=== PATIENT | male | born 1955 | race Caucasian/White ===

== ENCOUNTER 2017-04-15 12:57 | Emergency (ER) | payer MEDICARE, MEDICAID, SELFPAY ==
[2017-04-15 12:58] VITALS: BP 159/95; PULSE 62; RESP 18; TEMP 37.3; O2SAT 99; BMI 34.4
--- NOTE | 2017-04-15 13:18 | XR_ITS ---
XR chest portable HISTORY: Chest pain ITS.REASON: cp ORDERING PHYSICIAN: Cindi Adams MD PATIENT AGE: 61 years COMPARISON: 06/21/2016 FINDINGS: Normal heart size. There is increased density in the region of the aortic arch similar to the previous exam. Lungs are clear bilaterally. Nondisplaced right fourth rib fractures noted unchanged. IMPRESSION: No change with no acute finding
--- NOTE | 2017-04-15 13:18 | [facility].EDCP ---
ED Disposition Clinical Impression: Chest pain, CAD (coronary artery disease), Diabetes, Hyperlipidemia, Obesity, Unstable angina Disposition: Xfer Short-Term Hosp Condition on Discharge: Fair Referrals: Johnie Guzman MD [Primary Care Provider] - - Critical Care Critical Care Time: No Attestation: On 04/15/17, the high probability of a clinically significant, sudden or life threatening deterioration of the following system(s) required my full and direct attention, intervention and personal management. The time I documented below is in addition to time spent performing reported procedures but includes the following listed in this critical care notation. Medical Decision Making - Medical Records Medical records reviewed: Yes: I reviewed the patient's medical records. Vital Signs: 04/15/17 12:58 Temperature 99.1 F Temperature Source Oral Pulse Rate [Right Brachial] 62 Respiratory Rate 18 Blood Pressure [Right Arm] 159/95 Blood Pressure Mean [Right Arm] 116 Blood Pressure Source [Right Arm] Automatic Cuff Blood Pressure Position [Right Arm] Sitting 02 Sat by Pulse Oximetry 99 Oxygen Delivery Method Room Air - Lab Data Lab Results 04/15/17 13:05: WBC 8.3, RBC 4.40 L, Hgb 13.7 L, Hct 40.6 L, MCV 92.2, MCH 31.0, MCHC 33.7, RDW 12.9, Plt Count 265, MPV 7.2 L, Neut % (Auto) 60.8, Lymph % (Auto) 29.1, [place] % (Auto) 6.3, Eos % (Auto) 3.2, Baso % (Auto) 0.6, Neut # (Auto) 5.1, Lymph # (Auto) 2.4, [place] # (Auto) 0.5, Eos # (Auto) 0.3, Baso # (Auto) 0.1 04/15/17 13:05: Sodium 141, Potassium 3.7, Chloride 106, Carbon Dioxide 31, Anion Gap 7.7, BUN 16, Creatinine 0.93, Estimated Creat Clear 130, Estimated GFR 83, Est GFR ( Amer) 100, Glucose 118 H, Calcium 8.7, Magnesium 1.9, Total Bilirubin 0.6, AST 28, ALT 52, Alkaline Phosphatase 105, Total Creatine Kinase 116, CK-MB (CK-2) 0.7, CK-MB (CK-2) Rel Index 0.6, Troponin I < 0.02, Total Protein 7.5, Albumin 3.6, Globulin 3.9 H, Albumin/Globulin Ratio 0.9 L 04/15/17 13:05: B-Natriuretic Peptide 50 Result diagrams: 04/15/17 13:05 04/15/17 13:05 Orders (Tests/Meds): ED MEDICATIONS Discontinued Medications Generic Name Dose Route Start Last Admin Trade Name Nicho PRN Reason Stop Dose Admin Aspirin 324 mg 04/15/17 13:17 04/15/17 14:04 Aspirin 81mg Chewable Tablet PO 04/15/17 13:18 324 mg ONCE ONE Administration Enoxaparin Sodium 80 mg 04/15/17 13:58 04/15/17 14:04 Lovenox 80mg/0.8ml Syringe SQ 04/15/17 13:59 80 mg ONCE ONE Administration Famotidine 20 mg 04/15/17 13:58 04/15/17 14:04 Pepcid 20mg/2ml Vial IV 04/15/17 13:59 20 mg ONCE ONE Administration Nitroglycerin 0.5 gm 04/15/17 13:17 04/15/17 13:20 Nitroglycerin 1 Inch Oint Udp TD 04/15/17 13:18 0.5 gm ONCE ONE Administration - ECG Data Tracing #1 Normal sinus rhythm 63/min first-degree AV block LVH changes no acute findings. Stable exam from prior EKG in October 2013. ECG initial impression date: 04/15/17 ECG initial impression time: 13:22 Normal Sinus Rhythm: No - Garo Inquiry Pt receiving controlled substance: No Garo was queried for this patient: No Medical Decision Making Narrative: The patient underwent negative cardiac enzymes but he continued to have chest pain I added Lovenox, then I contacted his cabinet worker. His physician assistant to the director Mr. Darion Hall presented to the ED for evaluation. After discussion with Dr. Garcia he accepted him for transfer to [facility]. I spke with Dr majano at [facility] accepted the patient for transfere. Chest Pain HPI - General Chief Complaint: Chest Pain Stated Complaint: CHEST PAIN Mode of Arrival: Ambulatory Limitations: No Limitations Description of Symptoms (Recalled from ER Triage Doc. by RN): CHEST PAIN SINCE 0500 DOWN LEFT ARM, SHARP - History of Present Illness HPI narrative: 61 years old white male with history of coronary artery disease multiple stents in
--- NOTE | 2017-04-15 13:22 | ED_ITS ---
ED Disposition Clinical Impression: Chest pain, CAD (coronary artery disease), Diabetes, Hyperlipidemia, Obesity, Unstable angina Disposition: Xfer Short-Term Hosp Condition on Discharge: Fair Referrals: Johnie Guzman MD [Primary Care Provider] - - Critical Care Critical Care Time: No Attestation: On 04/15/17, the high probability of a clinically significant, sudden or life threatening deterioration of the following system(s) required my full and direct attention, intervention and personal management. The time I documented below is in addition to time spent performing reported procedures but includes the following listed in this critical care notation. Medical Decision Making - Medical Records Medical records reviewed: Yes: I reviewed the patient's medical records. Vital Signs: 04/15/17 12:58 Temperature 99.1 F Temperature Source Oral Pulse Rate [Right Brachial] 62 Respiratory Rate 18 Blood Pressure [Right Arm] 159/95 Blood Pressure Mean [Right Arm] 116 Blood Pressure Source [Right Arm] Automatic Cuff Blood Pressure Position [Right Arm] Sitting 02 Sat by Pulse Oximetry 99 Oxygen Delivery Method Room Air - Lab Data Lab Results 04/15/17 13:05: WBC 8.3, RBC 4.40 L, Hgb 13.7 L, Hct 40.6 L, MCV 92.2, MCH 31.0 , MCHC 33.7, RDW 12.9, Plt Count 265, MPV 7.2 L, Neut % (Auto) 60.8, Lymph % ( Auto) 29.1, [place] % (Auto) 6.3, Eos % (Auto) 3.2, Baso % (Auto) 0.6, Neut # (Auto ) 5.1, Lymph # (Auto) 2.4, [place] # (Auto) 0.5, Eos # (Auto) 0.3, Baso # (Auto) 0.1 04/15/17 13:05: Sodium 141, Potassium 3.7, Chloride 106, Carbon Dioxide 31, Anion Gap 7.7, BUN 16, Creatinine 0.93, Estimated Creat Clear 130, Estimated GFR 83, Est GFR ( Amer) 100, Glucose 118 H, Calcium 8.7, Magnesium 1.9, Total Bilirubin 0.6, AST 28, ALT 52, Alkaline Phosphatase 105, Total Creatine Kinase 116, CK-MB (CK-2) 0.7, CK-MB (CK-2) Rel Index 0.6, Troponin I < 0.02, Total Protein 7.5, Albumin 3.6, Globulin 3.9 H, Albumin/Globulin Ratio 0.9 L 04/15/17 13:05: B-Natriuretic Peptide 50 Result diagrams: 04/15/17 13:05 04/15/17 13:05 Orders (Tests/Meds): ED MEDICATIONS Discontinued Medications Generic Name Dose Route Start Last Admin Trade Name Velq PRN Reason Stop Dose Admin Aspirin 324 mg 04/15/17 13:17 04/15/17 14:04 Aspirin 81mg Chewable Tablet PO 04/15/17 13:18 324 mg ONCE ONE Administration Enoxaparin Sodium 80 mg 04/15/17 13:58 04/15/17 14:04 Lovenox 80mg/0.8ml Syringe SQ 04/15/17 13:59 80 mg ONCE ONE Administration Famotidine 20 mg 04/15/17 13:58 04/15/17 14:04 Pepcid 20mg/2ml Vial IV 04/15/17 13:59 20 mg ONCE ONE Administration Nitroglycerin 0.5 gm 04/15/17 13:17 04/15/17 13:20 Nitroglycerin 1 Inch Oint Udp TD 04/15/17 13:18 0.5 gm ONCE ONE Administration - ECG Data Tracing #1 Normal sinus rhythm 63/min first-degree AV block LVH changes no acute findings. Stable exam from prior EKG in October 2013. ECG initial impression date: 04/15/17 ECG initial impression time: 13:22 Normal Sinus Rhythm: No - Garo Inquiry Pt receiving controlled substance: No Garo was queried for this patient: No Medical Decision Making Narrative: The patient underwent negative cardiac enzymes but he continued to have chest pain I added Lovenox, then I contacted his clinical project leader. His physi
[2017-04-15 13:24] LABS: Basophils # 0.1 K/mm3 (0-0.2); Basophils % 0.6 % (0.1-2.0); Eosinophils # 0.3 K/mm3 (0.0-0.4); Eosinophils % 3.2 % (0.1-12.0); Hematocrit 40.6 % (42.0-52.0); Hemoglobin 13.7 g/dL (14.1-18.0); Lymphocytes # 2.4 K/mm3 (0.7-4.5); Lymphocytes % 29.1 K/mm3 (10-50); Mean Corpuscular HGB Conc 33.7 g/dL (31.8-35.4); Mean Corpuscular Volume 92.2 fl (80-94); Mean Platelet Volume 7.2 fl (7.4-10.4); Monocytes # 0.5 K/mm3 (0.1-1.0); Monocytes % 6.3 % (1.7-9.3); Neutrophils # 5.1 K/mm3 (1.8-7.8); Neutrophils % 60.8 % (37.0-80.0); Platelet Count 265 K/mm3 (142-424); Red Cell Distribution Width 12.9 % (11.5-17.5); White Blood Count 8.3 K/mm3 (4.8-10.8)
[2017-04-15 13:48] LABS: Alanine Aminotransferase 52 U/L (12-78); Albumin Level 3.6 gm/dL (3.4-5.0); Albumin/Globulin Ratio 0.9 (1.1-1.8); Alkaline Phosphatase 105 U/L (46-116); Anion Gap 7.7 mEq/L (5-15); Aspartate Amino Transferase 28 U/L (15-37); Bilirubin,Total 0.6 mg/dL (0.2-1.0); Blood Urea Nitrogen 16 mg/dL (7-18); CKMB Relative Index 0.6 U/L (0-4.0); Calcium 8.7 mg/dL (8.5-10.1); Carbon Dioxide 31 mmol/L (21.0-32.0); Chloride 106 mmol/L (98-107); Creatine Kinase 116 U/L (39-308); Creatine Kinase MB 0.7 mg/ml (0.0-3.6); Creatinine Clearance Estimated 130 mL/min (0-300); Creatinine,Serum 0.93 mg/dL (0.70-1.30); Estimated Glomerular Filt Rate 83 ml/min (>60); GFR (African American) 100 ML/MIN (>60); Globulin 3.9 gm/dl (1.3-3.2); Glucose 118 mg/dL (74-106); Magnesium 1.9 mg/dL (1.4-2.2); Potassium 3.7 mmoL/L (3.5-5.1); Sodium 141 mmol/L (136-145); Total Protein,Serum 7.5 gm/dL (6.4-8.2); Troponin I < 0.02 ng/ml (0.00-0.06)
[2017-04-15 16:44] VITALS: BP 142/85; PULSE 85
== END 2017-04-15 16:44 | disposition short-term general hospital (02) ==
PROVIDERS: Emergency Provider Emergency Medicine; Family Provider Family Medicine; PCP Family Medicine
DX: R07.9 Chest pain, unspecified (principal); I25.10 Atherosclerotic heart disease of native coronary artery without angina pectoris; E78.5 Hyperlipidemia, unspecified; I20.0 Unstable angina; E66.9 Obesity, unspecified; Z79.82 Long term (current) use of aspirin; E11.9 Type 2 diabetes mellitus without complications; R06.02 Shortness of breath; Z68.34 Body mass index [BMI] 34.0-34.9, adult
CPT/HCPCS: 71045; 80053; 82550; 82553; 83735; 83880; 84484; 85025; 93005; 96372; 99281

== ENCOUNTER → 2017-09-04 10:21 | Outpatient (CLI) | payer MEDICARE, MEDICAID, SELFPAY ==
[2017-09-04 12:43] LABS: Blood Urea Nitrogen 15 mg/dL (7-18); Calcium 8.9 mg/dL (8.5-10.1); Carbon Dioxide 29 mmol/L (21.0-32.0); Chloride 101 mmol/L (98-107); Creatinine,Serum 0.97 mg/dL (0.70-1.30); Estimated Glomerular Filt Rate 79 ml/min (>60); GFR (African American) 96 ML/MIN (>60); Glucose 145 mg/dL (74-106); Magnesium 1.9 mg/dL (1.4-2.2); Sodium 139 mmol/L (136-145)
== END ==
PROVIDERS: Visit Provider Physician Assistant
DX: I25.10 Atherosclerotic heart disease of native coronary artery without angina pectoris (principal); I10 Essential (primary) hypertension
CPT/HCPCS: 36415; 80048; 83735

== ENCOUNTER → 2018-02-01 11:40 | Outpatient (CLI) | payer MEDICARE, MEDICAID, SELFPAY ==
--- NOTE | 2018-02-01 11:48 | XR_ITS ---
XR ribs RT min 3V w CXR1V HISTORY: Posttraumatic chest pain ITS.REASON: PLEURODYNIA,HEMOPTYSIS ORDERING PHYSICIAN: Johnie Guzman MD PATIENT AGE: 62 years Comparison: None FINDINGS: A frontal view of the chest shows no acute finding. Multiple views of the right ribs were obtained. No fracture or dislocation. No lytic or blastic change. IMPRESSION: Negative RIBS. If pain persists, consider follow-up exam in 7-[address] with 3-D reformats.
== END ==
PROVIDERS: PCP Family Medicine; Visit Provider Family Medicine
DX: R07.81 Pleurodynia (principal); R04.2 Hemoptysis
CPT/HCPCS: 71101

== ENCOUNTER 2018-05-09 19:12 | Observation (INO) ==
[2018-05-09 19:40] LABS: Alanine Aminotransferase 38 U/L (12-78); Albumin Level 3.3 gm/dL (3.4-5.0); Alkaline Phosphatase 94 U/L (46-116); Anion Gap 10.9 mEq/L (5-15); Aspartate Amino Transferase 18 U/L (15-37); Bilirubin,Direct 0.1 mg/dL (0.0-0.2); Bilirubin,Indirect 0.3 mg/dL (0.0-0.9); Bilirubin,Total 0.4 mg/dL (0.2-1.0); Blood Urea Nitrogen 12 mg/dL (7-18); Calcium 9.1 mg/dL (8.5-10.1); Carbon Dioxide 31 mmol/L (21.0-32.0); Chloride 102 mmol/L (98-107); Glucose 125 mg/dL (74-106); Potassium 3.9 mmoL/L (3.5-5.1); Sodium 140 mmol/L (136-145); Total Protein,Serum 7.6 gm/dL (6.4-8.2)
[2018-05-09 19:41] LABS: Basophils # 0.1 K/mm3 (0-0.2); Basophils % 0.7 % (0.1-2.0); Eosinophils # 0.2 K/mm3 (0.0-0.4); Eosinophils % 2.6 % (0.1-12.0); Hematocrit 40.6 % (42.0-52.0); Hemoglobin 13.4 g/dL (14.1-18.0); Lymphocytes # 2.4 K/mm3 (0.7-4.5); Lymphocytes % 28.5 % (10-50); Mean Corpuscular HGB Conc 32.8 g/dL (31.8-35.4); Mean Corpuscular Hemoglobin 30.4 pg (27.0-31.2); Mean Corpuscular Volume 92.5 fl (80-94); Mean Platelet Volume 6.5 fl (7.4-10.4); Monocytes # 0.5 K/mm3 (0.1-1.0); Neutrophils # 5.3 K/mm3 (1.8-7.8); Neutrophils % 62.1 % (37.0-80.0); Platelet Count 441 K/mm3 (142-424); Red Blood Count 4.39 M/mm3 (4.60-6.20); White Blood Count 8.5 K/mm3 (4.8-10.8)
--- NOTE | 2018-05-09 20:54 | Emergency Department Note ---
ED Disposition Clinical Impression: New onset seizure Obesity Qualifiers: Obesity type: due to excess calories Obesity classification: adult class 1 (BMI 30 - 34.9) Serious obesity comorbidity presence: with serious comorbidity Body mass index: BMI 34.0-34.9 Qualified Code(s): E66.09 - Other obesity due to excess calories; Z68.34 - Body mass index (BMI) 34.0-34.9, adult Disposition: Admitted as Observation Condition on Discharge: Good Instructions: DI for Seizure Disorder -- Adult, DI for Seizure (Not Epilepsy/ Seizure Disorder), DI for Seizure Disorder -- Child Referrals: Johnie Guzman MD [Primary Care Provider] - - Critical Care Critical Care Time: No Attestation: On 05/09/18, the high probability of a clinically significant, sudden or life threatening deterioration of the following system(s) required my full and direct attention, intervention and personal management. The time I documented below is in addition to time spent performing reported procedures but includes the following listed in this critical care notation. Medical Decision Making - Medical Records Medical records reviewed: Yes: I reviewed the patient's medical records. - Garo Inquiry Pt receiving controlled substance: No Vital Signs: 05/09/18 19:12 05/09/18 19:13 05/09/18 20:02 Temperature 98.3 F 98.3 F Temperature Source Oral Oral Pulse Rate [Right Brachial] 85 85 84 Respiratory Rate 15 15 Blood Pressure [Right Arm] 135/79 135/79 135/81 Blood Pressure Mean [Right Arm] 97 97 99 02 Sat by Pulse Oximetry 98 98 94 L Oxygen Delivery Method Room Air Room Air 05/09/18 21:24 05/09/18 21:30 Temperature 99.0 F Temperature Source Oral Pulse Rate [Right Brachial] 65 64 Respiratory Rate 22 Blood Pressure [Right Arm] 150/88 H 142/68 H Blood Pressure Mean [Right Arm] 108 92 02 Sat by Pulse Oximetry 96 97 Oxygen Delivery Method Room Air - Lab Data Lab results reviewed: Yes: I reviewed the patient's lab results. Lab Results 05/09/18 19:14: POC Glucose 159 H 05/09/18 19:15: WBC 8.5, RBC 4.39 L, Hgb 13.4 L, Hct 40.6 L, MCV 92.5, MCH 30.4, MCHC 32.8, RDW 13.0, Plt Count 441 H, MPV 6.5 L, Neut % (Auto) 62.1, Lymph % (Auto) 28.5, [place] % (Auto) 6.0, Eos % (Auto) 2.6, Baso % (Auto) 0.7, Neut # (Auto) 5.3, Lymph # (Auto) 2.4, [place] # (Auto) 0.5, Eos # (Auto) 0.2, Baso # (Auto) 0.1 05/09/18 19:15: Sodium 140, Potassium 3.9, Chloride 102, Carbon Dioxide 31, Anion Gap 10.9, BUN 12, Creatinine 1.21, Estimated Creat Clear 99, Estimated GFR 61, Est GFR ( Amer) 74, Glucose 125 H, Calcium 9.1, Total Bilirubin 0.4, Direct Bilirubin 0.1, Indirect Bilirubin 0.3, AST 18, ALT 38, Alkaline Phosphatase 94, Troponin I < 0.02, Total Protein 7.6, Albumin 3.3 L Result diagrams: 05/09/18 19:15 05/09/18 19:15 Orders (Tests/Meds): ED MEDICATIONS Generic Name Dose Route Start Last Admin Trade Name Freq PRN Reason Stop Dose Admin Sodium Chloride 1,000 mls @ 999 mls/hr 05/09/18 20:00 05/09/18 19:59 Sod Chlor 0.9% 1000ml Bag IV 05/09/18 21:00 999 mls/hr .Q1H1M KINA Administration Levetiracetam 1,000 mg/ Sodium 110 mls @ 220 mls/hr 05/09/18 21:40 Chloride IV 05/09/18 21:41 ONCE ONE Sodium Chloride 10 ml 05/09/18 19:20 Saline Flush 10ml Syringe IV 06/08/18 19:19 NEEDED PRN Maintain IV Site Discontinued Medications Generic Name Dose Route Start Last Admin Trade Name Freq PRN Reason Stop Dose Admin Lorazepam 2 mg 05/09/18 19:56 05/09/18 19:59 Ativan 2mg/Ml Vial IV 05/09/18 19:57 2 mg ONCE ONE Administration ORDERS Category Date Time Status CT head/brain wo con Stat Cat Scan 05/09/18 19:20 Taken XR chest AP Stat Exams 05/09/18 19:31 Taken UDS [Drug Screen,Urine] Stat Lab 05/09/18 20:00 Ordered Urinalysis and Microscopic Stat Lab 05/09/18 20:00 Ordered - CT Data CT Scan: Head Time Received: 20:[address] Reviewed: Yes: I have viewed the radiologist's interpretation Preliminary Findings: Abnormal (chronic ) - ECG Data Tracing #1 Normal Sinus Rhythm: Yes Ischemic changes: non-specific ST-T wave changes - Physician Consults Physician Consulted: cachorro Reason -: Admission Seizures HPI - General Chief Complaint: Seizure Stated Complaint: possible seizure Time Seen by Provider: 05/09/18 20:51 Mode of Arrival: EMS Source of Information: Patient, Spouse, Relative, EMS, Medical Record Limitations: No Limitations Description of Symptoms (Recalled from ER Triage Doc. by RN): Brought in by EMS for possible seizure. Pt reports that he doesn't know what happened, he was sitting in a chair at the [facility], and then the next thing he knows he woke up to his and other people were looking at him - does seem slow to respond to questions at this time. - History of Present Illness HPI Narrative: after tussive event had brief sz x 2 w/ incont - no hx of shamar MOSQUEDA complaint: possible seizure Onset (ago): hour(s) Description of Episode: tonic-clonic movement, post-event confusion -: minutes(s) Witnessed: yes - by bystander Trauma: No Seizure History: none Place: other ([facility] ) Possible Precipitating Event: other (cough) Associated symptoms: denies other symptoms Treatments prior to arrival: none - Related Data Home Medications Medication Instructions Recorded Confirmed Amlodipine Besylate [Norvasc 5mg 5 mg PO DAILY 04/15/17 05/09/18 tablet] Aspirin [Aspirin 81mg chewable 81 mg PO DAILY 04/15/17 05/09/18 tab] Atenolol [Atenolol 50mg Tab] 50 mg PO BID 04/15/17 05/09/18 Clopidogrel Bisulfate [Plavix 75mg 75 mg PO DAILY 04/15/17 05/09/18 Tab] Furosemide [Lasix 20mg tab] 20 mg PO DAILY PRN 04/15/17 05/09/18 Atorvastatin Calcium [Atorvastatin 80 mg PO HS 05/09/18 05/09/18 80mg Tab] Duloxetine HCl 60 mg PO HS 05/09/18 05/09/18 Ezetimibe 10 mg PO DAILY 05/09/18 05/09/18 Potassium Chloride [Micro-K 10mEq 10 meq PO DAILY PRN 05/09/18 05/09/18 cap] Prazosin HCl [Minipress] 1 mg PO HS 05/09/18 05/09/18 Propranolol HCl [Propranolol HCl 120 mg PO DAILY 05/09/18 05/09/18 ER] Sitagliptin Phosphate [Januvia 50 mg PO DAILY 05/09/18 05/09/18 50mg Tablet] Allergies Allergy/AdvReac Type Severity Reaction Status Date / Time No Known Allergies Allergy Verified 11/03/17 13:29 [facility] History - Hepatitis A Screen Drug use history?: No High risk sexual behaviors?: No History of sexually transmitted infection?: No Currently employed?: No Childcare worker?: No Do you have indoor plumbing?: Yes Do you have electricity?: Yes Attestation statement:: This patient has been screened for Hepatitis A risk factors. I have reviewed the patient's past medical history: Yes Medical History: Reports:: Diabetes Mellitus Type 2 Denies:: Cancer, Diabetes Mellitus Type 1, Internal Pacemaker, MRSA Other Surgeries: No: Pacemaker Amputation: No - Social History Smoking Status: Unknown if ever smoked Alcohol Intake: never Occupational Status: retired Housing: house Household Members: spouse - Psychiatric History Expresses thoughts of harming self/others: None Suicide Plan Description: No Plan ROS Obtained: Yes All systems reviewed & no additional complaints - Constitutional Constitutional: Denies fever(s) - Eyes Eyes: Denies change in vision - ENT Ears, Nose, Mouth, and Throat: Denies sore throat - Cardiovascular Cardiovascular: Denies chest pain - Respiratory Respiratory: No cough - Gastrointestinal Gastrointestingal: Denies: abdominal pain - Genitourinary Male Genitourinary: Denies hematuria - Musculoskeletal Musculoskeletal: Denies joint pain - Integumentary/Breasts Skin/Breast: Denies rash - Neurologic Neurologic: Denies abnormal movements, Denies focal weakness, Denies memory loss, Reports seizure-like activity Physical Exam - General General appearance: alert, obese - Head Head exam: atraumatic, normocephalic - Eye Eye exam: Present: PERRL, EOMI. Absent: scleral icterus, nystagmus - ENT ENT exam: Present: mucous membranes dry, other (no evid of tongue biting ) - Neck Neck exam: Present: full ROM, trachea midline - Respiratory Respiratory exam: Present: normal lung sounds bilaterally. Absent: respiratory distress - Cardiovascular Cardiovascular exam: Present: regular rate, systolic murmur, +S4 - Abdominal Exam Abdominal exam: Present: soft - Extremities Exam Extremities exam: Present: full ROM - Neurological Exam Neurological exam: Present: alert, oriented X3, CN II-XII intact. Absent: motor sensory deficit - Psychiatric Psychiatric exam: Present: normal affect - Skin Skin exam: Absent: rash
[2018-05-09 21:58] LABS: Microscopic, Urine URINE MICROSCOPIC (MICROSCOPIC)
[2018-05-09 22:05] LABS: Appearance,Urine CLEAR (Clear); Bilirubin,Urine Negative (Negative); Blood, Urine Negative (Negative); Color,Urine YELLOW (Yellow); Glucose,Urine (UA) Negative (Negative); Ketones,Urine Negative (Negative); Leukocyte Esterase,Urine Negative (Negative); PH,Urine 6.5 (5.0-8.5); Protein,Urine Negative (Negative)
[2018-05-09 22:11] LABS: Amphetamine/Metha Screen,Urine Negative ng/mL (<1000); Barbiturates Screen,Urine Negative ng/mL (<200); Benzodiazepines Screen,Urine Negative ng/mL (<200); Cannabinoid Screen,Urine Negative ng/mL (<50); Cocaine Screen,Urine Negative ng/mL (<300); Methadone Screen,Urine Negative ng/mL (<300); Opiate Screen,Urine Negative ng/mL (<300); Phencyclidine Screen,Urine Negative ng/mL (<25)
[2018-05-09 22:25] LABS: Bacteria,Urine Trace /lpf; Squamous Epithelial Cell,Urine Occasional #/hpf (0-5); WBC,Urine Occasional #/hpf (0-3)
[2018-05-10 06:15] LABS: Basophils # 0.1 K/mm3 (0-0.2); Basophils % 0.7 % (0.1-2.0); Eosinophils # 0.2 K/mm3 (0.0-0.4); Eosinophils % 2.1 % (0.1-12.0); Hematocrit 40.9 % (42.0-52.0); Hemoglobin 13.8 g/dL (14.1-18.0); Lymphocytes # 2.4 K/mm3 (0.7-4.5); Lymphocytes % 25.8 % (10-50); Mean Corpuscular HGB Conc 33.8 g/dL (31.8-35.4); Mean Corpuscular Hemoglobin 31.5 pg (27.0-31.2); Mean Corpuscular Volume 93.2 fl (80-94); Mean Platelet Volume 6.5 fl (7.4-10.4); Monocytes # 0.5 K/mm3 (0.1-1.0); Monocytes % 5.3 % (1.7-9.3); Neutrophils # 6.1 K/mm3 (1.8-7.8); Neutrophils % 66.1 % (37.0-80.0); Platelet Count 401 K/mm3 (142-424); Red Blood Count 4.39 M/mm3 (4.60-6.20); Red Cell Distribution Width 13.2 % (11.5-17.5); White Blood Count 9.3 K/mm3 (4.8-10.8)
[2018-05-10 06:20] LABS: Anion Gap 10.1 mEq/L (5-15); Potassium 4.1 mmoL/L (3.5-5.1)
--- NOTE | 2018-05-10 07:25 | Pharmacy Consult Notes ---
[facility] VTE Monitoring - Patient Demographics Admission date: 05/09/18 Report Date: 05/10/18 Time: 07:25 Allergies/Adverse Reactions: Patient Allergies No Known Allergies Allergy (Verified 11/03/17 13:29) Height: 1.78 m Weight: 108.012 kg Patient Problems: Current Active Problems Obesity (Acute) New onset seizure (Acute) - VTE Risk Labs: VTE Related Lab Results Hgb 13.8 g/dL (14.1-18.0) L 05/10/18 05:50 Hct 40.9 % (42.0-52.0) L 05/10/18 05:50 Plt Count 401 K/mm3 (142-424) 05/10/18 05:50 BUN 11 mg/dL (7-18) 05/10/18 05:50 Creatinine 1.07 mg/dL (0.70-1.30) 05/10/18 05:50 Estimated Creat Clear 111 mL/min (50-200) 05/10/18 05:50 Was VTE Risk Assessment Performed: Yes VTE Score: 3 VTE Risk Level: Low Risk - Prophylaxis VTE Prophylaxis Ordered?: Yes Types of VTE Prophylaxis: TEDS Knee High Location of Applied Device: Bilateral Lower Extremeties - VTE Diagnosis Confirmed Treatment or plan recommended: Continue Current Treatment
--- NOTE | 2018-05-10 09:09 | Carotid Imaging Report ---
"Cerebrovascular Exam Indications: 435.9 Unspecified transient cerebral ischemia. 780.2 Syncope and collapse. IMPRESSIONS 1. The bilateral vertebral arteries are patent with normal antegrade flow. 2. Study suggests less than 20% stenosis involving the right internal carotid artery and the left internal carotid artery. No change from the study of 26-Jul-2013. History: Coronary artery disease. Risk factors: Hypertension. Diabetes mellitus. Hyperlipidemia. Carotid duplex study. Complete study and Doppler flow study including spectral analysis, color and hess scale imaging. Location: Vascular laboratory. Patient status: Inpatient. Tables: Arterial flow: + +--------+--------+ |Location |V sys |V ed | + +--------+--------+ |Right CCA - proximal|57.4cm/s|12.6cm/s| + +--------+--------+ |Right CCA - distal |73.1cm/s|21.2cm/s| + +--------+--------+ |Right ECA |60.5cm/s|--------| + +--------+--------+ |Right ICA - proximal|49.5cm/s|17.3cm/s| + +--------+--------+ |Right ICA - mid |56.6cm/s|20.4cm/s| + +--------+--------+ |Right ICA - distal |72.3cm/s|25.1cm/s| + +--------+--------+ |Right vertebral |40.9cm/s|--------| + +--------+--------+ |Left CCA - proximal |72.3cm/s|15.7cm/s| + +--------+--------+ |Left CCA - distal |55cm/s |10.2cm/s| + +--------+--------+ |Left ECA |82.5cm/s|--------| + +--------+--------+ |Left ICA - proximal |82.5cm/s|25.9cm/s| + +--------+--------+ |Left ICA - mid |84.9cm/s|22.8cm/s| + +--------+--------+ |Left ICA - distal |57.4cm/s|21.1cm/s| + +--------+--------+ |Left vertebral |37.7cm/s|--------| + +--------+--------+ Velocity ratios: + + + + + + | |Right, V sys|Right, V ed|Left, V sys|Left, V ed| + + + + + + |Max ICA/dist CCA|0.99 |1.18 |1.54 |2.54 | + + + + + + (Report amended ) Electronically signed by: Jarrett Escobedo [id number]"
--- NOTE | 2018-05-10 09:17 | History & Physical Report ---
*Admission Date: 05/09/18 <Allegra Eric - 05/10/18 09:51> *Chief complaint: Seizure activity <Allegra Eric - 05/10/18 09:51> *History of present illness: Mr. Pickard is a 62-year-old male with an extensive cardiac history with multiple stents, hypertension, dyslipidemia, diabetes mellitus, history of TIA, depression, and gout who when having a coughing spell at the [facility] last night had witnessed seizure activity. His was present and states he had some jerking and his eyes rolled back in his head. He had no loss of bowel or bladder control. He was brought to the emergency room at [facility] for evaluation and had additional witnessed seizure activity. With evaluation in the ER CT of the head showed nothing acute. He was then admitted for further observation and treatment. He was started on IV Keppra and had Ativan IV as well after seizures. This morning patient denies chest pain. He states he did have some sharp pain between his shoulder blades at the [facility] which lasted about an hour last night prior to the seizure. He does not remember having any palpitations or shortness of breath. He does not remember anything after the seizure until early this morning. This a.m. he remains comfortable and continues to deny ches t pain. His breathing is good. He has periodic coughing spasms which he has had for the last 2 weeks. He blames this on postnasal drainage and sinus issues. Review of cardiac note from visit with Dr. Norris 05/04/2018 indicate that patient was having 2-3" spells "per week. Patient describes these as a change of vision and then feeling funny. Afterwards he does not recall specifics. He did have a fall 2 weeks ago with 1 of these spells. states patient has 21 stents with the last one being 03/29/2018. Patient does not check BS or BP after these spells. <Allegra Eric - 05/10/18 10:39> [facility] History Medical History: Reports:: Atherosclerotic Heart Disease, Coronary Artery Disease, Depression, Diabetes Mellitus Type 2, Gastroesophageal Reflux Disease(GERD), Hyperlipidemia, Hypertension, Transient Ischemic Attacks (TIA) Denies:: Atrial Fibrillation, Cancer, Diabetes Mellitus Type 1, Home Oxygen, Internal Pacemaker, MRSA, Seizures <Allegra Eric 05/10/18 09:51> *Have you ever received a pneumonia vaccine?: Yes <Allegra Eric 05/10/18 09:51> *Have you received a flu vaccine this season?: Yes <Allegra Eric 05/10/18 09:51> Other Medical History: Reports: Sinus Problems <Allegra Eric 05/10/18 09:51> Other Surgeries: Yes: Hernia Repair (right Inguinal). No: Pacemaker <HernestoAllegra 05/10/18 10:39> Amputation: No <Allegra Eric 05/10/18 09:51> Fractures: No <Allegra Eric 05/10/18 09:51> Comment: Kidney stone removal; vasectomy; multiple cardiac stents; multiple heart caths. <Allegra Eric 05/10/18 09:51> - *Social History Educational Level: Completed High School <Allegra Eric 05/10/18 09:51> Smoking Status: Former smoker <Allegra Eric 05/10/18 09:51> Tobacco Type: cigarettes <Allegra Eric 05/10/18 09:51> Smoking End Date: 30 years ago <Allegra Eric 05/10/18 09:51> Alcohol Intake: never <Allegra Eric 05/10/18 09:51> *Occupational Status:: retired, disabled <Allegra Eric 05/10/18 09:51> Housing: house <Allegra Eric 05/10/18 09:51> Household Members: spouse <Allegra Eric 05/10/18 09:51> *Travel in the last 8 weeks: None <Allegra Eric 05/10/18 09:51> - Psychiatric History Expresses thoughts of harming self/others: None <HernestoAllegra 05/10/18 09:51> Suicide Plan Description: No Plan <Allegra Eric 05/10/18 09:51> Family Hx:: Cancer, Coronary Artery Disease, Diabetes <Allegra Eric 05/10/18 09:51> Comment: Father at the age of 72. He had heart problems and colon cancer. Mother at the age of 58 with heart attack. She also had lung cancer, diabetes mellitus. Brother at the age of 50 due to massive heart attack. sister at the age of 50 due to an asthma attack. Another sister with diabetes <Allegra Eric 05/10/18 09:51> Review of Systems - Constitutional Reports weakness, Denies fever(s), Denies headache(s) <Allegra Eric 05/10/18 09:51> - Eyes Reports blurry vision (Prior to his spells) <Allegra Eric 05/10/18 09:51> - ENT Reports dizziness, Denies ear pain, Denies headache(s), Denies sore throat <[facility] 05/10/18 09:51> - *Cardiovascular Denies chest pain, Denies shortness of breath, Denies irregular heart rhythm, Denies leg swelling <Allegra Eric 05/10/18 09:51> - *Respiratory Reports cough (Has terrific coughing spasms), Denies change in phlegm color, Denies shortness of breath, Denies coughing up blood <Allegra Eric 05/10/18 09:51> - *Gastrointestinal Reports heartburn (After eating spicy foods), Denies abdominal pain, Denies constipation, Denies vomiting blood, Denies bright, red blood in stools, Denies black, tarry stools, Denies nausea, Denies vomiting <Allegra Eric 05/10/18 09:51> - *Genitourinary Denies difficulty urinating <Johanne Erichy 05/10/18 09:51> - *Musculoskeletal Reports back pain (Sharp pain between shoulder blades last night lasted about an hour. ), Denies abnormal walking <Allegar Eric 05/10/18 09:51> - *Neurologic Reports seizure-like activity, Denies abnormal movements, Denies abnormal speech, Denies localized weakness, Denies memory loss <Allegra Eric 05/10/18 09:51> Comments: Memory loss after seizure <Allegra Eric 05/10/18 09:51> Meds Home Medications Medication Instructions Recorded Confirmed Type Amlodipine Besylate [Norvasc 5mg 5 mg PO DAILY 04/15/17 05/09/18 History tablet] Atenolol [Atenolol 50mg Tab] 50 mg PO BID 04/15/17 05/09/18 History Clopidogrel Bisulfate [Plavix 75mg 75 mg PO DAILY 04/15/17 05/09/18 History Tab] Furosemide [Lasix 20mg tab] 20 mg PO DAILY PRN 04/15/17 05/09/18 History Atorvastatin Calcium [Atorvastatin 80 mg PO HS 05/09/18 05/09/18 History 80mg Tab] Duloxetine HCl 60 mg PO HS 05/09/18 05/09/18 History Ezetimibe 10 mg PO DAILY 05/09/18 05/09/18 History Potassium Chloride [Micro-K 10mEq 10 meq PO DAILY PRN 05/09/18 05/09/18 History cap] Prazosin HCl [Minipress] 1 mg PO HS 05/09/18 05/09/18 History Propranolol HCl [Propranolol HCl 120 mg PO DAILY 05/09/18 05/09/18 History ER] Sitagliptin Phosphate [Januvia 50 mg PO DAILY 05/09/18 05/09/18 History 50mg Tablet] Aspirin [Aspirin 81mg EC Tab] 81 mg PO DAILY 05/10/18 05/10/18 History <Johnie Guzman - 05/10/18 13:01> Allergies Allergy/AdvReac Type Severity Reaction Status Date / Time No Known Allergies Allergy Verified 11/03/17 13:29 <Johnie Guzman - 05/10/18 13:01> Exam Vital signs and Labs for Last 24 Hours: Temp Pulse Resp BP Pulse Ox 97.0 F L 74 16 144/82 H 95 05/10/18 08:00 05/10/18 08:00 05/10/18 08:00 05/10/18 08:00 05/10/18 08:00 Laboratory Results - last 24 hr 05/09/18 19:14: POC Glucose 159 H 05/09/18 19:15: WBC 8.5, RBC 4.39 L, Hgb 13.4 L, Hct 40.6 L, MCV 92.5, MCH 30.4, MCHC 32.8, RDW 13.0, Plt Count 441 H, MPV 6.5 L, Neut % (Auto) 62.1, Lymph % (Auto) 28.5, [place] % (Auto) 6.0, Eos % (Auto) 2.6, Baso % (Auto) 0.7, Neut # (Auto) 5.3, Lymph # (Auto) 2.4, [place] # (Auto) 0.5, Eos # (Auto) 0.2, Baso # (Auto) 0.1 05/09/18 19:15: Sodium 140, Potassium 3.9, Chloride 102, Carbon Dioxide 31, Anion Gap 10.9, BUN 12, Creatinine 1.21, Estimated Creat Clear 99, Estimated GFR 61, Est GFR ( Amer) 74, Glucose 125 H, Calcium 9.1, Total Bilirubin 0.4, Direct Bilirubin 0.1, Indirect Bilirubin 0.3, AST 18, ALT 38, Alkaline Phosphatase 94, Troponin I < 0.02, Total Protein 7.6, Albumin 3.3 L 05/09/18 21:55: Urine Color Yellow, Urine Appearance Clear, Urine pH 6.5, Ur Specific [place] 1.010, Urine Protein Negative, Urine Glucose (UA) Negative, Urine Ketones Negative, Urine Blood Negative, Urine Nitrate Negative, Urine Bilirubin Negative, Urine Urobilinogen 1.0, Ur Leukocyte Esterase Negative, Urine RBC None, Urine WBC Occasional, Ur Squamous Epith Cells Occasional, Urine Bacteria Trace 05/09/18 21:55: Urine Opiates Screen Negative, Urine Methadone Screen Negative, Ur Barbituates Screen Negative, Ur Phencyclidine Scrn Negative, Ur Amphetamines Screen Negative, U Benzodiazepines Scrn Negative, Urine Cocaine Screen Negative, U Marijuana (THC) Screen Negative 05/10/18 05:50: WBC 9.3, RBC 4.39 L, Hgb 13.8 L, Hct 40.9 L, MCV 93.2, MCH 31.5 H, MCHC 33.8, RDW 13.2, Plt Count 401, MPV 6.5 L, Neut % (Auto) 66.1, Lymph % (Auto) 25.8, [place] % (Auto) 5.3, Eos % (Auto) 2.1, Baso % (Auto) 0.7, Neut # (Auto) 6.1, Lymph # (Auto) 2.4, [place] # (Auto) 0.5, Eos # (Auto) 0.2, Baso # (Auto) 0.1 05/10/18 05:50: Sodium 140, Potassium 4.1, Chloride 105, Carbon Dioxide 29, Anion Gap 10.1, BUN 11, Creatinine 1.07, Estimated Creat Clear 111, Estimated GFR 70, Est GFR ( Amer) 85, Glucose 101, Calcium 9.0, Magnesium 2.2 05/10/18 05:50: TSH 1.12 05/10/18 06:25: POC Glucose 96 05/10/18 12:36: POC Glucose 71 <Johnie Guzman - 05/10/18 13:01> Temp Pulse Resp BP Pulse Ox 97.0 F L 74 16 144/82 H 95 05/10/18 08:00 05/10/18 08:00 05/10/18 08:00 05/10/18 08:00 05/10/18 08:00 Laboratory Results - last 24 hr 05/09/18 19:14: POC Glucose 159 H 05/09/18 19:15: WBC 8.5, RBC 4.39 L, Hgb 13.4 L, Hct 40.6 L, MCV 92.5, MCH 30.4, MCHC 32.8, RDW 13.0, Plt Count 441 H, MPV 6.5 L, Neut % (Auto) 62.1, Lymph % (Auto) 28.5, [place] % (Auto) 6.0, Eos % (Auto) 2.6, Baso % (Auto) 0.7, Neut # (Auto) 5.3, Lymph # (Auto) 2.4, [place] # (Auto) 0.5, Eos # (Auto) 0.2, Baso # (Auto) 0.1 05/09/18 19:15: Sodium 140, Potassium 3.9, Chloride 102, Carbon Dioxide 31, Anion Gap 10.9, BUN 12, Creatinine 1.21, Estimated Creat Clear 99, Estimated GFR 61, Est GFR ( Amer) 74, Glucose 125 H, Calcium 9.1, Total Bilirubin 0.4, Direct Bilirubin 0.1, Indirect Bilirubin 0.3, AST 18, ALT 38, Alkaline Phosphatase 94, Troponin I < 0.02, Total Protein 7.6, Albumin 3.3 L 05/09/18 21:55: Urine Color Yellow, Urine Appearance Clear, Urine pH 6.5, Ur Specific [place] 1.010, Urine Protein Negative, Urine Glucose (UA) Negative, Urine Ketones Negative, Urine Blood Negative, Urine Nitrate Negative, Urine Bilirubin Negative, Urine Urobilinogen 1.0, Ur Leukocyte Esterase Negative, Urine RBC None, Urine WBC Occasional, Ur Squamous Epith Cells Occasional, Urine Bacteria Trace 05/09/18 21:55: Urine Opiates Screen Negative, Urine Methadone Screen Negative, Ur Barbituates Screen Negative, Ur Phencyclidine Scrn Negative, Ur Amphetamines Screen Negative, U Benzodiazepines Scrn Negative, Urine Cocaine Screen Negative, U Marijuana (THC) Screen Negative 05/10/18 05:50: WBC 9.3, RBC 4.39 L, Hgb 13.8 L, Hct 40.9 L, MCV 93.2, MCH 31.5 H, MCHC 33.8, RDW 13.2, Plt Count 401, MPV 6.5 L, Neut % (Auto) 66.1, Lymph % (Auto) 25.8, [place] % (Auto) 5.3, Eos % (Auto) 2.1, Baso % (Auto) 0.7, Neut # (Auto) 6.1, Lymph # (Auto) 2.4, [place] # (Auto) 0.5, Eos # (Auto) 0.2, Baso # (Auto) 0.1 05/10/18 05:50: Sodium 140, Potassium 4.1, Chloride 105, Carbon Dioxide 29, Anion Gap 10.1, BUN 11, Creatinine 1.07, Estimated Creat Clear 111, Estimated GFR 70, Est GFR ( Amer) 85, Glucose 101, Calcium 9.0, Magnesium 2.2 05/10/18 06:25: POC Glucose 96 <Allegra Eric - 05/10/18 09:51> I & O for Last 24 hours: Intake & Output 05/08/18 05/09/18 05/10/18 05/11/18 11:59 11:59 11:59 11:59 Intake Total 2131 Balance 2131 Weight 238 lb 2 oz <Johnie Guzman - 05/10/18 13:01> Intake & Output 05/07/18 05/08/18 05/09/18 05/10/18 11:59 11:59 11:59 11:59 Intake Total 2132 / 2132 Balance 2132 / 2132 Weight 238 lb 2 oz <Allegra Eric 05/10/18 09:51> Radiology Reports for the Last 24 Hours: 05/09/2018 CT of the head IMPRESSION: No acute intracranial findings. No significant change compared to 06/21/2016 05/09/2018 chest x-ray IMPRESSION: Limited exam, no acute finding apparent. Consider upright PA and lateral chest <Allegra Eric 05/10/18 09:51> - Constitutional no acute distress <Allegra Eric 05/10/18 09:51> Comments: Sitting up in the bed and appears comfortable <Allegra Eric 05/10/18 09:51> - *Routine HEENT Exam Head: Present: normocephalic. Absent: atraumatic (Right cheek facial scar) <Allegra Eric 05/10/18 09:51> Eye: Present: EOMI, PERRL. Absent: conjunctival icterus, scleral injection <Allegra Eric 05/10/18 09:51> ENT: Present: mucous membranes moist, oropharynx clear <Allegra Eric 05/10/18 09:51> - *Routine Neck Exam Present: supple. Absent: carotid bruit, lymphadenopathy, thyromegaly <Allegra Eric 05/10/18 09:51> - *Routine Respiratory Exam Comments: Right basilar crackles posteriorly <Allegra Eric 05/10/18 09:51> - *Routine Cardiovascular Exam Present: RRR <Allegra Eric 05/10/18 09:51> - *Routine Abdominal Exam Present: soft, normoactive bowel sounds. Absent: tenderness, guarding <Allegra Eric 05/10/18 09:51> Comments: Rounded <Allegra Eric 05/10/18 09:51> - *Routine Extremities Exam Present: full ROM. Absent: edema, calf tenderness <Allegra Eric 05/10/18 09:51> - *Routine Neurological Exam Present: alert, oriented X3, moving all extremities, normal tone, normal speech. Absent: motor deficit, altered mental status, tremors <Allegra Eric 05/10/18 09:51> Assessment and Plan (1) New onset seizure Current visit: Yes Status: Acute Category: Medical Code(s): R56.9 - Unspecified convulsions (2) Hypertension Current visit: Yes Status: Chronic Category: Medical Code(s): I10 - Essential (primary) hypertension (3) CAD (coronary artery disease) Current visit: No Status: Chronic Category: Medical Code(s): I25.10 - Atherosclerotic heart disease of [place] coronary artery without angina pectoris (4) Diabetes Current visit: No Status: Chronic Category: Medical Code(s): E11.9 - Type 2 diabetes mellitus without complications (5) Hyperlipidemia Current visit: No Status: Chronic Category: Medical Code(s): E78.5 - Hyperlipidemia, unspecified <ThomasJohnie ingram - 05/10/18 13:01> (1) New onset seizure Current visit: Yes Status: Acute Category: Medical Code(s): R56.9 - Unspecified convulsions (2) Hypertension Current visit: Yes Status: Chronic Category: Medical Code(s): I10 - Essential (primary) hypertension (3) CAD (coronary artery disease) Current visit: No Status: Chronic Category: Medical Code(s): I25.10 - Atherosclerotic heart disease of [place] coronary artery without angina pectoris (4) Diabetes Current visit: No Status: Chronic Category: Medical Code(s): E11.9 - Type 2 diabetes mellitus without complications (5) Hyperlipidemia Current visit: No Status: Chronic Category: Medical Code(s): E78.5 - Hyperlipidemia, unspecified <Allegra Eric - 05/10/18 10:34> - Assessment and plan all Dx Assessment and Plan for all problems:: Patient seen and examined. Concur with above assessment and plan. At this time, he is feeling better. No further seizures. Awaiting test results. <Johnie Guzman - 05/10/18 13:01> Will place patient on cardiac nurse. He will have carotid ultrasound, echocardiogram, EEG, and MRI of the head. He will continue on with Keppra. <Allegra Eric - 05/10/18 10:32>
--- NOTE | 2018-05-11 07:13 | Cardiology Report ---
CA echo doppler complete PROCEDURE: INDICATIONS FOR THE TEST: Chest pain COPD Heart Murmur Tobacco Smoking Palpitations Fatigue Syncope Edema Hypertension+ Diabetes Mellitus Rheumatic Fever SOB AVALOS Obesity+Hyperlipidemia+ Family History HD Additional History PATIENT INFORMATION HEIGHT: 70 WEIGHT:238 GENDER: Male B/P:138/88 2-D/M-MODE INTERPRETATION: 2-D MEASUREMENTS OBSERVED VALUES IN CMS Right Ventricular Dimension (RVDd) 3.2 Interventricular Septum (Thickness)(IVsd) 1.0 Left Ventricular Internal Dimensions(LVIDd) 6.0 Left Ventricular Posterior Wall (Thickness)(LVPWd) 1.0 Aortic Root 2.7 Aortic Cusp Separation 1.7 Left Atrial Dimensions (LAD) 4.0 2D 1. Left atrium is mildly enlarged, left ventricle is normal size, mild concentric left ventricular hypertrophy, visually estimated ejection fraction of 55% with no regional wall motion abnormality. 2. The right atrium and right ventricle are mildly enlarged with normal contractility. 3. The aortic valve is minimally thickened and fibrosed. 4. The mitral and tricuspid valve leaflets are minimally thickened identified. 5. The pulmonic valve is poorly visualized. 6. No significant pericardial effusion noted. DOPPLER INTERROGATION: Doppler interrogation of the aortic, mitral and tricuspid valvular presence of mild mitral and tricuspid regurgitation, tricuspid regurgitation jet velocity is inadequate for calculation of the right ventricular systolic pressure, grade 1 diastolic dysfunction seen with tissue Doppler evidence of raised left atrial pressure. CONCLUSION: 1. Mild biatrial enlargement, normal left ventricular size, mild concentric left ventricular hypertrophy, visually estimated ejection fraction 55% with no regional wall motion abnormality. Grade 1 diastolic dysfunction seen without tissue Doppler evidence of raised left atrial pressure. 2. Mildly enlarged right ventricle with normal contractility. 3. Mild mitral and tricuspid regurgitation 4. No significant pericardial effusion noted.
--- NOTE | 2018-05-11 08:17 | Progress Note ---
<Allegra Eric - Last Filed: 05/11/18 08:14> Internal Medicine - PN: Subj *Date: 05/11/18 *Time: 08:21 Interval history: Patient states he is doing well. He has had no further spells. Chest pain and shortness of breath. He has been ambulating with out problems. He has been eating without problems. He is ready to go home. Echocardiogram to 2018 CONCLUSION: 1. Mild biatrial enlargement, normal left ventricular size, mild concentric left ventricular hypertrophy, visually estimated ejection fraction 55% with no regional wall motion abnormality. Grade 1 diastolic dysfunction seen without tissue Doppler evidence of raised left atrial pressure. 2. Mildly enlarged right ventricle with normal contractility. 3. Mild mitral and tricuspid regurgitation 4. No significant pericardial effusion noted. Exam Vital signs and Labs for Last 24 Hours: Temp Pulse Resp BP Pulse Ox 98.2 F 71 16 129/55 L 94 L 05/11/18 07:57 05/11/18 07:57 05/11/18 07:57 05/11/18 07:57 05/11/18 07:57 Laboratory Results - last 24 hr 05/10/18 05:50: TSH 1.12 05/10/18 12:36: POC Glucose 71 05/10/18 16:57: POC Glucose 116 H 05/10/18 20:09: POC Glucose 97 05/11/18 05:44: POC Glucose 104 I & O for Last 24 hours: Intake & Output 05/08/18 05/09/18 05/10/18 05/11/18 11:59 11:59 11:59 11:59 Intake Total 2131 / 2131 800 / 800 Output Total 2200 / 2200 Balance 2131 / 2131 -1400 / -1400 Weight 238 lb 2 oz 240 lb 4 oz Radiology Reports for the Last 24 Hours: 05/10/2018 echo CONCLUSION: 1. Mild biatrial enlargement, normal left ventricular size, mild concentric left ventricular hypertrophy, visually estimated ejection fraction 55% with no regional wall motion abnormality. Grade 1 diastolic dysfunction seen without tissue Doppler evidence of raised left atrial pressure. 2. Mildly enlarged right ventricle with normal contractility. 3. Mild mitral and tricuspid regurgitation 4. No significant pericardial effusion noted. 05/10/2018 carotid ultrasound IMPRESSIONS 1. The bilateral vertebral arteries are patent with normal antegrade flow. 2. Study suggests less than 20% stenosis involving the right internal carotid artery and the left internal carotid artery. No change from the study of 26-Jul-2013. 05/10/2018 MRI of the head IMPRESSION: 1. No acute intracranial findings. 2. Chronic ischemic gliotic changes. Overall no significant change from the previous exam of 08/27/2013 05/10/2018 EEG No seizure activity noted - Constitutional no acute distress Comments: Sitting on the bedside eating his breakfast. Appears very comfortable - *Routine Respiratory Exam Comments: Few bibasilar crackles - *Routine Cardiovascular Exam Present: RRR, murmur - *Routine Abdominal Exam Present: normoactive bowel sounds. Absent: tenderness - *Routine Extremities Exam Absent: edema, calf tenderness - *Routine Neurological Exam Present: alert, oriented X3 Assessment and Plan (1) New onset seizure Current visit: Yes Status: Acute Category: Medical Code(s): R56.9 - Unspecified convulsions (2) Hypertension Current visit: Yes Status: Chronic Category: Medical Code(s): I10 - Essential (primary) hypertension (3) CAD (coronary artery disease) Current visit: No Status: Chronic Category: Medical Code(s): I25.10 - Atherosclerotic heart disease of [place] coronary artery without angina pectoris (4) Diabetes Current visit: No Status: Chronic Category: Medical Code(s): E11.9 - Type 2 diabetes mellitus without complications (5) Hyperlipidemia Current visit: No Status: Chronic Category: Medical Code(s): E78.5 - Hyperlipidemia, unspecified - Assessment and plan all Dx Assessment and Plan for all problems:: Patient is ready for discharge today. We will continue with the [facility] for now. Follow-up as per Dr. Guzman. <Johnie Guzman - Last Filed: 05/11/18 08:50> Exam Vital signs and Labs for Last 24 Hours: Temp Pulse Resp BP Pulse Ox 98.2 F 71 16 129/55 L 94 L 05/11/18 07:57 05/11/18 07:57 05/11/18 07:57 05/11/18 07:57 05/11/18 07:57 Laboratory Results - last 24 hr 05/10/18 05:50: TSH 1.12 05/10/18 12:36: POC Glucose 71 05/10/18 16:57: POC Glucose 116 H 05/10/18 20:09: POC Glucose 97 05/11/18 05:44: POC Glucose 104 I & O for Last 24 hours: Intake & Output 05/08/18 05/09/18 05/10/18 05/11/18 11:59 11:59 11:59 11:59 Intake Total 2131 800 / 800 Output Total 2199 / 2200 Balance 2131 -1400 / -1400 Weight 238 lb 2 oz 240 lb 4 oz Assessment and Plan (1) New onset seizure Current visit: Yes Status: Acute Category: Medical Code(s): R56.9 - Unspecified convulsions (2) Hypertension Current visit: Yes Status: Chronic Category: Medical Code(s): I10 - Essential (primary) hypertension (3) CAD (coronary artery disease) Current visit: No Status: Chronic Category: Medical Code(s): I25.10 - Atherosclerotic heart disease of [place] coronary artery without angina pectoris (4) Diabetes Current visit: No Status: Chronic Category: Medical Code(s): E11.9 - Type 2 diabetes mellitus without complications (5) Hyperlipidemia Current visit: No Status: Chronic Category: Medical Code(s): E78.5 - Hyperlipidemia, unspecified - Assessment and plan all Dx Assessment and Plan for all problems:: Patient seen and examined. His mentation has cleared and he is back to his baseline. Carotid doppler, MRI, EEG, Echo, cardiac monitoring and labs all essentially normal with no obvious explanation for his spells. 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 Nontheless he is stable for discharge today. Will continue the Keppra for now and arrange neurology referral as an outpt.
--- NOTE | 2018-05-11 15:09 | Discharge Summary ---
General - General Admission date:: 05/09/18 Discharge date: 05/11/18 HPI HPI: Mr. Pickard is a 62-year-old male with an extensive cardiac history with multiple stents, hypertension, dyslipidemia, diabetes mellitus, history of TIA, depression, and gout who when having a [facility] spell [facility] had a witnessed seizure. His was present and states he had some jerking and his eyes rolled back in his head. He had no loss of bowel or bladder control. He was brought to the emergency room at [facility] for evaluation and had additional witnessed seizure activity. With evaluation in the ER CT of the head showed nothing acute. He was then admitted for further observation and treatment. He was started on IV Keppra and had Ativan IV as well after seizures. The following morning patient denied chest pain. He stated he did have some sharp pain between his shoulder blades at [facility] which lasted about an hour prior to the seizure. He did not remember having any palpitations or shortness of breath. He did not remember anything after the seizure until early this morning. This following AM he remained comfortable and continued to deny chest pain. His breathing was good. He noted periodic coughing spasms which he had experienced for the past 2 weeks. He blamed this on postnasal drainage and sinus issues. Review of cardiac note from visit with Dr. Norris 05/04/2018 indicated that patient was having 2-3 " spells "per week. Patient described these as a change of vision and then feeling funny. Afterward the spell he would not be able to recall specifics. He did have a fall 2 weeks ago with 1 of these spells. His stated that the patient has had 21 stents placed with the last one being 03/29/2018. Patient noted that he does not check BS's or BP after these spells. Hospital Course Hospital Course: After admission patient had extensive studies to include carotid ultrasound, echocardiogram, MRI of the head, and EEG. These were all negative. He was started on Keppra p.o, home medicines, who was on sliding scale insulin. He was placed on the cardiac catheterization technician and no arrhythmias were noted. 05/10/2018 patient ambulated without difficulty. He was eating without problems. Bowels and bladder were functioning. He had no seizure activity after the emergency room events. 05/11/2018 patient was stable to be discharged home. He was to go home on Keppra 500 mg twice daily with follow-up with Dr. Guzman May 17, 2018. Medications as per medication reconciliation sheet. See discharge orders. Objective Vital signs: Temp Pulse Resp BP Pulse Ox 98.2 F 70 16 129/55 L 94 L 05/11/18 07:57 05/11/18 08:00 05/11/18 07:57 05/11/18 07:57 05/11/18 07:57 Narrative: Patient was alert and oriented and in no acute distress. Heart was regular rate and rhythm. Lungs sounded clear to auscultation bilaterally A&P. Abdomen was soft, nontender, rounded and with positive bowel sounds. He had no leg edema. Results Completed studies during hospitalization [Text1]: Head CT 05/09/2018 IMPRESSION: No acute intracranial findings. No significant change compared to 06/21/2016 Chest x-ray 05/09/2018 MPRESSION: Limited exam, no acute finding apparent. Consider upright PA and lateral chest Carotid ultrasound 05/10/2018 IMPRESSIONS 1. The bilateral vertebral arteries are patent with normal antegrade flow. 2. Study suggests less than 20% stenosis involving the right internal carotid artery and the left internal carotid artery. No change from the study of 26-Jul-2013. Echocardiogram 05/10/2018 CONCLUSION: 1. Mild biatrial enlargement, normal left ventricular size, mild concentric left ventricular hypertrophy, visually estimated ejection fraction 55% with no regional wall motion abnormality. Grade 1 diastolic dysfunction seen without tissue Doppler evidence of raised left atrial pressure. 2. Mildly enlarged right ventricle with normal contractility. 3. Mild mitral and tricuspid regurgitation 4. No significant pericardial effusion noted. MRI of the brain 05/10/2018 IMPRESSION: 1. No acute intracranial findings. 2. Chronic ischemic gliotic changes. Overall no significant change from the previous exam of 08/27/2013 05/10/2018 normal EEG Laboratory Tests 05/09/18 05/10/18 05/10/18 21:55 05:50 05:50 WBC 9.3 RBC 4.39 L Hgb 13.8 L Hct 40.9 L MCV 93.2 MCH 31.5 H MCHC 33.8 RDW 13.2 Plt Count 401 MPV 6.5 L Neut % (Auto) 66.1 Lymph % (Auto) 25.8 Mitchell % (Auto) 5.3 Sodium 140 Potassium 4.1 Chloride 105 Carbon Dioxide 29 Anion Gap 10.1 BUN 11 Creatinine 1.07 Estimated Creat Clear 111 Estimated GFR 70 Est GFR ( Amer) 85 Glucose 101 Calcium 9.0 Magnesium 2.2 TSH Urine Opiates Screen Negative Urine Methadone Screen Negative Ur Barbituates Screen Negative Ur Phencyclidine Scrn Negative Ur Amphetamines Screen Negative U Benzodiazepines Scrn Negative Urine Cocaine Screen Negative U Marijuana (THC) Screen Negative 05/10/18 05:50 WBC RBC Hgb Hct MCV MCH MCHC RDW Plt Count MPV Neut % (Auto) Lymph % (Auto) Mitchell % (Auto) Sodium Potassium Chloride Carbon Dioxide Anion Gap BUN Creatinine Estimated Creat Clear Estimated GFR Est GFR ( Amer) Glucose Calcium Magnesium TSH 1.12 Urine Opiates Screen Urine Methadone Screen Ur Barbituates Screen Ur Phencyclidine Scrn Ur Amphetamines Screen U Benzodiazepines Scrn Urine Cocaine Screen U Marijuana (THC) Screen Labs on day of discharge: Labs from last 24 hours 05/11/18 05/10/18 05/10/18 05:44 20:09 16:57 POC Glucose 104 97 116 H DS: Diagnosis - Discharge Diagnosis (1) New onset seizure Status: Acute (2) Hypertension Status: Chronic (3) CAD (coronary artery disease) Status: Chronic (4) Diabetes Status: Chronic (5) Hyperlipidemia Status: Chronic Discharge Plan - Patient Discharge Instructions ACTIVITY: Continue current activity DIET: continue same diet Patient Instructions: DI for Seizure Disorder -- Adult - Follow up Plan Follow up with: Johnie Guzman MD [Primary Care Provider] - 05/17/18 Disposition: Home, Self-Prison Medications: Home Medications Medication Instructions Recorded Confirmed Type Amlodipine Besylate [Norvasc 5mg 5 mg PO DAILY 04/15/17 05/09/18 History tablet] Clopidogrel Bisulfate [Plavix 75mg 75 mg PO DAILY 04/15/17 05/09/18 History Tab] Furosemide [Lasix 20mg tablet] 20 mg PO DAILY PRN 04/15/17 05/09/18 History Atorvastatin Calcium [Atorvastatin 80 mg PO HS 05/09/18 05/09/18 History 80mg Tab] Duloxetine HCl 60 mg PO HS 05/09/18 05/09/18 History Ezetimibe 10 mg PO DAILY 05/09/18 05/09/18 History Potassium Chloride [Micro-K 10mEq 10 meq PO DAILY PRN 05/09/18 05/09/18 History cap] Prazosin HCl [Minipress] 1 mg PO HS 05/09/18 05/09/18 History Propranolol HCl [Propranolol HCl 120 mg PO DAILY 05/09/18 05/09/18 History ER] Sitagliptin Phosphate [Januvia 50 mg PO DAILY 05/09/18 05/09/18 History 50mg Tablet] Aspirin [Aspirin 81mg EC Tab] 81 mg PO DAILY 05/10/18 05/10/18 History levETIRAcetam [Keppra 500mg tablet] 500 mg PO BID #60 tab 05/11/18 Rx Prescriptions/Medication Reconciliation: New levETIRAcetam [Keppra 500mg tablet] 500 mg PO BID #60 tab Continue Clopidogrel Bisulfate [Plavix 75mg Tab] 75 mg PO DAILY Furosemide [Lasix 20mg tablet] 20 mg PO DAILY PRN PRN Reason: fluid Potassium Chloride [Micro-K 10mEq cap] 10 meq PO DAILY PRN PRN Reason: supplement Atorvastatin Calcium [Atorvastatin 80mg Tab] 80 mg PO HS Duloxetine HCl 60 mg PO HS Ezetimibe 10 mg PO DAILY Propranolol HCl [Propranolol HCl ER] 120 mg PO DAILY Aspirin [Aspirin 81mg EC Tab] 81 mg PO DAILY Amlodipine Besylate [Norvasc 5mg tablet] 5 mg PO DAILY Prazosin HCl [Minipress] 1 mg PO HS Sitagliptin Phosphate [Januvia 50mg Tablet] 50 mg PO DAILY Discontinued Atenolol [Atenolol 50mg Tab] 50 mg PO BID
== END 2018-05-11 09:06 | disposition home or self-care (01) ==
LOC: ER 19:12 → 2ND 19:12
PROVIDERS: ADMIT Family Medicine; ATTEND Family Medicine
CPT/HCPCS: 36415; 70450; 70551; 71010; 71045; 80048; 80076; 80305; 81001; 82962; 83735; 84443; 84484; 85025; 93005; 93306; 93880; 95816; 96365; 96367; 96375; 99285; G0378; J1953

== ENCOUNTER → 2018-06-03 08:04 | Outpatient (CLI) | payer MEDICARE, SELFPAY ==
--- NOTE | 2018-06-03 08:09 | XR_ITS ---
XR foot wt bearing LT 3V HISTORY: Follow-up fracture, injury with pain ITS.REASON: fracture ORDERING PHYSICIAN: Maty Sen DPM PATIENT AGE: 62 years COMPARISON: 05/27/2018 FINDINGS: Transverse fracture present at the proximal shaft of the fifth metatarsal. Fracture line is somewhat more prominent than when compared to the previous exam. The fracture remains nondisplaced. There is an overlying bandage artifact. IMPRESSION: Nondisplaced transverse fracture base of fifth metatarsal. Fracture line does appear slightly more prominent compared to the previous exam
== END ==
PROVIDERS: PCP Family Medicine; Visit Provider Podiatrist
DX: S92.353A Displaced fracture of fifth metatarsal bone, unspecified foot, initial encounter for closed fracture (principal)
CPT/HCPCS: 73630

== ENCOUNTER → 2018-06-06 08:57 | Outpatient (CLI) | payer MEDICARE, SELFPAY ==
--- NOTE | 2018-06-06 09:20 | XR_ITS ---
XR chest 2V HISTORY: ITS.REASON: HTN ORDERING PHYSICIAN: Maty Sen DPM PATIENT AGE: 62 years COMPARISON: None FINDINGS: The cardiomediastinal silhouette and pulmonary vascularity are within normal limits. Coronary artery calcifications and/or stent noted. Calcified granuloma right lower lobe and left midlung. No lobar consolidation or collapse. There is mild chronic wedging involving T9 and T10 vertebral bodies .. IMPRESSION: No acute finding,
[2018-06-06 09:27] LABS: Basophils # 0.1 K/mm3 (0-0.2); Basophils % 0.9 % (0.1-2.0); Eosinophils # 0.3 K/mm3 (0.0-0.4); Eosinophils % 3.3 % (0.1-12.0); Hematocrit 44.2 % (42.0-52.0); Hemoglobin 14.4 g/dL (14.1-18.0); Lymphocytes # 2.3 K/mm3 (0.7-4.5); Lymphocytes % 26.3 % (10-50); Mean Corpuscular HGB Conc 32.5 g/dL (31.8-35.4); Mean Corpuscular Hemoglobin 30.6 pg (27.0-31.2); Mean Corpuscular Volume 94.2 fl (80-94); Mean Platelet Volume 6.9 fl (7.4-10.4); Monocytes # 0.5 K/mm3 (0.1-1.0); Monocytes % 6.1 % (1.7-9.3); Neutrophils # 5.6 K/mm3 (1.8-7.8); Neutrophils % 63.4 % (37.0-80.0); Platelet Count 334 K/mm3 (142-424); Red Cell Distribution Width 13.6 % (11.5-17.5); White Blood Count 8.9 K/mm3 (4.8-10.8)
[2018-06-06 10:46] LABS: Anion Gap 12.8 mEq/L (5-15); Blood Urea Nitrogen 14 mg/dL (7-18); Calcium 9.5 mg/dL (8.5-10.1); Carbon Dioxide 31 mmol/L (21.0-32.0); Chloride 105 mmol/L (98-107); Estimated Glomerular Filt Rate 62 ml/min (>60); GFR (African American) 74 ML/MIN (>60); Glucose 131 mg/dL (74-106); Potassium 4.8 mmoL/L (3.5-5.1); Sodium 144 mmol/L (136-145)
== END ==
PROVIDERS: Visit Provider Podiatrist
DX: Z01.818 Encounter for other preprocedural examination (principal); S99.192D Other physeal fracture of left metatarsal, subsequent encounter for fracture with routine healing
CPT/HCPCS: 36415; 71046; 80048; 85025; 93005

== ENCOUNTER → 2018-06-23 07:37 | Outpatient (CLI) | payer MEDICARE, SELFPAY ==
--- NOTE | 2018-06-23 07:40 | XR_ITS ---
XR foot wt bearing LT 3V HISTORY: Follow-up ORIF fifth metatarsal ITS.REASON: Post-op ORDERING PHYSICIAN: Maty Sen DPM PATIENT AGE: 62 years COMPARISON: 06/08/2018 FINDINGS: There is been interval insertion of a longitudinal screw stabilizing the fifth metatarsal fracture. There is good alignment of fracture fragments. The study is obtained through a posterior splint. Fracture line is still visible but does appear somewhat less apparent. IMPRESSION: Good alignment status post ORIF healing fifth metatarsal fracture
== END ==
PROVIDERS: PCP Family Medicine; Visit Provider Podiatrist
DX: Z98.890 Other specified postprocedural states (principal)
CPT/HCPCS: 73630

== ENCOUNTER → 2018-07-18 08:45 | Outpatient (CLI) | payer MEDICARE, SELFPAY ==
--- NOTE | 2018-07-18 08:50 | XR_ITS ---
XR foot wt bearing LT 3V HISTORY: Follow-up surgery, pain ITS.REASON: postop views ORDERING PHYSICIAN: Maty Sen DPM PATIENT AGE: 62 years COMPARISON: 06/23/2018 FINDINGS: Good alignment status post ORIF fifth metatarsal fracture with longitudinal screws. The casted been removed and there is developing callus formation at fracture site. IMPRESSION: Good alignment status post ORIF healing fifth metatarsal fracture
== END ==
PROVIDERS: PCP Family Medicine; Visit Provider Podiatrist
DX: S99.192A Other physeal fracture of left metatarsal, initial encounter for closed fracture (principal); Z98.890 Other specified postprocedural states
CPT/HCPCS: 73630

== ENCOUNTER → 2018-08-15 09:16 | Outpatient (CLI) | payer MEDICARE, SELFPAY ==
--- NOTE | 2018-08-15 09:22 | XR_ITS ---
XR foot wt bearing LT 3V HISTORY: ITS.REASON: pain, postop views ORDERING PHYSICIAN: Maty Sen DPM PATIENT AGE: 62 years COMPARISON: 07/18/2018 FINDINGS: Longitudinal screw once again noted stabilizing a fracture at the proximal shaft of the fifth metatarsal. The fracture nondisplaced. Fracture line is still visible. There is some overlying callus formation. IMPRESSION: No change good alignment status post ORIF healing fifth metatarsal fracture
== END ==
PROVIDERS: PCP Family Medicine; Visit Provider Podiatrist
DX: Z98.890 Other specified postprocedural states (principal)
CPT/HCPCS: 73630

== ENCOUNTER → 2018-09-05 12:59 | Outpatient (CLI) | payer MEDICARE, SELFPAY ==
--- NOTE | 2018-09-05 13:04 | XR_ITS ---
XR foot wt bearing LT 3V HISTORY: ITS.REASON: fracture follow up ORDERING PHYSICIAN: Maty Sen DPM PATIENT AGE: 62 years COMPARISON: 08/15/2018. FINDINGS: . The operative findings involving the fifth metatarsal bone appear to be stable. Bone density is unchanged. There is no acute fracture. IMPRESSION: No change and no acute process.
== END ==
PROVIDERS: PCP Family Medicine; Visit Provider Podiatrist
DX: Z98.890 Other specified postprocedural states (principal)
CPT/HCPCS: 73630

== ENCOUNTER → 2018-09-27 10:53 | Outpatient (CLI) | payer MEDICARE, SELFPAY ==
--- NOTE | 2018-09-27 10:59 | XR_ITS ---
XR foot wt bearing LT 3V HISTORY: Follow-up surgery ITS.REASON: postop views ORDERING PHYSICIAN: Maty Sen DPM PATIENT AGE: 63 years COMPARISON: 09/05/2018 FINDINGS: Status post ORIF fifth metatarsal fracture. A screw is present with good alignment. Fracture line is still visible. IMPRESSION: No change status post ORIF fifth metatarsal
== END ==
PROVIDERS: PCP Family Medicine; Visit Provider Podiatrist
DX: Z98.890 Other specified postprocedural states (principal)
CPT/HCPCS: 73630

== ENCOUNTER → 2018-10-24 14:53 | Outpatient (CLI) | payer MEDICARE, SELFPAY ==
--- NOTE | 2018-10-24 14:56 | XR_ITS ---
XR foot wt bearing LT 3V HISTORY: Follow-up surgery ITS.REASON: postop views ORDERING PHYSICIAN: Maty Sen DPM PATIENT AGE: 63 years COMPARISON: None FINDINGS: Status post ORIF fifth metatarsal with good alignment. There is underlying callus formation. Fracture line is still visible. Overall no significant change. IMPRESSION: Good alignment status post ORIF fifth metatarsal fracture
== END ==
PROVIDERS: PCP Family Medicine; Visit Provider Podiatrist
DX: Z98.890 Other specified postprocedural states (principal)
CPT/HCPCS: 73630

== ENCOUNTER → 2018-12-12 10:20 | Outpatient (CLI) | payer MEDICARE, SELFPAY ==
--- NOTE | 2018-12-12 10:25 | XR_ITS ---
PROCEDURE: XR FOOT WT BEARING LT 3V CLINICAL INDICATION: pain COMPARISON: [id number] XR foot LT 2V from 06/08/2018 [id number] XR foot LT min 3V from 06/08/2018 [id number] XR foot wt bearing LT 3V from 06/23/2018 Foot L from 09/17/2018 FINDINGS: No fracture or dislocation. No lytic or blastic change. There is normal mineralization. The joint spaces are well-preserved. No significant degenerative/arthritic changes. No erosive changes evident. Other findings:Stable intramedullary fixation screw involving the 5th metatarsal IMPRESSION: Bone. No significant change or acute fracture. Dictated by: Pancho Brewer 12/12/2018 11:58 Electronically signed by Pancho Brewer in [place] 12/12/2018 11:58
== END ==
PROVIDERS: PCP Family Medicine; Visit Provider Podiatrist
DX: S99.192A Other physeal fracture of left metatarsal, initial encounter for closed fracture (principal)
CPT/HCPCS: 73630

== ENCOUNTER → 2019-02-24 07:44 | Outpatient (CLI) | payer MEDICARE, SELFPAY ==
[2019-02-24 08:31] LABS: Basophils % 0.6 % (0.1-2.0); Eosinophils # 0.3 K/mm3 (0.0-0.4); Eosinophils % 3.7 % (0.1-12.0); Hematocrit 41.8 % (42.0-52.0); Hemoglobin 13.6 g/dL (14.1-18.0); Lymphocytes % 26.8 % (10-50); Mean Corpuscular HGB Conc 32.5 g/dL (31.8-35.4); Mean Corpuscular Volume 95.3 fl (80-94); Mean Platelet Volume 7.3 fl (7.4-10.4); Monocytes # 0.5 K/mm3 (0.1-1.0); Monocytes % 6.5 % (1.7-9.3); Neutrophils # 4.7 K/mm3 (1.8-7.8); Neutrophils % 62.4 % (37.0-80.0); Platelet Count 271 K/mm3 (142-424); Red Blood Count 4.39 M/mm3 (4.60-6.20); Red Cell Distribution Width 13.1 % (11.5-17.5); White Blood Count 7.5 K/mm3 (4.8-10.8)
[2019-02-24 10:18] LABS: Alanine Aminotransferase 39 U/L (12-78); Albumin Level 3.4 gm/dL (3.4-5.0); Alkaline Phosphatase 88 U/L (46-116); Anion Gap 12.5 mEq/L (5-15); Aspartate Amino Transferase 19 U/L (15-37); Bilirubin,Total 0.3 mg/dL (0.2-1.0); Blood Urea Nitrogen 14 mg/dL (7-18); Calcium 8.5 mg/dL (8.5-10.1); Carbon Dioxide 31 mmol/L (21.0-32.0); Chloride 105 mmol/L (98-107); Chol/HDL Ratio 2.9 (1-3.5); Cholesterol 86 mg/dL (140-200); Estimated Glomerular Filt Rate 76 ml/min (>60); GFR (African American) 92 ML/MIN (>60); Globulin 3.3 gm/dl (1.3-3.2); Glucose 167 mg/dL (74-106); HDL Cholesterol 30 mg/dL (27-67); LDL Cholesterol 36 mg/dL (0-130); Magnesium 1.9 mg/dL (1.4-2.2); Potassium 4.5 mmoL/L (3.5-5.1); Sodium 144 mmol/L (136-145); Total Protein,Serum 6.7 gm/dL (6.4-8.2); Triglycerides 98 mg/dL (30-200); VLDL Cholesterol 20 mg/dL (0-40)
[2019-02-24 13:26] LABS: Adenovirus F 40/41, stool Not Detected (NotDetected); Astrovirus Not Detected (NotDetected); Campylobacter Not Detected (NotDetected); Clostridium Difficile A/B, PCR Not Detected (NotDetected); Cryptosporidium Not Detected (NotDetected); Cyclospora Cayetanesis Not Detected (NotDetected); Entamoeba histolytica Not Detected (NotDetected); Enteroaggregative E coli Not Detected (NotDetected); Enteropathogenic E coli Not Detected (NotDetected); Enterotoxigenic E coli Not Detected (NotDetected); Giardia lamblia Not Detected (NotDetected); Norovirus Not Detected (NotDetected); Plesimonas Shigalloides, PCR Not Detected (NotDetected); Rotavirus A Not Detected (NotDetected); Salmonella, PCR Not Detected (NotDetected); Sapovirus Not Detected (NotDetected); Shiga-like toxin E coli Not Detected (NotDetected); Shigella Enterovasive E coli Not Detected (NotDetected); Vibrio Cholerae Not Detected (NotDetected); Vibrio, PCR Not Detected (NotDetected); Yersinia Entercolitica, PCR Not Detected (NotDetected)
== END ==
PROVIDERS: Visit Provider Family Medicine
DX: E11.9 Type 2 diabetes mellitus without complications (principal); I10 Essential (primary) hypertension; E78.5 Hyperlipidemia, unspecified; K52.9 Noninfective gastroenteritis and colitis, unspecified; F43.10 Post-traumatic stress disorder, unspecified
CPT/HCPCS: 36415; 80053; 80061; 83036; 83735; 84443; 85025; 87506

== ENCOUNTER → 2019-12-01 09:04 | Outpatient (CLI) | payer MEDICARE, SELFPAY ==
[2019-12-01 10:03] LABS: Hemoglobin A1C 8.8 % (4.0-6.0)
[2019-12-01 10:34] LABS: Alanine Aminotransferase 47 U/L (12-78); Albumin Level 4.2 g/dl (3.5-5.0); Albumin/Globulin Ratio 1.4 (1.1-1.8); Alkaline Phosphatase 149 U/L (38-126); Anion Gap 10.8 mEq/L (5-15); Aspartate Amino Transferase 37 U/L (17-59); Bilirubin,Total 0.6 mg/dl (0.2-1.3); Blood Urea Nitrogen 22 mg/dl (9-20); Calcium 9.5 mg/dl (8.4-10.2); Carbon Dioxide 34 mmol/L (22.0-30.0); Chloride 101 mmol/L (98-107); Cholesterol 87 mg/dl (140-200); Estimated Glomerular Filt Rate 61 ml/min (>60); GFR (African American) 74 ML/MIN (>60); Glucose 277 mg/dl (74-100); HDL Cholesterol 29 mg/dl (40-60); Potassium 4.8 mmoL/L (3.5-5.1); Sodium 141 mmol/L (136-145); Total Protein,Serum 7.2 g/dl (6.3-8.2); Triglycerides 122 mg/dl (30-150); VLDL Cholesterol 24 mg/dL (0-40)
[2019-12-01 10:45] LABS: Direct LDL Cholesterol 46.25 mg/dL (100-129)
[2019-12-01 11:04] LABS: Prostate Specific Ag Screen 0.4 ng/ml (0.0-4.0)
== END ==
PROVIDERS: Visit Provider Family Medicine
DX: I25.10 Atherosclerotic heart disease of native coronary artery without angina pectoris (principal); E78.5 Hyperlipidemia, unspecified; E11.9 Type 2 diabetes mellitus without complications; Z12.5 Encounter for screening for malignant neoplasm of prostate
CPT/HCPCS: 36415; 80053; 80061; 83036; G0103

== ENCOUNTER → 2020-03-22 14:27 | Outpatient (CLI) | payer MEDICARE, SELFPAY | PROVIDERS: PCP Physician Assistant; Visit Provider Physician Assistant | DX: Z20.822 Contact with and (suspected) exposure to COVID-19 (principal); U07.1 COVID-19 | CPT/HCPCS: U0003 ==

== ENCOUNTER → 2020-04-13 09:03 | Outpatient (CLI) | payer MEDICARE, SELFPAY ==
[2020-04-13 09:41] LABS: Basophils # 0.1 K/mm3 (0-0.2); Basophils % 0.9 % (0.1-2.0); Eosinophils # 0.2 K/mm3 (0.0-0.4); Eosinophils % 1.9 % (0.1-12.0); Hematocrit 53.8 % (42.0-52.0); Hemoglobin 17.5 g/dL (14.1-18.0); Lymphocytes # 2.6 K/mm3 (0.7-4.5); Lymphocytes % 30.3 % (10-50); Mean Corpuscular HGB Conc 32.5 g/dL (31.8-35.4); Mean Corpuscular Hemoglobin 30.2 pg (27.0-31.2); Mean Corpuscular Volume 92.9 fl (80-94); Monocytes # 0.5 K/mm3 (0.1-1.0); Neutrophils # 5.2 K/mm3 (1.8-7.8); Neutrophils % 60.8 % (37.0-80.0); Platelet Count 311 K/mm3 (142-424); Red Cell Distribution Width 14.3 % (11.5-17.5); White Blood Count 8.5 K/mm3 (4.8-10.8)
[2020-04-13 10:34] LABS: Alanine Aminotransferase 41 U/L (12-78); Albumin Level 4.7 g/dl (3.5-5.0); Albumin/Globulin Ratio 1.3 (1.1-1.8); Alkaline Phosphatase 139 U/L (38-126); Anion Gap 16.9 mEq/L (5-15); Aspartate Amino Transferase 33 U/L (17-59); Bilirubin,Total 0.7 mg/dl (0.2-1.3); Blood Urea Nitrogen 11 mg/dl (9-20); Carbon Dioxide 30 mmol/L (22.0-30.0); Chloride 93 mmol/L (98-107); Chol/HDL Ratio 3.3 (1-3.5); Cholesterol 155 mg/dl (140-200); Direct LDL Cholesterol 57.68 mg/dL (100-129); Estimated Glomerular Filt Rate 68 ml/min (>60); GFR (African American) 82 ML/MIN (>60); Globulin 3.6 g/dL (1.3-3.2); HDL Cholesterol 47 mg/dl (40-60); Potassium 3.9 mmoL/L (3.5-5.1); Sodium 136 mmol/L (136-145); Total Protein,Serum 8.3 g/dl (6.3-8.2); Triglycerides 399 mg/dl (30-150); VLDL Cholesterol 80 mg/dL (0-40)
[2020-04-13 10:39] LABS: Glucose 483 mg/dl (74-100)
[2020-04-13 11:23] LABS: Hemoglobin A1C 13.2 % (4.0-6.0)
== END ==
PROVIDERS: Visit Provider Family Medicine
DX: I10 Essential (primary) hypertension (principal); E11.9 Type 2 diabetes mellitus without complications; E78.5 Hyperlipidemia, unspecified
CPT/HCPCS: 36415; 80053; 80061; 83036; 85025

== ENCOUNTER 2020-06-12 01:20 | Inpatient (IN) | payer MEDICARE, SELFPAY ==
[2020-06-12] VITALS (25 sets, daily range): BP systolic 87–148; BP diastolic 49–78; PULSE 54–75; RESP 16–20; TEMP 36.6–36.8; O2SAT 88–100; BMI 32.3; BMI 30.7; BMI 18.9; BMI 35.6
--- NOTE | 2020-06-12 | IR_ITS ---
APPROVED REPORT Patient Location: Inpatient Senior Portfolio Analyst: ERIS Teresa RT (R) PROCEDURES Left heart catheterization Left ventriculogram Selective coronary angiogram INDICATION Acute non-ST elevation myocardial infarction, Coronary artery disease Informed consent was obtained prior to the procedure. COMPLICATIONS NONE Estimated Blood Loss: LESS THAN 10 ML TECHNIQUE One percent lidocaine used to anesthetize the right anterior aspect of the wrist. The right radial artery was accessed via the Seldinger technique. A 6 Bulgarian sheath was placed in the right radial artery. 2.5 mg of verapamil, 800 mcg of nitroglycerin, 1mg Lidocaine and 5000 U Heparin were given through the arterial sheath. The Poppa catheter was also used to perform left heart catheterization, left ventriculogram and selective coronary angiogram. At the end of the procedure the sheath was removed good hemostasis was achieved using Traclet band, patient was transferred to the postop holding area in stable condition. ANGIOGRAPHIC RESULTS The left main artery Has a severe distal 50% stenosis The left anterior descending artery Has an ostial 90% stenosis followed by stents which are patent in the proximal segment but then have concentric 70% in-stent restenosis distal to the first septal regional office coordinator but proximal to the first diagonal artery. There are additional mid vessel 50 and 80% stenoses. The circumflex artery Is a large dominant vessel with an ostial 90% stenosis followed by a proximal 50% stenosis. This gives rise to 3 large obtuse marginal arteries. Which are patent. The first obtuse marginal artery has a proximal 40% while the second obtuse marginal artery has a proximal concentric 70 to 80% stenosis The right coronary artery Is nondominant and has stents through the proximal mid and distal segment. The midportion of the vessel has concentric 80% in-stent restenosis The MONACO ventriculogram reveals Reduced 40% with anterior wall hypokinesis The left ventricular end-diastolic pressure Severely elevated at 40 mmHg IMPRESSION Severe to critical three-vessel coronary disease Reduced ejection fraction with regional wall motion abnormality Severe to critically elevated LVEDP PLAN 1. Patient requires bypass surgery this admission 2. Stop Plavix 3. Diuresis to decrease LVEDP 4. Medical management with beta-blockers and nitrates 5. Start heparin drip 6. Arrangements will be made to transfer patient to [facility] for bypass surgery Electronically signed by : Tj Peck, 06/12/2020 13:08:13
--- NOTE | 2020-06-12 01:13 | ECG_ITS ---
APPROVED REPORT Exam: Resting ECG HR:60 bpm ECG Measurements Heart Rate 60 AXES OH 230 P 79 QRSd 104 QRS 51 QT 462 T 33 QTc 462 Conclusion Sinus rhythm with 1st degree AV block Septal infarct, age undetermined Abnormal ECG Electronically signed by : Marcelo Ng, 06/12/2020 13:20:10
--- NOTE | 2020-06-12 01:20 | XR_ITS ---
PROCEDURE: XR CHEST PORTABLE CLINICAL HISTORY: cp COMPARISON: CR CXR2 XR chest AP from 05/09/2018 CR XR chest 2V from 06/06/2018 CR XR CHEST PORTABLE from 05/31/2019 FINDINGS: Cardiomegaly is noted with mild central pulmonary vascular congestion. There is subsegmental opacity noted in the left mid zone, new compared to the prior study. No other lobar consolidation, pleural effusions or pneumothorax. Minor degenerative changes of the visualized thoracic spine are noted. IMPRESSION: Subsegmental opacity in the left mid zone, new compared to the prior study. This may represent a focal infiltrate. Mass lesion cannot be completely excluded. Close follow-up with chest radiographs in 4-6 weeks after appropriate therapy is recommended for further evaluation. If clinically indicated, CT thorax should be considered for further evaluation. Dictated by: Linda Felix 06/12/2020 08:42 Linda Felix in [place] 06/12/2020 08:42
--- NOTE | 2020-06-12 01:22 | [facility].EDCP ---
ED Disposition Clinical Impression: Hypokalemia Chest pain Qualifiers: Chest pain type: other chest pain Qualified Code(s): R07.89 - Other chest pain Disposition: Admitted as Observation Condition on Discharge: Good Referrals: Johnie Guzman MD [Primary Care Provider] - Time of Disposition: 02:57 - Critical Care Critical Care Time: No Attestation: On , the high probability of a clinically significant, sudden or life threatening deterioration of the following system(s) required my full and direct attention, intervention and personal management. The time I documented below is in addition to time spent performing reported procedures but includes the following listed in this critical care notation. Medical Decision Making - Medical Records Medical records reviewed: Yes: I reviewed the patient's medical records. - Garo Inquiry Pt receiving controlled substance: No Vital Signs: 06/12/20 01:20 Temperature 97.8 F Temperature Source Oral Pulse Rate [Right Brachial] 68 Respiratory Rate 18 Blood Pressure [Right Arm] 87/49 L Blood Pressure Mean [Right Arm] 61 Blood Pressure Source [Right Arm] Automatic Cuff Blood Pressure Position [Right Arm] Sitting 02 Sat by Pulse Oximetry 88 L Oxygen Delivery Method Room Air - Lab Data Lab results reviewed: Yes: I reviewed the patient's lab results. Lab Results 06/12/20 01:22: WBC 5.2, RBC 4.59 L, Hgb 14.0 L, Hct 43.5, MCV 94.8 H, MCH 30.4, MCHC 32.1, RDW 14.6, Plt Count 301, MPV 7.4, Neut % (Auto) 34.5 L, Lymph % (Auto) 58.8 H, Mcclain % (Auto) 5.0, Eos % (Auto) 1.1, Baso % (Auto) 0.6, Neut # (Auto) 1.8, Lymph # (Auto) 3.0, Mcclain # (Auto) 0.3, Eos # (Auto) 0.1, Baso # (Auto) 0.0, Total Counted 100, Neutrophils % (Manual) 31 L, Lymphocytes % (Manual) 67 H, Eosinophils % (Manual) 1, Basophils % (Manual) 1.0, Platelet Estimate Normal, Tear Drop Cells 1+ 06/12/20 01:22: Sodium 142, Potassium 2.8 L*, Chloride 102, Carbon Dioxide 31 H, Anion Gap 11.8, BUN 18, Creatinine 1.00, Estimated Creat Clear 109, Estimated GFR 75, Est GFR ( Amer) 91, Glucose 152 H, Calcium 9.5, Total Bilirubin 0.4, AST 34, ALT 33, Alkaline Phosphatase 69, Troponin I < 0.01, Total Protein 7.1, Albumin 4.2, Globulin 2.9, Albumin/Globulin Ratio 1.4 06/12/20 01:22: NT-Pro-B Natriuret Pep 843 H Result diagrams: 06/12/20 01:22 06/12/20 01:22 Orders (Tests/Meds): ED MEDICATIONS Generic Name Dose Route Start Last Admin Trade Name Freq PRN Reason Stop Dose Admin Sodium Chloride 1,000 mls @ 999 mls/hr 06/12/20 02:30 06/12/20 02:17 Sod Chlor 0.9% 1000ml Bag IV 06/12/20 03:30 999 mls/hr .Q1H1M KINA Administration Discontinued Medications Generic Name Dose Route Start Last Admin Trade Name Freq PRN Reason Stop Dose Admin Aspirin 324 mg 06/12/20 01:21 06/12/20 01:25 Aspirin 81mg Chewable Tablet PO 06/12/20 01:22 324 mg ONCE ONE Administration Aspirin 325 mg 06/12/20 01:21 06/12/20 01:25 Aspirin 325mg Tablet PO 06/12/20 01:22 Not Given ONCE ONE Enoxaparin Sodium 40 mg 06/12/20 02:15 06/12/20 02:20 Enoxaparin 40mg/0.4ml Syringe SQ 06/12/20 02:16 40 mg ONCE ONE Administration Nitroglycerin 1 gm 06/12/20 02:11 06/12/20 02:16 Nitroglycerin 1 Gm Ointment TD 06/12/20 02:12 1 gm ONCE ONE Administration Potassium Chloride 40 meq 06/12/20 01:53 06/12/20 01:55 Potassium Chloride 20meq Tab PO 06/12/20 01:54 40 meq ONCE ONE Administration ORDERS Category Date Time Status XR chest portable Stat Exams 06/12/20 01:20 Taken Full Resp Panel w/COVID ([facility]) Routine Lab 06/12/20 01:22 Received Troponin I Q3H Lab 06/12/20 04:30 Ordered Troponin I Q3H Lab 06/12/20 07:30 Ordered - Radiology Data #1 Image(s): Chest Image Reviewed: Yes I reviewed the patient's radiology image Preliminary Findings: Normal/NAD - ECG Data Tracing #1 Sinus rhythm with first-degree AV block, widened Q-wave in aVL, minor depressions in l
[2020-06-12 01:28] LABS: Adenovirus,PCR Not Detected (NotDetected); Bordetella Pertussis Not Detected (NotDetected); Chlamydophila Pneumoniae, PCR Not Detected (NotDetected); Coronavirus 19, PCR Not Detected (NotDetected); Coronavirus 229E Not Detected (NotDetected); Coronavirus NL63 Not Detected (NotDetected); Coronavirus OC43 Not Detected (NotDetected); Coronovirus HKU1,PCR Not Detected (NotDetected); Human Metapneumovirus Not Detected (NotDetected); Influenza A, PCR Not Detected (NotDetected); Influenza AH1, 2009 Not Detected (NotDetected); Influenza AH1, PCR Not Detected (NotDetected); Influenza AH3,PCR Not Detected (NotDetected); Influenza B, PCR Not Detected (NotDetected); Mycoplasma Pneumoniae, PCR Not Detected (NotDetected); Parainfluenza 1, PCR Not Detected (NotDetected); Parainfluenza 2, PCR Not Detected (NotDetected); Parainfluenza 3, PCR Not Detected (NotDetected); Parainfluenza 4, PCR Not Detected (NotDetected); Respiratory Syncytial Virus Not Detected (NotDetected); Rhinovirus/Enterovirus Not Detected (NotDetected)
[2020-06-12 01:31] LABS: Basophils % 0.6 % (0.1-2.0); Eosinophils # 0.1 K/mm3 (0.0-0.4); Eosinophils % 1.1 % (0.1-12.0); Hematocrit 43.5 % (42.0-52.0); Lymphocytes % 58.8 % (10-50); Mean Corpuscular HGB Conc 32.1 g/dL (31.8-35.4); Mean Corpuscular Hemoglobin 30.4 pg (27.0-31.2); Mean Corpuscular Volume 94.8 fl (80-94); Mean Platelet Volume 7.4 fl (7.4-10.4); Monocytes # 0.3 K/mm3 (0.1-1.0); Neutrophils # 1.8 K/mm3 (1.8-7.8); Neutrophils % 34.5 % (37.0-80.0); Platelet Count 301 K/mm3 (142-424); Red Blood Count 4.59 M/mm3 (4.60-6.20); Red Cell Distribution Width 14.6 % (11.5-17.5); White Blood Count 5.2 K/mm3 (4.8-10.8)
--- NOTE | 2020-06-12 01:33 | PC.NURSE ---
call out to dr juan and ekg transmitted to dr juan.
--- NOTE | 2020-06-12 01:35 | PC.NURSE ---
speaking to dr juan at this time.
[2020-06-12 01:36] LABS: Chloride 102 mmol/L (98-107); Sodium 142 mmol/L (136-145)
[2020-06-12 01:39] LABS: Alanine Aminotransferase 33 U/L (12-78); Albumin Level 4.2 g/dl (3.5-5.0); Albumin/Globulin Ratio 1.4 (1.1-1.8); Alkaline Phosphatase 69 U/L (38-126); Anion Gap 11.8 mEq/L (5-15); Aspartate Amino Transferase 34 U/L (17-59); Bilirubin,Total 0.4 mg/dl (0.2-1.3); Blood Urea Nitrogen 18 mg/dl (9-20); Carbon Dioxide 31 mmol/L (22.0-30.0); Creatinine Clearance Estimated 109 mL/min (50-200); Estimated Glomerular Filt Rate 75 ml/min (>60); GFR (African American) 91 ML/MIN (>60); Globulin 2.9 g/dL (1.3-3.2); Total Protein,Serum 7.1 g/dl (6.3-8.2)
[2020-06-12 01:40] LABS: Calcium 9.5 mg/dl (8.4-10.2); Glucose 152 mg/dl (74-100); MANUAL DIFFERENTIAL MANUAL DIFFERENTIAL (MANUAL DIFF)
[2020-06-12 01:46] LABS: Potassium 2.8 mmoL/L (3.5-5.1)
--- NOTE | 2020-06-12 01:46 | PC.NURSE ---
potassium 2.8 notification to
[2020-06-12 01:50] LABS: NT Pro Brain Natriuretic Pep. 843 pg/mL (0-125)
[2020-06-12 01:58] LABS: Troponin I < 0.01 ng/ml (0.00-0.034)
--- NOTE | 2020-06-12 02:09 | ECG_ITS ---
APPROVED REPORT Exam: Resting ECG HR:50 bpm ECG Measurements Heart Rate 50 AXES MO 238 P 56 QRSd 98 QRS 0 QT 466 T 3 QTc 424 Conclusion Sinus bradycardia with 1st degree AV block Incomplete right bundle branch block Left ventricular hypertrophy with repolarization abnormality Cannot rule out Septal infarct, age undetermined Abnormal ECG Electronically signed by : Marcelo Ng, 06/12/2020 13:19:50
--- NOTE | 2020-06-12 02:30 | PC.NURSE ---
called cb per family request due to patients video player mechanic being there. CB advised they would not have a bed till possible tomorrow afternoon. advised patient and family and they advised they will stay here and have dr. juan perform a heart cath,
[2020-06-12 02:51] LABS: Eosinophils % 1 % (0-3); Lymphocytes % 67 % (10-50); Neutrophils % 31 % (42-76); Total Cells Counted 100
--- NOTE | 2020-06-12 02:51 | PC.NURSE ---
admission to [facility] with chest pain. greenhouse staff notified.
--- NOTE | 2020-06-12 02:51 | PC.NURSE ---
la nena castillo on phone with dr powell @ this time
[2020-06-12 02:52] LABS: Platelet Estimate Normal; Tear Drop Cells 1+
--- NOTE | 2020-06-12 03:23 | PC.NURSE ---
patient up to floor via wheelchair.
--- NOTE | 2020-06-12 04:42 | PC.NURSE ---
He is currently NPO. Denies chest pain. NSR on telemetry.
[2020-06-12 04:43] LABS: Basophils % 0.2 % (0.1-2.0); Chloride 104 mmol/L (98-107); Eosinophils # 0.1 K/mm3 (0.0-0.4); Eosinophils % 0.5 % (0.1-12.0); Hematocrit 39.6 % (42.0-52.0); Hemoglobin 12.8 g/dL (14.1-18.0); Lymphocytes # 0.9 K/mm3 (0.7-4.5); Lymphocytes % 8.3 % (10-50); Mean Corpuscular HGB Conc 32.4 g/dL (31.8-35.4); Mean Corpuscular Hemoglobin 30.5 pg (27.0-31.2); Mean Corpuscular Volume 94.2 fl (80-94); Mean Platelet Volume 7.3 fl (7.4-10.4); Monocytes # 0.5 K/mm3 (0.1-1.0); Monocytes % 5.1 % (1.7-9.3); Neutrophils # 9.2 K/mm3 (1.8-7.8); Neutrophils % 86.1 % (37.0-80.0); Platelet Count 253 K/mm3 (142-424); Red Blood Count 4.21 M/mm3 (4.60-6.20); Red Cell Distribution Width 14.5 % (11.5-17.5); Sodium 140 mmol/L (136-145); White Blood Count 10.7 K/mm3 (4.8-10.8)
[2020-06-12 04:44] LABS: Potassium 3.1 mmoL/L (3.5-5.1)
[2020-06-12 04:46] LABS: Blood Urea Nitrogen 18 mg/dl (9-20); Creatinine Clearance Estimated 109 mL/min (50-200); Estimated Glomerular Filt Rate 85 ml/min (>60); GFR (African American) 103 ML/MIN (>60)
[2020-06-12 04:47] LABS: Anion Gap 8.1 mEq/L (5-15); Calcium 8.6 mg/dl (8.4-10.2); Carbon Dioxide 31 mmol/L (22.0-30.0); Glucose 166 mg/dl (74-100)
[2020-06-12 05:02] LABS: Troponin I 0.72 ng/ml (0.00-0.034)
--- NOTE | 2020-06-12 07:43 | CA_ITS ---
APPROVED REPORT EXAM: Comprehensive 2D, Doppler, and color-flow Echocardiogram [employer] General Sales Manager: Maggie Ly RVT Ht: 5 ft 10 in Wt: 215lbs BSA: 2.15 HR: 61 bpm BP: 115/63 mmHg Indications: Chest Pain, Arrhythmia, CVA/TIA, CAD 2D Dimensions IVSd 0.91 cm LVEF (Visual) 63.40 % PWd 1.10 cm LA Volume 76.20 mL LVDd 6.13 cm LA Volume Index [id number] mL/m2 (M/F) 16-34 LVDs 3.92 cm Aortic Root 3.15 cm Left Atrium 3.95 cm LVOT 1.95 cm (M/F) 1.5-2.5 M-Mode Dimensions LA Diam 4.19 cm (1.9-4.0) LVDd 5.68 cm (3.5-5.7) Ao Diam 3.46 cm (2.0-3.7) LVDs 3.42 cm (3.5-5.7) EF (Teich) 69.70% EPSs 0.36 cm FS 39.80% EDV (Teich) 158.80 mL TAPSE 1.84 (<1.7) ESV (Teich) 48.10 mL LV Diastology E Decel Time 190.00 (160-240 msec) E/A Ratio 0.80 MED E' 6.80 (< 7 cm/sec) MED A' 9.60 cm/s E'/MED E' Ratio 13.90 (>14) LAT E' 8.40 (<10 cm/sec) LAT A' 7.50 cm/s E/LAT E' Ratio 11.25 (>14) Pulm Vein s 64.00 cm/sec Pulm Vein d 33.00 cm/sec Ar-A Duration 217.00 msec Aortic Valve LVOT Max 129.00 (70-110 cm/s) LVOT VTI 27.01 cm AoV Peak Sanjay. 145.00 (50-130 cm/s) AI PHT 495.00 ms AO Peak GR. 8.40 mmHg AO Mean GR. 4.30 (<5 mmHg) AO VTI 26.46 (18-25 cm) LEILANI (VTI) 3.05 (2.5-4.5 cm2) Mitral Valve MV A Velocity 118.00 (40-130 cm/s) E/A Ratio 0.80 MV Decel. Time 190.00 (160-240 ms) Pulmonary Valve PV Peak Velocity 102.00 (50-150 cm/s) DE End VMAX 161.00 cm/s Tricuspid Valve TR P. Velocity 193.00 cm/s RAP Estimate 10.00 mmHg RVSP 25.00 mmHg Left Ventricle Left atrium is mildly enlarged, left ventricle is normal size, mild concentric left ventricular hypertrophy, visually estimated ejection fraction 50% with no regional wall motion abnormality, grade 1 diastolic dysfunction seen without tissue Doppler evidence of raise left atrial pressure. Right Ventricle Right atrium and right ventricle mildly enlarged with normal contractility. Aortic Valve Aortic valve is minimally thickened and fibrosed, there is trace aortic insufficiency. Mitral Valve Mitral valve is grossly normal, there is trace mitral regurgitation. Tricuspid Valve Tricuspid regurgitation tricuspid valve is grossly normal, there is trace tricuspid regurgitation, tricuspid regurgitation jet velocity is inadequate for calculation of the right ventricular systolic pressure. Pulmonic Valve Pulmonic valve is poorly visualized. Great Vessels Aortic root is normal size. Pericardium No significant pericardial effusion noted. Conclusion 1. Biatrial enlargement, normal left ventricular size, mild concentric left ventricular hypertrophy, visually estimated ejection fraction 55% with no regional wall motion abnormality, grade 1 diastolic dysfunction seen without tissue Doppler evidence of raise left atrial pressure. 2. Mildly enlarged right ventricle with normal contractility. 3. Trace aortic, mitral and tricuspid regurgitation. 4. No significant pericardial effusion noted. Electronically signed by : Mark Kumar, 06/13/2020 15:13:00
--- NOTE | 2020-06-12 07:58 | HMH.CNCARD ---
History of Present Illness Consult date: 06/12/20 Requesting physician: Johnie Guzman Consult reason: chest pain Chief complaint: Chest pain History of present illness: 64-year-old male presented to [facility] with increased chest pain and pressure. Patient states this chest pain that intense throughout the night which awoke the patient. Patient states he was able to walk to the kitchen to where he felt as if he was going to pass out. Patient stated increased shortness of breath and dizziness accompanying this episode. Patient states once he arrived to the ER, was given aspirin and started on a nitro patch, his chest pain was resolved and shortness of breath improved. Patient denies chest pain, tightness or pressure. Patient states his shortness of breath has improved even though he does have oxygen at 2 L by nasal cannula. Patient denies palpitations. Patient denies dizziness at this time. Patient does have extensive history of coronary artery disease. Patient does follow with cardiology at [facility] in [place]. Patient states he does wish to continue to follow with his current floor sander. Patient has undergone several heart catheterizations in the past. Last heart catheterization was in 2019 at [facility], which revealed 90% ostial circumflex requiring stenting and 30% RCA. LAD stent was patent. EF was noted as normal at that time. Patient states he has 23 stents placed since [id number]. Patient is currently on Plavix and aspirin for his CAD. Patient does have history of hypertension and hyperlipidemia. Patient is currently on appropriate medications and states his hypertension and hyperlipidemia have been controlled. Patient is a known diabetic which is controlled. Patient states he has had several TIAs in the past. Patient does have history of seizures and is unable to state last unknown time seizure occurred. Patient denies tobacco use but does say he dips. Initial work-up was performed in the ED. Lab results revealed potassium 2.8. Troponins range less than 0.01 with a second troponin being 0.72. Creatinine and BUN are within normal range. Initial EKG revealed sinus bradycardia with first-degree AV block. Patient remains in sinus rhythm with a heart rate of 70 bpm. Chest x-ray was performed. Results are pending at this time. Discussed plan of care with Dr. Peck. Discussed with patient the risk and benefits of undergoing left heart catheterization with right radial access. Patient verbalized understanding and is agreeable to procedure. Patient has been n.p.o. throughout the night. Will obtain echocardiogram to assess LV function and valve status. Pending on results of the left heart catheterization and echocardiogram, medication changes may be recommended. Patient does wish to follow-up with his floor sander at [facility]. Thank you for allowing cardiology to participate in the care of this patient. [facility] History I have reviewed the patient's past medical history: Yes Medical History: Reports:: Atherosclerotic Heart Disease, Coronary Artery Disease, Depression, Diabetes Mellitus Type 2, Gastroesophageal Reflux Disease(GERD), Hyperlipidemia, Hypertension, Seizures, Transient Ischemic Attacks (TIA) Denies:: Atrial Fibrillation, Cancer, Diabetes Mellitus Type 1, Home Oxygen, Internal Pacemaker, MRSA *Have you ever received a pneumonia vaccine?: Yes *Have you received a flu vaccine this season?: Yes Other Medical History: Reports: Sinus Problems, Other. Denies: Blood Transfusion Reaction Laterality Cases: Left: Other Other Surgeries: Yes: Cardiac Catheterization, Hernia Repair, Other (Cyst removed from face, chest tube.). No: Pacemaker Amputation: No Fractures: No - *Social History Last grade of school completed: High school graduate Smoking Status: Former smoker Tobacco Type: smokeless tobacco # Packs/Day (cigarettes): 0 Alcohol Intake: never *Occupational Status:: dis
--- NOTE | 2020-06-12 08:32 | HMH.HP ---
*Admission Date: 06/12/20 <Allegra Eric - 06/12/20 09:06> *Chief complaint: Chest pain <Allegra Eric - 06/12/20 09:06> *History of present illness: Mr. Pickard is a 64-year-old male with a history of hypertension, hyperlipidemia, anxiety, degenerative joint disease of the spine, kidney stones, ASCVD, type 2 diabetes mellitus, seizure disorder, recurrent near syncope, history of TIA, depression, gout, traumatic lawnmower accident with multiple fractured ribs and pneumothorax in 10/2019., And extensive current cardiac disease noted with multiple stents. He last saw his pantomimist, Dr. Norris, in January 2020. Patient presented to the emergency room after awakening with left anterior chest pain radiating up into the left shoulder. He states his walk to the bathroom and had one of his spells according to the . His son helped him to the floor. She describes shaking in his upper body. Patient was short of breath at this time. He denies having nausea and no vomiting. He does describe palpitations. His chest pain was relieved in the emergency room when he had nitroglycerin paste applied to the chest wall and was given multiple aspirins. With evaluation in the emergency room initial blood pressure was found to be 87/49. Troponin I was normal. He was given a liter of IV fluids after which his blood pressure did improve. He was also given Lovenox and potassium. Dr. Peck was consulted. With his history, hypotension and EKG changes he was admitted for further evaluation and treatment Patient states he had a good day yesterday. He went to [facility] and had no problems during or after. At this time he is awakened for exam and is pain-free. He has been seen by cardiology and will have a cardiac cath this a.m. Troponin I's have trended upwards. To note his last A1c was 13.2 in March 2020. This admissio Troponin I's have gone from 0.01-0.72 to 9.65. BNP was 843. Liver function studies were normal; blood sugars have been 152 and 166. Potassium initially was 2.8 and is up to 3.1 this morning. Kidney function shows a BUN of 18 and a creatinine of 1. Hemoglobin/ hematocrit are 14 and 43.5 on admission. <Allegra Eric 06/12/20 09:06> H History Medical History: Reports:: Atherosclerotic Heart Disease, Coronary Artery Disease, Depression, Diabetes Mellitus Type 2, Gastroesophageal Reflux Disease(GERD), Hyperlipidemia, Hypertension, Seizures, Transient Ischemic Attacks (TIA) Denies:: Atrial Fibrillation, Cancer, Diabetes Mellitus Type 1, Home Oxygen, Internal Pacemaker, MRSA <Eric,Allegra 06/12/20 09:06> *Have you ever received a pneumonia vaccine?: Yes <Allegra Eric 06/12/20 09:06> *Have you received a flu vaccine this season?: Yes <HernestoAllegra 06/12/20 09:06> Other Medical History: Reports: Sinus Problems, Other. Denies: Blood Transfusion Reaction <Allegra Eric 06/12/20 09:06> Laterality Cases: Left: Other <Eric,Allegra 06/12/20 09:06> Other Surgeries: Yes: Cardiac Catheterization, Coronary Stent, Hernia Repair, Other (Cyst removed from face, chest tube.). No: Pacemaker <Allegra Eric 06/12/20 09:06> Amputation: No <Allegra Eric 06/12/20 09:06> Fractures: No <Allegra Eric 06/12/20 09:06> - *Social History Last grade of school completed: High school graduate <HernestoAllegra 06/12/20 09:06> Smoking Status: Former smoker <HernestoAllegra 06/12/20 09:06> Tobacco Type: smokeless tobacco <Allegra Eric 06/12/20 09:06> # Packs/Day (cigarettes): 0 <Allegra Eric 06/12/20 09:06> Alcohol Intake: never <HernestoAllegra 06/12/20 09:06> *Occupational Status:: disabled <Allegra Eric 06/12/20 09:06> Housing: house <Allegra Eric 06/12/20 09:06> Household Members: spouse <Allegra Eric 06/12/20 09:06> *Travel in the last 8 weeks: None <Allegra Eric 06/12/20 09:06> - Psychiatric History Pschychiatric History:: Reports:: Depression <Allegra Eric - 06/12/20 09:06> Family Hx:: Bleeding Di
[2020-06-12 08:37] LABS: Troponin I 9.65 ng/ml (0.00-0.034)
--- NOTE | 2020-06-12 08:37 | P.CONPHA_ITS ---
[facility] Pharmacy VTE Monitoring - Patient Demographics Admission date: 06/12/20 Report Date: 06/12/20 Time: 08:38 Allergies/Adverse Reactions: Patient Allergies No Known Allergies Allergy (Verified 06/12/20 03:47) Height: 1.78 m Weight: 97.551 kg Patient Problems: Current Active Problems Chest pain (Acute) CAD (coronary artery disease) (Chronic) Diabetes (Chronic) Hyperlipidemia (Chronic) Hypertension (Chronic) Hypokalemia (Acute) NSTEMI (non-ST elevated myocardial infarction) (Acute) - VTE Risk Labs: VTE Related Lab Results Hgb 12.8 g/dL (14.1-18.0) L 06/12/20 04:30 Hct 39.6 % (42.0-52.0) L 06/12/20 04:30 Plt Count 253 K/mm3 (142-424) 06/12/20 04:30 BUN 18 mg/dl (9-20) 06/12/20 04:30 Creatinine 0.90 mg/dl (0.66-1.25) 06/12/20 04:30 Estimated Creat Clear 109 mL/min (50-200) 06/12/20 04:30 Was VTE Risk Assessment Performed: Yes VTE Score: 3 VTE Risk Level: Low Risk - Prophylaxis VTE Prophylaxis Ordered?: Yes Types of VTE Prophylaxis: TEDS Knee High, Pharmacological Location of Applied Device: Bilateral Lower Extremeties Pharmacologic Type: Enoxaparin
--- NOTE | 2020-06-12 08:41 | PC.NURSE ---
Critical troponin of 9.65 reported face to face to Haim Eric and Juan Pablo Donis at 0837. no further orders at this time as cath is pending.
--- NOTE | 2020-06-12 08:52 | HMH.PHAINT ---
MEDICATION RECONCILIATION COMPLETED USING EXTERNAL FILL HISTORY
--- NOTE | 2020-06-12 13:32 | PC.NURSE ---
telephone report received paris Meza RN in starch factory laborer at [phone]
--- NOTE | 2020-06-12 14:21 | PC.NURSE ---
Spoke with Juan Pablo Ziegler APRN. pt likely to have a bed later this evening at . Ok to feed pt at this time.
--- NOTE | 2020-06-12 14:23 | PC.NURSE ---
1337 called and spoke with Haim Eric at [facility]. DC order needed r/t pt being transferred.
--- NOTE | 2020-06-12 14:27 | PC.NURSE ---
called and requested dc order from [facility] at this time
--- NOTE | 2020-06-12 16:03 | PC.NURSE ---
called report to Merrill at at this time, also contacted [facility]'s ambulance for transport.
--- NOTE | 2020-06-12 18:06 | PC.NURSE ---
pt transferred into the care of [facility] at 1800. Called Merrill at and notified him that pt was enroute via ambulance at this time.
--- NOTE | 2020-06-12 18:14 | PC.NURSE ---
Pt home medications sent in patient belongings bag with [facility]. patient acknowledged with myself and Karlie from [facility] that pt home meds are being sent to with him as there is no family present at this time.
--- NOTE | 2020-06-13 17:45 | HMH.DCSUM ---
General - General Admission date:: 06/12/20 <Johnie Guzman - 07/08/20 22:14> 06/12/20 <HernestoAllegra - 06/13/20 18:10> Discharge date: 06/12/20 <Allegra Eric - 06/13/20 18:10> HPI HPI: Mr. Pickard is a 64-year-old male with a history of hypertension, hyperlipidemia, anxiety, degenerative joint disease of the spine, kidney stones, ASCVD, type 2 diabetes mellitus, seizure disorder, recurrent near syncope, history of TIA, depression, gout, traumatic lawnmower accident with multiple fractured ribs and pneumothorax in 10/2019., and extensive current cardiac disease noted with multiple stents. He last saw his power hammer operator, Dr. Norris, in January 2020. Patient presented to the emergency room after awakening with left anterior chest pain radiating up into the left shoulder. He stated with his walk to the bathroom he had one of his spells according to the . His son helped him to the floor. She described shaking in his upper body. Patient was short of breath at this time. He denied having nausea and no vomiting. He did describe palpitations. His chest pain was relieved in the emergency room when he had nitroglycerin paste applied to the chest wall and after taking multiple aspirins. With evaluation in the emergency room initial blood pressure was found to be 87/49. Troponin I was normal. He was given a liter of IV fluids after which his blood pressure did improve. He was also given Lovenox and potassium. Dr. Peck was consulted. With his history, hypotension and EKG changes he was admitted for further evaluation and treatment Patient stated he had a good day yesterday. He went to [facility] and had no problems during or after. At the time of exam he was awakened for the exam and was pain-free. He had been seen by cardiology and a cardiac cath planned this a.m. Troponin I's were noted to have trended upwards. To note his last A1c was 13.2 in March 2020. This admission Troponin I's increased from 0.01 to-0.72 to 9.65. BNP was 843. Liver function studies were normal; blood sugars were 152 and 166. Potassium initially was 2.8 and improved to 3.1. Kidney function revealed a BUN of 18 and a creatinine of 1. Hemoglobin/ hematocrit were 14 and 43.5 on admission. <Allegra Eric - 06/13/20 18:10> Hospital Course Hospital Course: After admission patient had no further chest pain. He had a cardiac catheterization /Dr. Peck AM of admission with the following results: ANGIOGRAPHIC RESULTS The left main artery Has a severe distal 50% stenosis The left anterior descending artery Has an ostial 90% stenosis followed by stents which are patent in the proximal segment but then have concentric 70% in-stent restenosis distal to the first septal certified pesticide applicator but proximal to the first diagonal artery. There are additional mid vessel 50 and 80% stenoses. The circumflex artery Is a large dominant vessel with an ostial 90% stenosis followed by a proximal 50% stenosis. This gives rise to 3 large obtuse marginal arteries. Which are patent. The first obtuse marginal artery has a proximal 40% while the second obtuse marginal artery has a proximal concentric 70 to 80% stenosis The right coronary artery Is nondominant and has stents through the proximal mid and distal segment. The midportion of the vessel has concentric 80% in-stent restenosis The MONACO ventriculogram reveals Reduced 40% with anterior wall hypokinesis The left ventricular end-diastolic pressure Severely elevated at 40 mmHg IMPRESSION Severe to critical three-vessel coronary disease Reduced ejection fraction with regional wall motion abnormality Severe to critically elevated LVEDP PLAN 1. Patient requires bypass surgery this admission 2. Stop Plavix 3. Diuresis to decrease LVEDP 4. Medical management with beta-blockers and nitrates 5. Start heparin drip 6. Arrangements will be made to transfer patient to [facility] for bypass surg
[2020-06-13 23:45] LABS: POC Glucose,Bedside 105 (70-110)
== END 2020-06-12 18:00 | disposition short-term general hospital (02) | DRG 281 ==
LOC: ER 01:25 → 2ND 02:57
PROVIDERS: Internal Medicine; Admitting Provider Family Medicine; Emergency Provider Family Medicine; PCP Family Medicine; Visit Provider Family Medicine
PROC: 4A023N7 Measurement of Cardiac Sampling and Pressure, Left Heart, Percutaneous Approach (ICD-10-PCS; principal; 2020-06-12 10:45)
DX: I21.4 Non-ST elevation (NSTEMI) myocardial infarction (principal); T82.855A Stenosis of coronary artery stent, initial encounter; I25.10 Atherosclerotic heart disease of native coronary artery without angina pectoris; Z86.73 Personal history of transient ischemic attack (TIA), and cerebral infarction without residual deficits; E11.9 Type 2 diabetes mellitus without complications; E78.5 Hyperlipidemia, unspecified; I10 Essential (primary) hypertension; G40.909 Epilepsy, unspecified, not intractable, without status epilepticus; E87.6 Hypokalemia; Y83.1 Surgical operation with implant of artificial internal device as the cause of abnormal reaction of the patient, or of later complication, without mention of misadventure at the time of the procedure; F17.290 Nicotine dependence, other tobacco product, uncomplicated; Z71.6 Tobacco abuse counseling; F32.9 Major depressive disorder, single episode, unspecified; F41.9 Anxiety disorder, unspecified; Z79.02 Long term (current) use of antithrombotics/antiplatelets; Z79.84 Long term (current) use of oral hypoglycemic drugs
CPT/HCPCS: 36415; 71045; 80048; 80053; 82962; 83880; 84484; 85007; 85025; 87581; 87633; 87798; 93005; 93306; 93458; 99152; 99283; C1725; C1769; J1644; Q9967

== ENCOUNTER → 2020-10-29 15:47 | Outpatient (CLI) | payer MEDICARE, SELFPAY ==
--- NOTE | 2020-10-29 15:54 | XR_ITS ---
PROCEDURE: XR CHEST 2V CLINICAL HISTORY: CHEST WALL PAIN COMPARISON: CR XR chest 2V from 06/06/2018 CR XR CHEST PORTABLE from 05/31/2019 CR XR CHEST PORTABLE from 06/12/2020 FINDINGS: Prior CABG. Coronary artery stent is noted on the left. Borderline cardiomegaly without failure. There are old left-sided rib fractures with pleural thickening. No lobar consolidation or collapse. Mild thoracic kyphosis IMPRESSION: No acute findings. Dictated by: Jarrett Escobedo MD 10/29/2020 17:03 Jarrett Esocbedo MD in [place] 10/29/2020 17:03
--- NOTE | 2020-10-29 15:54 | XR_ITS ---
PROCEDURE: XR CERVICAL SPINE 2V CLINICAL INDICATION: PARESTHESIA COMPARISON: No exams were available for comparison FINDINGS: No fracture or dislocation. No lytic or blastic change. There is normal mineralization. Degenerative disc disease is present at C4-C5 C5-C6 and C6-C7. Other findings:Carotid artery calcifications are noted. IMPRESSION: Degenerative changes Dictated by: Jarrett Escobedo MD 10/29/2020 17:10 Jarrett Escobedo MD in [place] 10/29/2020 17:10
--- NOTE | 2020-10-29 15:54 | XR_ITS ---
PROCEDURE: XR SHOULDER LT MIN 2V CLINICAL INDICATION: LT SHOULDER PAIN COMPARISON: CR XR CHEST PORTABLE from 06/12/2020 FINDINGS: No fracture or dislocation. No lytic or blastic change. There is normal mineralization. There are mild osteoarthritic changes of the glenohumeral joint and acromioclavicular joint. Small subchondral cyst present humeral head at 5 mm. There are old fractures of the left 3rd 4th 5th 6 and 7th ribs with displacement the 5th 6th and 7th rib fractures. Other findings:None. IMPRESSION: Mild osteoarthritic changes of the shoulder. Multiple old left-sided rib fractures Dictated by: Jarrett Escobedo MD 10/29/2020 17:15 Jarrett Escobedo MD in [place] 10/29/2020 17:15
== END ==
PROVIDERS: PCP Family Medicine; Visit Provider Nurse Practitioner Family
DX: R07.89 Other chest pain (principal); R20.2 Paresthesia of skin; M25.512 Pain in left shoulder
CPT/HCPCS: 71046; 72040; 73030

== ENCOUNTER 2021-02-25 14:47 | Emergency (ER) | payer MEDICARE, SELFPAY ==
[2021-02-25] VITALS (8 sets, daily range): BP systolic 124–139; BP diastolic 68–86; PULSE 60–74; RESP 18–20; TEMP 36.7–37.1; O2SAT 94–98; BMI 29.0
--- NOTE | 2021-02-25 14:47 | ECG_ITS ---
APPROVED REPORT Exam: Resting ECG HR:68 bpm ECG Measurements Heart Rate 68 AXES WV 214 P 53 QRSd 100 QRS 15 QT 428 T 64 QTc 455 Conclusion Sinus rhythm with 1st degree AV block Incomplete right bundle branch block Septal infarct, age undetermined Abnormal ECG Electronically signed by : Marcelo Ng MD 02/26/2021 21:14:44
--- NOTE | 2021-02-25 14:57 | XR_ITS ---
PROCEDURE: XR CHEST PORTABLE CLINICAL HISTORY: chest pain COMPARISON: CR XR CHEST PORTABLE from 05/31/2019 CR XR CHEST PORTABLE from 06/12/2020 CR XR CHEST 2V from 10/29/2020 FINDINGS: Prior median sternotomy. Mild cardiomegaly without failure. Mild patient rotation to the right. Increased markings right lower lobe which may be vascular in nature. Pleural thickening along the left lateral hemithorax unchanged. No acute bony abnormalities. IMPRESSION: Cardiomegaly. No definite acute finding. Dictated by: Jarrett Escobedo MD 02/25/2021 15:22 Jarrett Escobedo MD in [place] 02/25/2021 15:22
[2021-02-25 16:32] LABS: Basophils # 0.1 K/mm3 (0-0.2); Basophils % 0.7 % (0.1-2.0); Eosinophils # 0.2 K/mm3 (0.0-0.4); Eosinophils % 2.4 % (0.1-12.0); Hematocrit 42.7 % (42.0-52.0); Hemoglobin 14.5 g/dL (14.1-18.0); Lymphocytes # 2.1 K/mm3 (0.7-4.5); Mean Corpuscular HGB Conc 33.9 g/dL (31.8-35.4); Mean Corpuscular Hemoglobin 31.2 pg (27.0-31.2); Mean Corpuscular Volume 91.9 fl (80-94); Mean Platelet Volume 7.4 fl (7.4-10.4); Monocytes # 0.6 K/mm3 (0.1-1.0); Monocytes % 7.1 % (1.7-9.3); Neutrophils % 63.8 % (37.0-80.0); Platelet Count 252 K/mm3 (142-424); Red Blood Count 4.65 M/mm3 (4.60-6.20); Red Cell Distribution Width 13.3 % (11.5-17.5); White Blood Count 7.9 K/mm3 (4.8-10.8)
--- NOTE | 2021-02-25 16:32 | HMH.EDGENADL ---
ED Disposition Clinical Impression: Atypical chest pain Disposition: Home, Self-Care Condition on Discharge: Good Instructions: DI for Atypical Chest Pain Additional Instructions: Additional instructions for CHEST PAIN: See your physician as soon as possible for further evaluation. Call your portfolio specialist tomorrow to arrange follow-up. Return to an emergency department immediately if worsening chest pain, vomiting, shortness of breath, fever, coughing of blood. Referrals: Johnie Guzman MD [Primary Care Provider] - Forms: Work/School Release - Critical Care Critical Care Time: No Attestation: On 02/25/21, the high probability of a clinically significant, sudden or life threatening deterioration of the following system(s) required my full and direct attention, intervention and personal management. The time I documented below is in addition to time spent performing reported procedures but includes the following listed in this critical care notation. Medical Decision Making - Garo Inquiry Pt receiving controlled substance: No Vital Signs: 02/25/21 14:49 02/25/21 15:12 02/25/21 15:30 Temperature 98.8 F Temperature Source Oral Pulse Rate 74 72 Pulse Rate [Radial] 66 Respiratory Rate 18 18 18 Blood Pressure 124/71 133/71 Blood Pressure [Right Arm] 139/79 Blood Pressure Mean 97 96 Blood Pressure Mean [Right Arm] 99 Blood Pressure Position [Right Arm] Sitting 02 Sat by Pulse Oximetry 98 94 L 94 L Oxygen Delivery Method Room Air 02/25/21 16:00 02/25/21 16:30 02/25/21 17:00 Temperature Temperature Source Pulse Rate 64 61 62 Pulse Rate [Radial] Respiratory Rate 18 18 18 Blood Pressure 128/68 131/84 129/86 Blood Pressure [Right Arm] Blood Pressure Mean 93 95 104 Blood Pressure Mean [Right Arm] Blood Pressure Position [Right Arm] 02 Sat by Pulse Oximetry 94 L 94 L 95 Oxygen Delivery Method 02/25/21 17:30 Temperature Temperature Source Pulse Rate 61 Pulse Rate [Radial] Respiratory Rate 18 Blood Pressure 128/74 Blood Pressure [Right Arm] Blood Pressure Mean 94 Blood Pressure Mean [Right Arm] Blood Pressure Position [Right Arm] 02 Sat by Pulse Oximetry 94 L Oxygen Delivery Method - Lab Data Lab Results 02/25/21 15:50: WBC 7.9, RBC 4.65, Hgb 14.5, Hct 42.7, MCV 91.9, MCH 31.2, MCHC 33.9, RDW 13.3, Plt Count 252, MPV 7.4, Neut % (Auto) 63.8, Lymph % (Auto) 26.0, [place] % (Auto) 7.1, Eos % (Auto) 2.4, Baso % (Auto) 0.7, Neut # (Auto) 5.0, Lymph # (Auto) 2.1, [place] # (Auto) 0.6, Eos # (Auto) 0.2, Baso # (Auto) 0.1 02/25/21 15:50: Sodium 137, Potassium 3.8, Chloride 101, Carbon Dioxide 29, Anion Gap 10.8, BUN 23 H, Creatinine 0.90, Estimated Creat Clear 97, Estimated GFR 85, Est GFR ( Amer) 103, Glucose 103 H, Calcium 9.0, Troponin I 0.01 02/25/21 18:27: Troponin I < 0.01 Result diagrams: 02/25/21 15:50 02/25/21 15:50 Orders (Tests/Meds): ED MEDICATIONS Discontinued Medications Generic Name Dose Route Start Last Admin Trade Name Freq PRN Reason Stop Dose Admin Aspirin 243 mg 02/25/21 14:57 02/25/21 15:10 Aspirin 81mg Chewable Tablet PO 02/25/21 14:58 243 mg ONCE ONE Administration ORDERS Category Date Time Status Troponin I Q3H Lab 02/25/21 21:00 Ordered - Radiology Data #1 Image(s): Chest Image Reviewed: Yes I have reviewed radiologist's interpretation PROCEDURE: XR CHEST PORTABLE CLINICAL HISTORY: chest pain COMPARISON: CR XR CHEST PORTABLE from 05/31/2019 CR XR CHEST PORTABLE from 06/12/2020 CR XR CHEST 2V from 10/29/2020 FINDINGS: Prior median sternotomy. Mild cardiomegaly without failure. Mild patient rotation to the right. Increased markings right lower lobe which may be vascular in nature. Pleural thickening along the left lateral hemithorax unchanged. No acute bony abnormalities. IMPRESSION: Cardiomegaly. No definite acute finding. Dictated by:
[2021-02-25 16:38] LABS: Anion Gap 10.8 mEq/L (5-15); Blood Urea Nitrogen 23 mg/dl (9-20); Carbon Dioxide 29 mmol/L (22.0-30.0); Chloride 101 mmol/L (98-107); Creatinine Clearance Estimated 97 mL/min (50-200); Estimated Glomerular Filt Rate 85 ml/min (>60); GFR (African American) 103 ML/MIN (>60); Glucose 103 mg/dl (74-100); Potassium 3.8 mmoL/L (3.5-5.1); Sodium 137 mmol/L (136-145)
[2021-02-25 17:07] LABS: Troponin I 0.01 ng/ml (0.00-0.034)
--- NOTE | 2021-02-25 17:50 | PC.NURSE ---
contacting [facility] per ER MD request to speak with pts supervisor sewing department
--- NOTE | 2021-02-25 17:53 | PC.NURSE ---
NANI MOSQUEDA speaking with [facility] associate doctor
[2021-02-25 19:09] LABS: Troponin I < 0.01 ng/ml (0.00-0.034)
--- NOTE | 2021-02-25 19:16 | ECG_ITS ---
APPROVED REPORT Exam: Resting ECG HR:61 bpm ECG Measurements Heart Rate 61 AXES NM 210 P 67 QRSd 100 QRS 64 QT 448 T 23 QTc 450 Conclusion Sinus rhythm with 1st degree AV block with premature atrial complexes with aberrant conduction Septal infarct, age undetermined Abnormal ECG Electronically signed by : Marcelo Ng MD 02/26/2021 21:14:14
== END 2021-02-25 19:44 | disposition home or self-care (01) ==
PROVIDERS: Emergency Provider Emergency Medicine; PCP Family Medicine
DX: R07.89 Other chest pain (principal); R06.02 Shortness of breath; E11.9 Type 2 diabetes mellitus without complications; K21.9 Gastro-esophageal reflux disease without esophagitis; I10 Essential (primary) hypertension; E78.5 Hyperlipidemia, unspecified; Z79.899 Other long term (current) drug therapy
CPT/HCPCS: 71045; 80048; 84484; 85025; 93005; 99283

== ENCOUNTER → 2022-10-02 09:57 | Outpatient (CLI) | payer MEDICARE, SELFPAY ==
--- NOTE | 2022-10-02 10:04 | XR_ITS ---
FINAL REPORT CLINICAL HISTORY: OLECRANON BURSITIS OF LEFT ELBOW, FELL 2-3 MNTHS AGO, SWELLING, WOUND OPENED & DRAINED LAST NIGHT FINDINGS: AP, oblique, and lateral views of the left elbow were obtained. There is no prior exam for comparison. There is no acute fracture or dislocation. There is an olecranon spur. There is no convincing bursitis on this exam. Joint space is preserved. There is no joint effusion or other soft tissue abnormality. IMPRESSION: No acute osseous abnormality of the left elbow. Reviewed, Interpreted and Dictated by Martha Beatty MD Transcribed by Allegra Anand Authenticated and [facility]
== END ==
PROVIDERS: PCP Family Medicine; Visit Provider Physician Assistant
DX: M70.22 Olecranon bursitis, left elbow (principal)
CPT/HCPCS: 73080

== ENCOUNTER 2022-10-03 13:46 | Emergency (ER) | payer MEDICARE, SELFPAY ==
[2022-10-03 13:47] VITALS: BP 146/79; PULSE 63; RESP 19; TEMP 36.8; O2SAT 98; BMI 30.7
[2022-10-03 13:58] VITALS: BP 162/84; PULSE 63; O2SAT 97
[2022-10-03 14:04] VITALS: BP 145/79; PULSE 59; O2SAT 98
[2022-10-03 14:30] VITALS: BP 126/83; PULSE 60; O2SAT 98
--- NOTE | 2022-10-03 14:34 | PC.NURSE ---
Visual Acuity with glasses that he wears daily: Both- 20/25 Left- 20/20 right- 20/25
--- NOTE | 2022-10-03 14:37 | PC.NURSE ---
placed call to [facility] for ophthalmology consult
--- NOTE | 2022-10-03 14:50 | PC.NURSE ---
Dr Sofia speaking with [facility]thalm[facility]
--- NOTE | 2022-10-03 14:59 | PC.NURSE ---
Rounded on patient; no needs at this time. Call saab within reach
--- NOTE | 2022-10-03 15:24 | HMH.EDGENADL ---
Discharge Plan Disposition Patient Disposition: Home, Self-Care Condition: Good Prescriptions Prescriptions: New ofloxacin 0.3 % drops See Rx Instructions .ROUTE .COMPLEX Qty: 10 0RF Rx Instructions: 1 drop into the right eye every 30 minutes while awake for the first 2 days and every 4-6 hours while sleeping for the first 2 days. After this, 1 drop every hour while awake for 5 days, then 1 drop 4 times daily until your problem has resolved. No Action atorvastatin 80 MG tablet 80 mg PO HS potassium chloride 10 MEQ capsule, extended release 10 meq PO DAILY duloxetine 60 MG capsule,delayed release(DR/EC) 60 mg PO DAILY aspirin 81 MG tablet,delayed release (DR/EC) 81 mg PO DAILY levetiracetam 500 MG tablet 750 mg PO BID atenolol 50 MG tablet 50 mg PO BID acetaminophen 325 MG tablet 650 mg PO Q4HP PRN (Reason: As Needed For Fever Or Pain) 0RF insulin lispro 100 UNIT/ML solution 0 unit SQ ACHS 0RF ondansetron HCl (PF) 4 MG/2 ML solution 4 mg IV Q8HP PRN (Reason: Nausea) 0RF Referrals Follow up/Referrals: Johnie Guzman MD [Primary Care Provider] - See instructions Activity Restrictions/Add. Instructions Additional Instructions/Restrictions: Use the prescribed antibiotic eyedrops as directed, do not skip doses, do not stop using it early. Due to your diabetes, you have increased risk of infection and vision loss as a result of the injury to your eye. Make an appointment with your eye doctor for early next week for reevaluation. Also follow-up with your primary care physician. Return to the emergency department with new or worsening symptoms including but not limited to fever, pus from the right eye, vision changes in the right eye, or anything else you are concerned about. Eyedrop instructions: For the first 2 days: -- 1 drop in the right eye every 30 minutes while awake -- 1 drop in the right eye every 4-6 hours while sleeping For days 3 through 7: -- 1 drop in the right eye every hour while awake Day 7 until resolved: --1 drop 4 times daily Due to complexity of instructions, I recommend setting an alarm on your phone or other device to remind you to use this medication regularly. Clinical Impressions Clinical Impression: Central corneal ulcer of right eye Discharge ED Provider: Sofia,Mikalah General Adult HPI General Chief complaint: Eye Problems Stated complaint: Possible foreign object RT eye, pain w/drainage Time Seen by Provider: 10/03/22 14:11 Mode of Arrival: Ambulatory Source of Information: Patient Limitations: No Limitations Description of Symptoms (Recalled from ER Triage Doc. by RN): 67 yo M presents to ED with c/o right eye redness and drainage. pt reports that he was picking beans in his garden and sweat dripped into his eye, when he wiped his eye he felt something get into eye. History of Present Illness HPI narrative: This 67-year-old male presents to the ED concerning of right eye redness, pain, drainage. He states he was picking beans in his garden when sweat dripped into his eye and he wiped the eye, immediately feeling a scratching sensation and pain. This happened earlier today. Patient presented to the emergency department for evaluation. Review of systems otherwise negative. He states he has not sustained any other trauma to the eye but feels a scratching sensation up under the eyelid every time the eyes closed. He states vision is only blurry when the eye starts to tear significantly. Related Data Home Medications Medication Instructions Recorded Confirmed atorvastatin 80 mg tablet 80 mg PO HS Cholesterol 05/09/18 06/12/20 duloxetine 60 mg capsule,delayed 60 mg PO DAILY mood 05/09/18 06/12/20 release potassium chloride 10 mEq 10 meq PO DAILY Supplement 05/09/18 06/12/20 capsule,extended release aspirin 81 mg tablet,delayed 81 mg PO DAILY Blood thinner 05/10/18 06/12/20 release levetiracetam 500 m
[2022-10-03 15:38] VITALS: BP 126/83; PULSE 60; RESP 19; TEMP 36.8
== END 2022-10-03 15:40 | disposition home or self-care (01) ==
PROVIDERS: Emergency Provider Emergency Medicine; PCP Family Medicine
DX: H16.011 Central corneal ulcer, right eye (principal); E11.9 Type 2 diabetes mellitus without complications
CPT/HCPCS: 99283

== ENCOUNTER 2023-01-27 21:42 | Emergency (ER) | payer MEDICARE, SELFPAY ==
[2023-01-27 21:42] VITALS: BP 161/87; PULSE 77; RESP 16; TEMP 36.9; O2SAT 99; BMI 30.8
--- NOTE | 2023-01-27 21:44 | ECG_ITS ---
APPROVED REPORT Exam: Resting ECG HR:76 bpm ECG Measurements Heart Rate 76 AXES NC 217 P 60 QRSd 105 QRS 53 QT 401 T 48 QTc 431 Conclusion SINUS RHYTHM WITH FIRST DEGREE AV BLOCK INCOMPLETE RIGHT BUNDLE BRANCH BLOCK [90+ ms QRS DURATION, TERMINAL R IN V1/V2, 40+ ms S IN I/aVL/V4/V5/V6] SEPTAL MYOCARDIAL INFARCTION , OF INDETERMINATE AGE [40+ ms Q WAVE IN V1/V2] ABNORMAL ECG UNCONFIRMED REPORT Electronically signed by : Marcelo Ng MD 01/28/2023 20:59:04
[2023-01-27 21:47] VITALS: PULSE 77
--- NOTE | 2023-01-27 21:48 | XR_ITS ---
PROCEDURE INFORMATION: Exam: XR Chest Exam date and time: 01/27/2023 9:56 PM Age: 67 years old Clinical indication: Sternal or substernal pain; Additional info: Cp TECHNIQUE: Imaging protocol: Radiologic exam of the chest. Views: 2 views. COMPARISON: No relevant prior studies available. FINDINGS: Lungs: Granulomatous change. No consolidation. Pleural spaces: Unremarkable. No pleural effusion. No pneumothorax. Heart/Mediastinum: Midline sternotomy. cardiomegaly. Bones/joints: Unremarkable. IMPRESSION: No acute findings.
[2023-01-27 21:55] LABS: Basophils # 0.1 K/mm3 (0-0.2); Basophils % 0.9 % (0.1-2.0); Eosinophils # 0.3 K/mm3 (0.0-0.4); Eosinophils % 3.7 % (0.1-12.0); Hematocrit 43.6 % (42.0-52.0); Hemoglobin 14.7 g/dL (14.1-18.0); Lymphocytes # 2.5 K/mm3 (0.7-4.5); Lymphocytes % 30.2 % (10-50); Mean Corpuscular HGB Conc 33.8 g/dL (31.8-35.4); Mean Corpuscular Hemoglobin 32.9 pg (27.0-31.2); Mean Corpuscular Volume 97.1 fl (80-94); Mean Platelet Volume 7.5 fl (7.4-10.4); Monocytes # 0.6 K/mm3 (0.1-1.0); Monocytes % 7.5 % (1.7-9.3); Neutrophils # 4.8 K/mm3 (1.8-7.8); Neutrophils % 57.8 % (37.0-80.0); Platelet Count 250 K/mm3 (142-424); Red Blood Count 4.48 M/mm3 (4.60-6.20); Red Cell Distribution Width 13.7 % (11.5-17.5); White Blood Count 8.4 K/mm3 (4.8-10.8)
[2023-01-27 22:00] VITALS: BP 153/89; PULSE 64; RESP 13; O2SAT 93
[2023-01-27 22:01] LABS: Alanine Aminotransferase 34 U/L (12-78); Albumin Level 4.8 g/dl (3.5-5.0); Albumin/Globulin Ratio 1.4 (1.1-1.8); Alkaline Phosphatase 85 U/L (38-126); Anion Gap 14.2 mEq/L (5-15); Aspartate Amino Transferase 45 U/L (17-59); Bilirubin,Total 0.9 mg/dl (0.2-1.3); Blood Urea Nitrogen 19 mg/dl (9-20); Calcium 9.3 mg/dl (8.4-10.2); Carbon Dioxide 31 mmol/L (22.0-30.0); Chloride 99 mmol/L (98-107); Creatinine Clearance Estimated 91 mL/min (50-200); Estimated Glomerular Filt Rate 67 ml/min (>60); GFR (African American) 81 ML/MIN (>60); Globulin 3.4 g/dL (1.3-3.2); Glucose 81 mg/dl (74-100); Potassium 4.2 mmoL/L (3.5-5.1); Sodium 140 mmol/L (136-145); Total Protein,Serum 8.2 g/dl (6.3-8.2)
--- NOTE | 2023-01-27 22:12 | PC.NURSE ---
Dr. June in room for karina
[2023-01-27 22:17] LABS: Troponin I 0.01 ng/ml (0.00-0.034)
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
[2023-01-27 22:31] VITALS: BP 166/89; PULSE 71; RESP 16; O2SAT 96
[2023-01-27 23:01] VITALS: BP 169/82; PULSE 73; RESP 16; O2SAT 96
[2023-01-27 23:02] LABS: D-Dimer 0.79 ug/mL (0.0-0.5)
[2023-01-27 23:31] VITALS: BP 176/83; PULSE 72; RESP 18; O2SAT 95
[2023-01-28 01:15] LABS: Troponin I < 0.01 ng/ml (0.00-0.034)
[2023-01-28 01:40] VITALS: BP 155/73; PULSE 70; RESP 16; TEMP 36.9; O2SAT 96
== END 2023-01-28 01:42 | disposition home or self-care (01) ==
PROVIDERS: Emergency Medicine; Emergency Provider Emergency Medicine; PCP Family Medicine
DX: R07.89 Other chest pain (principal); I44.0 Atrioventricular block, first degree; I25.10 Atherosclerotic heart disease of native coronary artery without angina pectoris; Z95.5 Presence of coronary angioplasty implant and graft
CPT/HCPCS: 71046; 80053; 84484; 85025; 85378; 93005; 99284

== ENCOUNTER 2023-11-18 09:24 | Outpatient (CLI) | payer MEDICARE, SELFPAY ==
--- NOTE | 2023-11-18 09:27 | CA_ITS ---
FINAL REPORT TECHNIQUE: Color Doppler, duplex Doppler and hess scale sonography of the bilateral neck vasculature was performed. Velocities were measured in the carotid arteries. Stenosis evaluation based on velocity criteria. CLINICAL HISTORY: RT BRUIT,HX CVA,DIZZINESS COMPARISON: None FINDINGS: The peak systolic velocity of the right common carotid artery is 67 cm/sec and internal carotid artery 60 to cm/sec. The diastolic velocity in the internal carotid artery is 20 cm/sec. The ICA/CCA ratio is 1.26. Visually, a small amount of plaque is seen. These findings are consistent with less than 50% stenosis. The external carotid artery is patent. The right vertebral artery is patent with antegrade flow. The peak systolic velocity of the left common carotid artery is 103 cm/sec and internal carotid artery 86 cm/sec. The diastolic velocity in the internal carotid artery is 22 cm/sec. The ICA/CCA ratio is 1.46. Visually, a small amount of plaque is seen. These findings are consistent with less than 50% stenosis. The external carotid artery is patent. The left vertebral artery is patent with antegrade flow. IMPRESSION: No evidence of significant carotid stenosis. Bilateral patent vertebral arteries. If indicated, CTA or MRA could further evaluate. Reviewed, Interpreted and Dictated by Kennedy Benz III, MD Transcribed by Migdalia Gipson Authenticated and [facility]
== END 2023-11-18 23:59 | disposition home or self-care (01) ==
LOC: RT 09:25
PROVIDERS: PCP Family Medicine; Visit Provider Nurse Practitioner Family
DX: R09.89 Other specified symptoms and signs involving the circulatory and respiratory systems (principal)
CPT/HCPCS: 93880

== ENCOUNTER 2024-04-21 23:55 | Emergency (ER) | payer MEDICARE, SELFPAY ==
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
--- NOTE | 2024-04-21 23:52 | XR_ITS ---
PROCEDURE INFORMATION: Exam: XR Chest Exam date and time: 04/21/2024 11:55 PM Age: 68 years old Clinical indication: Injury or trauma; Fall; Blunt trauma (contusions or hematomas) TECHNIQUE: Imaging protocol: Radiologic exam of the chest. Views: 1 view. COMPARISON: CR XR CHEST 2V 01/27/2023 9:56 PM FINDINGS: Lungs: No evidence of acute pulmonary disease or infiltrates Pleural spaces: No large effusion or pneumothorax. Heart/Mediastinum: Stable cardiac and mediastinal contours. Diaphragm: There is elevation of the right hemidiaphragm. Bones/joints: Old left lateral rib fractures are unchanged. The patient is status post median sternotomy. IMPRESSION: No dense parenchymal consolidation, pleural effusion, or pneumothorax.
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
[2024-04-21 23:55] VITALS: BP 152/84; PULSE 72; RESP 16; TEMP 36.6; O2SAT 98; BMI 33.9
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
--- NOTE | 2024-04-21 23:55 | PC.NURSE ---
xrays being done at bedside
[2024-04-21 23:58] VITALS: BP 152/84; PULSE 67; RESP 16; TEMP 36.6; O2SAT 98
[2024-04-21 23:58] LABS: Basophils # 0.1 K/mm3 (0-0.2); Basophils % 0.8 % (0.1-2.0); Eosinophils # 0.3 K/mm3 (0.0-0.4); Hematocrit 44.6 % (42.0-52.0); Hemoglobin 14.5 g/dL (14.1-18.0); Lymphocytes # 2.6 K/mm3 (0.7-4.5); Lymphocytes % 30.2 % (10-50); Mean Corpuscular HGB Conc 32.5 g/dL (31.8-35.4); Mean Corpuscular Hemoglobin 30.9 pg (27.0-31.2); Mean Corpuscular Volume 94.9 fl (80-94); Mean Platelet Volume 9.8 fl (7.4-10.4); Monocytes # 0.8 K/mm3 (0.1-1.0); Monocytes % 9.6 % (1.7-9.3); Neutrophils # 4.8 K/mm3 (1.8-7.8); Neutrophils % 55.9 % (37.0-80.0); Platelet Count 277 K/mm3 (142-424); Red Cell Distribution Width 12.8 % (11.5-17.5); White Blood Count 8.6 K/mm3 (4.8-10.8)
[2024-04-22] VITALS: BP 162/81; PULSE 65; RESP 18; O2SAT 98
[2024-04-22 00:04] LABS: Alanine Aminotransferase 33 U/L (12-78); Albumin Level 4.6 g/dl (3.5-5.0); Albumin/Globulin Ratio 1.7 (1.1-1.8); Alkaline Phosphatase 104 U/L (38-126); Anion Gap 16.9 mEq/L (5-15); Aspartate Amino Transferase 43 U/L (17-59); Bilirubin,Total 0.3 mg/dl (0.2-1.3); Blood Urea Nitrogen 15 mg/dl (9-20); Calcium 9.2 mg/dl (8.4-10.2); Carbon Dioxide 29 mmol/L (22.0-30.0); Chloride 100 mmol/L (98-107); Estimated Glomerular Filt Rate 75 ml/min (>60); GFR (African American) 90 ML/MIN (>60); Globulin 2.7 g/dL (1.3-3.2); Glucose 133 mg/dl (74-100); Potassium 3.9 mmoL/L (3.5-5.1); Sodium 142 mmol/L (136-145); Total Protein,Serum 7.3 g/dl (6.3-8.2)
[2024-04-22 00:10] LABS: Activated Partial Thrombo Time 24.5 seconds (22.8-30.6); INR 0.87 (0.9-1.1); Prothrombin Time 9.7 seconds (10.1-12.5)
[2024-04-22 00:15] VITALS: BP 186/86; PULSE 74; RESP 15; O2SAT 96
[2024-04-22] MEDS: 0.9 % SODIUM CHLORIDE 50 ML VIAL 40 ML IV (00:16)
[2024-04-22] MEDS: IOPAMIDOL-370 (76%);100ML BOTTLE 80 ML IV (00:16)
[2024-04-22] MEDS: SODIUM CHLORIDE 0.9% 10ML SYR (RAD ONLY) 10 ML IV (00:16)
[2024-04-22 00:31] VITALS: BP 205/88; RESP 20
[2024-04-22 00:33] VITALS: BP 195/89; PULSE 65; RESP 19; O2SAT 97
[2024-04-22] MEDS: TET/DIPHTH/PERT-ADULT 0.5ML SYRINGE 0.5 ML IM (00:58)
[2024-04-22 01:05] VITALS: BP 172/84; PULSE 74; RESP 16; TEMP 36.6; O2SAT 98
--- NOTE | 2024-04-22 01:06 | PC.NURSE ---
Patient IV removed. Catheter tip intact. Bleeding controlled.
== END 2024-04-22 01:11 | disposition home or self-care (01) ==
PROVIDERS: Emergency Provider Emergency Medicine
DX: S00.91XA Abrasion of unspecified part of head, initial encounter (principal); S06.0X1A Concussion with loss of consciousness of 30 minutes or less, initial encounter; R41.82 Altered mental status, unspecified; R51.9 Headache, unspecified; H53.8 Other visual disturbances; Z23 Encounter for immunization; Y04.2XXA Assault by strike against or bumped into by another person, initial encounter; Y93.54 Activity, bowling; Y92.838 Other recreation area as the place of occurrence of the external cause
CPT/HCPCS: 70450; 70496; 70498; 71045; 72125; 72170; 80053; 85025; 85610; 85730; 90471; 90715; 99291; Q9967

== ENCOUNTER 2024-06-20 09:51 | Outpatient (CLI) | payer MEDICARE, SELFPAY ==
--- NOTE | 2024-06-20 09:56 | XR_ITS ---
FINAL REPORT CLINICAL HISTORY: PAIN IN FOOT COMPARISON: None FINDINGS: Three views of the right foot show no evidence of acute displaced fracture or dislocation of the visualized bony architecture. Degenerative changes are noted. IMPRESSION: Degenerative changes without acute bony abnormality. Reviewed, Interpreted and Dictated by Frida Ortega MD Transcribed by Laury Leon Authenticated and [facility]
--- OUTSIDE RECORDS SUMMARY | 2024-06-22 20:55 | XMS_ITS ---
Author Organization Unknown Immunizations Date Vaccine DateAdministered TimeAdministered VaccineCode Dose Strength Unit Material Flow Analyst DueDate CptCode CvxCode ManufacturerCode LocationCode AdministeredBy 12/23 00:00 :00 Fluzone PF Quad (6-35 months) 12/23/2021 00:00:00 966854 0.5 mL SEQIRUS [id number] 150 SEQIRUS 01/23 00:00 :00 Prevnar (PCV20) 01/23/2022 09:27:00 09:27:00 953465 0.5 mL Matt 0 24 00:00:00 [id number] Lynn Davies
== END 2024-06-20 23:59 | disposition home or self-care (01) ==
LOC: RAD 09:53
PROVIDERS: PCP Family Medicine; Visit Provider Family Medicine
DX: M79.671 Pain in right foot (principal)
CPT/HCPCS: 73630

== ENCOUNTER 2024-08-22 10:08 | Emergency (ER) | payer MEDICARE, SELFPAY ==
[2024-08-22] VITALS (8 sets, daily range): BP systolic 147–175; BP diastolic 72–99; PULSE 41–57; RESP 15–18; TEMP 36.9–37.1; O2SAT 97–100; BMI 31.2
--- OUTSIDE RECORDS SUMMARY | 2024-08-22 10:13 | XMS_ITS | Clinical Summary ---
Author Organization Healthcare Address [address] [place] [address] Care Team Providers Care Swing Grinder Name Role Phone Johnie Guzman MD Primary Care Provider [phone] Immunizations Immunization Administration Dates Next Due Pneumococcal Polysaccharide PPV23 11/11/2019 Social History Tobacco Use Types Packs/Day Years Used Date Smoking Tobacco: Former Alcohol Use Standard Drinks/Week Comments No 0 (1 standard drink = 0.6 oz pur e alcohol) Sex and Gender Information Value Date Recorded Sex Assigned at Not on file Legal Sex Male 8:45 PM EDT Gender Identity Not on file Sexual Orientation Not on file Last Filed Vital Signs Vital Sign Reading Time Taken Comments Blood Pressure 116/76 07/16/2020 11:23 AM EDT Pulse 92 07/16/2020 11:23 AM EDT Temperature 36.8 C (98.3 F) 12/08/2019 9:36 AM EDT Respiratory Rate - - Oxygen Saturation - - Inhaled Oxygen Concentration - - Weight 94.3 kg (208 lb 0.1 oz) 07/16/2020 11:23 AM EDT Height 177.8 cm (5' 10 ) 07/16/2020 11:23 AM EDT Body Mass Index 29.85 07/16/2020 11:23 AM EDT Plan of Treatment Health Maintenance Due Date Last Done Comments [facility]-Depression Screening 1955 [facility]-Infant/Child/Adol SDOH Screenings 1955 [facility]- SDOH Screenings 1974 [facility]-Adult SDOH Screenings 1974 [facility]-DTaP,Tdap,and Td Vaccine s (1 - Tdap) 09/27/1975 CT Colonography 2001 Colonoscopy 2001 FIT-DNA 2001 FIT 2001 FOBT 2001 Sigmoidoscopy 2001 [facility]-Colorectal Cancer Screening 2001 [facility]-Zoster Vaccines (1 of 2) 2006 [facility]-Pneumococcal Vaccine: 50 + Years (2 of 2 - PCV) 11/10/2020 11/11/2019 HCI-RIZNA-42 Vaccine (1 - 20 24-25 season) 2023 [facility]-Influenza Vaccine (Seaso n Ended) 2024 [facility]-RSV Vaccine: 60+ Years o r (1 - 1-dose 75+ series) 09/27/2031 HPV Vaccines Aged Out No longer eligi ble based on patient's age to complete this topic [facility]-HIB Vaccines Aged Out No longer e ligible based on patient's age to complete this topic [facility]-Hepatitis A Vaccines Aged Out No longer eligible based on patient's age to complete this topic [facility]-IPV Vaccines Aged Out No longer e ligible based on patient's age to complete this topic [facility]-Rotavirus Vaccines Aged Out No lo nger eligible based on patient's age to complete this topic Care Teams Swing Grinder Relationship Specialty Start Date End Date Johnie Guzman MD [address] [place] [address] PCP - General 07/26/20
--- NOTE | 2024-08-22 10:18 | ECG_ITS ---
APPROVED REPORT Exam: Resting ECG HR:54 bpm ECG Measurements Heart Rate 54 AXES OK 233 P 58 QRSd 118 QRS 79 QT 465 T 57 QTc 450 Conclusion SINUS BRADYCARDIA WITH FIRST DEGREE AV BLOCK WITH FREQUENT VENTRICULAR PREMATURE COMPLEXES INCOMPLETE RIGHT BUNDLE BRANCH BLOCK [90+ ms QRS DURATION, TERMINAL R IN V1/V2, 40+ ms S IN I/aVL/V4/V5/V6] SEPTAL MYOCARDIAL INFARCTION , OF INDETERMINATE AGE [40+ ms Q WAVE IN V1/V2] PROBABLE LATERAL MYOCARDIAL INFARCTION , OF INDETERMINATE AGE [35 ms Q WAVE IN I/aVL/V5/V6] Electronically signed by : ROSMERY PALOMARES, 08/22/2024 13:06:41
--- NOTE | 2024-08-22 10:27 | CT_ITS ---
FINAL REPORT TECHNIQUE: thin section axial CT with and without IV contrast supplemented with multiplanar 3-D reconstruction of the head. This study was performed with techniques to keep radiation doses as low as reasonably achievable, (ALARA)individualized dose reduction techniques using automated exposure control or adjustment of mA and/or kV according to the patient's size were employed. CLINICAL HISTORY: Weakness FINDINGS: The cranial circulation is unremarkable. There is no significant stenosis, aneurysm or occlusion. IMPRESSION: No acute process. Reviewed, Interpreted and Dictated by Marito Garcia MD Transcribed by Allegra Anand Authenticated and [facility]
--- NOTE | 2024-08-22 10:27 | CT_ITS ---
FINAL REPORT TECHNIQUE: NASCET technique utilized for stenosis evaluation. CLINICAL HISTORY: weakness FINDINGS: RIGHT CAROTID: There is moderate vascular calcification at the right carotid bifurcation with less than 50% stenosis. LEFT CAROTID: There is moderate vascular calcification at the left carotid bifurcation with up to 70% stenosis. VERTEBRALS: The vertebral arteries are symmetric. No significant stenosis is present. IMPRESSION: Less than 50% stenosis of the right carotid artery. 70% stenosis of the left carotid artery. Reviewed, Interpreted and Dictated by Marito Garcia MD Transcribed by Allegra Anand Authenticated and [facility]
--- NOTE | 2024-08-22 10:28 | CT_ITS ---
FINAL REPORT TECHNIQUE: Axial images of the head were obtained without contrast. Coronal reformatted images were also obtained. This study was performed with techniques to keep radiation doses as low as reasonably achievable (ALARA). Individualized dose reduction techniques using automated exposure control or adjustment of mA and/or kV according to the patient's size were employed. CLINICAL HISTORY: Weakness COMPARISON: 04/22/2024 FINDINGS: There is mild atrophy. There is patchy abnormal decreased attenuation in the deep white matter probably due to chronic ischemia. There is no acute hemorrhage, mass effect, or edema. The paranasal sinuses are well aerated. IMPRESSION: Moderate changes of chronic microvascular ischemia. Reviewed, Interpreted and Dictated by Marito Garcia MD Transcribed by Nataly Friedman Authenticated and [facility]
--- NOTE | 2024-08-22 10:28 | CT_ITS ---
FINAL REPORT TECHNIQUE: Axial images were obtained of the cervical spine by computed tomography. Coronal and sagittal reconstruction process performed. This study was performed with techniques to keep radiation doses as low as reasonably achievable (ALARA). Individualized dose reduction techniques using automated exposure control or adjustment of mA and/or kV according to the patient's size were employed. CLINICAL HISTORY: Weakness COMPARISON: 04/22/2024 FINDINGS: Cervical vertebrae show normal height. There is moderate disc space narrowing at C4-5 and C5-6. There is no malalignment. C2-3: There is no evidence of significant disc bulge or protrusion. There is no significant facet hypertrophy. C3-4: Posterior osteophyte in the midline and eccentric to the left. Mild spinal canal compromise. Asymmetric left facet hypertrophy. C4-5: Moderate midline osteophytes. Mild spinal canal compromise. Asymmetric left facet hypertrophy. C5-6: Moderate endplate hypertrophy. Moderate to high-grade right neural foraminal narrowing. C6-7: Moderate endplate hypertrophy eccentric to the left. Moderate left neural foraminal narrowing. C7-T1: There is no evidence of significant disc bulge or protrusion. There is no significant facet hypertrophy. IMPRESSION: Multilevel changes of degenerative disc disease with neural foraminal compromise, particularly evident on the right at C5-6 and on the left at C6-7, similar to prior exam. Reviewed, Interpreted and Dictated by Marito Garcia MD Transcribed by Nataly Friedman Authenticated and [facility]
--- NOTE | 2024-08-22 10:32 | HMH.EDGENADL ---
Discharge Plan Disposition Patient Disposition: Home, Self-Care Condition: Good Prescriptions Prescriptions: No Action losartan 50 mg tablet PO Patient Comments: TAKE ONE TABLET BY MOUTH ONCE A DAY furosemide 40 mg tablet PO tramadol 50 mg tablet PO Patient Comments: TAKE 1 TABLET BY MOUTH 4 TIMES A DAY NEEDED glimepiride 4 mg tablet PO metoprolol tartrate 50 mg tablet PO Patient Comments: TAKE ONE TABLET BY MOUTH 2 TIMES A DAY Jardiance 25 mg tablet PO Patient Comments: TAKE ONE TABLET BY MOUTH EVERY MORNING atorvastatin 80 MG tablet 80 mg PO HS potassium chloride 10 MEQ capsule, extended release 10 meq PO DAILY duloxetine 60 MG capsule,delayed release(DR/EC) 60 mg PO DAILY aspirin 81 MG tablet,delayed release (DR/EC) 81 mg PO DAILY levetiracetam 500 MG tablet 750 mg PO BID atenolol 50 MG tablet 50 mg PO BID acetaminophen 325 MG tablet 650 mg PO Q4HP PRN (Reason: As Needed For Fever Or Pain) 0RF insulin lispro 100 UNIT/ML solution 0 unit SQ ACHS 0RF ondansetron HCl (PF) 4 MG/2 ML solution 4 mg IV Q8HP PRN (Reason: Nausea) 0RF ofloxacin 0.3 % drops See Rx Instructions .ROUTE .COMPLEX Qty: 10 0RF Rx Instructions: 1 drop into the right eye every 30 minutes while awake for the first 2 days and every 4-6 hours while sleeping for the first 2 days. After this, 1 drop every hour while awake for 5 days, then 1 drop 4 times daily until your problem has resolved. Referrals Follow up/Referrals: Johnie Guzman MD [Primary Care Provider, Medical] - See instructions Tj Peck MD [Staff Physician, Cardiology] - See instructions Maty Sen DPM [Staff Physician, Podiatry] - See instructions Activity Restrictions/Add. Instructions Additional Instructions/Restrictions: Please follow-up with your family doctor, rn clinical research and value analysis coordinator in the upcoming days/weeks, continue take all your medication as prescribed, I would recommend obtaining ultrasound of your carotid arteries in the outpatient setting. Please return to the emergency department with any worsening signs or symptoms. Clinical Impressions Clinical Impression: Weakness of right foot, Bilateral carotid artery stenosis, Acquired hammer toes of both feet, Acquired bilateral pes cavus, Diabetic neuropathy, type II diabetes mellitus, Hx of foot surgery Print Language Print Language: Italian Discharge ED Provider: Jack Sharpe General Adult HPI <ANTOINETTE Lee - Last Filed: 08/22/24 13:52> General Chief complaint: Neuro Symptoms/Deficit Stated complaint: sent by Dr. Sen for possible stroke Time Seen by Provider: 08/22/24 10:14 Mode of Arrival: Ambulatory Source of Information: Patient Description of Symptoms (Recalled from ER Triage Doc. by RN): patient was sent from dr thurston office for right sided weakness for 2 weeks. he reports he has been having trouble walking for over a month now. History of Present Illness HPI narrative: 68-year-old male presents to the emergency department at the request of his value analysis coordinator for right sided weakness ongoing for 2 weeks. When speaking to the patient at bedside, patient is somewhat of a poor historian, states he has been having intermittent symptoms/symptomatology that has been ongoing for the last month to 2 months. He has been undergoing podiatry evaluation for bilateral pes cavus, history of previous foot surgery on the left, currently in ankle brace/foot stability brace on the right, and has what appears to be a dropfoot on pathology. Concern from value analysis coordinator was for prior TIA/CVA versus peripheral nerve cause for the patient's symptomatology. Patient denies any fever chills chest pain shortness of breath numbness or tingling in the affected extremity, no upper or lower extremity weakness with the exception of his right leg/foot which has been ongoing for quite some time he states, gradually worsening. Denies abdominal pain nausea vomiting constipation diarrhea no urinary type symptomatology, denies any back pain or neck pain, denies any radicular type symptoms, no saddle anesthesia. Patient of note does state a remote history of around 2 weeks ago when he was at work , and a colleague noticed him slurring my speech , patient states he did not think anything of it , but does complain of some right lower extremity weakness that once again has gradually worsened over that time, with some progressive difficulty walking and frequent falls due to right sided foot drop/weakness of the right lower extremity. Patient is a former smoker, former alcohol and former drug use, other past medical history is consistent with type 2 diabetes, diabetic polyneuropathy, CABG and coronary artery disease with status post approximately 18 , stents placed, hyperlipidemia, acquired bilateral pes cavus, patient is on dual endplate therapy of Plavix and aspirin. Initial triage vitals notable for bradycardia otherwise unremarkable Onset (ago): week(s) Related Data Home Medications ?Medication ?Instructions ?Recorded ?Confirmed atorvastatin 80 mg tablet 80 mg PO HS Cholesterol 05/09/18 08/22/24 duloxetine 60 mg capsule,delayed 60 mg PO DAILY mood 05/09/18 08/22/24 release potassium chloride 10 mEq 10 meq PO DAILY Supplement 05/09/18 08/22/24 capsule,extended release aspirin 81 mg tablet,delayed 81 mg PO DAILY Blood thinner 05/10/18 08/22/24 release levetiracetam 500 mg tablet 750 mg PO BID seizures 06/07/18 08/22/24 atenolol 50 mg tablet 50 mg PO BID Hypertension 06/12/20 08/22/24 empagliflozin 25 mg tablet mg PO 08/22/24 08/22/24 (Jardiance) furosemide 40 mg tablet mg PO 08/22/24 08/22/24 glimepiride 4 mg tablet mg PO 08/22/24 08/22/24 losartan 50 mg tablet mg PO 08/22/24 08/22/24 metoprolol tartrate 50 mg tablet mg PO 08/22/24 08/22/24 tramadol 50 mg tablet mg PO 08/22/24 08/22/24 Previous Rx's ?Medication ?Instructions ?Recorded acetaminophen 325 mg tablet 650 mg (2 x 325 mg) PO Q4HP PRN As 06/12/20 Needed For Fever Or Pain insulin lispro 100 unit/mL 0 unit (0 mL) SQ ACHS 06/12/20 subcutaneous solution ondansetron HCl (PF) 4 mg/2 mL 4 mg (2 mL) IV Q8HP PRN Nausea 06/12/20 injection solution ofloxacin 0.3 % eye drops See Rx Instructions .Route 10/03/22 .COMPLEX #10 mL Allergies Allergy/AdvReac Type Severity Reaction Status Date / Time No Known Allergies Allergy Verified 08/22/24 08:53 [facility] <ANTOINETTE Lee - Last Filed: 08/22/24 13:52> [facility] Disclaimer: The information contained in this section may have been updated after the patient was seen, as this information can be updated by other users. Medical History (Updated 08/22/24 @ 13:52 by ANTOINETTE Lee) Diabetic neuropathy, type II diabetes mellitus Surgical History (Updated 08/22/24 @ 13:52 by ANTOINETTE Lee) Hx of foot surgery S/P triple vessel bypass Social History Smoking Status: Never smoker second hand exposure: No alcohol intake: never current occupational status: disabled Travel in the last 8 weeks?: None household members: spouse housing: house current occupational exposures/hazards: No caffeine: Yes Have you lived/traveled outside [place] in past 30 days?: No Contact w/someone who lives/traveled outside [place] past 30 days?: No Exposure to someone with infectious disease in past 14 days?: No Do you have a fever (greater than 100.4 F or 38 C)?: No Have you tested positive for COVID-19?: No Exposed to someone with COVID-19 in past 14 days?: No Do you have a sore throat?: No Do you have a cough?: No Do you have any weakness?: No Do you have any diarrhea?: No Are you experiencing any unusual bleeding?: No Do you have any muscle aches/pain?: No Do you have any abdominal pain?: No Are you experiencing loss of taste or smell?: No Other Medical History Have you received the Flu Vaccine for this season: Yes Have you received the Pneumonia Vaccine: Yes <ANTOINETTE Lee - Last Filed: 08/22/24 13:52> ROS Obtained: Yes All systems reviewed & no additional complaints except as documented Physical Exam <ANTOINETTE Lee - Last Filed: 08/22/24 13:52> General General appearance: alert and in no apparent distress Comment: Obvious scar from remote injury on the right side of the patient's face, around the nasolabial fold Head Head exam: atraumatic and normocephalic Eye Eye exam: Present PERRL, EOMI and other ENT ENT exam: Present mucous membranes moist Neck Neck exam: Present normal inspection Chest Chest inspection: Present normal inspection and symmetric chest wall rise Respiratory Respiratory exam: Present normal lung sounds bilaterally; Absent respiratory distress, wheezes or stridor Cardiovascular Cardiovascular exam: Present normal rhythm and bradycardia; Absent regular rate Abdominal Exam Abdominal exam: Present soft; Absent tenderness, guarding, rebound or rigidity Extremities Exam Extremities exam: Present normal inspection, full ROM and other (Patient has somewhat of a foot drop pathology, with brace on the right foot/ankle) Neurological Exam Neurological exam: Present alert, oriented X3 and other (Patient has 5 out of 5 strength in the bilateral lower and upper extremities, 5 out of 5 strength with plantarflexion and dorsiflexion on the left lower extremity, 4-5 strength with plantarflexion and dorsiflexion on the right lower extremity, patient has no limb drift of the bilateral lower and upp) Psychiatric Psychiatric exam: Present normal affect Skin Skin exam: Present warm and dry Medical Decision Making <ANTOINETTE Lee - Last Filed: 08/22/24 13:52> Medical Records Medical records reviewed: Yes I reviewed the patient's medical records. Screening: Per USPSTF and CDC recommendations, given the prevalence of disease in our region, it is our hospital?s policy to screen for HIV and viral Hepatitis for all patients aged 18 and over and those with ongoing risk factors. Garo Inquiry Pt receiving controlled substance: No Garo was queried for this patient: No Vital Signs: 08/22/24 10:16 08/22/24 11:03 08/22/24 11:30 Temperature 98.4 F Temperature Source Oral Pulse Rate 57 L 50 L Pulse Rate [Right Radial] 51 L Respiratory Rate 15 18 16 Blood Pressure 168/76 H 175/72 H Blood Pressure [Right Arm] 147/75 H Blood Pressure Mean 94 86 Blood Pressure Mean [Right Arm] 99 Blood Pressure Source [Right Arm] Automatic Cuff Blood Pressure Position [Right Arm] Supine 02 Sat by Pulse Oximetry 100 98 98 Oxygen Delivery Method Room Air 08/22/24 12:01 08/22/24 12:31 08/22/24 13:01 Temperature Temperature Source Pulse Rate 55 L 51 L 50 L Pulse Rate [Right Radial] Respiratory Rate 18 16 18 Blood Pressure 161/99 H 171/72 H 172/83 H Blood Pressure [Right Arm] Blood Pressure Mean 119 105 97 Blood Pressure Mean [Right Arm] Blood Pressure Source [Right Arm] Blood Pressure Position [Right Arm] 02 Sat by Pulse Oximetry 97 97 97 Oxygen Delivery Method 08/22/24 13:31 08/22/24 13:56 Temperature 98.7 F Temperature Source Pulse Rate 41 L 47 L Pulse Rate [Right Radial] Respiratory Rate 18 18 Blood Pressure 164/80 H 164/80 H Blood Pressure [Right Arm] Blood Pressure Mean 101 Blood Pressure Mean [Right Arm] Blood Pressure Source [Right Arm] Blood Pressure Position [Right Arm] 02 Sat by Pulse Oximetry 97 Oxygen Delivery Method Lab Data Lab results reviewed: Yes I reviewed the patient's lab results. Lab Results 08/22/24 10:15: WBC 8.0, RBC 4.85, Hgb 15.0, Hct 46.1, MCV 95.1 H, MCH 30.9, MCHC 32.5, RDW 12.9, Plt Count 231, MPV 9.4, Neut % (Auto) 57.5, Lymph % (Auto) 28.7, Call[place] % (Auto) 9.7 H, Eos % (Auto) 2.9, Baso % (Auto) 0.9, Neut # (Auto) 4.6, Lymph # (Auto) 2.3, [place] # (Auto) 0.8, Eos # (Auto) 0.2, Baso # (Auto) 0.1, PT 10.7, INR 0.96, Sodium 140, Potassium 4.0, Chloride 102, Carbon Dioxide 34 H, Anion Gap 8.0, BUN 20, Creatinine 1.00, Estimated Creat Clear 100, Estimated GFR 75, Est GFR ( Amer) 90, Glucose 87, Calcium 9.2, Total Bilirubin 0.8, AST 36, ALT 28, Alkaline Phosphatase 94, Troponin I 0.01, NT-Pro-B Natriuret Pep 376 H, Total Protein 7.5, Albumin 4.4, Globulin 3.1, Albumin/Globulin Ratio 1.4 08/22/24 13:09: Troponin I < 0.01 08/22/24 10:15 08/22/24 10:15 Orders (Tests/Meds): ED MEDICATIONS Discontinued Medications Generic Name Dose Route Start Last Admin Trade Name Freq PRN Reason Stop Dose Admin Iopamidol 75 ml 08/22/24 11:01 08/22/24 11:04 Iopamidol-370 (76%);100ml Bottle IV 08/22/24 11:02 75 ml ONCE ONE Administration Sodium Chloride 50 ml 08/22/24 11:01 08/22/24 11:04 0.9 % Sodium Chloride 50 Ml Vial IV 08/22/24 11:02 50 ml ONCE ONE Administration Sodium Chloride 10 ml 08/22/24 11:01 08/22/24 11:04 Sodium Chloride 0.9% 10ml Syr (Rad Only) IV 09/21/24 11:00 10 ml NEEDED PRN Administration Maintain IV Site ORDERS Category Date Time Status CT angio head Stat Cat Scan 08/22/24 10:[address] angio neck Stat Cat Scan 08/22/24 10:[address] cervical spine wo con Stat Cat Scan 08/22/24 10:[address] head/brain wo con Stat Cat Scan 08/22/24 10:28 Completed Complete Blood Count Auto Diff Stat Lab 08/22/24 10:15 Completed Comprehensive Metabolic Panel Stat Lab 08/22/24 10:15 Completed HIV Combo Stat Lab 08/22/24 10:15 Received Hepatitis C Ab Qual. W/ RFX Stat Lab 08/22/24 10:15 Received NT Pro Brain Natriuretic Pep. Stat Lab 08/22/24 10:15 Completed PT INR [Prothrombin Time INR] Stat Lab 08/22/24 10:15 Completed Troponin I Q3H Lab 08/22/24 13:09 Completed Troponin I Stat Lab 08/22/24 10:15 Completed Medical Decision Narrative: 68-year-old male presents the emergency department at the request of his value analysis coordinator, for right sided lower extremity weakness, see HPI for full detail past medical history, differential diagnosis include but not limited to, TIA/CVA, peripheral neuropathy, diabetic polyneuropathy, spinal stenosis, dropfoot, among others. I discussed patient case with attending physician Will obtain basic laboratory studies, proBNP, PT/INR, troponin, EKG, CT head without contrast, CT of without contrast, CT angiograms of the head and neck. CBC is notable for minimally elevated MCV at 95.1 CMP is notable for Troponin 0.01, pro BNP is minimally elevated at 376. Coags within normal limits I reviewed the patient's CT of the cervical spine without contrast along the corresponding radiological report, multilevel degenerative changes with neural foraminal compromise particularly evident on the right C5-C6 and left C6-C7 similar to prior exam. I reviewed the patient's CT head without contrast along the corresponding radiologic report, moderate changes of chronic microvascular ischemia. I reviewed the patient's CTA head and neck with and without contrast along the corresponding radiologic reports, there is no acute process, cranial circulation is unremarkable, no significant stenosis or aneurysm formation is present, there is less than 50% stenosis of right carotid artery, 70% stenosis of left carotid artery. I discussed the results with the patient and family at the bedside, patient and family need to follow-up with rn clinical research PCP and value analysis coordinator as directed, no concerning signs or symptoms for acute/subacute TIA or CVA at this time, patient will need follow-up regarding his carotid stenosis, recommend carotid duplex ultrasound as outpatient, I think more peripheral nerve cause/podiatry cause to the patient's symptomatology/foot drop, patient will need to pursue other outpatient treatment/workup for this, which she is already undergoing. I recommend strict ED return precautions. Patient and family voiced understanding and agreed with current treatment plan/discharge plan, patient was instructed to remain on all of his educations as prescribed especially his DAPT and high-dose statin therapy. <Jack Sharpe MD - Last Filed: 08/22/24 14:17> Vital Signs: 08/22/24 10:16 08/22/24 11:03 08/22/24 11:30 Temperature 98.4 F Temperature Source Oral Pulse Rate 57 L 50 L Pulse Rate [Right Radial] 51 L Respiratory Rate 15 18 16 Blood Pressure 168/76 H 175/72 H Blood Pressure [Right Arm] 147/75 H Blood Pressure Mean 94 86 Blood Pressure Mean [Right Arm] 99 Blood Pressure Source [Right Arm] Automatic Cuff Blood Pressure Position [Right Arm] Supine 02 Sat by Pulse Oximetry 100 98 98 Oxygen Delivery Method Room Air 08/22/24 12:01 08/22/24 12:31 08/22/24 13:01 Temperature Temperature Source Pulse Rate 55 L 51 L 50 L Pulse Rate [Right Radial] Respiratory Rate 18 16 18 Blood Pressure 161/99 H 171/72 H 172/83 H Blood Pressure [Right Arm] Blood Pressure Mean 119 105 97 Blood Pressure Mean [Right Arm] Blood Pressure Source [Right Arm] Blood Pressure Position [Right Arm] 02 Sat by Pulse Oximetry 97 97 97 Oxygen Delivery Method 08/22/24 13:31 08/22/24 13:56 Temperature 98.7 F Temperature Source Pulse Rate 41 L 47 L Pulse Rate [Right Radial] Respiratory Rate 18 18 Blood Pressure 164/80 H 164/80 H Blood Pressure [Right Arm] Blood Pressure Mean 101 Blood Pressure Mean [Right Arm] Blood Pressure Source [Right Arm] Blood Pressure Position [Right Arm] 02 Sat by Pulse Oximetry 97 Oxygen Delivery Method Lab Data Lab Results 08/22/24 10:15: WBC 8.0, RBC 4.85, Hgb 15.0, Hct 46.1, MCV 95.1 H, MCH 30.9, MCHC 32.5, RDW 12.9, Plt Count 231, MPV 9.4, Neut % (Auto) 57.5, Lymph % (Auto) 28.7, Call[place] % (Auto) 9.7 H, Eos % (Auto) 2.9, Baso % (Auto) 0.9, Neut # (Auto) 4.6, Lymph # (Auto) 2.3, [place] # (Auto) 0.8, Eos # (Auto) 0.2, Baso # (Auto) 0.1, PT 10.7, INR 0.96, Sodium 140, Potassium 4.0, Chloride 102, Carbon Dioxide 34 H, Anion Gap 8.0, BUN 20, Creatinine 1.00, Estimated Creat Clear 100, Estimated GFR 75, Est GFR ( Amer) 90, Glucose 87, Calcium 9.2, Total Bilirubin 0.8, AST 36, ALT 28, Alkaline Phosphatase 94, Troponin I 0.01, NT-Pro-B Natriuret Pep 376 H, Total Protein 7.5, Albumin 4.4, Globulin 3.1, Albumin/Globulin Ratio 1.4 08/22/24 13:09: Troponin I < 0.01 Orders (Tests/Meds): ED MEDICATIONS Discontinued Medications Generic Name Dose Route Start Last Admin Trade Name Freq PRN Reason Stop Dose Admin Iopamidol 75 ml 08/22/24 11:01 08/22/24 11:04 Iopamidol-370 (76%);100ml Bottle IV 08/22/24 11:02 75 ml ONCE ONE Administration Sodium Chloride 50 ml 08/22/24 11:01 08/22/24 11:04 0.9 % Sodium Chloride 50 Ml Vial IV 08/22/24 11:02 50 ml ONCE ONE Administration Sodium Chloride 10 ml 08/22/24 11:01 08/22/24 11:04 Sodium Chloride 0.9% 10ml Syr (Rad Only) IV 09/21/24 11:00 10 ml NEEDED PRN Administration Maintain IV Site ORDERS Category Date Time Status CT angio head Stat Cat Scan 08/22/24 10:[address] angio neck Stat Cat Scan 08/22/24 10:[address] cervical spine wo con Stat Cat Scan 08/22/24 10:[address] head/brain wo con Stat Cat Scan 08/22/24 10:28 Completed Complete Blood Count Auto Diff Stat Lab 08/22/24 10:15 Completed Comprehensive Metabolic Panel Stat Lab 08/22/24 10:15 Completed HIV Combo Stat Lab 08/22/24 10:15 Received Hepatitis C Ab Qual. W/ RFX Stat Lab 08/22/24 10:15 Received NT Pro Brain Natriuretic Pep. Stat Lab 08/22/24 10:15 Completed PT INR [Prothrombin Time INR] Stat Lab 08/22/24 10:15 Completed Troponin I Q3H Lab 08/22/24 13:09 Completed Troponin I Stat Lab 08/22/24 10:15 Completed Medical Decision Narrative: 68-year-old male presents the emergency department at the request of his value analysis coordinator, for right sided lower extremity weakness, see HPI for full detail past medical history, differential diagnosis include but not limited to, TIA/CVA, peripheral neuropathy, diabetic polyneuropathy, spinal stenosis, dropfoot, among others. I discussed patient case with attending physician Will obtain basic laboratory studies, proBNP, PT/INR, troponin, EKG, CT head without contrast, CT of without contrast, CT angiograms of the head and neck. CBC is notable for minimally elevated MCV at 95.1 CMP is notable for Troponin 0.01, pro BNP is minimally elevated at 376. Coags within normal limits I reviewed the patient's CT of the cervical spine without contrast along the corresponding radiological report, multilevel degenerative changes with neural foraminal compromise particularly evident on the right C5-C6 and left C6-C7 similar to prior exam. I reviewed the patient's CT head without contrast along the corresponding radiologic report, moderate changes of chronic microvascular ischemia. I reviewed the patient's CTA head and neck with and without contrast along the corresponding radiologic reports, there is no acute process, cranial circulation is unremarkable, no significant stenosis or aneurysm formation is present, there is less than 50% stenosis of right carotid artery, 70% stenosis of left carotid artery. I discussed the results with the patient and family at the bedside, patient and family need to follow-up with rn clinical research PCP and value analysis coordinator as directed, no concerning signs or symptoms for acute/subacute TIA or CVA at this time, patient will need follow-up regarding his carotid stenosis, recommend carotid duplex ultrasound as outpatient, I think more peripheral nerve cause/podiatry cause to the patient's symptomatology/foot drop, patient will need to pursue other outpatient treatment/workup for this, which she is already undergoing. I recommend strict ED return precautions. Patient and family voiced understanding and agreed with current treatment plan/discharge plan, patient was instructed to remain on all of his educations as prescribed especially his DAPT and high-dose statin therapy. I was consulted by the ZACH, and we discussed the complexity of the problems being addressed.I approved the treatment and management plan for this patient?s care in the Emergency Department, thus performing a substantive portion of the medical decision making.Signed, MD ARYA [facility] Critical Care <ANTOINETTE Lee - Last Filed: 08/22/24 13:52> Critical Care Time Critical Care Time: No
[2024-08-22 10:35] LABS: Basophils # 0.1 K/mm3 (0-0.2); Basophils % 0.9 % (0.1-2.0); Eosinophils # 0.2 Kmm3 (0.0-0.4); Eosinophils % 2.9 % (0.1-12.0); Hematocrit 46.1 % (42.0-52.0); Immature Granulocytes # 0.02 10^3uL; Immature Granulocytes % 0.3 %; Lymphocytes # 2.3 K/mm3 (0.7-4.5); Lymphocytes % 28.7 % (10-50); Mean Corpuscular HGB Conc 32.5 g/dL (31.8-35.4); Mean Corpuscular Hemoglobin 30.9 pg (27.0-31.2); Mean Corpuscular Volume 95.1 fl (80-94); Mean Platelet Volume 9.4 fl (7.4-10.4); Monocytes # 0.8 K/mm3 (0.1-1.0); Monocytes % 9.7 % (1.7-9.3); Neutrophils # 4.6 K/mm3 (1.8-7.8); Neutrophils % 57.5 % (37.0-80.0); Nucleated Red Blood Cells # 0 10^3/uL; Nucleated Red Blood Cells % 0 %; Platelet Count 231 K/mm3 (142-424); Red Blood Count 4.85 M/mm3 (4.60-6.20); Red Cell Distribution Width 12.9 % (11.5-17.5); Red Cell Distribution Width-SD 45.4 fL
[2024-08-22 10:41] LABS: Alanine Aminotransferase 28 U/L (12-78); Albumin Level 4.4 g/dl (3.5-5.0); Albumin/Globulin Ratio 1.4 (1.1-1.8); Alkaline Phosphatase 94 U/L (38-126); Aspartate Amino Transferase 36 U/L (17-59); Bilirubin,Total 0.8 mg/dl (0.2-1.3); Blood Urea Nitrogen 20 mg/dl (9-20); Calcium 9.2 mg/dl (8.4-10.2); Carbon Dioxide 34 mmol/L (22.0-30.0); Chloride 102 mmol/L (98-107); Creatinine Clearance Estimated 100 mL/min (50-200); Estimated Glomerular Filt Rate 75 ml/min (>60); GFR (African American) 90 ML/MIN (>60); Globulin 3.1 g/dL (1.3-3.2); Glucose 87 mg/dl (74-100); INR 0.96 (0.9-1.1); Prothrombin Time 10.7 seconds (10.1-12.5); Sodium 140 mmol/L (136-145); Total Protein,Serum 7.5 g/dl (6.3-8.2)
[2024-08-22 10:52] LABS: NT Pro Brain Natriuretic Pep. 376 pg/mL (0-125)
[2024-08-22 10:53] LABS: Troponin I 0.01 ng/ml (0.00-0.034)
[2024-08-22] MEDS: IOPAMIDOL-370 (76%);100ML BOTTLE 75 ML IV (11:04)
[2024-08-22] MEDS: 0.9 % SODIUM CHLORIDE 50 ML VIAL IV (11:04)
[2024-08-22] MEDS: SODIUM CHLORIDE 0.9% 10ML SYR (RAD ONLY) 10 ML IV (11:04)
--- NOTE | 2024-08-22 11:30 | PC.NURSE ---
Rounded on patient . no needs voiced at this time.
--- NOTE | 2024-08-22 13:13 | PC.NURSE ---
Rounded on patient, patient provided ice water at this time and updated on where we are with plan of care.
[2024-08-22 13:51] LABS: Troponin I < 0.01 ng/ml (0.00-0.034)
[2024-08-22 14:41] LABS: HIV Combo NEGATIVE (Negative)
[2024-08-22 14:49] LABS: Hepatitis C Ab Qual. W/ RFX NEGATIVE (Negative)
== END 2024-08-22 14:06 | disposition home or self-care (01) ==
PROVIDERS: Physician Assistant; Emergency Provider Emergency Medicine; PCP Family Medicine
DX: I65.23 Occlusion and stenosis of bilateral carotid arteries (principal); R53.1 Weakness; R29.898 Other symptoms and signs involving the musculoskeletal system; E11.40 Type 2 diabetes mellitus with diabetic neuropathy, unspecified; M20.41 Other hammer toe(s) (acquired), right foot; M21.6X1 Other acquired deformities of right foot; Z98.890 Other specified postprocedural states; I10 Essential (primary) hypertension
CPT/HCPCS: 70450; 70496; 70498; 72125; 80053; 80074; 83880; 84484; 85025; 85610; 87389; 93005; 99285; Q9967

== ENCOUNTER 2024-08-31 23:19 | Emergency (ER) | payer MEDICARE, SELFPAY ==
[2024-08-31 23:22] VITALS: BP 190/85; PULSE 62; RESP 16; TEMP 36.4; O2SAT 99; BMI 31.1
[2024-08-31 23:26] VITALS: PULSE 62
--- NOTE | 2024-08-31 23:28 | ECG_ITS ---
APPROVED REPORT Exam: Resting ECG HR:64 bpm ECG Measurements Heart Rate 64 AXES WI 196 P 91 QRSd 108 QRS 79 QT 440 T 24 QTc 449 Conclusion SINUS RHYTHM WITH FREQUENT VENTRICULAR PREMATURE COMPLEXES NONSPECIFIC ST & T-WAVE ABNORMALITY ABNORMAL RHYTHM ECG UNCONFIRMED REPORT Electronically signed by : GEOVANNA REBOLLAR, 09/03/2024 02:42:28
[2024-08-31 23:31] VITALS: BP 170/82; PULSE 54; RESP 17; O2SAT 97
--- NOTE | 2024-08-31 23:32 | XR_ITS ---
PROCEDURE INFORMATION: Exam: XR Chest Exam date and time: 08/31/2024 11:56 PM Age: 68 years old Clinical indication: Pain; Chest pressure; Additional info: Cp TECHNIQUE: Imaging protocol: Radiologic exam of the chest. Views: 1 view. COMPARISON: CR XR CHEST PORTABLE 04/21/2024 11:55 PM FINDINGS: Lungs: Calcified granuloma is noted at the right lung base. No consolidation. No mass. Pleural spaces: Unremarkable. No pleural effusion. No pneumothorax. Heart/Mediastinum: There is evidence of prior CABG. The heart is not enlarged. Vasculature: Unremarkable. Bones/joints: Multiple old left rib fractures are evident. IMPRESSION: No acute findings.
--- OUTSIDE RECORDS SUMMARY | 2024-08-31 23:33 | XMS_ITS | Clinical Summary ---
Author Organization [facility] Address [address] [place] [address] Care Team Providers Care Certified Energy Manager Name Role Phone Johnie Guzman MD Primary Care Provider [phone] Immunizations Immunization Administration Dates Next Due Pneumococcal [...] (2 of 2 - PCV) 11/10/2020 11/11/2019 [id number] Vaccine (1 - 20 24-25 season) 2023 [...] age to complete this topic Care Teams Certified Energy Manager Relationship Specialty Start Date End Date Johnie Guzman MD [address] [place] [address] PCP - General 07/26/20
--- NOTE | 2024-08-31 23:37 | [facility].EDGENADL ---
Discharge Plan Disposition Patient Disposition: Home, Self-Care Prescriptions Prescriptions: No Action losartan 50 mg tablet PO Patient Comments: TAKE ONE TABLET BY MOUTH ONCE A DAY furosemide 40 mg tablet PO tramadol 50 mg tablet PO Patient Comments: TAKE 1 TABLET BY MOUTH 4 TIMES A DAY NEEDED glimepiride 4 mg tablet PO metoprolol tartrate 50 mg tablet PO Patient Comments: TAKE ONE TABLET BY MOUTH 2 TIMES A DAY Jardiance 25 mg tablet PO Patient Comments: TAKE ONE TABLET BY MOUTH EVERY MORNING atorvastatin 80 MG tablet 80 mg PO HS potassium chloride 10 MEQ capsule, extended release 10 meq PO DAILY duloxetine 60 MG capsule,delayed release(DR/EC) 60 mg PO DAILY aspirin 81 MG tablet,delayed release (DR/EC) 81 mg PO DAILY levetiracetam 500 MG tablet 750 mg PO BID atenolol 50 MG tablet 50 mg PO BID acetaminophen 325 MG tablet 650 mg PO Q4HP PRN (Reason: As Needed For Fever Or Pain) 0RF insulin lispro 100 UNIT/ML solution 0 unit SQ ACHS 0RF ondansetron HCl (PF) 4 MG/2 ML solution 4 mg IV Q8HP PRN (Reason: Nausea) 0RF ofloxacin 0.3 % drops See Rx Instructions .ROUTE .COMPLEX Qty: 10 0RF Rx Instructions: 1 drop into the right eye every 30 minutes while awake for the first 2 days and every 4-6 hours while sleeping for the first 2 days. After this, 1 drop every hour while awake for 5 days, then 1 drop 4 times daily until your problem has resolved. Referrals Follow up/Referrals: Provider,Referral, MD [Primary Care Provider, Medical] - See instructions Activity Restrictions/Add. Instructions Additional Instructions/Restrictions: Please follow-up with your primary care provider. Please return to the emergency department if you develop any new or worsening symptoms or become concerned for your health. Clinical Impressions Clinical Impression: Chest pain Qualifiers: Chest pain type: unspecified Qualified Code(s): R07.9 - Chest pain, unspecified Print Language Print Language: Moroccan Discharge ED Provider: Vahid June Adult [facility] General Chief complaint: Chest Pain Stated complaint: Headache Time Seen by Provider: 08/31/24 23:20 Mode of Arrival: EMS Source of Information: Patient Description of Symptoms (Recalled from ER Triage Doc. by RN): pt presents to the Ed due to chest pain starting x20 mins ago. pt got in argument with sons and started having chest pain. History of Present Illness HPI narrative: 68-year-old male with history of recent stroke with residual right-sided deficits presents for chest pain. He was in an argument with his sons who were drunk, and he felt anxious and started having chest pain. His chest pain resolved around 10 minutes prior to arrival. He also history of diabetes, coronary artery disease hypertension. Patient reports that he has not had any to drink tonight. Reports his chest pain was centrally located, nonradiating. Related Data Home Medications ?Medication ?Instructions ?Recorded ?Confirmed atorvastatin 80 mg tablet 80 mg PO HS Cholesterol 05/09/18 08/22/24 duloxetine 60 mg capsule,delayed 60 mg PO DAILY mood 05/09/18 08/22/24 release potassium chloride 10 mEq 10 meq PO DAILY Supplement 05/09/18 08/22/24 capsule,extended release aspirin 81 mg tablet,delayed 81 mg PO DAILY Blood thinner 05/10/18 08/22/24 release levetiracetam 500 mg tablet 750 mg PO BID seizures 06/07/18 08/22/24 atenolol 50 mg tablet 50 mg PO BID Hypertension 06/12/20 08/22/24 empagliflozin 25 mg tablet mg PO 08/22/24 08/22/24 (Jardiance) furosemide 40 mg tablet mg PO 08/22/24 08/22/24 glimepiride 4 mg tablet mg PO 08/22/24 08/22/24 losartan 50 mg tablet mg PO 08/22/24 08/22/24 metoprolol tartrate 50 mg tablet mg PO 08/22/24 08/22/24 tramadol 50 mg tablet mg PO 08/22/24 08/22/24 Previous Rx's ?Medication ?Instructions ?Recorded acetaminophen 325 mg tablet 650 mg (2 x 325 mg) PO Q4HP PRN As 06/12/20 Needed For Fever Or Pain insulin lispro 100 unit/mL 0 unit (0 mL) SQ ACHS 06/12/20 subcutaneous solution ondansetron HCl (PF) 4 mg/2 mL 4 mg (2 mL) IV Q8HP PRN Nausea 06/12/20 injection solution ofloxacin 0.3 % eye drops See Rx Instructions .Route 10/03/22 .COMPLEX #10 mL Allergies Allergy/AdvReac Type Severity Reaction Status Date / Time No Known Allergies Allergy Verified 08/22/24 08:53 [facility] Disclaimer: The information contained in this section may have been updated after the patient was seen, as this information can be updated by other users. Medical History (Updated 09/01/24 @ 02:19 by Vahid June MD) Diabetic neuropathy, type II diabetes mellitus Surgical History (Updated 08/22/24 @ 13:52 by ANTOINETTE Lee) Hx of foot surgery S/P triple vessel bypass Social History Smoking Status: Unknown if ever smoked second hand exposure: No alcohol intake: never current occupational status: disabled Travel in the last 8 weeks?: None household members: spouse housing: house current occupational exposures/hazards: No caffeine: Yes Other Medical History Have you received the Flu Vaccine for this season: Yes Have you received the Pneumonia Vaccine: Yes ROS Obtained: Yes All systems reviewed & no additional complaints except as documented Physical Exam General General appearance: alert and in no apparent distress Head Head exam: atraumatic and normocephalic Eye Eye exam: Present normal appearance, PERRL and EOMI ENT ENT exam: Present normal oropharynx and normal external ear exam Neck Neck exam: Present normal inspection and full ROM Chest Chest inspection: Present normal inspection and symmetric chest wall rise; Absent tenderness Respiratory Respiratory exam: Present normal lung sounds bilaterally; Absent respiratory distress Cardiovascular Cardiovascular exam: Present regular rate and normal rhythm Abdominal Exam Abdominal exam: Present soft; Absent distention, tenderness or guarding Extremities Exam Extremities exam: Present normal inspection; Absent edema or joint swelling Back Exam Back exam: Present normal inspection; Absent tenderness Neurological Exam Neurological exam: Present alert, oriented X3 and motor sensory deficit (Residual right-sided deficits) Psychiatric Psychiatric exam: Present normal affect and normal mood Skin Skin exam: Present warm, dry and normal color Lymphatic Lymphatic Findings: no adenopathy Medical Decision Making Medical Records Medical records reviewed: Yes I reviewed the patient's medical records. Screening: Per USPSTF and CDC recommendations, given the prevalence of disease in our region, it is our hospital?s policy to screen for HIV and viral Hepatitis for all patients aged 18 and over and those with ongoing risk factors. Garo Inquiry Pt receiving controlled substance: No Garo was queried for this patient: No Vital Signs: 08/31/24 23:22 08/31/24 23:26 08/31/24 23:31 Temperature 97.6 F Temperature Source Oral Pulse Rate 62 54 L Pulse Rate [Right Radial] 62 Respiratory Rate 16 17 Blood Pressure 170/82 H Blood Pressure [Right Arm] 190/85 H Blood Pressure Mean Blood Pressure Mean [Right Arm] 120 Blood Pressure Position Blood Pressure Position [Right Arm] Sitting 02 Sat by Pulse Oximetry 99 97 Oxygen Delivery Method Room Air 09/01/24 00:01 09/01/24 00:30 09/01/24 01:00 Temperature Temperature Source Pulse Rate 62 54 L 61 Pulse Rate [Right Radial] Respiratory Rate 15 16 13 Blood Pressure 115/91 H 151/86 H 155/87 H Blood Pressure [Right Arm] Blood Pressure Mean Blood Pressure Mean [Right Arm] Blood Pressure Position Blood Pressure Position [Right Arm] 02 Sat by Pulse Oximetry 95 98 96 Oxygen Delivery Method 09/01/24 02:00 09/01/24 03:00 09/01/24 04:00 Temperature 97.6 F Temperature Source Pulse Rate 54 L 52 L 52 L Pulse Rate [Right Radial] Respiratory Rate 16 16 Blood Pressure 174/80 H 178/81 H 182/84 H Blood Pressure [Right Arm] Blood Pressure Mean 113 113 134 Blood Pressure Mean [Right Arm] Blood Pressure Position Blood Pressure Position [Right Arm] 02 Sat by Pulse Oximetry 97 98 98 Oxygen Delivery Method 09/01/24 04:14 Temperature 97.6 F Temperature Source Oral Pulse Rate 68 Pulse Rate [Right Radial] Respiratory Rate 16 Blood Pressure 182/74 H Blood Pressure [Right Arm] Blood Pressure Mean Blood Pressure Mean [Right Arm] Blood Pressure Position Sitting Blood Pressure Position [Right Arm] 02 Sat by Pulse Oximetry Oxygen Delivery Method Room Air Lab Data Lab results reviewed: Yes I reviewed the patient's lab results. Lab Results 08/31/24 22:03: WBC 8.9, RBC 4.74, Hgb 15.0, Hct 44.8, MCV 94.5 H, MCH 31.6 H, MCHC 33.5, RDW 13.1, Plt Count 255, MPV 10.1, Neut % (Auto) 61.5, Lymph % (Auto) 23.1, Aiken % (Auto) 11.0 H, Eos % (Auto) 3.4, Baso % (Auto) 0.7, Neut # (Auto) 5.5, Lymph # (Auto) 2.1, Aiken # (Auto) 1.0, Eos # (Auto) 0.3, Baso # (Auto) 0.1, D-Dimer 0.66 H, Sodium 138, Potassium 4.5, Chloride 99, Carbon Dioxide 30, Anion Gap 13.5, BUN 25 H, Creatinine 0.90, Estimated Creat Clear 100, Estimated GFR 84, Est GFR ( Amer) 102, Glucose 87, Calcium 9.7, Total Bilirubin 0.9, AST 46, ALT 32, Alkaline Phosphatase 91, Troponin I < 0.01, NT-Pro-B Natriuret Pep 150 H, Total Protein 8.0, Albumin 4.5, Globulin 3.5 H, Albumin/Globulin Ratio 1.3 09/01/24 03:02: Troponin I < 0.01 08/31/24 22:03 08/31/24 22:03 Orders (Tests/Meds): ED MEDICATIONS Discontinued Medications Generic Name Dose Route Start Last Admin Trade Name Freq PRN Reason Stop Dose Admin Acetaminophen 1,000 mg 08/31/24 23:32 08/31/24 23:41 Acetaminophen 500mg Tab PO 08/31/24 23:33 1,000 mg ONCE ONE Administration Aspirin 324 mg 08/31/24 23:32 08/31/24 23:41 Aspirin 81mg Chewable Tablet PO 08/31/24 23:33 324 mg ONCE ONE Administration Belladonna Alkaloids 60 ml 08/31/24 23:32 08/31/24 23:41 Belladonna Alkaloids 60 Ml Ml PO 08/31/24 23:33 60 ml ONCE ONE Administration ORDERS Category Date Time Status CXR --portable [XR chest portable] Stat Exams 08/31/24 23:32 Completed BNP [NT Pro Brain Natriuretic Pep.] Stat Lab 08/31/24 22:03 Completed CBC w/Auto Diff [Complete Blood Count Auto Diff] Stat Lab 08/31/24 22:03 Completed CMP [Comprehensive Metabolic Panel] Stat Lab 08/31/24 22:03 Completed D-Dimer Stat Lab 08/31/24 22:03 Completed Troponin I Q3H Lab 08/31/24 22:03 Completed Troponin I Q3H Lab 09/01/24 03:02 Completed ECG Data Tracing #1: I reviewed this ECG and interpreted as documented below: Sinus rhythm, ventricular rate of 64, diffuse ST depressions similar to previous EKGs, occasional PVCs. ECG initial impression date: 08/31/24 ECG initial impression time: 23:29 HEART Score History (anamnesis): Slightly suspicious ECG: Non-specific disturbance Age: >65 years Risk factors: Atherosclerosis history Troponin: </= normal limit HEART Score: 5 Medical Decision Narrative: 68-year-old male with history of coronary artery disease, diabetes, hyper tension, recent stroke with right-sided deficits, presents for brief now resolved chest pain associated with an argument with his son who was drunk. History was obtained via interactive discussion with patient, EMS, chart review. On arrival, patient is [afebrile, sinus rhythm, hypertensive, satting appropriately, alert, oriented x4, GCS 15], moving all extremities spontaneously. Full physical exam performed and significant for residual right-sided neurodeficits from recent stroke. Differential includes but is not limited to ACS, PE, pleurisy, anxiety, reflux, hypertensive emergency. Patient was given aspirin, Tylenol, for symptomatic management and correction of underlying abnormalities. Workup initiated including chest pain workup. On re-evaluation, patient [remains afebrile, HD stable.] Blood pressure markedly improved without intervention. Laboratory workup independently interpreted by me and significant for no significant leukocytosis, normal renal function, negative BNP, negative initial troponin. D-dimer negative by years criteria Imaging independently interpreted by me and significant for clear lungs bilaterally. See radiology read for full review of final results. EKG independently interpreted by me and significant for diffuse ST depressions but similar to prior EKGs. Patient was placed in ED observation status at 2345 for cardiac monitoring and serial cardiac enzymes. On reassessment, second opponent returned undetectably low. I considered admission given the patient's high heart score, but given the very brief nature of his chest pain, its association with a anxious/stressful situation, stable EKG from prior, and negative serial enzymes, I do not think that he requires admission at this time. Given this, patient was deemed appropriate for discharge and ED observation was discontinued at 0345. He was agreeable to plan and discharged in stable condition with return precautions. Less than 30 minutes was utilized in preparing this discharge. Procedures Risk/Benefits of Procedure(s) Were Explained: Yes Critical Care Critical Care Time Critical Care Time: No
[2024-08-31 23:41] LABS: Basophils # 0.1 K/mm3 (0-0.2); Basophils % 0.7 % (0.1-2.0); Eosinophils # 0.3 Kmm3 (0.0-0.4); Eosinophils % 3.4 % (0.1-12.0); Hematocrit 44.8 % (42.0-52.0); Immature Granulocytes # 0.03 10^3uL; Immature Granulocytes % 0.3 %; Lymphocytes # 2.1 K/mm3 (0.7-4.5); Lymphocytes % 23.1 % (10-50); Mean Corpuscular HGB Conc 33.5 g/dL (31.8-35.4); Mean Corpuscular Hemoglobin 31.6 pg (27.0-31.2); Mean Corpuscular Volume 94.5 fl (80-94); Mean Platelet Volume 10.1 fl (7.4-10.4); Neutrophils # 5.5 K/mm3 (1.8-7.8); Neutrophils % 61.5 % (37.0-80.0); Nucleated Red Blood Cells # 0 10^3/uL; Nucleated Red Blood Cells % 0 %; Platelet Count 255 K/mm3 (142-424); Red Blood Count 4.74 M/mm3 (4.60-6.20); Red Cell Distribution Width 13.1 % (11.5-17.5); Red Cell Distribution Width-SD 45.1 fL; White Blood Count 8.9 K/mm3 (4.8-10.8)
[2024-08-31] MEDS: ASPIRIN 81MG CHEWABLE TABLET 324 MG PO (23:41)
[2024-08-31] MEDS: ACETAMINOPHEN 500MG TAB 1000 MG PO (23:41)
[2024-08-31] MEDS: BELLADONNA ALKALOIDS 60 ML ML PO (23:41)
[2024-08-31 23:48] LABS: Alanine Aminotransferase 32 U/L (12-78); Albumin Level 4.5 g/dl (3.5-5.0); Albumin/Globulin Ratio 1.3 (1.1-1.8); Alkaline Phosphatase 91 U/L (38-126); Anion Gap 13.5 mEq/L (5-15); Aspartate Amino Transferase 46 U/L (17-59); Bilirubin,Total 0.9 mg/dl (0.2-1.3); Blood Urea Nitrogen 25 mg/dl (9-20); Calcium 9.7 mg/dl (8.4-10.2); Carbon Dioxide 30 mmol/L (22.0-30.0); Chloride 99 mmol/L (98-107); Creatinine Clearance Estimated 100 mL/min (50-200); Estimated Glomerular Filt Rate 84 ml/min (>60); GFR (African American) 102 ML/MIN (>60); Globulin 3.5 g/dL (1.3-3.2); Glucose 87 mg/dl (74-100); Potassium 4.5 mmoL/L (3.5-5.1); Sodium 138 mmol/L (136-145)
[2024-08-31 23:53] LABS: D-Dimer 0.66 ug/mL (0.0-0.5)
[2024-08-31 23:59] LABS: NT Pro Brain Natriuretic Pep. 150 pg/mL (0-125)
[2024-09-01] VITALS (7 sets, daily range): BP systolic 115–182; BP diastolic 74–91; PULSE 52–68; RESP 13–16; TEMP 36.4; O2SAT 95–99
[2024-09-01 00:01] LABS: Troponin I < 0.01 ng/ml (0.00-0.034)
[2024-09-01 04:02] LABS: Troponin I < 0.01 ng/ml (0.00-0.034)
== END 2024-09-01 04:15 | disposition home or self-care (01) ==
PROVIDERS: Emergency Provider Emergency Medicine
DX: R07.89 Other chest pain (principal); I49.3 Ventricular premature depolarization; I25.10 Atherosclerotic heart disease of native coronary artery without angina pectoris; I10 Essential (primary) hypertension; E11.9 Type 2 diabetes mellitus without complications
CPT/HCPCS: 71045; 80053; 83880; 84484; 85025; 85378; 93005; 99285

== ENCOUNTER 2024-09-21 07:33 | Outpatient (CLI) | payer MEDICARE, SELFPAY ==
--- OUTSIDE RECORDS SUMMARY | 2024-06-20 05:45 | XMS_ITS ---
Author Organization [facility] Address 1210 [facility] [address] [place] [id number] Care Team Providers Care Email Campaign Specialist Name Role Phone Neno Guzman Primary Care [...] 1 Essential tremor (G2 5.0) Referral [facility] [place] Referring Provider First Name Neno Arroyo Referring Provider Last Name Thomas Referring Provider Speciality [facility] li Referred Provider Lakeisha Dutta Referred Provider Specialty Neurology General Notes Connie Jackson 2024 10:14:04 AM > faxed to [facility] Neurology, Connie Jackson 06/30/2024 11:10:14 AM > spoke to [place]; referral received Referral Priority Routine REASON FOR [...] review and pick correct strength-formulat ion from [employer] options. If intended option is not shown, [...] review and pick correct strength-formulat ion from [employer] options. If intended option is not shown, discontinue and re-order from Quick Search* 09/14/2017 Active Vital Signs Blood pressure systolic 138 mm Hg 06/21/19 25 Blood pressure diastolic 80 mm Hg 025 Heart Rate 51 /min 06/20/2024 Height 68 in 06/20/2024 Weight 218.2 lbs 06/20/2024 BMI 33.17 kg/m2 06/20/2024 Encounters Encounter Location Date Provider Diagnosis [facility] [place] [address] [facility] [address], [place] [id number] 06/20/2024 R Cruz Guzman Foot pain, right [...] results, Reason: Progress Notes * JAKE PICKARDDOB:1955 (68 yo M)Acc No.[id number]:06/20/2024 Progress Notes Patient: JAKE DYE Provider: Neno Guzman M.D. :1955 A ge:68 Y S ex:Male Date:06/20/2024 Phone: Address:[address] [place] [address], [facility], [phone] Subjective: * Chief Complaints: * 1 . [...] Spine , Kidney stones, ASCVD - s/p [place], Type 2 diabetes - diagonsed 09/2017, Seizure disorder, Broken ribs on left side, internal injuries 08/2019, NSTEMI 06/02/20 - [facility] tranferred to for CABG. * Surgical History: C ardiac Stents-total of 16 Stents placed 2008, Heart Cath 2013, removal of cyst on right side of face 1994, kidney stones removed , Vascetomy , heart cath , CABG x 3/ [facility] Wang 06/17/20. * Hospitalization/Major Diagno stic Procedure: s ee above , PKN-Ydjoyak-vjdkap 07/26/13, [facility] ER-stomach pain 01/27/15, St Ab- blockage 06/28, [facility] UTC-rib pain-right sided 01.31.18, [facility]-seizure 05/09/18, [facility] ER-SOA 07/2019, [facility]-mower accident , NSTEMI - [facility] transfered to 06/12/20. * Family History: F [...] *Please review and pick correct strength-formulation from [employer] options. If intended option is not shown, discontinue and re-order from Quick Search*, Taking GLUCOMETER DIRECTED TEST QD , Notes to Pharmacist: *Please review for potential replacement for e-prescription and drug interaction check*, Taking Docusate Sodium 100 MG 1 P.O. Q DAY , Notes to Pharmacist: *Please review and pick correct strength-formulation from [employer] options. If intended option is not shown, [...] Temp: 97.7, BP: 138/80, HR: 51, Nurse: [facility], Ht: 68, BMI:33.17. * Examination: G eneral [...] G 2211 Complex e/m visit add on, G2107 MOST RECENT SYSTOLIC BP < 140MM HG, G8754 MOST RECENT DIASTOLIC BP < 90MM HG * Follow Up: v ia phone to report test results * Images: Billing Information: * Visit Code: 51594 Office Visit, Est Pt., Level 4. * Procedure Codes: G2211 Complex e/m visit add on. G8752 MOST RECENT SYSTOLIC BP < 140MM HG. G8754 MOST RECENT DIASTOLIC BP < 90MM HG. * Electronic signature of Neno Guzman MD on 09/21/2024 at 07:36 AM EDT Sign off status: Pending * Provider: Neno Guzman M.D. Date: 0 06/20/2024 Generated for Jennifer tejada/Allison/Boraransmitting on: 0 09/21/2024 07:36 AM EDT History and Physical Notes * HPI [...]
--- OUTSIDE RECORDS SUMMARY | 2024-08-29 11:35 | XMS_ITS ---
[facility] Organization [facility] Address 1210 [facility] [address] [phone] Care Team Providers Care Animal Shelter Manager Name Role Phone Neno Guzman Primary Care [...] Interpretation:normal Performing Lab: Notes/Report: Test performed by [facility] [address] [place] [address] , [address], [place] [address] Jn Gupta MD, Rod Buster Helper CLIA: [id number] Sodium 140 135-145 mmol/L Potassium 4.4 3.5-5.3 [...] 70 Performing Lab: Notes/Report: Test performed by [facility], [address] , [address], [place] [address] Jn Gupta MD, Rod Buster Helper CLIA: [id number] Cholesterol 131 <200 mg/dL Triglycerides 75 <150 [...] Interpretation:normal Performing Lab: Notes/Report: Test performed by [facility], [address] , [address] , [place] [address] Jn Gupta MD, Rod Buster Helper CLIA: [id number] Albumin/Creatinine Ratio, Urine 16 0-30 ug/m g [...] Jackson 2024 12:25:42 PM > faxed to [facility] Cardiology Referral Priority Routine REASON FOR [...] review and pick correct strength-formulatio n from ByteActive options. If intended option is not shown, [...] review and pick correct strength-formulatio n from ByteActive options. 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 - as directed 08/29/2024 Active Losartan [...] Status Risk Notes Problem Carotid artery stenosis (84786779) Carotid stenosis (I65.29) Active confirmed Problem Falls (431485573) Falls (R29.6) Active confirmed Problem Diabetic peripheral neuropathy associated with type 2 diabetes mellitus (1034983055170) Type 2 diabetes mellitus with diabetic neuropathy, unspecified whether extermination inspector insulin use (E11.40) Active confirmed Problem Peripheral circulatory disorder associated with diabetes mellitus (632162720) 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.59) Active confirmed Problem BMI 30+ - obesity (116316697) BMI 32.0-32.9,adult (Z68.32) Active confirmed Vital Signs Blood pressure systolic 150 mm Hg 08/30/19 25 Blood pressure diastolic 74 mm Hg 025 Heart Rate 82 /min 08/29/2024 Height 68 in 08/29/2024 Weight 213 lbs 08/29/2024 BMI 32.38 kg/m2 08/29/2024 Encounters Encounter Location Date Provider Diagnosis [facility] [address] [phone] 08/29/2024 Neno Guzman Adult general medica l examination Z00.00 ; Carotid stenosis I65.29 ; Falls R29.6 ; Foot drop M21.379 ; Type 2 diabetes mellitus without complication, without long-term current use of insulin E11.9 ; ASCVD (arteriosclerotic cardiovascular disease) I25.10 ; Dyslipidemia E78.5 ; Seizure disorder G40.909 ; Depression with anxiety F41.8 ; Type 2 diabetes mellitus with diabetic neuropathy, unspecified whether senior care insulin use E11.40 ; Type 2 diabetes [...] mellitus with diabetic neuropathy, unspecified whether senior care insulin use (ICD-10 - E11.40) 08/29/2024 Type 2 diabetes mellitus with other circulatory complications (ICD-10 - E11.59) 08/29/2024 BMI 32.0-32.9,adult (ICD-10 - Z68.32) Plan Of Treatment Medication Medication Name Sig Start Date Stop Date Notes Walker [employer] Wheels - as directed 08/29/2024 Treatment Notes [...] Months, Reason: Progress Notes * JAKE PICKARDDOB:1955 (68 yo M)Acc No.[id number]:08/29/2024 Annual Wellness Visit Patient: JAKE DYE Provider: Neno Guzman M.D. :1955 A ge:68 Y S ex:Male Date:08/29/2024 Phone: Address:[address] [place] [address] [place], [phone] Subjective: * Chief Complaints: * 1 . [...] for cardiology care until he switched to [employer] insurance. Since then he has had no [...] Spine , Kidney stones, ASCVD - s/p [place], Type 2 diabetes - diagonsed 09/2017, Seizure disorder, Broken ribs on left side, internal injuries 08/2019, NSTEMI 06/02/20 - [facility] tranferred to for CABG. * Surgical History: C ardiac Stents-total of 16 Stents placed 2008, Heart Cath 2013, removal of cyst on right side of face 1994 , kidney stones removed , Vascetomy , heart cath , CABG x / -Dr Wang 06/17/20. * Hospitalization/Major Diagno stic Procedure: s ee above , FYW-Qtgbrmw-okaxei 07/26/13, [facility] ER-stomach pain 01/27/15, St Ab- blockage 06/28, [facility] UTC-rib pain-right sided 01.31.18, [facility]-seizure 05/09/18, [facility] ER-SOA 07/2019, [facility]-mower accident , NSTEMI - [facility] transfered to 06/12/20. * Family History: [...] *Please review and pick correct strength-formulation from ByteActive options. If intended option is not shown, discontinue and re-order from Quick Search*, Taking GLUCOMETER DIRECTED TEST QD , Notes to Pharmacist: *Please review for potential replacement for e-prescription and drug interaction check*, Taking Docusate Sodium 100 MG 1 P.O. Q DAY , Notes to Pharmacist: *Please review and pick correct strength-formulation from ByteActive options. If intended option is not shown, [...] mellitus with diabetic neuropathy, unspecified whether senior care insulin use - E11.40 1 1. T [...] to establish cardiac care 3.?Falls? Start Walker [employer]els Miscellaneous, -, as directed.??4.?Type 2 diabetes [...] VST, G2211 Complex e/[place], [address] GLYCATED HEMOGLOBIN TEST, Modifiers: QW , 1090F PRES/ABSN URINE INCON ASSESS, 3288F FALL RISK ASSESSMENT DOCD, 1170F FXNL STATUS ASSESSED, 1159F MED LIST DOCD IN RCRD, 1003F LEVEL OF ACTIVITY ASSESS, 1036F TOBACCO NON-USER, 04357 CBC WITH AUTO DIFF, 3044F HG A1C [...] * Images: Billing Information: * Visit Code: 13443 Office Visit, Est Pt., Level 3. Modifiers: 25 * Procedure Codes: G0439 ANNUAL WELLNESS VST; PPS SUBSQT VST. G2211 Complex e/[place]. [address] GLYCATED HEMOGLOBIN TEST. Modifiers: QW 1090F PRES/ABSN URINE INCON ASSESS. 3288F FALL RISK ASSESSMENT DOCD. 1170F FXNL STATUS ASSESSED. 1159F MED LIST DOCD IN RCRD. 1003F LEVEL OF ACTIVITY ASSESS. 1036F TOBACCO NON-USER. 66682 CBC WITH AUTO DIFF. 3044F HG A1C [...] 08/29/2024 Generated for Jennifer tejada/Allison/Torres on: 0 09/21/2024 07:36 AM EDT History [...] for cardiology care until he switched to [employer] insurance. Since then he has had no [...]
--- OUTSIDE RECORDS SUMMARY | 2024-08-30 10:00 | XMS_ITS ---
Author Organization [facility] Address [facility] [address] [phone] Care Team Providers Care Library Services Dean Name Role Phone Neno Guzman Primary Care Provider REASON FOR VISIT urine sample Encounters Encounter Location Date Provider Diagnosis [facility] [address] [place] [phone] 08/30/2024 Neno Guzman Plan Of Treatment No Information Progress Notes * DAMIANJAKEDOB:1955 (68 yo M)Acc No.[id number]:08/30/2024 Patient: JAKE DYE Provider: Neno Guzman M.D. :1955 A ge:68 Y S ex:Male Date:08/30/2024 Phone: Address:[address] [place] [phone] Subjective: * Chief Complaints: * 1 . Urine sample. * Medical History: Objective: * Vitals: Assessment: Plan: * Treatment: * Images: Billing Information: * Visit Code: * Procedure Codes: * Electronic signature of Neno Guzman MD on 09/21/2024 at 07:36 AM EDT Sign off status: Pending * Provider: Neno Guzman M.D. Date: 08/30/2024 Generated for Jennifer tejada/Allison/eTransmitting on: 09/21/2024 07:36 AM EDT
--- OUTSIDE RECORDS SUMMARY | 2024-09-21 07:36 | XMS_ITS | Patient Health Record ---
Author Organization [facility] Address [address] [place] [id number] Care Team Providers Care Shoe Stock Associate Name Role Phone Neno Guzman Primary Care Provider [phone] Omer Wallace Unavailable [phone] Allergies Allergen (clinical drug ingredient) Drug/Non Drug Allergy documented on EMR Reaction Allergy Type Onset Date Status metformin metFORMIN diarrhea, cramps Drug Allergy Active Results Component Value Reference Range Notes X ray : Foot, right Reviewed date:06/29/2024 04:33:27 PM Interpretation:Degenerative Changes Performing Lab: Notes/Report: Degenerative Changes P-Microalbumin/Creatinine, R andom Urine Sample Reviewed date:09/03/2024 10:32:47 PM Interpretation:normal Performing Lab: Notes/Report: Test performed by [facility] [address] [place], [place] [address] [place] , [address], [place] [address] Jn Gupta MD, Card Player CLIA: [id number] Albumin/Creatinine Ratio, Urine 16 0-30 ug/m g Microalbumin, Urine, Random 1.9 Creatinine, Urine 122.5 P-Lipid Panel Reviewed date:09/03/2024 10:32:47 PM Interpretation:LDL 70 Performing Lab: Notes/Report: Test performed by [facility] [address] [place], [place] [address] [place] , [address], [place] [id number] Jn Gupta MD, Card Player CLIA: [id number] Cholesterol 131 <200 mg/dL Triglycerides 75 <150 [...] Results: 70 Units: mg/dL % Change: +18% P-Comprehensive Metabolic Pa mateus (CMP) Reviewed date:09/03/2024 10:32:47 PM Interpretation:normal Performing Lab: Notes/Report: Test performed by [facility], [place] [address] [place] [address] , [address], [place] [address] Jn Gupta MD, Card Player CLIA: [id number] Sodium 140 135-145 mmol/L Potassium 4.4 3.5-5.3 [...] 0.8 <0.2-1.2 mg/dL A/G Ratio 1.7 1.1-2.5 Glycohemoglobin A1c (in hous e) Reviewed date:09/03/2024 10:32:47 PM Interpretation:5.7% Performing Lab: Notes/Report: 5.7% glycohemoglobin 5.7% 5 - 6.5 % CBC Venipuncture (in house) Reviewed date:09/03/2024 10:32:47 [...] - 38 platlet 238 100 - 400 CBC Venipuncture (in house) Reviewed date:11/10/2023 01:06:19 PM Interpretation:Normal Performing Lab: Notes/Report: Normal wbc 7.8 3.5 - 10 lymph 22.3 15 - 50 mid 6.2 2 - 15 gran 71.5 35 - 80 rbc 4.42 3.5 - 5.5 hgb 14.0 11.5 - 16.5 hct 41.7 35 - 55 mcv 94.4 75 - 100 mch 31.7 25 - 35 mchc 33.5 31 - 38 platlet 238 100 - 400 Glycohemoglobin A1c (in hous e) Reviewed date:11/10/2023 01:06:54 PM Interpretation:5.7% Performing Lab: Notes/Report: 5.7% glycohemoglobin 5.7% 5 - 6.5 % P-Comprehensive Metabolic Pa mateus (CMP) Reviewed date:11/10/2023 01:09:27 PM Interpretation:gluc 103 Performing Lab: Notes/Report: Test performed by [facility] [address] [place], [place] [address] [place] , [address], [place] [address] Jn Gupta MD, Card Player CLIA: [id number] Sodium 142 135-145 mmol/L Potassium 4.6 3.5-5.3 mmol/L Chloride 103 97-108 mmol/L CO2 31 22-32 mmol/L Glucose 103 65-99 mg/dL BUN 23 8-23 mg/dL Creatinine 1.16 0.70-1.30 mg/dL Calcium 9.4 8.6-10.4 mg/dL eGFR by Creatinine 69 >59 mL/min/1.73m2 Protein 6.9 6.0-8.3 g/dL Albumin 4.3 3.5-5.3 g/dL Alkaline Phosphatase 104 40-129 IU/L ALT (SGPT) 21 <5-55 IU/L AST (SGOT) 25 <5-46 IU/L Bilirubin, Total 0.7 <0.2-1.2 mg/dL A/G Ratio 1.7 1.1-2.5 P-Lipid Panel Reviewed date:11/10/2023 01:08:49 PM Interpretation:Normal Performing Lab: Notes/Report: Test performed by [facility] [address] [place], [place] [address] [place] , [address], [place] [address] nJ Gupta MD, Card Player CLIA: [id number] Cholesterol 117 <200 mg/dL Triglycerides 85 <150 mg/dL HDL Cholesterol 41 >39 mg/dL Cholesterol / HDL Ratio 2.85 0.00-4.99 Ratio Non-HDL Cholesterol 76 <130 mg/dL LDL Cholesterol (Calculation) 59 <130 mg/dL LDL Cholesterol Levels* Less than 100 mg/dL Optimal 100 to 129 mg/dL Near Optimal/ Above Optimal 130 to 159 mg/dL Borderline High 160 to 189 mg/dL High 190 mg/dL and above Very High * Categories as recommended by the 2004 ATPIII guidelines LDL/HDL Ratio 1.4 <3.3 Ratio LDL Cholesterol Patient History Test Date: 01/23/2022 LDL Results: 59 Units: mg/dL % Change: - Test Date: 11/02/2023 LDL Results: 59 Units: mg/dL % Change: 0% P-PSA Reviewed date:11/10/2023 01:07:19 PM Interpretation:Normal Performing Lab: Notes/Report: Test performed by [facility], [address] , [address], [place] [address] Jn Gupta MD, Card Player CLIA: [id number] PSA 0.21 <4.00 ng/mL Please note this is an ultrasensitive PSA assay with a lower limit of detection of 0.014 ng/mL. This test is performed by the Andrey ECLIA methodology. Values obtained with different assay methods or kits cannot be directly compared. P-Microalbumin/Creatinine, R andom Urine Sample Reviewed date:11/10/2023 01:07:52 PM Interpretation:Normal Performing Lab: Notes/Report: Test performed by [facility] [address] [place] [address] , [address], [place] [address] Jn Gupta MD, Card Player CLIA: [id number] Albumin/Creatinine Ratio, Urine 12 0-30 ug/m g Microalbumin, Urine, Random 2.3 Creatinine, Urine 186.3 Reason For Referral Reason Essential tremor Diagnosis 1 Essential tremor (G2 5.0) Referral Organization [facility] Referring Provider First Name Neno Arroyo Referring Provider Last Name Thomas [facility] Referred Provider Lakeisha Dutta Referred Provider Specialty Neurology General Notes Connie Jackson 2024 10:14:04 AM > faxed to [facility] NeurologyRenetta Brynn 06/30/2024 11:10:14 AM > spoke to Em; referral received Referral Priority Routine Reason Right Foot Pain Diagnosis 1 Right foot pain (M79 .671) [facility] Referring Provider First Name Neno Arroyo Referring Provider Last Name Thomas [facility] Referred Provider Specialty Podiatry General Notes Lynn Campos 07/06 11:59:42 AM > faxed to Renetta Joseph Brynn 07/10/2024 09:53:31 AM > spoke with Nedra from podiatry; they have called the patient several times but no vm Referral Priority Routine Reason carotid stenosis and to establish cardiac care Diagnosis 1 Carotid stenosis (I6 5.29) Referral [facility] Referring Provider First Name Neno Arroyo Referring Provider Last Name Thomas Referring Provider [facility] ctice Referred Provider Tj Peck Referred Provider Specialty Cardiovascul ar Disease General Notes Connie Jackson 2024 12:25:42 PM > faxed to [facility] Cardiology Referral Priority Routine Medications Medication SIG (Take, Route, Frequency, Duration) Notes Start Date End Date Status traMADol HCl 50 MG 1 tab(s) Orally four times a day as needed 09/18/2024 Active Metoprolol Tartrate 50 mg TAKE ONE TABLET BY MOUTH 2 TIMES A DAY; Duration: 90 Active Losartan Potassium 50 mg TAKE ONE TABLET BY MOUTH ONCE A DAY; Duration: 90 Active DULoxetine HCl 60 mg 1 capsule orally daily; Duration: 30 days Active Keppra 500 MG 1.5 tab(s) orally 2 times a day Active Furosemide 40 MG 1 tab(s) orally once a day, prn; Duration: 90 days Active Glimepiride 4 mg TAKE ONE TABLET BY MOUTH ONCE A DAY; Duration: 90 Active Clopidogrel Bisulfate 75 mg TAKE ONE TABLET BY MOUTH ONCE A DAY; Duration: 90 Active Jardiance 25 mg TAKE ONE TABLET BY MOUTH EVERY MORNING; Duration: 30 Active Primidone 50 MG 2 tablet Orally Twice a day Active Walker [employer] - as directed 08/29/2024 Active Prazosin HCl 1 mg TAKE 2 CAPSULES BY MOUTH AT BEDTIME; Duration: 30 Active GLUCOMETER DIRECTED TEST QD *Please revi ew for potential replacement for e-prescription and drug interaction check* 09/14/2017 Active Etodolac 400 mg 1 tablet orally twice a day; Duration: 30 days Active Docusate Sodium 100 MG 1 P.O. Q DAY *Please review and pick correct strength-formulatio n from [employer] options. If intended option is not shown, [...] review and pick correct strength-formulatio n from [employer] options. If intended option is not shown, discontinue and re-order from [employer]* 09/14/2017 Active Immunizations Vaccine Route Administration Date Status Comme nts xFlu shot- 6months-36 months of [id number]-trivalent Unknown 12/17/2015 Administered Tetanus Tdap-Adacel (over 7yrs) Unknown 04/22/2024 Administered Prevnar (PCV20) IM Intramuscular 01/23/2022 Administered PNEUMOVAX 23 VACCINE Unknown 11/11/2019 Administered Fluzone Quad (6months&older) IM Intramuscular 01/08/2018 Administered Fluzone PF Quad (6-35 months) Unknown 12/15/2016 Administered Fluzone PF Quad (6-35 months) Unknown 01/22/2021 Administered Fluzone PF Quad (6-35 months) Unknown 12/23/2021 Administered DT, 7 YEARS OR OLDER Unknown 05/16/1996 Administered COVID 19 Bony Unknown 07/17/2020 Administered COVID 19 Bony Unknown 01/22/2021 Administered Problems Problem Type SNOMED Code ICD Code Onset Dates Problem Status W/U Status Risk Notes Problem Coronary arteriosclerosis (96297727) ASCVD (arteriosclerotic cardiovascular disease) (I25.10) Active confirmed Problem Peripheral circulatory disorder associated with diabetes mellitus (704041912) 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.59) Active confirmed Problem History of circulatory system disease (209933530) History of ASCVD (Z86.79) Active confirmed Problem Essential hypertension (63400510) Essential hypertension (I10) Active confirmed Problem Paresthesia (54204115) Paresthesia (R20.2) Active confirmed Problem Mixed anxiety and depressive disorder (180593748) Depression with anxiety (F41.8) Active confirmed Problem BMI 30+ - obesity (564535506) BMI 32.0-32.9,adult (Z68.32) Active confirmed Problem Seizure disorder (273225139) Seizure disorder (G40.909) Active confirmed Problem Carotid artery stenosis (46771980) Carotid stenosis (I65.29) Active confirmed Problem Essential tremor (865540556) Essential tremor (G25.0) Active confirmed Problem Obese class II (226291509793824) BMI 35.0-35.9,adult (Z68.35) Active confirmed Problem Lumbosacral spondylosis without myelopathy (23278897) Degenerative joint disease (DJD) of lumbar spine (M47.816) Active confirmed Problem Irritable bowel syndrome (27475867) Irritable bowel syndrome (K58.9) Active confirmed Problem Posttraumatic stress disorder (38181701) PTSD (post-traumatic stress disorder) (F43.10) Active confirmed Problem Body mass index 30.00 to 34.99 (659277315014552) BMI 34.0-34.9,adult (Z68.34) Active confirmed Problem Dyslipidemia (429372237) Dyslipidemia (E78.5) Active confirmed Problem Type II diabetes mellitus without complication (189356034) Type 2 diabetes mellitus without complication, without long-term current use of insulin (E11.9) Active confirmed Problem Sleep dysfunction with arousal disturbance (990743758) Night terror (F51.4) Active confirmed Problem Diabetic peripheral neuropathy associated with type 2 diabetes mellitus (6963265928292) Type 2 diabetes mellitus with diabetic neuropathy, unspecified whether chcf insulin use (E11.40) Active confirmed Problem Nightmares (616239145) Nightmares (F51.5) Active confirmed Problem Falls (751909103) Falls (R29.6) Active confirme d Vital Signs Heart Rate 82 /min 08/29/2024 Blood pressure diastolic 74 mm Hg 08/29/2024 Height 68 in 08/29/2024 Blood pressure systolic 150 mm Hg 08/29/2024 Weight 213 lbs 08/29/2024 BMI 32.38 kg/m2 08/29/2024 Encounters Encounter Location Date Provider Diagnosis [facility] [address] [facility] [address] [place] [id number] 11/02/2023 Cruz Guzman Type 2 diabetes tristan itus without complication, without long-term current use of insulin E11.9 ; Essential hypertension I10 ; Dyslipidemia E78.5 and Screening for prostate cancer Z12.5 [facility] [place] [address] [place] [id number] 06/20/2024 Cruz Guzman Foot pain, right M79 .671 ; Essential tremor G25.0 and Essential hypertension I10 [facility] [place] [address] [facility] [address] [place] [id number] 08/29/2024 Cruz Guzman Adult general medica l examination Z00.00 ; Carotid stenosis I65.29 ; Falls R29.6 ; Foot drop M21.379 ; Type 2 diabetes mellitus without complication, without long-term current use of insulin E11.9 ; ASCVD (arteriosclerotic cardiovascular disease) I25.10 ; Dyslipidemia E78.5 ; Seizure disorder G40.909 ; Depression with anxiety F41.8 ; Type 2 diabetes mellitus with diabetic neuropathy, unspecified whether chcf insulin use E11.40 ; Type 2 diabetes mellitus with other circulatory complications E11.59 and BMI 32.0-32.9,adult Z68.32 [facility] [address] [place], [place] [id number] 08/30/2024 R Cruz Thomas [facility] [address] [place], [place] [id number] 10/28/2023 R Cruz Thomas [facility] [address] [place], [place] [id number] 04/28/2024 R Cruz Thomas [facility] [address] [place], [place] [id number] 06/29/2024 R Cruz Thomas [facility] [address] [place], [place] [id number] 07/24/2024 Omer [place] [facility] [address] [place], [place] [id number] 09/03/2024 R Cruz Thomas [facility] [address] [facility] [address] [place], [place] [id number] 09/18/2024 R Cruz Thomas Assessments Encounter Date Diagnosis (ICD Code) Assessment Notes Treatment Notes Treatment Clinical Notes Section Notes 11/02/2023 Essential hypertension (ICD-10 - I10) 11/02/2023 Type 2 diabetes mellitus without complication, without long-term current use of insulin (ICD-10 - E11.9) 06/20/2024 Foot pain, right (ICD-10 - M79.671) There is no obvious infection. Will obtain x-ray to rule out bony injury. May need podiatry referral. 06/20/2024 Essential tremor (ICD-10 - G25.0) 08/29/2024 Carotid stenosis (ICD-10 - I65.29) 08/29/2024 Adult general medical examination (ICD-10 - Z00.00) Patient instructed to return to office Annually for Annual Wellness Visits to include annual screenings of Pain assessment, Functional Ability assessment, Cognitive Ability assessment, Fall Risk assessment, Depression screening and Bladder control screening. 08/29/2024 Falls (ICD-10 - R29.6) 06/20/2024 Essential hypertension (ICD-10 - I10) 11/02/2023 Dyslipidemia (ICD-10 - E78.5) 11/02/2023 Screening for prostate cancer (ICD-10 - Z12.5) 08/29/2024 Foot drop (ICD-10 - M21.379) 08/29/2024 Type 2 diabetes mellitus without complication, without long-term current use of insulin (ICD-10 - E11.9) 08/29/2024 ASCVD (arteriosclerotic cardiovascular disease) (ICD-10 - I25.10) 08/29/2024 Dyslipidemia (ICD-10 - E78.5) 08/29/2024 Seizure disorder (ICD-10 - G40.909) 08/29/2024 Depression with anxiety (ICD-10 - F41.8) 08/29/2024 Type 2 diabetes mellitus with diabetic neuropathy, unspecified whether chcf insulin use (ICD-10 - E11.40) 08/29/2024 Type 2 diabetes mellitus with other circulatory complications (ICD-10 - E11.59) 08/29/2024 BMI 32.0-32.9,adult (ICD-10 - Z68.32) Plan Of Treatment Pending Test Test Name Order Date colonoscopy 08/20/2023 colonoscopy 08/29/2024 Cologuard 08/06/2022 Insurance Providers Payer Name Payer Address Payer Phone Subscriber Number Group Number Insured Name Patient Relationship to Insured Coverage Start Date Coverage End Date [employer] (MEDICAR E) [address] [address] [place] [address] [phone] [id number] JAKE PICKARD Self - patient is the insured Medications Administered Medication Instructions Date of Administration Dosage Notes Dexamethasone 03/28/2014 1 mL Medical (General) History Medical History History ICD Code HTN Hyperlipidemia Anxiety DJD of Spine kidney stones ASCVD - s/p [place] Type 2 diabetes - diagonsed 09/2017 seizure disorder broken ribs on left side, internal injur ies 08/2019 NSTEMI 06/02/20 - [facility] --> tranferred to [facility] for CABG Surgical History Surgery Date(Month/Year) Cardiac Stents-total of 16 Stents placed 2008 Heart Cath 2013 removal of cyst on right side of face 19 95 kidney stones removed Vascetomy heart cath CABG x -Dr Wang 06/17/20 Hospitalization History Reason Date(Month/Year) NSTEMI - [facility] -->transfered to 06/12/20 -mower accident [facility] ER-SOA 07/2019 [facility]-seizure 05/09/18 [facility] UTC-rib pain-right sided 18 St Ab-blockage 06/28 [facility] ER-stomach pain 01/27/15 [id number] 07/26/13 see above
--- OUTSIDE RECORDS SUMMARY | 2024-09-21 07:36 | XMS_ITS | Clinical Summary ---
Author Organization Healthcare Address [address] [place] [address] Care Team Providers Care Bench Shear Operator Name Role Phone Johnie Guzman MD Primary Care Provider [phone]- [phone] Immunizations Immunization Administration Dates Next Due Pneumococcal [...] (2 of 2 - PCV) 11/10/2020 11/11/2019 [id number] Vaccine (1 - 20 24-25 season) 2023 [facility]-Influenza Vaccine (#1) 2024 [facility]-RSV Vaccine: 60+ Years o r [...] age to complete this topic Care Teams Bench Shear Operator Relationship Specialty Start Date End Date Johnie Guzman MD [address] [place] [address] PCP - General 07/26/20
[2024-09-21 08:19] LABS: Hematocrit 44.5 % (42.0-52.0); Hemoglobin 14.6 g/dL (14.1-18.0); Immature Granulocytes % 0.1 %; Mean Corpuscular HGB Conc 32.8 g/dL (31.8-35.4); Mean Corpuscular Hemoglobin 31.2 pg (27.0-31.2); Mean Corpuscular Volume 95.1 fl (80-94); Nucleated Red Blood Cells % 0 %; Platelet Count 213 K/mm3 (142-424); Red Blood Count 4.68 M/mm3 (4.60-6.20); Red Cell Distribution Width-SD 44.8 fL; White Blood Count 7.1 K/mm3 (4.8-10.8)
[2024-09-21 09:12] LABS: Albumin Level 4.0 g/dl (3.5-5.0); Chloride 98 mmol/L (98-107); Potassium 4.0 mmoL/L (3.5-5.1); Sodium 141 mmol/L (136-145)
[2024-09-21 09:15] LABS: Alkaline Phosphatase 83 U/L (38-126); Bilirubin,Direct 0.3 mg/dl (0.0-0.4); Bilirubin,Indirect 0.2 mg/dL (0.0-0.9); Bilirubin,Total 0.5 mg/dl (0.2-1.3); Magnesium 2.0 mg/dl (1.6-2.3)
[2024-09-21 09:16] LABS: HDL Cholesterol 44 mg/dl (40-60)
[2024-09-21 09:33] LABS: Free T4 (Free Thyroxine) 0.99 ng/dl (0.78-2.19)
[2024-09-21 09:48] LABS: Thyroid Stimulating Hormone 1.83 uIU/mL (0.465-4.68)
[2024-09-21 09:51] LABS: Alanine Aminotransferase 21 U/L (12-78); Anion Gap 14.0 mEq/L (5-15); Aspartate Amino Transferase 24 U/L (17-59); Bilirubin,Unconjugated 0.2 mg/dL (0.0-1.1); Blood Urea Nitrogen 22 mg/dl (9-20); Calcium 9.2 mg/dl (8.4-10.2); Carbon Dioxide 33 mmol/L (22.0-30.0); Cholesterol 129 mg/dl (140-200); Creatinine,Serum 0.90 mg/dl (0.66-1.25); Estimated Glomerular Filt Rate 84 ml/min (>60); GFR (African American) 102 ML/MIN (>60); Glucose 94 mg/dl (74-100); Total Protein,Serum 6.7 g/dl (6.3-8.2); Triglycerides 66 mg/dl (30-150)
== END 2024-09-21 23:59 | disposition home or self-care (01) ==
LOC: LAB 07:34
PROVIDERS: PCP Family Medicine; Visit Provider Internal Medicine
DX: I21.4 Non-ST elevation (NSTEMI) myocardial infarction (principal); I25.10 Atherosclerotic heart disease of native coronary artery without angina pectoris
CPT/HCPCS: 80048; 80061; 80076; 83735; 84439; 84443; 85025

== ENCOUNTER 2024-09-30 21:46 | Emergency (ER) | payer MEDICARE, SELFPAY ==
--- OUTSIDE RECORDS SUMMARY | 2024-06-20 05:45 | XMS_ITS ---
Author Organization [facility] Address 12[address] [facility] [address] [place] [phone] Care Team Providers Care Fabrication Supervisor Name Role Phone Neno Guzman Primary Care [...] 1 Essential tremor (G2 5.0) [facility] Referring Provider First Name Neno Arroyo Referring Provider Last Name Thomas Referring Provider Speciality [facility] li Referred Provider Lakeisha Dutta Referred Provider Specialty Neurology General Notes Connie Jackson 2024 10:14:04 AM > faxed to [facility] Neurology, Connie Jackson 06/30/2024 11:10:14 AM > spoke to [place]; referral received Referral Priority Routine REASON FOR [...] review and pick correct strength-formulat ion from [employer] options. If intended option is not shown, [...] review and pick correct strength-formulat ion from [employer] options. If intended option is not shown, discontinue and re-order from Quick Search* 09/14/2017 Active Vital Signs Weight 218.2 lbs 06/20/2024 Blood pressure systolic 138 mm Hg 06/21/19 25 Blood pressure diastolic 80 mm Hg 025 Heart Rate 51 /min 06/20/2024 Height 68 in 06/20/2024 BMI 33.17 kg/m2 06/20/2024 Encounters Encounter Location Date Provider Diagnosis [facility] [address] [facility] [address], [place] [id number] 06/20/2024 R Cruz Guzman Foot pain, right [...] Notes * JAKE PICKARDDOB:1955 (69 yo M)Acc No.[id number]:06/20/2024 Progress Notes Patient: JAEK DYE Provider: Neno Guzman M.D. :1955 A ge:68 Y S ex:Male Date:06/20/2024 Phone: Address:[address] [place] [address], [facility], [phone] Subjective: * Chief Complaints: * 1 . [...] side, internal injuries 08/2019, NSTEMI 06/02/20 - [facility] tranferred to for CABG. * Surgical History: C ardiac Stents-total of 16 Stents placed 2008, Heart Cath 2013, removal of cyst on right side of face 1994, kidney stones removed , Vascetomy , heart cath , CABG x 3/ [facility] Wang 06/17/20. * Hospitalization/Major Diagno stic Procedure: s ee above , PHT-Xzvxief-hqdzzw 07/26/13, [facility] ER-stomach pain 01/27/15, St Ab- blockage 06/28, [facility] UTC-rib pain-right sided 01.31.18, [facility]-seizure 05/09/18, [facility] ER-SOA 07/2019, [facility] accident , NSTEMI - [facility] transfered to 06/12/20. * Family History: [...] *Please review and pick correct strength-formulation from [employer] options. If intended option is not shown, discontinue and re-order from Quick Search*, Taking GLUCOMETER DIRECTED TEST QD , Notes to Pharmacist: *Please review for potential replacement for e-prescription and drug interaction check*, Taking Docusate Sodium 100 MG 1 P.O. Q DAY , Notes to Pharmacist: *Please review and pick correct strength-formulation from [employer] options. If intended option is not shown, [...] Temp: 97.7, BP: 138/80, HR: 51, Nurse: [facility], Ht: 68, BMI:33.17. * Examination: G [...] G 2211 Complex e/m visit add on, G2299 MOST RECENT SYSTOLIC BP < 140MM HG, G8754 MOST RECENT DIASTOLIC BP < 90MM HG * Follow Up: v ia phone to report test results * Images: Billing Information: * Visit Code: 17113 Office Visit, Est Pt., Level 4. * Procedure Codes: G2211 Complex e/m visit add on. G8752 MOST RECENT SYSTOLIC BP < 140MM HG. G8754 MOST RECENT DIASTOLIC BP < 90MM HG. * Electronic signature of Neno Guzman MD on 09/30/2024 at 09:53 PM EDT Sign off status: Pending * Provider: Neno Guzman M.D. Date: 0 06/20/2024 Generated for Jennifer tejada/Allison/Boraransmitting on: 0 09/30/2024 09:53 PM EDT History and Physical Notes * [...]
--- OUTSIDE RECORDS SUMMARY | 2024-08-29 11:35 | XMS_ITS ---
Author Organization [facility] Address 1210 [facility] [address] [phone] Care Team Providers Care Hub Bander Name Role Phone Neno Guzman Primary Care [...] Interpretation:normal Performing Lab: Notes/Report: Test performed by [facility] [address] [place] [address] , [address], [place] [address] Jn Gupta MD, Log Roller CLIA: [id number] Sodium 140 135-145 mmol/L Potassium 4.4 3.5-5.3 [...] 70 Performing Lab: Notes/Report: Test performed by [facility], [address] , [address], [place] [address] Jn Gupta MD, Log Roller CLIA: [id number] Cholesterol 131 <200 mg/dL Triglycerides 75 <150 [...] Interpretation:normal Performing Lab: Notes/Report: Test performed by [facility], [address] , [address] , [place] [address] Jn Gupta MD, Log Roller CLIA: [id number] Albumin/Creatinine Ratio, Urine 16 0-30 ug/m g [...] Jackson 2024 12:25:42 PM > faxed to [facility] Cardiology Referral Priority Routine REASON FOR VISIT [...] review and pick correct strength-formulatio n from [employer] options. If intended option is not shown, [...] review and pick correct strength-formulatio n from [employer] options. If intended option is not shown, discontinue and re-order from Quick Search* 09/14/2017 Active Walker [place] Wheels - as directed 08/29/2024 Active Losartan [...] Status Risk Notes Problem Carotid artery stenosis (28702837) Carotid stenosis (I65.29) Active confirmed Problem Falls (128180478) Falls (R29.6) Active confirmed Problem Diabetic peripheral neuropathy associated with type 2 diabetes mellitus (2228756612151) Type 2 diabetes mellitus with diabetic neuropathy, unspecified whether bed bug exterminator insulin use (E11.40) Active confirmed Problem Peripheral circulatory disorder associated with diabetes mellitus (739459271) 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.59) Active confirmed Problem BMI 30+ - obesity (134367848) BMI 32.0-32.9,adult (Z68.32) Active confirmed Vital Signs Weight 213 lbs 08/29/2024 Blood pressure systolic 150 mm Hg 08/30/19 25 Blood pressure diastolic 74 mm Hg 025 Heart Rate 82 /min 08/29/2024 Height 68 in 08/29/2024 BMI 32.38 kg/m2 08/29/2024 Encounters Encounter Location Date Provider Diagnosis [facility] [address] [phone] 08/29/2024 Neno Guzman Adult general medica l examination Z00.00 ; Carotid stenosis I65.29 ; Falls R29.6 ; Foot drop M21.379 ; Type 2 diabetes mellitus without complication, without long-term current use of insulin E11.9 ; ASCVD (arteriosclerotic cardiovascular disease) I25.10 ; Dyslipidemia E78.5 ; Seizure disorder G40.909 ; Depression with anxiety F41.8 ; Type 2 diabetes mellitus with diabetic neuropathy, unspecified whether skilled nursing insulin use E11.40 ; Type 2 diabetes [...] diabetes mellitus with diabetic neuropathy, unspecified whether skilled nursing insulin use (ICD-10 - E11.40) 08/29/2024 Type 2 diabetes mellitus with other circulatory complications (ICD-10 - E11.59) 08/29/2024 BMI 32.0-32.9,adult (ICD-10 - Z68.32) Plan Of Treatment Medication Medication Name Sig Start Date Stop Date Notes Walker [place] Wheels - as directed 08/29/2024 Treatment Notes [...] Notes * JAKE PICKARDDOB:1955 (69 yo M)Acc No.[id number]:08/29/2024 Annual Wellness Visit Patient: JAKE DYE Provider: Neno Guzman M.D. :1955 A ge:68 Y S ex:Male Date:08/29/2024 Phone: Address:[address] [place] [address] [place], [id number] Subjective: * Chief Complaints: * 1 . [...] for cardiology care until he switched to [employer] insurance. Since then he has had no [...] Spine , Kidney stones, ASCVD - s/p [place], Type 2 diabetes - diagonsed 09/2017, Seizure disorder, Broken ribs on left side, internal injuries 08/2019, NSTEMI 06/02/20 - [facility] tranferred to for CABG. * Surgical History: C ardiac Stents-total of 16 Stents placed 2008, Heart Cath 2013, removal of cyst on right side of face 1994 , kidney stones removed , Vascetomy , heart cath , CABG x / -Dr Wang 06/17/20. * Hospitalization/Major Diagno stic Procedure: s ee above , BDL-Rrjhiri-dqaymk 07/26/13, [facility] ER-stomach pain 01/27/15, St Ab- blockage 06/28, [facility] UTC-rib pain-right sided 01.31.18, [facility]-seizure 05/09/18, [facility] ER-SOA 07/2019, [place] , NSTEMI - [facility] transfered to 06/12/20. * Family [...] *Please review and pick correct strength-formulation from [employer] options. If intended option is not shown, discontinue and re-order from Quick Search*, Taking GLUCOMETER DIRECTED TEST QD , Notes to Pharmacist: *Please review for potential replacement for e-prescription and drug interaction check*, Taking Docusate Sodium 100 MG 1 P.O. Q DAY , Notes to Pharmacist: *Please review and pick correct strength-formulation from [employer] options. If intended option is not shown, [...] diabetes mellitus with diabetic neuropathy, unspecified whether skilled nursing insulin use - E11.40 1 1. T [...] to establish cardiac care 3.?Falls? Start Walker [place] Wheels Miscellaneous, -, as directed.??4.?Type 2 diabetes [...] lycohemoglobin 5.7% 5 - 6.5 % * Juilsa Bhandari 08/29/2024 04:36: 13 PM EDT > [...] VST, G2211 Complex e/[place], [address] GLYCATED HEMOGLOBIN TEST, Modifiers: QW , 1090F PRES/ABSN URINE INCON ASSESS, 3288F FALL RISK ASSESSMENT DOCD, 1170F FXNL STATUS ASSESSED, 1159F MED LIST DOCD IN RCRD, 1003F LEVEL OF ACTIVITY ASSESS, 1036F TOBACCO NON-USER, 15398 CBC WITH AUTO DIFF, 3044F HG A1C [...] * Images: Billing Information: * Visit Code: 95094 Office Visit, Est Pt., Level 3. Modifiers: 25 * Procedure Codes: G0439 ANNUAL WELLNESS VST; PPS SUBSQT VST. G2211 Complex e/[place]. [address] GLYCATED HEMOGLOBIN TEST. Modifiers: QW 1090F PRES/ABSN URINE INCON ASSESS. 3288F FALL RISK ASSESSMENT DOCD. 1170F FXNL STATUS ASSESSED. 1159F MED LIST DOCD IN RCRD. 1003F LEVEL OF ACTIVITY ASSESS. 1036F TOBACCO NON-USER. 04732 CBC WITH AUTO DIFF. 3044F HG A1C [...] 08/29/2024 Generated for Jennifer tejada/Allison/Torres on: 0 09/30/2024 09:53 PM EDT History [...] for cardiology care until he switched to [employer] insurance. Since then he has had no [...]
--- OUTSIDE RECORDS SUMMARY | 2024-08-30 10:00 | XMS_ITS ---
Author Organization [facility] Address 1210 [facility] [address] [phone] Care Team Providers Care Design Eng Name Role Phone Neno Guzman Primary Care Provider REASON FOR VISIT urine sample Encounters Encounter Location Date Provider Diagnosis [facility] [address] [place] [id number] 08/30/2024 Neno Guzman Plan Of Treatment No Information Progress Notes * PICKARDJAKEDOB:1955 (69 yo M)Acc No.[id number]:08/30/2024 Patient: JAKE DYE Provider: Neno Guzman M.D. :1955 A ge:68 Y S ex:Male Date:08/30/2024 Phone: Address:[address] [place] [phone] Subjective: * Chief Complaints: * 1 . Urine sample. * Medical History: Objective: * Vitals: Assessment: Plan: * Treatment: * Images: Billing Information: * Visit Code: * Procedure Codes: * Electronic signature of Neno Guzman MD on 09/30/2024 at 09:53 PM EDT Sign off status: Pending * Provider: Neno Guzman M.D. Date: 08/30/2024 Generated for Jennifer tejada/Allison/eTransmitting on: 0 09/30/2024 09:53 PM EDT
--- NOTE | 2024-09-30 21:52 | ECG_ITS ---
APPROVED REPORT Exam: Resting ECG HR:67 bpm ECG Measurements Heart Rate 67 AXES ME 208 P 55 QRSd 105 QRS 66 QT 410 T 50 QTc 425 Conclusion Normal sinus rhythm without acute ST or T wave changes concerning for ischemia frequent PVCs Electronically signed by : Jaz Dominguez, 10/04/2024 00:41:50
--- OUTSIDE RECORDS SUMMARY | 2024-09-30 21:53 | XMS_ITS | Clinical Summary ---
Author Organization Healthcare Address [address] [place] [address] Care Team Providers Care Softball Winder Name Role Phone Johnie Guzman MD Primary Care Provider [phone]- [phone] Immunizations Immunization Administration Dates Next Due Pneumococcal [...] 07/16/2020 11:23 AM EDT Plan of Treatment Upcoming Encounters Date Type Department Care Team (Late st Contact Info) Description 10/27/2024 2:20 PM EDT Office Visit [facility] [address] [facility] [address] [place] [address] Dilma Doll, PA [address] [facility] [address] [place] [address] Health Maintenance Due Date Last Done Comments [facility]-Depression Screening 1955 [facility]-Medicare Annual Wellness (AWV) 1955 [facility]-/Child/Adol SDOH Screenings 1955 [facility]- SDOH Screenings 1974 [facility]-Adult SDOH Screenings 1974 CT Colonography 2001 Colonoscopy 2001 FIT-DNA 2001 FIT 2001 FOBT 2001 Sigmoidoscopy 2001 [facility]-Colorectal Cancer Screening 2001 [facility]-Zoster Vaccines (1 of 2) 2006 [id number] Vaccine (3 - season) 2023 01/22/2021, 07/17/2020 [facility]-Influenza Vaccine (#1) 11/13/202412/23, 01/22/2021, 01/08/2018, Additional history exists [facility]-RSV Vaccine: 60+ Years or (1 - 1-dose 75+ series) 09/27/2031 [facility]-DTaP,Tdap,and Td Vaccines (2 - Td or Tdap) 04/22/2034 04/22/2024, 05/16/1996 [facility]-Hepatitis C Screening Completed 11/07/2019 [facility]-Pneumococcal Vaccine: 50+ Years Completed 01/23/2022, 11/11/2019 HPV Vaccines Aged Out No longer eligi [...] on patient's age to complete this topic Procedures Procedure Name Priority Date/Time Associated Diagnosis Comments HEPATITIS C ANTIBODY - ED W/REFLEX TO HCV QUANT PCR Routine 11/07/2019 2:56 PM EDT from Last 3 Months or Most Recently Relevant to Health Maintenance Results * Gray Hepatitis C Antibody (11/07/2019 2:56 PM EDT) Pathologist [facility] Hepatitis C Ab NEGATIVE Reference Range: Negative SUNQUEST 11/07/2019 2:56 PM EDT 11/07/2019 3:55 PM EDT Fabio Bundy MD LAB BLOOD ORDERABLES Final Res ult SUNQUEST from Last 3 Months or Most Recently Relevant to Health Maintenance Insurance [facility] MEDICARE Care Teams Softball Winder Relationship Specialty Start Date End Date Johnie Guzman MD [address] [place] [address] PCP - General 07/26/20
--- OUTSIDE RECORDS SUMMARY | 2024-09-30 21:53 | XMS_ITS | Clinical Summary ---
Author Organization [facility] Address [address] [place] [address] Care Team Providers Care Linux Unix System Administrator Name Role Phone Johnie Guzman MD Primary Care Provider Allergies No known active allergies Medications DULoxetine (CYMBALTA) 60 MG capsule Take 60 mg by mouth Daily. Active aspirin 81 MG EC tablet Take 81 mg by mouth Daily. Active levETIRAcetam (KEPPRA) 500 MG tablet Take 500 mg by mouth 2 (Two) Times a Day. Active prazosin (MINIPRESS) 1 MG capsule Take 1 capsule by mouth Every Night. 90 capsule 0 Active furosemide (LASIX) 20 MG tablet Take 1 tablet by mouth Daily. 90 tablet 0 Active Additional Information Patient taking differently: 40 mgOralDaily PRN, Reported on 08/07/2020 clopidogrel (PLAVIX) 75 MG tablet Take 1 tablet by mouth Daily. 90 tablet 3 0 Active atorvastatin (LIPITOR) 80 MG tablet TAKE ONE TABLET BY MOUTH AT BEDTIME 90 tablet 3 1 Active Empagliflozin 25 MG tablet Take 25 mg by mouth Daily. Active glimepiride (AMARYL) 4 MG tablet Take 4 mg by mouth Every Morning Before Breakfast. Active Active Problems Problem Noted Date Diagnosed Date Essential hypertension 01/04/2019 Dyslipidemia 01/04/2019 PVC's (premature ventricular contractions) 01/04 Coronary artery disease invo lving [place] coronary artery of [place] heart without angina pectoris 03/23/2018 Overview (03/23/2018): Added automatically from request for surgery [id number] Coronary artery disease invo lving [place] coronary artery of [place] heart 03/02/2018 Overview (03/02/2018): a. 02/09/05 cardiac catheterization intervention of LAD distal (2.5 x 16 Taxus) proximal edge of the stent covered with a 2.75 x 8 mm Taxus. Mid segment 2.75 x 8 mm Taxus. Noted retrograde dissection. Covered with 3.5 x 32 Taxus. Proximal LAD covered with 3.0 x 24 Taxus. b. 07/10/05 cardiac catheterization LAD stented (3.5 x 12 Taxus). RCA overlapping stents (Taxus 2.5 x 24 distal, Taxus 32 x 2.75 proximal, and then connecting the 2 stents a 16 x 2.5 mm stent upsized to appropriate parameters. c. 10/26/06 cardiac catheterization ostial RCA (2.75 x 20 Taxus). d. 05/27/10 mid RCA stenting with a 2.75 x 12 Xience ZAC. e. 10/26/12 mid RCA stent (2.75 x 12 Xience ZAC).. f. 06/22/13 [facility], RCA angioplasty.. Patent LAD stent. EF 55%. g. 11/28/13 mid RCA with ISR (2.5 x 23 Xience EES, after cutting balloon angioplasty).. h. 07/12/14 cardiac catheterization patent stents, ejection fraction 55%. i. 06/25/15 cardiac catheterization proximal LAD stent. RCA 40% ISR. j. April 2017 myocardial perfusion study with probably normal results. No evidence of ischemia or infarction. Normal LVEF. Reduced tracer uptake in the mid anterior wall segment worse at rest compared to stress and likely represents motion/attenuation artifact. Family History Medical History Relation Name Comments No Known Problems Brother No Known Problems Sister Relation Name Status Comments Brother Alive Father (Age 72) cancer Mother (Age 58) cancer Sister Alive Social History Tobacco Use Types Packs/Day Years Used Date Smoking Tobacco: Former Smokeless Tobacco: Current Snuff Comments:quit 30 years ago Alcohol Use Standard Drinks/Week Comments No 0 (1 standard drink = 0.6 oz pur e alcohol) AUDIT-C Answer Date Recorded Frequency of Alcohol Consumption Never 03/02/2018 Average Number of Drinks Not on file 018 Frequency of Binge Drinking Not on file 02/12 Abuse Screen Answer Date Recorded Unsafe at Home or Work/School Not on file Feels Threatened by Someone? Not on file 02/2023 Does Anyone Keep You from Co ntacting Others or Doint Things Outside the Home? Not on file 12/24/2022 Physical Sign of Abuse Present Not on file 1 Housing Stability Answer Date Recorded Current Living Arrangements Not on file 12/13 Potentially Unsafe Housing Conditions Not on oh e 12/24/2022 Family and Community Support Answer Song e Recorded Help with Day-to-Day Activities Not on file 12/24/2022 Lonely or Isolated Not on file 12/24/2022 Employment Answer Date Recorded Do you want help finding or keeping work or a josue b? Not on file 12/24/2022 Disabilities Answer Date Recorded Concentrating, Remembering, or Making Decisions Difficulty Not on file 12/24/2022 Doing Errands Independently Difficulty Not on fi le 12/24/2022 Education Answer Date Recorded Help with school or training? Not on file Preferred Language Not on file 12/24/2022 Sex and Gender Information Value Date Recorded Sex Assigned at Not on file Legal Sex Male 10:48 AM EST Gender Identity Not on file Sexual Orientation Not on file Last Filed Vital Signs Vital Sign Reading Time Taken Comments Blood Pressure 132/70 01/29/2021 11:42 AM EST Pulse 69 01/29/2021 11:42 AM EST Temperature 36.7 C (98 F) 03/29/2018 6:24 AM EST Respiratory Rate 15 03/29/2018 10:02 AM EST Oxygen Saturation 98% 01/29/2021 11:42 AM EST Inhaled Oxygen Concentration - - Weight 103 kg (227 lb) 01/29/2021 11:42 AM EST Height 177.8 cm (5' 10 ) 01/29/2021 11:42 AM EST Body Mass Index 32.57 01/29/2021 11:42 AM EST Plan of Treatment Health Maintenance Due Date Last Done Comments COLOGUARD 2001 COLON CANCER SCREENING 5 YEAR SIGMOIDOSCOPY 2001 COLONOSCOPY 2001 [address] CANCER SCREENING 2001 CT COLONOGRAPHY 2001 FECAL OCCULT BLOOD TEST 2001 FIT Testing (1 year) 2001 TDAP/TD VACCINES (2 - Tdap) 05/16/2006 05/16/1996 ZOSTER VACCINE (1 of 2) 2006 ANNUAL PHYSICAL 03/02/2018 HEPATITIS C SCREENING 03/02/2018 Pneumococcal Vaccine 50+ (2 of 2 - PCV) 11/10/2020 0 11/11/2019 AAA SCREEN ONCE 2021 COVID-19 Vaccine (2 - season) 11/14/202307/2020 INFLUENZA VACCINE 12/13/2024 12/17/2015 Medical Devices Implanted Type Area [employer] Advisor Device Identifier Shelf Expiration Date Model / Serial / Lot Stent Xience Carla Everolimus Zac 3.5x8mm - [id number] Implanted:Qty: 1 on 03/29/2018 by Micah Norris MD at [facility] [employer] [id number] / / Insurance MEDICARE ADVANTAGE Care Teams Linux Unix System Administrator Relationship Specialty Start Date End Date Johnie Guzman MD [address] [facility] [address] [place] [address] PCP - General Family Medicine 02/07/18
--- OUTSIDE RECORDS SUMMARY | 2024-09-30 21:54 | XMS_ITS | Patient Health Record ---
Author Organization [facility] Address [address] [facility] [address] [place] [id number] Care Team Providers Care Floorleader Name Role Phone Neno Guzman Primary Care Provider Omer Wallace Unavailable [phone] Allergies Allergen (clinical drug ingredient) Drug/Non Drug Allergy documented on EMR Reaction Allergy Type Onset Date Status metformin metFORMIN diarrhea, cramps Drug Allergy Active Results Component Value Reference Range Notes X ray : Foot, right Reviewed date:06/29/2024 04:33:27 PM Interpretation:Degenerative Changes Performing Lab: Notes/Report: Degenerative Changes CBC Venipuncture (in house) Reviewed date:09/03/2024 10:32:47 [...] Interpretation:normal Performing Lab: Notes/Report: Test performed by [facility] , [address], [place] [address] Jn Gupta MD, Full Stack Web Developer CLIA: [id number] Sodium 140 135-145 mmol/L Potassium 4.4 3.5-5.3 [...] 70 Performing Lab: Notes/Report: Test performed by [facility], [address] , [address], [place] [address] Jn Gupta MD, Full Stack Web Developer CLIA: [id number] Cholesterol 131 <200 mg/dL Triglycerides 75 <150 [...] Interpretation:normal Performing Lab: Notes/Report: Test performed by [facility] [address] [place] [address] , [address], [place] [address] Jn Gupta MD, Full Stack Web Developer CLIA: [id number] Albumin/Creatinine Ratio, Urine 16 0-30 ug/m g Microalbumin, Urine, Random 1.9 Creatinine, Urine 122.5 CBC Venipuncture (in house) Reviewed date:11/10/2023 01:06:19 [...] 103 Performing Lab: Notes/Report: Test performed by [facility] [address] [place], [place] [address] [place] , [address], [place] [address] Jn Gupta MD, Full Stack Web Developer CLIA: [id number] Sodium 142 135-145 mmol/L Potassium 4.6 3.5-5.3 [...] Interpretation:Normal Performing Lab: Notes/Report: Test performed by [facility] [address] [place], [place] [address] [place] , [address], [place] [address] Jn Gupta MD, Full Stack Web Developer CLIA: [id number] Cholesterol 117 <200 mg/dL Triglycerides 85 <150 [...] Interpretation:Normal Performing Lab: Notes/Report: Test performed by [facility], [address] , [address], [place] [address] Jn Gupta MD, Full Stack Web Developer CLIA: [id number] PSA 0.21 <4.00 ng/mL Please note this is an ultrasensitive PSA assay with a lower limit of detection of 0.014 ng/mL. This test is performed by the Andrey ECLIA methodology. Values obtained with different assay methods or kits cannot be directly compared. P-Microalbumin/Creatinine, R andom Urine Sample Reviewed date:11/10/2023 01:07:52 PM Interpretation:Normal Performing Lab: Notes/Report: Test performed by [facility] [address] [place] [address] , [address], [place] [address] Jn Gupta MD, Full Stack Web Developer CLIA: [id number] Albumin/Creatinine Ratio, Urine 12 0-30 ug/m g Microalbumin, Urine, Random 2.3 Creatinine, Urine 186.3 Reason For Referral Reason Essential tremor Diagnosis 1 Essential tremor (G2 5.0) Referral Organization [facility] Referring Provider First Name Neno Arroyo Referring Provider Last Name Thomas Referring Provider [facility] Referred Provider Lakeisha Dutta Referred Provider Specialty Neurology General Notes Connie Jackson 2024 10:14:04 AM > faxed to [facility] NeurologyRenetta Brynn 06/30/2024 11:10:14 AM > spoke to Em; referral received Referral Priority Routine Reason Right Foot Pain Diagnosis 1 Right foot pain (M79 .671) [facility] Referring Provider First Name Neno Arroyo Referring Provider Last Name Thomas Referring Provider [facility] Referred Provider Specialty Podiatry General Notes Lynn Campos 07/06 11:59:42 AM > faxed to Renetta Joseph Brynn 07/10/2024 09:53:31 AM > spoke with Nedra from podiatry; they have called the patient several times but no vm Referral Priority Routine Reason carotid stenosis and to establish cardiac care Diagnosis 1 Carotid stenosis (I6 5.29) [facility] Referring Provider First Name Neno Arroyo Referring Provider Last Name Thomas Referring Provider [facility] ctice Referred Provider Tj Peck Referred Provider Specialty Cardiovascul ar Disease General Notes Connie Jackson 2024 12:25:42 PM > faxed to [facility] Cardiology Referral Priority Routine Medications Medication [...] tablet Orally Twice a day Active Walker [place] Wheels - as directed 08/29/2024 Active Prazosin [...] review and pick correct strength-formulatio n from Niche options. If intended option is not shown, [...] review and pick correct strength-formulatio n from Niche options. If intended option is not shown, discontinue and re-order from Quick Search* 09/14/2017 Active Immunizations Vaccine Route Administration Date Status Comme nts xFlu shot- 6months-36 months of ivr-NBHY-ZWAJ-trivalent Unknown 12/17/2015 Administered Tetanus Tdap-Adacel (over 7yrs) [...] W/U Status Risk Notes Problem Coronary arteriosclerosis (69466155) ASCVD (arteriosclerotic cardiovascular disease) (I25.10) Active confirmed Problem Peripheral circulatory disorder associated with diabetes mellitus (589325060) 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.59) Active confirmed Problem History of circulatory system disease (049407467) History of ASCVD (Z86.79) Active confirmed Problem Essential hypertension (74572523) Essential hypertension (I10) Active confirmed Problem Paresthesia (34509593) Paresthesia (R20.2) Active confirmed Problem Mixed anxiety and depressive disorder (748861718) Depression with anxiety (F41.8) Active confirmed Problem BMI 30+ - obesity (411977196) BMI 32.0-32.9,adult (Z68.32) Active confirmed Problem Seizure disorder (199005337) Seizure disorder (G40.909) Active confirmed Problem Carotid artery stenosis (98958199) Carotid stenosis (I65.29) Active confirmed Problem Essential tremor (266932115) Essential tremor (G25.0) Active confirmed Problem Obese class II (604200142135766) BMI 35.0-35.9,adult (Z68.35) Active confirmed Problem Lumbosacral spondylosis without myelopathy (70754965) Degenerative joint disease (DJD) of lumbar spine (M47.816) Active confirmed Problem Irritable bowel syndrome (07260094) Irritable bowel syndrome (K58.9) Active confirmed Problem Posttraumatic stress disorder (02024594) PTSD (post-traumatic stress disorder) (F43.10) Active confirmed Problem Body mass index 30.00 to 34.99 (755426691908329) BMI 34.0-34.9,adult (Z68.34) Active confirmed Problem Dyslipidemia (881398264) Dyslipidemia (E78.5) Active confirmed Problem Type II diabetes mellitus without complication (033911949) Type 2 diabetes mellitus without complication, without long-term current use of insulin (E11.9) Active confirmed Problem Sleep dysfunction with arousal disturbance (020622570) Night terror (F51.4) Active confirmed Problem Diabetic peripheral neuropathy associated with type 2 diabetes mellitus (9122290648771) Type 2 diabetes mellitus with diabetic neuropathy, unspecified whether senior living insulin use (E11.40) Active confirmed Problem Nightmares (662145466) Nightmares (F51.5) Active confirmed Problem Falls (120749473) Falls (R29.6) Active confirme d Vital Signs Heart Rate 82 /min 08/29/2024 Blood pressure diastolic 74 mm Hg 08/29/2024 Height 68 in 08/29/2024 Blood pressure systolic 150 mm Hg 08/29/2024 Weight 213 lbs 08/29/2024 BMI 32.38 kg/m2 08/29/2024 Encounters Encounter Location Date Provider Diagnosis [facility] [address] [place] [id number] 11/02/2023 Cruz Guzman Type 2 diabetes tristan itus without complication, without long-term current use of insulin E11.9 ; Essential hypertension I10 ; Dyslipidemia E78.5 and Screening for prostate cancer Z12.5 [facility] [address] [place] [id number] 06/20/2024 Cruz Guzman Foot pain, right M79 .671 ; Essential tremor G25.0 and Essential hypertension I10 [facility] [address] [place] [id number] 08/29/2024 Cruz Guzman Adult general medica l [...] circulatory complications E11.59 and BMI 32.0-32.9,adult Z68.32 [facility] [address] [place], [place] [id number] 08/30/2024 R Cruz Thomas [facility] [address] [place], [place] [id number] 10/28/2023 R Cruz Thomas [facility] [address] [place], [place] [id number] 04/28/2024 R Cruz Thomas [facility] [address] [place], [place] [id number] 06/29/2024 R Cruz Thomas [facility] [address] [place], [place] [id number] 07/24/2024 Omer [place] [facility] [address] [place], [place] [id number] 09/03/2024 R Cruz Thomas [facility] [address] [place], [place] [id number] 09/18/2024 R Cruz Thomas Assessments Encounter Date Diagnosis (ICD Code) Assessment Notes Treatment Notes Treatment Clinical Notes Section Notes 06/20/2024 Foot pain, right (ICD-10 - M79.671) There is no obvious infection. Will obtain x-ray to rule out bony injury. May need podiatry referral. 06/20/2024 Essential tremor (ICD-10 - G25.0) 11/02/2023 Essential hypertension (ICD-10 - I10) 11/02/2023 Type 2 diabetes mellitus without complication, without long-term current use of insulin (ICD-10 - E11.9) 08/29/2024 Carotid stenosis (ICD-10 - I65.29) 08/29/2024 Adult general medical examination (ICD-10 - Z00.00) Patient instructed to return to office Annually for Annual Wellness Visits to include annual screenings of Pain assessment, Functional Ability assessment, Cognitive Ability assessment, Fall Risk assessment, Depression screening and Bladder control screening. 08/29/2024 Falls (ICD-10 - R29.6) 11/02/2023 Dyslipidemia (ICD-10 - E78.5) 06/20/2024 Essential hypertension (ICD-10 - I10) 11/02/2023 Screening for prostate cancer (ICD-10 - [...] Date [employer] (MEDICAR E) [address] [address] [place] [address] [phone] [id number] JAKE PICKARD Self - patient is the insured Medications Administered Medication Instructions Date of Administration Dosage Notes Dexamethasone 03/28/2014 1 mL Medical (General) History Medical History History ICD Code HTN Hyperlipidemia Anxiety DJD of Spine kidney stones ASCVD - s/p [place] Type 2 diabetes - diagonsed 09/2017 seizure disorder broken ribs on left side, internal injur ies 08/2019 NSTEMI 06/02/20 - [facility] --> tranferred to [facility] for CABG Surgical History Surgery Date(Month/Year) Cardiac Stents-total of 16 Stents placed 2008 Heart Cath 2013 removal of cyst on right side of face 19 95 kidney stones removed Vascetomy heart cath CABG x -Dr Wang 06/17/20 Hospitalization History Reason Date(Month/Year) NSTEMI - [facility] -->transfered to 06/12/20 -mower accident [facility] ER-SOA 07/2019 [facility]-seizure 05/09/18 [facility] UTC-rib pain-right sided 18 St Ab-blockage 06/28 [facility] ER-stomach pain 01/27/15 [id number]-[id number]-[id number] 07/26/13 see above
[2024-09-30 22:01] VITALS: BP 216/98; RESP 17; TEMP 37; O2SAT 98; BMI 30.5
--- NOTE | 2024-09-30 22:11 | CT_ITS ---
PROCEDURE INFORMATION: Exam: CTA Neck With Contrast Exam date and time: 09/30/2024 10:28 PM Age: 69 years old Clinical indication: Weakness; Additional info: Weakness, worse on R, HX CVA TECHNIQUE: Imaging protocol: Computed tomographic angiography of the neck with contrast. Exam focused on the cervical segments of the vasculature. 3D rendering (Not supervised by radiologist): MIP and/or 3D reconstructed images were created by the technologist. Radiation optimization: All CT scans at this facility use at least one of these dose optimization techniques: automated exposure control; mA and/or kV adjustment per patient size (includes targeted exams where dose is matched to clinical indication); or iterative reconstruction. Contrast material: ISOVUE; Contrast volume: 80 ml; Contrast route: INTRAVENOUS (IV); COMPARISON: CT ANGIO NECK 08/22/2024 10:55 AM FINDINGS: Right common carotid artery: No stenosis. No dissection or occlusion. Right internal carotid artery: No stenosis of the extracranial segment. No dissection or occlusion. Mild proximal calcific disease. Right external carotid artery: No occlusion or stenosis of the origin. Left common carotid artery: No stenosis. No dissection or occlusion. There is a common origin of the brachiocephalic and left common carotid arteries. Left internal carotid artery: No stenosis of the extracranial segment. No dissection or occlusion. Mild proximal calcific disease. Although the prior report states that there is up to 70% stenosis of the proximal ICA, I believe this is less than 50% on these images. Left external carotid artery: No occlusion or stenosis of the origin. Right vertebral artery: No stenosis. No dissection or occlusion. Left vertebral artery: No stenosis. No dissection or occlusion. The left vertebral artery originates from the aorta. Soft tissues: Normal. No significant soft tissue swelling. Bones/joints: No acute fracture. IMPRESSION: Less than 50% stenosis of the proximal ICA bilaterally. REFERENCES: NASCET CRITERIA. The degree of stenosis in the cervical segment of the internal carotid artery is based on NASCET criteria. Normal is no stenosis. Mild is less than 50% stenosis. Moderate is 50-69% stenosis. Severe is 70% to 99% stenosis. Total occlusion is no detectable patent lumen.
--- NOTE | 2024-09-30 22:11 | CT_ITS ---
PROCEDURE INFORMATION: Exam: CT Head Without Contrast Exam date and time: 09/30/2024 10:26 PM Age: 69 years old Clinical indication: Weakness, extremity; Right; Additional info: Weakness, worse on R, HX CVA TECHNIQUE: Imaging protocol: Computed tomography of the head without contrast. Total images: 635 Radiation optimization: All CT scans at this facility use at least one of these dose optimization techniques: automated exposure control; mA and/or kV adjustment per patient size (includes targeted exams where dose is matched to clinical indication); or iterative reconstruction. COMPARISON: CT ANGIO HEAD 08/22/2024 10:55 AM FINDINGS: Brain: No acute intracranial hemorrhage, midline shift, or mass. Mild age-related cortical involution. Mild remote white matter small-vessel ischemic changes. No acute territorial infarct. Benign dural calcifications along the falx. Basilar cisterns are maintained. Cerebral ventricles: No ventriculomegaly. Paranasal sinuses: Visualized sinuses are unremarkable. No fluid levels. Mastoid air cells: Visualized mastoid air cells are well aerated. Bones: Unremarkable. No acute fracture. Soft tissues: Unremarkable. IMPRESSION: 1. No acute intracranial process. 2. Chronic mild intracranial findings. 3. No significant change from August 22, 2024.
--- NOTE | 2024-09-30 22:11 | CT_ITS ---
PROCEDURE INFORMATION: Exam: CTA Head With Contrast, Arteriography Exam date and time: 09/30/2024 10:28 PM Age: 69 years old Clinical indication: Weakness; Additional info: Weakness, worse on R, HX CVA TECHNIQUE: Imaging protocol: Computed tomographic angiography of the head with contrast. Exam focused on the arteries. 3D rendering (Not supervised by radiologist): MIP and/or 3D reconstructed images were created by the technologist. Radiation optimization: All CT scans at this facility use at least one of these dose optimization techniques: automated exposure control; mA and/or kV adjustment per patient size (includes targeted exams where dose is matched to clinical indication); or iterative reconstruction. Contrast material: ISOVUE; Contrast volume: 80 ml; Contrast route: INTRAVENOUS (IV); COMPARISON: CT ANGIO HEAD 08/22/2024 10:55 AM FINDINGS: ANTERIOR CIRCULATION: Right internal carotid artery: Intracranial segment is patent with no significant stenosis. No aneurysm. Right middle cerebral artery: No occlusion or significant stenosis. No aneurysm. Right anterior cerebral artery: No occlusion or significant stenosis. No aneurysm. Left internal carotid artery: Intracranial segment is patent with no significant stenosis. No aneurysm. Left middle cerebral artery: No occlusion or significant stenosis. No aneurysm. Left anterior cerebral artery: No occlusion or significant stenosis. No aneurysm. POSTERIOR CIRCULATION: Right vertebral artery: No occlusion or significant stenosis. No aneurysm. Left vertebral artery: No occlusion or significant stenosis. No aneurysm. Basilar artery: No occlusion or significant stenosis. No aneurysm. Right posterior cerebral artery: No occlusion or significant stenosis. No aneurysm. Prominent PCOM. Left posterior cerebral artery: No occlusion or significant stenosis. No aneurysm. Prominent PCOM. Brain: No definite mass, mass effect, or midline shift. Cerebral ventricles: No ventriculomegaly. Bones/joints: Unremarkable. No acute fracture. Soft tissues: Unremarkable. IMPRESSION: No large vessel stenosis or occlusion.
--- NOTE | 2024-09-30 22:11 | XR_ITS ---
PROCEDURE INFORMATION: Exam: XR Chest Exam date and time: 09/30/2024 10:30 PM Age: 69 years old Clinical indication: Other: Weakness TECHNIQUE: Imaging protocol: Radiologic exam of the chest. Views: 1 view. Total images: 1 COMPARISON: CR XR CHEST PORTABLE 08/31/2024 11:56 PM FINDINGS: Tubes, catheters and devices: EKG leads are present. Lungs: Calcified right basilar granuloma.. No consolidation. No pulmonary vascular congestion or edema. Pleural spaces: Unremarkable. No pleural effusion. No pneumothorax. Heart/Mediastinum: Stable mild cardiomegaly. No mediastinal widening. Vasculature: Coronary artery calcifications versus stent artifact. Bones/joints: Status post median sternotomy. Multiple remote left rib fractures. Osseous demineralization. IMPRESSION: 1. No radiographically acute cardiopulmonary process. 2. Chronic findings.
--- NOTE | 2024-09-30 22:15 | HMH.EDGENADL ---
Discharge Plan Disposition Patient Disposition: Home, Self-Care Condition: Good Prescriptions Prescriptions: New cefadroxil 500 mg capsule 500 mg PO BID 7 Days Qty: 14 0RF No Action losartan 50 mg tablet PO Patient Comments: TAKE ONE TABLET BY MOUTH ONCE A DAY furosemide 40 mg tablet PO glimepiride 4 mg tablet PO metoprolol tartrate 50 mg tablet PO Patient Comments: TAKE ONE TABLET BY MOUTH 2 TIMES A DAY Jardiance 25 mg tablet PO Patient Comments: TAKE ONE TABLET BY MOUTH EVERY MORNING primidone 50 mg tablet PO prazosin 1 mg capsule PO etodolac 400 mg tablet PO Patient Comments: TAKE ONE TABLET BY MOUTH 2 TIMES A DAY clopidogrel 75 mg tablet 75 mg PO DAILY duloxetine 60 MG capsule,delayed release(DR/EC) 60 mg PO DAILY aspirin 81 MG tablet,delayed release (DR/EC) 81 mg PO DAILY levetiracetam 500 MG tablet 750 mg PO BID acetaminophen 325 MG tablet 650 mg PO Q4HP PRN (Reason: As Needed For Fever Or Pain) 0RF insulin lispro 100 UNIT/ML solution 0 unit SQ ACHS 0RF ofloxacin 0.3 % drops See Rx Instructions .ROUTE .COMPLEX Qty: 10 0RF Rx Instructions: 1 drop into the right eye every 30 minutes while awake for the first 2 days and every 4-6 hours while sleeping for the first 2 days. After this, 1 drop every hour while awake for 5 days, then 1 drop 4 times daily until your problem has resolved. Referrals Follow up/Referrals: Johnie Guzman MD [Primary Care Provider, Medical] - See instructions Activity Restrictions/Add. Instructions Additional Instructions/Restrictions: Take the antibiotics as prescribed for 7 days. Return to the emergency department if you continue to have worsening weakness, falls at home or if you feel unstable on your feet. Follow-up with your primary care provider as they may need to schedule you physical therapy if you continue to fall at home. If you have any other acute concerns return to the emergency department. Clinical Impressions Clinical Impression: Urinary tract infection Print Language Print Language: Urdu Discharge ED Provider: Jaz Dominguez Adult HPI General Chief complaint: Fall Stated complaint: fall x2 09/30/24, right side weakness Time Seen by Provider: 09/30/24 21:48 Mode of Arrival: EMS Source of Information: Patient and EMS Description of Symptoms (Recalled from ER Triage Doc. by RN): PT brought to the ED for evaluation of x2 falls today, 09/30/2024. Denies LOC. Denies hitting head. PT stated he has had weakness x3 weeks. Has hx of strokes. Hx of Right foot drop. PT stated he has bilateral occluded carotid. EMS VS; 193/110, Sinus rhythm, FSBS 88, 76 HR History of Present Illness HPI narrative: Patient is a 61-year-old gentleman with a past medical history of diabetes, previous stroke known history of right foot drop who presents to the emergency department with generalized weakness. Patient states that he has had some worsening right-sided weakness since yesterday around 1 PM. Patient also reports some worsening weakness over the last few weeks. Patient states that today he had an acute onset pain in the left side of his neck which caused him to fall. Patient states this occurred x 2. Patient states that he did not hit his head, did not lose consciousness. Patient states that he uses a cane at home and has a brace that he is supposed to use as well. Patient does report some urinary frequency but no dysuria no hematuria. Patient denies any headache or vision changes. Patient denies any abdominal pain vomiting or diarrhea. Patient denies any chest pain or shortness of breath. Related Data Home Medications ?Medication ?Instructions ?Recorded ?Confirmed duloxetine 60 mg capsule,delayed 60 mg PO DAILY mood 05/09/18 09/18/24 release aspirin 81 mg tablet,delayed 81 mg PO DAILY Blood thinner 05/10/18 09/18/24 release levetiracetam 500 mg tablet 750 mg PO BID seizures 06/07/18 09/18/24 empagliflozin 25 mg tablet mg PO 08/22/24 09/18/24 (Jardiance) furosemide 40 mg tablet mg PO 08/22/24 09/18/24 glimepiride 4 mg tablet mg PO 08/22/24 09/18/24 losartan 50 mg tablet mg PO 08/22/24 09/18/24 metoprolol tartrate 50 mg tablet mg PO 08/22/24 09/18/24 clopidogrel 75 mg tablet 75 mg PO DAILY 09/18/24 09/18/24 etodolac 400 mg tablet mg PO 09/18/24 09/18/24 prazosin 1 mg capsule mg PO 09/18/24 09/18/24 primidone 50 mg tablet mg PO 09/18/24 09/18/24 Previous Rx's ?Medication ?Instructions ?Recorded acetaminophen 325 mg tablet 650 mg (2 x 325 mg) PO Q4HP PRN As 06/12/20 Needed For Fever Or Pain insulin lispro 100 unit/mL 0 unit (0 mL) SQ ACHS 06/12/20 subcutaneous solution ofloxacin 0.3 % eye drops See Rx Instructions .Route 10/03/22 .COMPLEX #10 mL cefadroxil 500 mg capsule 500 mg PO BID 7 days #14 caps 10/01/24 Allergies Allergy/AdvReac Type Severity Reaction Status Date / Time No Known Allergies Allergy Verified 09/18/24 13:25 [facility] Disclaimer: The information contained in this section may have been updated after the patient was seen, as this information can be updated by other users. Medical History (Updated 10/01/24 @ 00:12 by Jaz Dominguez DO) Stenosis of carotid artery Coronary artery disease CAD (coronary artery disease) Diabetic neuropathy, type II diabetes mellitus Surgical History Hx of foot surgery S/P triple vessel bypass Social History Smoking Status: Never smoker second hand exposure: No alcohol intake: never current occupational status: disabled Travel in the last 8 weeks?: None household members: spouse housing: house current occupational exposures/hazards: No caffeine: Yes Have you lived/traveled outside US in past 30 days?: No Contact w/someone who lives/traveled outside US past 30 days?: No Exposure to someone with infectious disease in past 14 days?: No Do you have a fever (greater than 100.4 F or 38 C)?: No Have you tested positive for COVID-19?: No Exposed to someone with COVID-19 in past 14 days?: No Do you have a sore throat?: No Do you have a cough?: No Do you have any weakness?: No Do you have any diarrhea?: No Are you experiencing any unusual bleeding?: No Do you have any muscle aches/pain?: No Do you have any abdominal pain?: No Are you experiencing loss of taste or smell?: No Other Medical History Have you received the Flu Vaccine for this season: Yes Have you received the Pneumonia Vaccine: Yes ROS Obtained: Yes All systems reviewed & no additional complaints except as documented and Yes Systems reviewed as appropriate & no additional complaints except as documented Physical Exam General General appearance: alert and in no apparent distress Head Head exam: atraumatic, normocephalic and normal inspection Eye Eye exam: Present normal appearance, PERRL and EOMI; Absent scleral icterus ENT ENT exam: Present normal exam and normal external ear exam Neck Neck exam: Present normal inspection and full ROM Chest Chest inspection: Present normal inspection and symmetric chest wall rise Respiratory Respiratory exam: Present normal lung sounds bilaterally; Absent respiratory distress or wheezes Cardiovascular Cardiovascular exam: Present regular rate, normal rhythm and normal heart sounds Abdominal Exam Abdominal exam: Present soft and distention; Absent tenderness, guarding or rebound Extremities Exam Extremities exam: Present normal inspection and full ROM Back Exam Back exam: Present normal inspection and full ROM Neurological Exam Neurological exam: Present alert, oriented X3 and other (right foot drop noted, at baseline per patient, weakness in the RUE, at baseline per patient) Psychiatric Psychiatric exam: Present normal affect and normal mood Skin Skin exam: Present warm and dry Medical Decision Making Medical Records Screening: Per USPSTF and CDC recommendations, given the prevalence of disease in our region, it is our hospital?s policy to screen for HIV and viral Hepatitis for all patients aged 18 and over and those with ongoing risk factors. Garo Inquiry Pt receiving controlled substance: No Vital Signs: 09/30/24 22:01 09/30/24 23:17 10/01/24 00:23 Temperature 98.6 F 98 F Temperature Source Oral Pulse Rate 63 67 Respiratory Rate 17 16 16 Blood Pressure 205/86 H 173/91 H Blood Pressure [Right Arm] 216/98 H Blood Pressure Mean [Right Arm] 137 Blood Pressure Position Sitting 02 Sat by Pulse Oximetry 98 96 Oxygen Delivery Method Room Air Room Air Room Air Lab Data Lab results reviewed: Yes I reviewed the patient's lab results. Lab Results 09/30/24 21:36: WBC 8.1, RBC 5.15, Hgb 16.3, Hct 48.3, MCV 93.8, MCH 31.7 H, MCHC 33.7, RDW 13.0, Plt Count 242, MPV 10.0, Neut % (Auto) 63.1, Lymph % (Auto) 24.7, [place] % (Auto) 8.3, Eos % (Auto) 2.6, Baso % (Auto) 0.9, Neut # (Auto) 5.1, Lymph # (Auto) 2.0, [place] # (Auto) 0.7, Eos # (Auto) 0.2, Baso # (Auto) 0.1, PT 10.5, INR 0.94, Sodium 139, Potassium 4.0, Chloride 100, Carbon Dioxide 32 H, Anion Gap 11.0, BUN 11, Creatinine 0.90, Estimated Creat Clear 97, Estimated GFR 84, Est GFR ( Amer) 102, Glucose 80, Calcium 9.6, Phosphorus 3.7, Magnesium 2.0, Total Bilirubin 1.2, AST 37, ALT 28, Alkaline Phosphatase 114, Troponin I < 0.01, Total Protein 8.0, Albumin 4.7, Globulin 3.3 H, Albumin/Globulin Ratio 1.4, HCV Ab KODY w/Rflx PCR Qn Negative, HIV Ag/Ab Combo Qual Negative 09/30/24 22:01: Plasma/Serum Alcohol < 10 09/30/24 23:08: Urine Color Yellow, Urine Appearance Clear, Urine pH 6.0, Ur Specific [place] 1.015, Urine Protein Negative, Urine Glucose (UA) 3+, Urine Ketones Negative, Urine Blood Negative, Urine Nitrate Negative, Urine Bilirubin Negative, Urine Urobilinogen 1.0, Ur Leukocyte Esterase Negative, Urine RBC 20-50, Urine WBC 5-10, Ur Squamous Epith Cells 20-50, Urine Bacteria 1+, Urine Mucus 4+ 09/30/24 21:36 09/30/24 21:36 Orders (Tests/Meds): ED MEDICATIONS Discontinued Medications Generic Name Dose Route Start Last Admin Trade Name Nicho PRN Reason Stop Dose Admin Iopamidol 80 ml 09/30/24 22:25 09/30/24 22:26 Iopamidol-370 (76%);100ml Bottle IV 09/30/24 22:26 80 ml ONCE ONE Administration Sodium Chloride 50 ml 09/30/24 22:25 09/30/24 22:26 0.9 % Sodium Chloride 50 Ml Vial IV 09/30/24 22:26 50 ml ONCE ONE Administration Sodium Chloride 10 ml 09/30/24 22:25 09/30/24 22:26 Sodium Chloride 0.9% 10ml Syr (Rad Only) IV 09/30/24 22:26 10 ml ONCE ONE Administration ORDERS Category Date Time Status CT angio head Stat Cat Scan 09/30/24 22:[address] angio neck Stat Cat Scan 09/30/24 22:[address] head/brain wo con Stat Cat Scan 09/30/24 22:11 Completed CXR --portable [XR chest portable] Stat Exams 09/30/24 22:11 Completed CBC w/Auto Diff [Complete Blood Count Auto Diff] Stat Lab 09/30/24 21:36 Completed CMP [Comprehensive Metabolic Panel] Stat Lab 09/30/24 21:36 Completed Ethyl Alcohol Stat Lab 09/30/24 22:01 Completed HIV Combo Stat Lab 09/30/24 21:36 Completed Hepatitis C Ab Qual. W/ RFX Stat Lab 09/30/24 21:36 Completed MAG [Magnesium] Stat Lab 09/30/24 21:36 Completed PT/INR [Prothrombin Time INR] Stat Lab 09/30/24 21:36 Completed Phosphorous Stat Lab 09/30/24 21:36 Completed Trop I [Troponin I] Stat Lab 09/30/24 21:36 Completed UA [Urinalysis and Microscopic] Stat Lab 09/30/24 23:08 Completed Urine Culture Stat Micro 09/30/24 23:08 Completed Medical Decision Narrative: Patient is a 69-year-old gentleman with no significant past medical history except for previous stroke, diabetes, hypertension who presented to the emergency department with 2 falls today after left-sided related pain in his neck. On arrival, patient was hemodynamically stable except for hypertensive. Differential includes but not limited to CVA, recrudescence, electrolyte abnormalities, alcoholism, dehydration, UTI, pneumonia, dehydration, amongst others. Patient's labs were reviewed and interpreted by myself, CBC showed no leukocytosis, hemoglobin was stable. Magnesium was normal, phosphorus is normal. CMP was unremarkable. Initial troponin less than 0.01. Chest x-ray was reviewed and interpreted by myself and showed no acute focal consolidation, pneumothorax, pleural effusion or other acute cardiopulmonary process. CT head CTA head and neck were reviewed and interpreted by myself and in addition to radiology showed no acute findings. Patient's UA had bacteria and white blood cells and given that patient had urinary frequency I felt that is appropriate to treat the patient for urinary tract infection. After long discussion with the patient and his sons, patient currently lives at home with his sons and they feel that patient has been walking around appropriately with his cane and states that he has troubles ambulating when he is not using his cane. At this time patient and son feel the patient is appropriate and comfortable for discharge. Patient was sent with the antibiotic for his UTI. Patient was advised to follow-up with his primary care provider to get a physical therapy referral in case it falls become more frequent. At this time, patient was discharged home in stable condition. Critical Care Critical Care Time Critical Care Time: No
--- NOTE | 2024-09-30 22:16 | PC.NURSE ---
Per DIO Dye FSBS 76 treated with apple juice.
[2024-09-30 22:20] LABS: Hematocrit 48.3 % (42.0-52.0); Hemoglobin 16.3 g/dL (14.1-18.0); Immature Granulocytes % 0.4 %; Mean Corpuscular HGB Conc 33.7 g/dL (31.8-35.4); Mean Corpuscular Hemoglobin 31.7 pg (27.0-31.2); Mean Corpuscular Volume 93.8 fl (80-94); Nucleated Red Blood Cells % 0 %; Platelet Count 242 K/mm3 (142-424); Red Blood Count 5.15 M/mm3 (4.60-6.20); Red Cell Distribution Width-SD 44.3 fL; White Blood Count 8.1 K/mm3 (4.8-10.8)
[2024-09-30 22:23] LABS: Albumin Level 4.7 g/dl (3.5-5.0); Chloride 100 mmol/L (98-107); Potassium 4.0 mmoL/L (3.5-5.1); Sodium 139 mmol/L (136-145)
[2024-09-30 22:25] LABS: Alanine Aminotransferase 28 U/L (12-78); Aspartate Amino Transferase 37 U/L (17-59); Blood Urea Nitrogen 11 mg/dl (9-20); Creatinine Clearance Estimated 97 mL/min (50-200); Creatinine,Serum 0.90 mg/dl (0.66-1.25); Estimated Glomerular Filt Rate 84 ml/min (>60); GFR (African American) 102 ML/MIN (>60); INR 0.94 (0.9-1.1); Prothrombin Time 10.5 seconds (10.1-12.5)
[2024-09-30 22:26] LABS: Albumin/Globulin Ratio 1.4 (1.1-1.8); Alkaline Phosphatase 114 U/L (38-126); Anion Gap 11.0 mEq/L (5-15); Bilirubin,Total 1.2 mg/dl (0.2-1.3); Calcium 9.6 mg/dl (8.4-10.2); Carbon Dioxide 32 mmol/L (22.0-30.0); Globulin 3.3 g/dL (1.3-3.2); Glucose 80 mg/dl (74-100); Phosphorous 3.7 mg/dl (2.5-4.5); Total Protein,Serum 8.0 g/dl (6.3-8.2)
[2024-09-30] MEDS: 0.9 % SODIUM CHLORIDE 50 ML VIAL IV (22:26)
[2024-09-30] MEDS: SODIUM CHLORIDE 0.9% 10ML SYR (RAD ONLY) 10 ML IV (22:26)
[2024-09-30] MEDS: IOPAMIDOL-370 (76%);100ML BOTTLE 80 ML IV (22:26)
[2024-09-30 22:27] LABS: Magnesium 2.0 mg/dl (1.6-2.3)
--- NOTE | 2024-09-30 22:40 | PC.NURSE ---
repeat fsbs 98
[2024-09-30 22:43] LABS: Troponin I < 0.01 ng/ml (0.00-0.034)
[2024-09-30 23:06] LABS: Hepatitis C Ab Qual. W/ RFX NEGATIVE (Negative)
[2024-09-30 23:16] LABS: Microscopic, Urine URINE MICROSCOPIC (MICROSCOPIC)
[2024-09-30 23:17] VITALS: BP 205/86; PULSE 63; RESP 16; O2SAT 96
[2024-09-30 23:17] LABS: Color,Urine YELLOW (Yellow); Glucose,Urine (UA) 3+ (Negative); Ketones,Urine Negative (Negative); Leukocyte Esterase,Urine Negative (Negative); PH,Urine 6.0 (5.0-8.5); Protein,Urine Negative (Negative); Specific Gravity, Urine 1.015 (1.005-1.030); Urobilinogen,Urine 1.0 EU/dl (0.2)
[2024-09-30 23:28] LABS: Bilirubin,Urine Negative (Negative)
[2024-09-30 23:36] LABS: Bacteria,Urine 1+ /lpf; Mucus,Urine 4+ /lpf; RBC,Urine 20-50 #/hpf (0-3); Squamous Epithelial Cell,Urine 20-50 #/hpf (0-5)
[2024-10-01 00:23] VITALS: BP 173/91; PULSE 67; RESP 16; TEMP 36.6; O2SAT 100
== END 2024-10-01 00:24 | disposition home or self-care (01) ==
PROVIDERS: Emergency Provider Student in an Organized Health Care Education/Training Program; PCP Family Medicine
DX: N39.0 Urinary tract infection, site not specified (principal); R35.0 Frequency of micturition; R53.1 Weakness; W19.XXXA Unspecified fall, initial encounter
CPT/HCPCS: 70450; 70496; 70498; 71045; 80053; 80320; 81001; 83735; 84100; 84484; 85025; 85610; 86803; 87086; 87389; 93005; 99285; Q9967

== ENCOUNTER 2024-10-09 12:38 | Emergency (ER) | payer MEDICARE, SELFPAY ==
--- OUTSIDE RECORDS SUMMARY | 2024-06-20 05:45 | XMS_ITS ---
Author Organization [facility] Address 12[address] [facility] [address] [place] [id number] Care Team Providers Care Sales Representative Womens Health Name Role Phone Neno Guzman Primary Care [...] 1 Essential tremor (G2 5.0) [facility] [place] Referring Provider First Name Neno Arroyo Referring Provider Last Name Thomas Referring Provider Speciality [facility] li Referred Provider Lakeisha Dutta Referred Provider Specialty Neurology General Notes Connie Jackson 2024 10:14:04 AM > faxed to [facility] Neurology, Connie aJckson 06/30/2024 11:10:14 AM > spoke to [place]; referral received Referral Priority Routine REASON FOR [...] review and pick correct strength-formulat ion from [employer] options. If intended option is not shown, [...] review and pick correct strength-formulat ion from [employer] options. If intended option is not shown, discontinue and re-order from Quick Search* 09/14/2017 Active Vital Signs Blood pressure systolic 138 mm Hg 06/21/19 25 Blood pressure diastolic 80 mm Hg 025 Heart Rate 51 /min 06/20/2024 Height 68 in 06/20/2024 Weight 218.2 lbs 06/20/2024 BMI 33.17 kg/m2 06/20/2024 Encounters Encounter Location Date Provider Diagnosis [facility] [address] [facility] [address], [place] [id number] 06/20/2024 R Cruz Guzman Foot pain, right [...] Notes * JAKE PICKARDDOB:1955 (69 yo M)Acc No.[id number]:06/20/2024 Progress Notes Patient: JAKE DYE Provider: Neno Guzman M.D. :1955 A ge:68 Y S ex:Male Date:06/20/2024 Phone: Address:[address] [place] [address], [facility], [phone] Subjective: * Chief Complaints: * 1 . [...] Spine , Kidney stones, ASCVD - s/p [place], Type 2 diabetes - diagonsed 09/2017, Seizure disorder, Broken ribs on left side, internal injuries 08/2019, NSTEMI 06/02/20 - [facility] tranferred to for CABG. * Surgical History: C ardiac Stents-total of 16 Stents placed 2008, Heart Cath 2013, removal of cyst on right side of face 1994, kidney stones removed , Vascetomy , heart cath , CABG x 3/ [facility]-Dr Wang 06/17/20. * Hospitalization/Major Diagno stic Procedure: s ee above , KAE-Beekhia-gobzyn 07/26/13, [facility] ER-stomach pain 01/27/15, St Ab- blockage 06/28, [facility] UTC-rib pain-right sided 01.31.18, [facility]-seizure 05/09/18, [facility] ER-SOA 07/2019, [facility]-mower accident , NSTEMI - [facility] transfered to 06/12/20. * Family History: F [...] *Please review and pick correct strength-formulation from [employer]span options. If intended option is not shown, discontinue and re-order from Quick Search*, Taking GLUCOMETER DIRECTED TEST QD , Notes to Pharmacist: *Please review for potential replacement for e-prescription and drug interaction check*, Taking Docusate Sodium 100 MG 1 P.O. Q DAY , Notes to Pharmacist: *Please review and pick correct strength-formulation from [employer]span options. If intended option is not shown, [...] Temp: 97.7, BP: 138/80, HR: 51, Nurse: [facility], Ht: 68, BMI:33.17. * Examination: G eneral [...] G 2211 Complex e/m visit add on, G0586 MOST RECENT SYSTOLIC BP < 140MM HG, G8754 MOST RECENT DIASTOLIC BP < 90MM HG * Follow Up: v ia phone to report test results * Images: Billing Information: * Visit Code: 71328 Office Visit, Est Pt., Level 4. * Procedure Codes: G2211 Complex e/m visit add on. G8752 MOST RECENT SYSTOLIC BP < 140MM HG. G8754 MOST RECENT DIASTOLIC BP < 90MM HG. * Electronic signature of Neno Guzman MD on 10/09/2024 at 12:57 PM EDT Sign off status: Pending * Provider: Neno Guzman M.D. Date: 0 06/20/2024 Generated for Jennifer tejada/Allison/Boraransmitting on: 0 10/09/2024 12:57 PM EDT History and Physical Notes * [...]
--- OUTSIDE RECORDS SUMMARY | 2024-08-29 11:35 | XMS_ITS ---
Author Organization [facility] Address [address] [facility] [address] [phone] Care Team Providers Care Television Repairer Name Role Phone Neno Guzman Primary Care Provider Allergies Allergen (clinical drug ingredient) Drug/Non Drug Allergy documented on EMR Reaction Allergy Type Onset Date Status metformin metFORMIN diarrhea, cramps Drug Allergy Active Results Component Value Reference Range Notes CBC Venipuncture (in house) Reviewed date:09/03/2024 10:32:47 PM Interpretation:normal Performing Lab: Notes/Report: normal wbc 7.4 3.5 - 10 lymph 21.0% 15 - 50 mid 5.9% 2 - 15 gran 73.1% 35 - 80 rbc 5.15 3.5 - 5.5 hgb 15.8 11.5 - 16.5 hct 48.3 35 - 55 mcv 93.7 75 - 100 mch 30.6 25 - 35 mchc 32.7 31 - 38 platlet 238 100 - 400 Glycohemoglobin A1c (in hous e) Reviewed date:09/03/2024 10:32:47 PM Interpretation:5.7% Performing Lab: Notes/Report: 5.7% glycohemoglobin 5.7% 5 - 6.5 % P-Comprehensive Metabolic Pa mateus (CMP) Reviewed date:09/03/2024 10:32:47 PM Interpretation:normal Performing Lab: Notes/Report: Test performed by [facility] [address] [place] [address] , [address], [place] [address] Jn Gupta MD, Bung Remover CLIA: [id number] Sodium 140 135-145 mmol/L Potassium 4.4 3.5-5.3 mmol/L Chloride 101 97-108 mmol/L CO2 25 22-32 mmol/L Glucose 83 65-99 mg/dL BUN 23 8-23 mg/dL Creatinine 0.90 0.70-1.30 mg/dL Calcium 9.5 8.6-10.4 mg/dL eGFR by Creatinine 93 >59 mL/min/1.73m2 Protein 7.2 6.0-8.3 g/dL Albumin 4.5 3.5-5.3 g/dL Alkaline Phosphatase 114 40-129 IU/L ALT (SGPT) 26 <5-55 IU/L AST (SGOT) 22 <5-46 IU/L Bilirubin, Total 0.8 <0.2-1.2 mg/dL A/G Ratio 1.7 1.1-2.5 P-Lipid Panel Reviewed date:09/03/2024 10:32:47 PM Interpretation:LDL 70 Performing Lab: Notes/Report: Test performed by [facility], [address] , [address], [place] [address] Jn Gupta MD, Bung Remover CLIA: [id number] Cholesterol 131 <200 mg/dL Triglycerides 75 <150 mg/dL HDL Cholesterol 46 >39 mg/dL Cholesterol / HDL Ratio 2.85 0.00-4.99 Ratio Non-HDL Cholesterol 85 <130 mg/dL LDL Cholesterol (Calculation) 70 <130 mg/dL LDL Cholesterol Levels* Less than 100 mg/dL Optimal 100 to 129 mg/dL Near Optimal/ Above Optimal 130 to 159 mg/dL Borderline High 160 to 189 mg/dL High 190 mg/dL and above Very High * Categories as recommended by the 2004 ATPIII guidelines LDL/HDL Ratio 1.5 <3.3 Ratio LDL Cholesterol Patient History Test Date: 01/23/2022 LDL Results: 59 Units: mg/dL % Change: - Test Date: 11/02/2023 LDL Results: 59 Units: mg/dL % Change: 0% Test Date: 08/29/2024 LDL Results: 70 Units: mg/dL % Change: +18% P-Microalbumin/Creatinine, R andom Urine Sample Reviewed date:09/03/2024 10:32:47 PM Interpretation:normal Performing Lab: Notes/Report: Test performed by [facility], [address] , [address] , [place] [address] Jn Gupta MD, Bung Remover CLIA: [id number] Albumin/Creatinine Ratio, Urine 16 0-30 ug/m g Microalbumin, Urine, Random 1.9 Creatinine, Urine 122.5 Reason For Referral Reason carotid stenosis and to establish cardiac care Diagnosis 1 Carotid stenosis (I6 5.29) Referral Organization [facility] Referring Provider First Name Neno Arroyo Referring Provider Last Name Thomas Referring Provider Speciality Family Pra ctice Referred Provider Tj Peck Referred Provider Specialty Cardiovascul ar Disease General Notes Connie Jackson 2024 12:25:42 PM > faxed to [facility] Cardiology Referral Priority Routine REASON FOR VISIT checkup with fasting labs, and AWV, Due for Diabetic Eye Exam Medications Medication SIG (Take, Route, Frequency, Duration) Notes Start Date End Date Status GLUCOMETER DIRECTED TEST QD *Please revi ew for potential replacement for e-prescription and drug interaction check* 09/14/2017 Active Docusate Sodium 100 MG 1 P.O. Q DAY *Please review and pick correct strength-formulatio n from [employer] options. If intended option is not shown, discontinue and re-order from Quick Search* Active Aspirin Adult Low Dose 81 MG 1 tab(s) orally once a day Active Atorvastatin Calcium 80 MG 1 tablet Orally Once a day; Duration: 30 days Active Accu-Chek Glendy Plus 1 TEST STRIP(S) FINGERSTICK TEST 2 TIMES A DAY; Duration: 30 DAYS *Please review and pick correct strength-formulatio n from [employer] options. If intended option is not shown, discontinue and re-order from Quick Search* 09/14/2017 Active Walker [place] Wheels - as directed 08/29/2024 Active Losartan Potassium 50 mg TAKE ONE TABLET BY MOUTH ONCE A DAY; Duration: 90 Active Keppra 500 MG 1.5 tab(s) orally 2 times a day Active Furosemide 40 MG 1 tab(s) orally once a day, prn; Duration: 90 days Active DULoxetine HCl 60 mg TAKE ONE CAPSULE BY MOUTH ONCE A DAY; Duration: 30 Active traMADol HCl 50 MG 1 tab(s) Orally four times a day as needed 07/27/2024 Active Glimepiride 4 mg TAKE ONE TABLET BY MOUTH ONCE A DAY; Duration: 90 Active Clopidogrel Bisulfate 75 mg TAKE ONE TABLET BY MOUTH ONCE A DAY; Duration: 90 Active Metoprolol Tartrate 50 mg TAKE ONE TABLET BY MOUTH 2 TIMES A DAY; Duration: 90 Active Jardiance 25 mg TAKE ONE TABLET BY MOUTH EVERY MORNING; Duration: 30 Active Primidone 50 MG 2 tablet Orally Twice a day Active Prazosin HCl 1 mg TAKE 2 CAPSULES BY MOUTH AT BEDTIME; Duration: 30 Active Etodolac 400 mg TAKE ONE TABLET BY MOUTH 2 TIMES A DAY; Duration: 30 Active Problems Problem Type SNOMED Code ICD Code Onset Dates Problem Status W/U Status Risk Notes Problem Carotid artery stenosis (95195592) Carotid stenosis (I65.29) Active confirmed Problem Falls (194466003) Falls (R29.6) Active confirmed Problem Diabetic peripheral neuropathy associated with type 2 diabetes mellitus (8641122019107) Type 2 diabetes mellitus with diabetic neuropathy, unspecified whether bed bug exterminator insulin use (E11.40) Active confirmed Problem Peripheral circulatory disorder associated with diabetes mellitus (559761885) 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.59) Active confirmed Problem BMI 30+ - obesity (852487383) BMI 32.0-32.9,adult (Z68.32) Active confirmed Vital Signs Blood pressure systolic 150 mm Hg 08/30/19 25 Blood pressure diastolic 74 mm Hg 025 Heart Rate 82 /min 08/29/2024 Height 68 in 08/29/2024 Weight 213 lbs 08/29/2024 BMI 32.38 kg/m2 08/29/2024 Encounters Encounter Location Date Provider Diagnosis [facility] [address] [phone] 08/29/2024 Neno Guzman Adult general medica l examination Z00.00 ; Carotid stenosis I65.29 ; Falls R29.6 ; Foot drop M21.379 ; Type 2 diabetes mellitus without complication, without long-term current use of insulin E11.9 ; ASCVD (arteriosclerotic cardiovascular disease) I25.10 ; Dyslipidemia E78.5 ; Seizure disorder G40.909 ; Depression with anxiety F41.8 ; Type 2 diabetes mellitus with diabetic neuropathy, unspecified whether [facility] insulin use E11.40 ; Type 2 diabetes mellitus with other circulatory complications E11.59 and BMI 32.0-32.9,adult Z68.32 Assessments Encounter Date Diagnosis (ICD Code) Assessment Notes Treatment Notes Treatment Clinical Notes Section Notes 08/29/2024 Adult general medical examination (ICD-10 - Z00.00) Patient instructed to return to office Annually for Annual Wellness Visits to include annual screenings of Pain assessment, Functional Ability assessment, Cognitive Ability assessment, Fall Risk assessment, Depression screening and Bladder control screening. 08/29/2024 Carotid stenosis (ICD-10 - I65.29) 08/29/2024 Falls (ICD-10 - R29.6) 08/29/2024 Foot drop (ICD-10 - M21.379) 08/29/2024 Type 2 diabetes mellitus without complication, without long-term current use of insulin (ICD-10 - E11.9) 08/29/2024 ASCVD (arteriosclerotic cardiovascular disease) (ICD-10 - I25.10) 08/29/2024 Dyslipidemia (ICD-10 - E78.5) 08/29/2024 Seizure disorder (ICD-10 - G40.909) 08/29/2024 Depression with anxiety (ICD-10 - F41.8) 08/29/2024 Type 2 diabetes mellitus with diabetic neuropathy, unspecified whether [facility] insulin use (ICD-10 - E11.40) 08/29/2024 Type 2 diabetes mellitus with other circulatory complications (ICD-10 - E11.59) 08/29/2024 BMI 32.0-32.9,adult (ICD-10 - Z68.32) Plan Of Treatment Medication Medication Name Sig Start Date Stop Date Notes Walker [place] Wheels - as directed 08/29/2024 Treatment Notes Assessment Notes Adult general medical examination Patien t instructed to return to office Annually for Annual Wellness Visits to include annual screenings of Pain assessment, Functional Ability assessment, Cognitive Ability assessment, Fall Risk assessment, Depression screening and Bladder control screening. Pending Test Test Name Order Date colonoscopy 08/29/2024 Referrals Referral Date Details 08/30/2024 08/30/2024, carotid stenosis and to establish cardiac care, Tj Peck Next Appt Details Follow Up: 2 Months, Reason: Progress Notes * JAKE PICKARDDOB:1955 (69 yo M)Acc No.[id number]:08/29/2024 Annual Wellness Visit Patient: JAKE DYE Provider: Neno Guzman M.D. :1955 A ge:68 Y S ex:Male Date:08/29/2024 Phone: Address:[address] [place] [address] [place], [id number] Subjective: * Chief Complaints: * 1 . checkup with fasting labs, and AWV. 2. Due for Diabetic Eye Exam. * HPI: N eurology: He comes in for follow-up on recent ER visit from 08/22/2024. He was being seen in Dr. Rios's office for dropfoot but also reported some generalized right-sided weakness that had been progressing over about 2 weeks. She was concerned for possible stroke and directed him to the emergency room for evaluation. Please refer to ER record in chart for details. There were no acute findings and he was advised to follow-up here and with neurology for further evaluation. CT angiogram of the neck was remarkable for 70% left-sided stenosis. He had been following with Dr. Norris for cardiology care until he switched to [employer] insurance. Since then he has had no cardiology follow-up. According to Dr. Rios's notes, he was also to be scheduled for EMG/NCV testing for workup of his dropfoot. He is now wearing a brace on his right foot. Prior to this, his son states he has had several falls. * ROS: D ERMATOLOGY: no R natalie. n o H dominique. G ASTROENTEROLOGY: no N ausea. n o V omiting. n o D iarrhea.? O PTHALMOLOGY: Negative for d enies vision issues. U ROLOGY: no D ifficulty urinating. n o B lood in urine. * Medical History: H [place], Hyperlipidemia, Anxiety, DJD of Spine , Kidney stones, ASCVD - s/p [place], Type 2 diabetes - diagonsed 09/2017, Seizure disorder, Broken ribs on left side, internal injuries 08/2019, NSTEMI 06/02/20 - [facility] tranferred to for CABG. * Surgical History: C ardiac Stents-total of 16 Stents placed 2008, Heart Cath 2013, removal of cyst on right side of face 1994 , kidney stones removed , Vascetomy , heart cath , CABG x / -Dr Wang 06/17/20. * Hospitalization/Major Diagno stic Procedure: s ee above , [facility]-Dcairbp-hazpsq 07/26/13, [facility] ER-stomach pain 01/27/15, St [facility]- blockage 06/28, [facility] UTC-rib pain-right sided 01.31.18, [facility]-seizure 05/09/18, [facility] ER-SOA 07/2019, [place]-mower accident , NSTEMI - [facility] transfered to 06/12/20. * Family History: [...] *Please review and pick correct strength-formulation from [employer] options. If intended option is not shown, discontinue and re-order from Quick Search*, Taking GLUCOMETER DIRECTED TEST QD , Notes to Pharmacist: *Please review for potential replacement for e-prescription and drug interaction check*, Taking Docusate Sodium 100 MG 1 P.O. Q DAY , Notes to Pharmacist: *Please review and pick correct strength-formulation from [employer] options. If intended option is not shown, discontinue and re-order from Quick Search*, Taking Aspirin Adult Low Dose 81 MG Tablet Delayed Release 1 tab(s) orally once a day , Taking Atorvastatin Calcium 80 MG Tablet 1 tablet Orally Once a day , Taking Jardiance 25 mg Tablet TAKE ONE TABLET BY MOUTH EVERY MORNING , Taking Primidone 50 MG Tablet 2 tablet Orally Twice a day , Taking Prazosin HCl 1 mg Capsule TAKE 2 CAPSULES BY MOUTH AT BEDTIME , Taking Etodolac 400 mg Tablet TAKE ONE TABLET BY MOUTH 2 TIMES A DAY , Taking DULoxetine HCl 60 mg Capsule Delayed Release Particles TAKE ONE CAPSULE BY MOUTH ONCE A DAY , Taking traMADol HCl 50 MG Tablet 1 tab(s) Orally four times a day as needed , Taking Glimepiride 4 mg Tablet TAKE ONE TABLET BY MOUTH ONCE A DAY , Taking Clopidogrel Bisulfate 75 mg Tablet TAKE ONE TABLET BY MOUTH ONCE A DAY , Taking Metoprolol Tartrate 50 mg Tablet TAKE ONE TABLET BY MOUTH 2 TIMES A DAY , Taking Losartan Potassium 50 mg Tablet TAKE ONE TABLET BY MOUTH ONCE A DAY , Taking Keppra 500 MG Tablet 1.5 tab(s) orally 2 times a day , Taking Furosemide 40 MG Tablet 1 tab(s) orally once a day, prn , Discontinued Furosemide 20 MG Tablet 1 tab(s) orally once a day, prn , Medication List reviewed and reconciled with the patient * Allergies: m etFORMIN: diarrhea, cramps - Side Effects. Objective: * Vitals: W t: 213, Temp: 97.8, BP: 150/74, HR: 82, Nurse: tonie, Ht: 68, BMI:32.38. * Examination: G eneral Examination: General Appearance: a lert, NAD. H eart: R SR. L ungs: C oarse breath sounds. No rales or wheezes.. N eurologic Exam: S peech is slower than normal with mild dysarthria.. * Physical Examination: G ENERAL: Pain Assessment: P ain level: 5, on a scale of 0-10 (with 10 being extreme pain). F unctional Status Assessment: P atient response to question of how often physical health interferes with daily activities: Frequently. Able to perform ADLs-including meal preparation, grocery shopping, housework, laundry, taking medications or handling finances. Cognitive Status: alert and oriented. Ambulation Status: Fully ambulatory with cane. F all Risk Assessment: I ndependant in ambulation, adequate lighting in home. Patient has fallen or had trouble walking within the past 12 months. D epression Screening: D enies depressed mood or anxiety. Describes emotional health as: positive. B ladder Control Screening: D enies problems. Assessment: * Assessment: 1. A dult general medical examination - Z00.00 (Primary) 2 . C arotid stenosis - I65.29 3 . F alls - R29.6 4 . F oot drop - M21.379? 5. T ype 2 diabetes mellitus without complication, without long-term current use of insulin - E11.9 6 . A SCVD (arteriosclerotic cardiovascular disease) - I25.10? 7. D yslipidemia - E78.5 8 . S eizure disorder - G40.909? 9. D epression with anxiety - F41.8 1 0. T ype 2 diabetes mellitus with diabetic neuropathy, unspecified whether [facility] insulin use - E11.40 1 1. T ype 2 diabetes mellitus with other circulatory complications - E11.59 1 2.?BMI 32.0-32.9,adult - Z68.32 Plan: * Treatment: Notes:Patient instructed to return to office Annually for Annual Wellness Visits to include annual screenings of Pain assessment, Functional Ability assessment, Cognitive Ability assessment, Fall Risk assessment, Depression screening and Bladder control screening.??2.?Carotid stenosis?LAB: CBC Venipuncture (in house) (Collection Date & Time - 08/29/2024)? normal* Value Reference Range w bc 7.4 3.5 - 10 * l ymph 21.0% 15 - 50 * m id 5.9% 2 - 15 * g ran 73.1% 35 - 80 * r bc 5.15 3.5 - 5.5 * h gb 15.8 11.5 - 16.5 * h ct 48.3 35 - 55 * m cv 93.7 75 - 100 * m ch 30.6 25 - 35 * m chc 32.7 31 - 38 * p latlet 238 100 - 400 * Julisa Bhandari 08/29/2024 04:35: 04 PM EDT > Neno Guzman 09/03/2024 10:32:29 PM EDT > See phone encounter ? Referral To:Tj Peck??Cardiovascular Disease ?Reason:carotid stenosis and to establish cardiac care 3.?Falls? Start Walker [place]leton Wheels Miscellaneous, -, as directed.??4.?Type 2 diabetes mellitus without complication, without long-term current use of insulin?LAB: P-Microalbumin/Creatinine, Random Urine Sample (Collection Date & Time - 08/29/2024 03:05 PM)?normal* Value Reference Range A lbumin/Creatinine Ratio, Urine 16 0-30 - ug /mg * C reatinine, Urine 122.5 - mg/dL * M icroalbumin, Urine, Random 1.9 - mg/dL * Neno Guzman 09/03/2024 10:32:29 PM EDT > See phone encounter ?LAB: Glycohemoglobin A1c (in house) (Collection Date & Time - 08/29/2024)? 5.7%* Value Reference Range g lycohemoglobin 5.7% 5 - 6.5 % * Julisa Bhandari 08/29/2024 04:36: 13 PM EDT > Neno Guzman 09/03/2024 10:32:29 PM EDT > See phone encounter 5.?ASCVD (arteriosclerotic cardiovascular disease)?LAB: P-Comprehensive Metabolic Panel (CMP) (Collection Date & Time - 08/29/2024 03:05 PM)?normal* Value Reference Range A /G Ratio 1.7 1.1-2.5 - * A lbumin 4.5 3.5-5.3 - g/dL * A lkaline Phosphatase 114 40-129 - IU/L * A LT (SGPT) 26 <5-55 - IU/L * A ST (SGOT) 22 <5-46 - IU/L * B ilirubin, Total 0.8 <0.2-1.2 - mg/dL * B UN 23 8-23 - mg/dL * C alcium 9.5 8.6-10.4 - mg/dL * C hloride 101 97-108 - mmol/L * C O2 25 22-32 - mmol/L * C reatinine 0.90 0.70-1.30 - mg/dL * G lucose 83 65-99 - mg/dL * P otassium 4.4 3.5-5.3 - mmol/L * S odium 140 135-145 - mmol/L * P rotein 7.2 6.0-8.3 - g/dL * e GFR by Creatinine 93 >59 - mL/min/1.73m2 * Neno Guzman 09/03/2024 10:32:29 PM EDT > See phone encounter 6.?Dyslipidemia?LAB: P-Lipid Panel (Collection Date & Time - 08/29/2024 03:05 PM)?LDL 70* Value Reference Range C holesterol / HDL Ratio 2.85 0.00-4.99 - Ratio * C holesterol 131 <200 - mg/dL * H DL Cholesterol 46 >39 - mg/dL * L DL Cholesterol (Calculation) 70 <130 - mg/d L * L DL/HDL Ratio 1.5 <3.3 - Ratio * N on-HDL Cholesterol 85 <130 - mg/dL * T riglycerides 75 <150 - mg/dL * Neno Guzman 09/03/2024 10:32:29 PM EDT > See phone encounter * Procedure Codes: G 0439 ANNUAL WELLNESS VST; PPS SUBSQT VST, G2211 Complex [place], [address] GLYCATED HEMOGLOBIN TEST, Modifiers: QW , 1090F PRES/ABSN URINE INCON ASSESS, 3288F FALL RISK ASSESSMENT DOCD, 1170F FXNL STATUS ASSESSED, 1159F MED LIST DOCD IN RCRD, 1003F LEVEL OF ACTIVITY ASSESS, 1036F TOBACCO NON-USER, 74600 CBC WITH AUTO DIFF, 3044F HG A1C LEVEL LT 7.0%, G8950 PREHTN/HTN BP DOC INDCD F/U DOC, G8753 MOST RECENT SYSTOLIC BP >= 140MM HG, G8754 MOST RECENT DIASTOLIC BP < 90MM HG * Preventive Medicine: Counseling: E motional health: P atient encouraged to try connecting with family or friends to boost mood. B ladder control: M ethods of controlling or managing leakage of urine discussed. E xercise: P atient advised to start, increase or maintain level of exercise/physical activity. I njury prevention: F all prevention discussed. Discussed need for cane/walker. Potential trip hazards discussed. Immunizations: T etanus u p to date. P neumococcal r ecommended. I nfluenza r ecommended seasonally. Screening / Special Tests: C olonoscopy r ecommended. P SA , normal. D iabetic Retinal Eye Exam r ecommended today. N ephrology History u rine m/a and gfr ordered today. * Follow Up: 2 Months * Images: Billing Information: * Visit Code: 49069 Office Visit, Est Pt., Level 3. Modifiers: 25 * Procedure Codes: G0439 ANNUAL WELLNESS VST; PPS SUBSQT VST. G2211 Complex e/[place]. [address] GLYCATED HEMOGLOBIN TEST. Modifiers: QW 1090F PRES/ABSN URINE INCON ASSESS. 3288F FALL RISK ASSESSMENT DOCD. 1170F FXNL STATUS ASSESSED. 1159F MED LIST DOCD IN RCRD. 1003F LEVEL OF ACTIVITY ASSESS. 1036F TOBACCO NON-USER. 71469 CBC WITH AUTO DIFF. 3044F HG A1C LEVEL LT 7.0%. G8950 PREHTN/HTN BP DOC INDCD F/U DOC. G8753 MOST RECENT SYSTOLIC BP >= 140MM HG. G8754 MOST RECENT DIASTOLIC BP < 90MM HG. * Electronic signature of Neno Guzman MD on 10/09/2024 at 12:57 PM EDT Sign off status: Pending * Provider: Neno Guzman M.D. Date: 0 08/29/2024 Generated for Jennifer tejada/Allison/Torres on: 0 10/09/2024 12:57 PM EDT History and Physical Notes * HPI (History of Present Illness) Category Sub-Category Detail Notes Category Not es Neurology He comes in for follow-up on recent ER visit from 08/22/2024. He was being seen in Dr. Rios's office for dropfoot but also reported some generalized right-sided weakness that had been progressing over about 2 weeks. She was concerned for possible stroke and directed him to the emergency room for evaluation. Please refer to ER record in chart for details. There were no acute findings and he was advised to follow-up here and with neurology for further evaluation. CT angiogram of the neck was remarkable for 70% left-sided stenosis. He had been following with Dr. Norris for cardiology care until he switched to [employer] insurance. Since then he has had no cardiology follow-up. According to Dr. Rios's notes, he was also to be scheduled for EMG/NCV testing for workup of his dropfoot. He is now wearing a brace on his right foot. Prior to this, his son states he has had several falls. Physical Examination Category Sub-Category Detail Notes Section Note s GENERAL Pain Assessment: Pain level: 5, on a scale of 0-10 (with 10 being extreme pain) Functional Status Assessment: Patient re sponse to question of how often physical health interferes with daily activities: Frequently. Able to perform ADLs-including meal preparation, grocery shopping, housework, laundry, taking medications or handling finances.Cognitive Status: alert and oriented.Ambulation Status: Fully ambulatory with cane Fall Risk Assessment: Independant in amb ulation, adequate lighting in home. Patient has fallen or had trouble walking within the past 12 months Depression Screening: Denies depressed m ood or anxiety. Describes emotional health as: positive Bladder Control Screening: Denies proble ms Examination Category Sub-Category Detail Notes Category Not es General Examination Heart: RSR Lungs: Coarse breath sounds . No rales or wheezes. General Appearance: alert, NAD Neurologic Exam: Speech is slower leoncio n normal with mild dysarthria. Consultation Request Notes Referral Date Referring Provider Referred Provider Not es 08/30/2024 Neno Guzman, Tj dobbs id stenosis and to establish cardiac care
--- OUTSIDE RECORDS SUMMARY | 2024-08-30 10:00 | XMS_ITS ---
Author Organization [facility] Address [facility] [address] [phone] Care Team Providers Care Form Layer Name Role Phone Neno Guzman Primary Care Provider REASON FOR VISIT urine sample Encounters Encounter Location Date Provider Diagnosis [facility] [address] [place] [id number] 08/30/2024 Neno Guzman Plan Of Treatment No Information Progress Notes * PICKARDJAKEDOB:1955 (69 yo M)Acc No.[id number]:08/30/2024 Patient: JAKE DYE Provider: Neno Guzman M.D. :1955 A ge:68 Y S ex:Male Date:08/30/2024 Phone: Address:[address] [place] [phone] Subjective: * Chief Complaints: * 1 . Urine sample. * Medical History: Objective: * Vitals: Assessment: Plan: * Treatment: * Images: Billing Information: * Visit Code: * Procedure Codes: * Electronic signature of Neno Guzman MD on 10/09/2024 at 12:57 PM EDT Sign off status: Pending * Provider: Neno Guzman M.D. Date: 08/30/2024 Generated for Jennifer tejada/Allison/eTransmitting on: 10/09/2024 12:57 PM EDT
--- NOTE | 2024-10-09 12:48 | ED_ITS ---
<Statement entered by Serena Caceres DO - 10/09/24 14:11> I was consulted by the ZACH, and we discussed the complexity of the problems being addressed. I approved the treatment and management plan for this patient's care in the emergency department, thus performing a substantive portion of the medical decision making. Serena Caceres DO Discharge Plan Disposition Patient Disposition: Home, Self-Care Condition: Good Prescriptions Prescriptions: No Action losartan 50 mg tablet PO Patient Comments: TAKE ONE TABLET BY MOUTH ONCE A DAY furosemide 40 mg tablet PO glimepiride 4 mg tablet PO metoprolol tartrate 50 mg tablet PO Patient Comments: TAKE ONE TABLET BY MOUTH 2 TIMES A DAY Jardiance 25 mg tablet PO Patient Comments: TAKE ONE TABLET BY MOUTH EVERY MORNING primidone 50 mg tablet PO prazosin 1 mg capsule PO etodolac 400 mg tablet PO Patient Comments: TAKE ONE TABLET BY MOUTH 2 TIMES A DAY clopidogrel 75 mg tablet 75 mg PO DAILY duloxetine 60 MG capsule,delayed release(DR/EC) 60 mg PO DAILY aspirin 81 MG tablet,delayed release (DR/EC) 81 mg PO DAILY levetiracetam 500 MG tablet 750 mg PO BID acetaminophen 325 MG tablet 650 mg PO Q4HP PRN (Reason: As Needed For Fever Or Pain) 0RF insulin lispro 100 UNIT/ML solution 0 unit SQ ACHS 0RF ofloxacin 0.3 % drops See Rx Instructions .ROUTE .COMPLEX Qty: 10 0RF Rx Instructions: 1 drop into the right eye every 30 minutes while awake for the first 2 days and every 4-6 hours while sleeping for the first 2 days. After this, 1 drop every hour while awake for 5 days, then 1 drop 4 times daily until your problem has resolved. cefadroxil 500 mg capsule 500 mg PO BID 7 Days Qty: 14 0RF Referrals Follow up/Referrals: Johnie Guzman MD [Primary Care Provider, Medical] - See instructions Activity Restrictions/Add. Instructions Additional Instructions/Restrictions: I recommend washing your scalp with soap and water keeping clean and dry to air. If there is any increasing redness drainage or swelling please return to the emergency department. I have given you head injury precautions. If have any persistent or new symptoms follow-up with your PCP return to the ER as needed. Clinical Impressions Clinical Impression: Fall Qualifiers: Encounter type: initial encounter Qualified Code(s): W19.XXXA - Unspecified fall, initial encounter Abrasion of scalp Qualifiers: Encounter type: initial encounter Qualified Code(s): S00.01XA - Abrasion of scalp, initial encounter Instructions Patient Instructions: DI for Closed Head Injury Print Language Print Language: Ethiopian Discharge ED Provider: Serena Caceres General Adult HPI General Chief complaint: Fall Stated complaint: Fall Time Seen by Provider: 10/09/24 12:48 History of Present Illness HPI narrative: Patient presents for evaluation of a fall. Patient has dropfoot and occasionally loses his balance. He was walking to his car stumbled falling to the ground. He hit the back of his head on the sidewalk. He did not lose consciousness and was witnessed by his . He was able to get up on his own and come to the ER. Patient reports slight headache but no focal neurologic deficits nausea change in vision loss or motor or sensory. Related Data Home Medications ?Medication ?Instructions ?Recorded ?Confirmed duloxetine 60 mg capsule,delayed 60 mg PO DAILY mood 0 05/09/18 09/18/24 release aspirin 81 mg tablet,delayed 81 mg PO DAILY Blood thin ner 05/10/18 09/18/24 release levetiracetam 500 mg tablet 750 mg PO BID seizures 09/18/24 empagliflozin 25 mg tablet mg PO 08/22/24 09/18/24 (Jardiance) furosemide 40 mg tablet mg PO 08/22/24 09/18/24 glimepiride 4 mg tablet mg PO 08/22/24 09/18/24 losartan 50 mg tablet mg PO 08/22/24 09/18/24 metoprolol tartrate 50 mg tablet mg PO 08/22/24 clopidogrel 75 mg tablet 75 mg PO DAILY 09/18/2410/06 etodolac 400 mg tablet mg PO 09/18/24 09/18/24 prazosin 1 mg capsule mg PO 09/18/24 09/18/24 primidone 50 mg tablet mg PO 09/18/24 09/18/24 Previous Rx's ?Medication ?Instructions ?Recorded acetaminophen 325 mg tablet 650 mg (2 x 325 mg) PO Q4H P PRN As 06/12/20 Needed For Fever Or Pain insulin lispro 100 unit/mL 0 unit (0 mL) SQ ACHS 06/12 subcutaneous solution ofloxacin 0.3 % eye drops See Rx Instructions .Route 0 10/03/22 .COMPLEX #10 mL cefadroxil 500 mg capsule 500 mg PO BID 7 days #14 cap s 10/01/24 Allergies Allergy/AdvReac Type Severity Reaction Status Date / Time No Known Allergies Allergy Verified 09/18/24 13:25 [facility] Disclaimer: The information contained in this section may have been updated after the patient was seen, as this information can be updated by other users. Medical History (Updated 10/09/24 @ 14:03 by ANTOINETTE Anthony) Stenosis of carotid artery Coronary artery disease CAD (coronary artery disease) Diabetic neuropathy, type II diabetes mellitus Surgical History Hx of foot surgery S/P triple vessel bypass Social History Smoking Status: Former smoker tobacco type: smokeless tobacco second hand exposure: No alcohol intake: never current occupational status: disabled Travel in the last 8 weeks?: None household members: spouse housing: house current occupational exposures/hazards: No caffeine: Yes Have you lived/traveled outside US in past 30 days?: No Contact w/someone who lives/traveled outside US past 30 days?: No Exposure to someone with infectious disease in past 14 days?: No Do you have a fever (greater than 100.4 F or 38 C)?: No Have you tested positive for COVID-19?: No Exposed to someone with COVID-19 in past 14 days?: No Do you have a sore throat?: No Do you have a cough?: No Do you have any weakness?: No Do you have any diarrhea?: No Are you experiencing any unusual bleeding?: No Do you have any muscle aches/pain?: No Do you have any abdominal pain?: No Are you experiencing loss of taste or smell?: No Other Medical History Have you received the Flu Vaccine for this season: Yes Have you received the Pneumonia Vaccine: Yes ROS Obtained: Yes Systems reviewed as appropriate & no additional complaints except as documented Physical Exam General General appearance: alert and in no apparent distress Respiratory Respiratory exam: Present normal lung sounds bilaterally Cardiovascular Cardiovascular exam: Present regular rate Neurological Exam Neurological exam: Present alert and oriented X3 Medical Decision Making Medical Records Medical records reviewed: Yes I reviewed the patient's medical records. Screening: Per USPSTF and CDC recommendations, given the prevalence of disease in our region, it is our hospital?s policy to screen for HIV and viral Hepatitis for a ll patients aged 18 and over and those with ongoing risk factors. Garo Inquiry Pt receiving controlled substance: No Vital Signs: 10/09/24 12:54 10/09/24 13:03 Temperature 98.8 F Temperature Source Oral Pulse Rate [Left] 73 Respiratory Rate 14 Blood Pressure [Right Arm] 159/72 H Blood Pressure Mean [Right Arm] 101 Blood Pressure Source [Right Arm] Automatic Cuff Blood Pressure Position [Right Arm] Sitting 02 Sat by Pulse Oximetry 99 99 Oxygen Delivery Method Room Air Orders (Tests/Meds): ED MEDICATIONS Discontinued Medications Generic Name Dose Route Start Last Admin Trade Name Freq PRN Reason Stop Dose Admin Acetaminophen 1,000 mg 10/09/24 12:58 10/09/24 13:25 Acetaminophen 500mg Tab PO 10/09/24 12:59 1,000 mg ONCE ONE Administration Tetanus/Reduced Diphtheria/Acell Pertussis 0.5 ml 10/09/24 14:01 Tet/Diphth/Pert-Adult 0.5ml Syringe IM 10/09/24 14:02 .ONCE ONE ORDERS Category Date Time Status CT cervical spine wo con Stat Cat Scan 10/09/24 12:[address] head/brain wo con Stat Cat Scan 10/09/24 12:58 Completed Medical Decision Narrative: In summary patient is a 69-year-old male who presents to the emergency department for evaluation of accidental fall and scalp abrasion. Patient is hemodynamically stable upon arrival, afebrile. Physical exam is remarkable for an abrasion at the occiput in the midline however there is no palpable bony deformity. Patient does not have any C-spine tenderness has full range of motion of the C-spine without pain and is cleared by [place] head injury and C- spine rules. Patient moves all 4 extremities is neurovascularly intact with no focal neurologic deficits. Equal round reactive to light Giorgio Coma Score is 15 cranial nerves II through XII intact grossly to exam. Differential diagnosis includes C-spine injury skull injury versus contusion versus abrasion. Initial workup will be conducted with CT scan of the head and neck and I considered CTAs however patient has no red flags to indicate alternative diagnosis is so they were not pursued. Initial interventions include Tylenol and Tdap. Initial workup reviewed by me and my informed interpretation of his imaging shows no acute bony abnormality or injury of the skull or C-spine per radiology read.. Upon repeat evaluation patient remains with a Giorgio Coma Score 15 awake alert and oriented and hemodynamically stable. Given this patient is appropriate discharge with symptomatic and supportive care including wound care instructions and strict return precautions. Critical Care Critical Care Time Critical Care Time: No
[2024-10-09 12:54] VITALS: BP 159/72; PULSE 73; RESP 14; TEMP 37.1; O2SAT 99; BMI 30.5
--- OUTSIDE RECORDS SUMMARY | 2024-10-09 12:57 | XMS_ITS | Patient Health Record ---
Author Organization [facility] Address [address] [place] [id number] Care Team Providers Care Mud Analysis Supervisor Name Role Phone Neno Guzman Primary Care Provider Omer Wallace Unavailable [phone] Allergies Allergen (clinical drug ingredient) Drug/Non Drug Allergy documented on EMR Reaction Allergy Type Onset Date Status metformin metFORMIN diarrhea, cramps Drug Allergy Active Results Component Value Reference Range Notes X ray : Foot, right Reviewed date:06/29/2024 04:33:27 PM Interpretation:Degenerative Changes Performing Lab: Notes/Report: Degenerative Changes Glycohemoglobin A1c (in hous e) Reviewed date:09/03/2024 10:32:47 PM Interpretation:5.7% Performing Lab: Notes/Report: 5.7% glycohemoglobin 5.7% 5 - 6.5 % P-Microalbumin/Creatinine, R andom Urine Sample Reviewed date:09/03/2024 10:32:47 PM Interpretation:normal Performing Lab: Notes/Report: Test performed by [facility] [address] [place], [place] [address] [place] , [address], [place] [address] Jn Gupta MD, Sql Architect CLIA: [id number] Albumin/Creatinine Ratio, Urine 16 0-30 ug/m g Microalbumin, Urine, Random 1.9 Creatinine, Urine 122.5 P-Lipid Panel Reviewed date:09/03/2024 10:32:47 PM Interpretation:LDL 70 Performing Lab: Notes/Report: Test performed by [facility] [address] [place], [place] [address] [place] [address], [address], [place] [address] Jn Gupta MD, Sql Architect CLIA: [id number] Cholesterol 131 <200 mg/dL Triglycerides 75 <150 [...] Interpretation:normal Performing Lab: Notes/Report: Test performed by [facility] [address] [place] [address] , [address], [place] [address] Jn Gupta MD, Sql Architect CLIA: [id number] Sodium 140 135-145 mmol/L Potassium 4.4 3.5-5.3 [...] 0.8 <0.2-1.2 mg/dL A/G Ratio 1.7 1.1-2.5 CBC Venipuncture (in house) Reviewed date:09/03/2024 10:32:47 [...] - 38 platlet 238 100 - 400 P-Microalbumin/Creatinine, R andom Urine Sample Reviewed date:11/10/2023 01:07:52 PM Interpretation:Normal Performing Lab: Notes/Report: Test performed by [facility], [address] , [address], [place] [address] Jn Gupta MD, Sql Architect CLIA: [id number] Albumin/Creatinine Ratio, Urine 12 0-30 ug/m g Microalbumin, Urine, Random 2.3 Creatinine, Urine 186.3 P-PSA Reviewed date:11/10/2023 01:07:19 PM Interpretation:Normal Performing Lab: Notes/Report: Test performed by [facility] [address] , [address], [place] [address] Jn Gupta MD, Sql Architect CLIA: [id number] PSA 0.21 <4.00 ng/mL Please note this is an ultrasensitive PSA assay with a lower limit of detection of 0.014 ng/mL. This test is performed by the [employer] ECLIA methodology. Values obtained with different assay methods or kits cannot be directly compared. P-Lipid Panel Reviewed date:11/10/2023 01:08:49 PM Interpretation:Normal Performing Lab: Notes/Report: Test performed by [facility] [address] , [address], [place] [address] Jn Gupta MD, Sql Architect CLIA: [id number] Cholesterol 117 <200 mg/dL Triglycerides 85 <150 [...] Results: 59 Units: mg/dL % Change: 0% P-Comprehensive Metabolic Pa mateus (CMP) Reviewed date:11/10/2023 01:09:27 PM Interpretation:gluc 103 Performing Lab: Notes/Report: Test performed by [facility] [address] [place] [address] , [address], [place] [address] Jn Gupta MD, Sql Architect CLIA: [id number] Sodium 142 135-145 mmol/L Potassium 4.6 3.5-5.3 [...] 0.7 <0.2-1.2 mg/dL A/G Ratio 1.7 1.1-2.5 Glycohemoglobin A1c (in hous e) Reviewed date:11/10/2023 01:06:54 PM Interpretation:5.7% Performing Lab: Notes/Report: 5.7% glycohemoglobin 5.7% 5 - 6.5 % CBC Venipuncture (in house) Reviewed date:11/10/2023 01:06:19 [...] - 38 platlet 238 100 - 400 Reason For Referral Reason Essential tremor Diagnosis 1 Essential tremor (G2 5.0) [facility] [place] Referring Provider First Name Neno Arroyo Referring Provider Last Name Thomas Referring Provider [facility] Referred Provider Lakeisha Dutta Referred Provider Specialty Neurology General Notes Connie Jackson 2024 10:14:04 AM > faxed to [facility] NeurologyRenetta Brynn 06/30/2024 11:10:14 AM > spoke to Em; referral received Referral Priority Routine Reason Right Foot Pain Diagnosis 1 Right foot pain (M79 .671) [facility] Referring Provider First Name Neno Arroyo Referring Provider Last Name hTomas [facility]erred Provider Specialty Podiatry General Notes Lynn Campos 07/06 11:59:42 AM > faxed to Renetta Joseph Brynn 07/10/2024 09:53:31 AM > spoke with Nedra from podiatry; they have called the patient several times but no vm Referral Priority Routine Reason carotid stenosis and to establish cardiac care Diagnosis 1 Carotid stenosis (I6 5.29) Referral Organization [facility] Referring Provider First Name Neno Arroyo Referring Provider Last Name Thomas Referring Provider [facility] ctice Referred Provider Tj Peck Referred Provider Specialty Cardiovascul ar Disease General Notes Connie Jackson 2024 12:25:42 PM > faxed to [facility] Cardiology Referral Priority Routine Medications Medication [...] tablet Orally Twice a day Active [place] Wheels - as directed 08/29/2024 Active Prazosin [...] review and pick correct strength-formulatio n from [employer] options. If intended option is not shown, [...] review and pick correct strength-formulatio n from [employer] options. If intended option is not shown, discontinue and re-order from Quick Search* 09/14/2017 Active Immunizations Vaccine Route Administration Date Status Comme nts COVID 19 Bony Unknown 07/17/2020 Administered COVID 19 Bony Unknown 01/22/2021 Administered DT, 7 YEARS OR OLDER Unknown 05/16/1996 Administered Fluzone PF Quad (6-35 months) Unknown 12/15/2016 Administered Fluzone PF Quad (6-35 months) Unknown 01/22/2021 Administered Fluzone PF Quad (6-35 months) Unknown 12/23/2021 Administered Fluzone Quad (6months&older) IM Intramuscular 01/08/2018 Administered PNEUMOVAX 23 VACCINE Unknown 11/11/2019 Administered Prevnar (PCV20) IM Intramuscular 01/23/2022 Administered Tetanus Tdap-Adacel (over 7yrs) Unknown 04/22/2024 Administered xFlu shot- 6months-36 months of sbg-FHDF-MLPS-trivalent Unknown 12/17/2015 Administered Problems Problem Type SNOMED Code ICD Code Onset Dates Problem Status W/U Status Risk Notes Problem Coronary arteriosclerosis (16132586) ASCVD (arteriosclerotic cardiovascular disease) (I25.10) Active confirmed Problem Peripheral circulatory disorder associated with diabetes mellitus (838693870) 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.59) Active confirmed Problem History of circulatory system disease (139955403) History of ASCVD (Z86.79) Active confirmed Problem Essential hypertension (95756606) Essential hypertension (I10) Active confirmed Problem Paresthesia (93591851) Paresthesia (R20.2) Active confirmed Problem Mixed anxiety and depressive disorder (234001772) Depression with anxiety (F41.8) Active confirmed Problem BMI 30+ - obesity (300788732) BMI 32.0-32.9,adult (Z68.32) Active confirmed Problem Seizure disorder (634172689) Seizure disorder (G40.909) Active confirmed Problem Carotid artery stenosis (21890041) Carotid stenosis (I65.29) Active confirmed Problem Essential tremor (724365028) Essential tremor (G25.0) Active confirmed Problem Obese class II (392373576585325) BMI 35.0-35.9,adult (Z68.35) Active confirmed Problem Lumbosacral spondylosis without myelopathy (95067623) Degenerative joint disease (DJD) of lumbar spine (M47.816) Active confirmed Problem Irritable bowel syndrome (23894679) Irritable bowel syndrome (K58.9) Active confirmed Problem Posttraumatic stress disorder (99038242) PTSD (post-traumatic stress disorder) (F43.10) Active confirmed Problem Body mass index 30.00 to 34.99 (060180163817962) BMI 34.0-34.9,adult (Z68.34) Active confirmed Problem Dyslipidemia (017541792) Dyslipidemia (E78.5) Active confirmed Problem Type II diabetes mellitus without complication (349827242) Type 2 diabetes mellitus without complication, without long-term current use of insulin (E11.9) Active confirmed Problem Sleep dysfunction with arousal disturbance (307015069) Night terror (F51.4) Active confirmed Problem Diabetic peripheral neuropathy associated with type 2 diabetes mellitus (5816618788291) Type 2 diabetes mellitus with diabetic neuropathy, unspecified whether residential insulin use (E11.40) Active confirmed Problem Nightmares (546011996) Nightmares (F51.5) Active confirmed Problem Falls (125879076) Falls (R29.6) Active confirme d Vital Signs Heart Rate 82 /min 08/29/2024 Blood pressure diastolic 74 mm Hg 08/29/2024 Height 68 in 08/29/2024 Blood pressure systolic 150 mm Hg 08/29/2024 Weight 213 lbs 08/29/2024 BMI 32.38 kg/m2 08/29/2024 Encounters Encounter Location Date Provider Diagnosis [facility] [address] [facility] [address] [place], [place] [id number] 10/28/2023 R Cruz Thomas [facility] [address] [place], [place] [id number] 04/28/2024 R Cruz Thomas [facility] [address] [place], [place] [id number] 06/29/2024 R Cruz Thomas [facility] [address] [place], [place] [id number] 07/24/2024 Omer Millrift [facility] [address] [place], [place] [id number] 09/03/2024 R Cruz Thomas [facility] [address] [place], [place] [id number] 09/18/2024 R Cruz Thomas [facility] [address] [place], [place] [id number] 06/20/2024 R Cruz Thomas Foot pain, right M79 .671 ; Essential tremor G25.0 and Essential hypertension I10 [facility] [address] [facility] [address] [place] [id number] 11/02/2023 Cruz Keanefleet Type 2 diabetes tristan itus without complication, without long-term current use of insulin E11.9 ; Essential hypertension I10 ; Dyslipidemia E78.5 and Screening for prostate cancer Z12.5 [facility] [address] [facility] [address] [place] [id number] 08/30/2024 [facility] Thomas [facility] [address] [facility] [address] [place] [id number] 08/29/2024 [facility] Adult general medica l examination Z00.00 ; Carotid stenosis I65.29 ; Falls R29.6 ; Foot drop M21.379 ; Type 2 diabetes mellitus without complication, without long-term current use of insulin E11.9 ; ASCVD (arteriosclerotic cardiovascular disease) I25.10 ; Dyslipidemia E78.5 ; Seizure disorder G40.909 ; Depression with anxiety F41.8 ; Type 2 diabetes mellitus with diabetic neuropathy, unspecified whether remote computer terminal operator insulin use E11.40 ; Type 2 diabetes [...] diabetes mellitus with diabetic neuropathy, unspecified whether residential insulin use (ICD-10 - E11.40) 08/29/2024 Type [...] Date [employer] (MEDICAR E) [address] [address] [place] [address] [id number] JAKE PICKARD Self - patient is the insured Medications Administered Medication Instructions Date of Administration Dosage Notes Dexamethasone 03/28/2014 1 mL Medical (General) History Medical History History ICD Code HTN Hyperlipidemia Anxiety DJD of Spine kidney stones ASCVD - s/p NC Type 2 diabetes - diagonsed 09/2017 seizure disorder broken ribs on left side, internal injur ies 08/2019 NSTEMI 06/02/20 - [facility] --> tranferred to [facility] for [facility]G Surgical History Surgery Date(Month/Year) Cardiac Stents-total of 16 Stents placed 2008 Heart Cath 2013 removal of cyst on right side of face 19 95 kidney stones removed Vascetomy heart cath CABG x -Dr Wang 06/17/20 Hospitalization History Reason Date(Month/Year) NSTEMI - [facility] -->transfered to 06/12/20 -mower accident [facility] ER-SOA 07/2019 [facility]-seizure 05/09/18 [facility] UTC-rib pain-right sided 18 St Ab-blockage 06/28 [facility] ER-stomach pain 01/27/15 IVM-Vxmhovj-lsopjl 07/26/13 see above
--- OUTSIDE RECORDS SUMMARY | 2024-10-09 12:57 | XMS_ITS | Clinical Summary ---
Author Organization [facility] Address [address] [place] [address] Care Team Providers Care Deputy District Customs Director Name Role Phone Johnie Guzman MD Primary [...] contractions) 01/04 Coronary artery disease invo lving [place] coronary artery of [place] heart without angina pectoris 03/23/2018 Overview (03/23/2018): Added automatically from request for surgery [id number] Coronary artery disease invo lving [place] coronary artery of [place] heart 03/02/2018 Overview (03/02/2018): a. 02/09/05 cardiac [...] (2.75 x 12 Xience ZAC).. f. 06/22/13 [facility], RCA angioplasty.. Patent LAD stent. EF 55%. [...] 12/13/2024 12/17/2015 Medical Devices Implanted Type Area Executive Vice President And Chief Financial Officer Device Identifier Shelf Expiration Date Model / Serial / Lot Stent Xience Carla Everolimus Zac 3.5x8mm - [id number] Implanted:Qty: 1 on 03/29/2018 by Micah Norris MD at [facility] [employer] [id number] / / Insurance MEDICARE ADVANTAGE Care Teams Deputy District Customs Director Relationship Specialty Start Date End Date Johnie Guzman MD [address] [facility] [address] [place] [address] PCP - General Family Medicine 02/07/18
--- OUTSIDE RECORDS SUMMARY | 2024-10-09 12:57 | XMS_ITS | Clinical Summary ---
Author Organization [facility] Address [address] [place] [address] Care Team Providers Care Systems Planner Name Role Phone Johnie Guzman MD Primary Care Provider [phone]- [phone] Immunizations Immunization Administration Dates Next Due Pneumococcal [...] Description 10/27/2024 2:20 PM EDT Office Visit [facility] [address] [facility] [address] [place] [address] Dilma Doll, PA [address] [facility] [address] [place] [address] Health Maintenance Due Date Last Done Comments [facility]-Depression Screening 1955 [facility]-Medicare Annual Wellness (AWV) 1955 [facility]-/Child/Adol SDOH Screenings 1955 [facility]- SDOH Screenings 1974 [facility]-Adult SDOH Screenings 1974 CT Colonography 2001 Colonoscopy 2001 FIT-DNA 2001 FIT 2001 FOBT 2001 Sigmoidoscopy 2001 [facility]-Colorectal Cancer Screening 2001 [facility]-Zoster Vaccines (1 of 2) 2006 [id number] Vaccine (3 - season) 2023 01/22/2021, 07/17/2020 [...] Recently Relevant to Health Maintenance Results * [place] Hepatitis C Antibody (11/07/2019 2:56 PM EDT) Pathologist [facility] Hepatitis C Ab NEGATIVE Reference Range: Negative SUNQUEST 11/07/2019 2:56 PM EDT 11/07/2019 3:55 PM EDT Fabio Bundy MD LAB BLOOD ORDERABLES Final Res ult SUNQUEST from Last 3 Months or Most Recently Relevant to Health Maintenance Insurance [facility] MEDICARE Care Teams Systems Planner Relationship Specialty Start Date End Date Johnie Guzman MD [address] [place] [address] PCP - General 07/26/20
--- NOTE | 2024-10-09 12:58 | CT_ITS ---
FINAL REPORT TECHNIQUE: Thin section axial images were obtained from skull base to vertex without contrast. Coronal reconstruction images were obtained from the axial data. Exam was performed using dose reduction techniques such as automated exposure control, adjustment of the mA and kV according to patient size, and use of iterative reconstruction technique. CLINICAL HISTORY: Fall on blood thinners COMPARISON: 09/30/2024 FINDINGS: There is no mass effect or midline shift. There is no hydrocephalus. There is no intracranial hemorrhage. Mild periventricular hypodensity is stable. The posterior fossa is without acute abnormality. The basilar cisterns are preserved. The soft tissues are without acute abnormality. No acute osseous abnormality is identified. IMPRESSION: No acute intracranial abnormality. Reviewed, Interpreted and Dictated by Martha Beatty MD Transcribed by Laury Leon Authenticated and [facility]
--- NOTE | 2024-10-09 12:58 | CT_ITS ---
FINAL REPORT TECHNIQUE: Thin section axial images were obtained through the cervical spine without contrast. Multiplanar reconstruction images were obtained from the axial data. Exam was performed using dose reduction techniques. CLINICAL HISTORY: Fall on blood thinners COMPARISON: 08/22/2024 FINDINGS: There is no acute fracture or acute malalignment of the cervical spine. There is no evidence of unilateral or bilateral facet lock. Multilevel degenerative disc disease is unchanged from recent exam.. No acute paraspinal abnormality is identified. IMPRESSION: Degenerative change without acute osseous abnormality of the cervical spine. Reviewed, Interpreted and Dictated by Martha Beatty MD Transcribed by Laury Leon Authenticated and [facility]
[2024-10-09 13:03] VITALS: O2SAT 99
[2024-10-09] MEDS: ACETAMINOPHEN 500MG TAB 1000 MG PO (13:25)
[2024-10-09 14:12] VITALS: BP 160/76; PULSE 76; RESP 18; TEMP 36.8; O2SAT 96
[2024-10-09] MEDS: TET/DIPHTH/PERT-ADULT 0.5ML SYRINGE 0.5 ML IM (14:15)
== END 2024-10-09 14:27 | disposition home or self-care (01) ==
PROVIDERS: Emergency Provider Emergency Medicine; PCP Family Medicine
DX: S00.01XA Abrasion of scalp, initial encounter (principal); R51.9 Headache, unspecified; W19.XXXA Unspecified fall, initial encounter
CPT/HCPCS: 70450; 72125; 90471; 90715; 99284

== ENCOUNTER 2024-10-11 12:09 | Outpatient (CLI) | payer MEDICARE, SELFPAY ==
--- OUTSIDE RECORDS SUMMARY | 2024-08-29 11:35 | XMS_ITS ---
Author Organization [facility] Address [address] [facility] [address] [phone] Care Team Providers Care Hip Hop Dance Instructor Name Role Phone Neno Guzman Primary Care [...] Interpretation:normal Performing Lab: Notes/Report: Test performed by [facility] [address] [place] [address] , [address], [place] [address] Jn Gupta MD, Warehouse Administrator CLIA: [id number] Sodium 140 135-145 mmol/L Potassium 4.4 3.5-5.3 [...] 70 Performing Lab: Notes/Report: Test performed by [facility], [address] , [address], [place] [address] Jn Gupta MD, Warehouse Administrator CLIA: [id number] Cholesterol 131 <200 mg/dL Triglycerides 75 <150 [...] Interpretation:normal Performing Lab: Notes/Report: Test performed by [facility], [address] , [address] , [place] [address] Jn Gupta MD, Warehouse Administrator CLIA: [id number] Albumin/Creatinine Ratio, Urine 16 0-30 ug/m g [...] Jackson 2024 12:25:42 PM > faxed to [facility] Cardiology Referral Priority Routine REASON FOR VISIT [...] review and pick correct strength-formulatio n from [employer] options. If intended option is not shown, [...] review and pick correct strength-formulatio n from [employer] options. If intended option is not shown, discontinue and re-order from Quick Search* 09/14/2017 Active Walker [place] Wheels - as directed 08/29/2024 Active Losartan [...] Status Risk Notes Problem Carotid artery stenosis (43428390) Carotid stenosis (I65.29) Active confirmed Problem Falls (813968665) Falls (R29.6) Active confirmed Problem Diabetic peripheral neuropathy associated with type 2 diabetes mellitus (8101194359644) Type 2 diabetes mellitus with diabetic neuropathy, unspecified whether press tender long goods insulin use (E11.40) Active confirmed Problem Peripheral circulatory disorder associated with diabetes mellitus (578618007) 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.59) Active confirmed Problem BMI 30+ - obesity (278045159) BMI 32.0-32.9,adult (Z68.32) Active confirmed Vital Signs Weight 213 lbs 08/29/2024 Blood pressure systolic 150 mm Hg 08/30/19 25 Blood pressure diastolic 74 mm Hg 025 Heart Rate 82 /min 08/29/2024 Height 68 in 08/29/2024 BMI 32.38 kg/m2 08/29/2024 Encounters Encounter Location Date Provider Diagnosis [facility] [address] [id number] 08/29/2024 Neno Guzman Adult general medica l examination Z00.00 ; Carotid stenosis I65.29 ; Falls R29.6 ; Foot drop M21.379 ; Type 2 diabetes mellitus without complication, without long-term current use of insulin E11.9 ; ASCVD (arteriosclerotic cardiovascular disease) I25.10 ; Dyslipidemia E78.5 ; Seizure disorder G40.909 ; Depression with anxiety F41.8 ; Type 2 diabetes mellitus with diabetic neuropathy, unspecified whether senior living insulin use E11.40 ; Type 2 diabetes [...] diabetes mellitus with diabetic neuropathy, unspecified whether senior living insulin use (ICD-10 - E11.40) 08/29/2024 Type 2 diabetes mellitus with other circulatory complications (ICD-10 - E11.59) 08/29/2024 BMI 32.0-32.9,adult (ICD-10 - Z68.32) Plan Of Treatment Medication Medication Name Sig Start Date Stop Date Notes Dustin Solomon Larsens - as directed 08/29/2024 Treatment Notes Assessment [...] Appt Details Follow Up: 2 Months, Reason: Provider Name:Neno Freitas, 10/12/2024 10:30:00 AM, [address] [facility] 36 [facility], [address] , [place], [place], [id number], Progress Notes * JAKE PICKARDDOB:1955 (69 yo M)Acc No.[id number]:08/29/2024 Annual Wellness Visit Patient: JAKE DYE Provider: Neno Guzman M.D. :1955 A ge:68 Y S ex:Male Date:08/29/2024 Phone: Address:[address] [place] [address], [place] [id number] Subjective: * Chief Complaints: * 1 . [...] for cardiology care until he switched to [employer] insurance. Since then he has had no [...] Spine , Kidney stones, ASCVD - s/p [place], Type 2 diabetes - diagonsed 09/2017, Seizure disorder, Broken ribs on left side, internal injuries 08/2019, NSTEMI 06/02/20 - [facility] tranferred to for CABG. * Surgical History: C ardiac Stents-total of 16 Stents placed 2008, Heart Cath 2013, removal of cyst on right side of face 1994 , kidney stones removed , Vascetomy , heart cath , CABG x / -Dr Wang 06/17/20. * Hospitalization/Major Diagno stic Procedure: s ee above , MOZ-Xckkgnn-txlrie 07/26/13, [facility] ER-stomach pain 01/27/15, St Ab- blockage 06/28, [facility] UTC-rib pain-right sided 01.31.18, [facility]-seizure 05/09/18, [facility] ER-SOA 07/2019, [place]-mower [place] , NSTEMI - [facility] transfered to 06/12/20. * Family History: F [...] *Please review and pick correct strength-formulation from [employer] options. If intended option is not shown, discontinue and re-order from Quick Search*, Taking GLUCOMETER DIRECTED TEST QD , Notes to Pharmacist: *Please review for potential replacement for e-prescription and drug interaction check*, Taking Docusate Sodium 100 MG 1 P.O. Q DAY , Notes to Pharmacist: *Please review and pick correct strength-formulation from [employer] options. If intended option is not shown, [...] diabetes mellitus with diabetic neuropathy, unspecified whether press tender long goods insulin use - E11.40 1 1. T [...] to establish cardiac care 3.?Falls? Start Walker [place] Wheels Miscellaneous, -, as directed.??4.?Type 2 diabetes [...] 04:36: 13 PM EDT > Neno Guzman Cruz 09/03/2024 10:32:29 PM EDT > See phone [...] VST, G2211 Complex e/[place], [address] GLYCATED HEMOGLOBIN TEST, Modifiers: QW , 1090F PRES/ABSN URINE INCON ASSESS, 3288F FALL RISK ASSESSMENT DOCD, 1170F FXNL STATUS ASSESSED, 1159F MED LIST DOCD IN RCRD, 1003F LEVEL OF ACTIVITY ASSESS, 1036F TOBACCO NON-USER, 03320 CBC WITH AUTO DIFF, 3044F HG A1C [...] * Images: Billing Information: * Visit Code: 37400 Office Visit, Est Pt., Level 3. Modifiers: 25 * Procedure Codes: G0439 ANNUAL WELLNESS VST; PPS SUBSQT VST. G2211 Complex e/[place]. [address] GLYCATED HEMOGLOBIN TEST. Modifiers: QW 1090F PRES/ABSN URINE INCON ASSESS. 3288F FALL RISK ASSESSMENT DOCD. 1170F FXNL STATUS ASSESSED. 1159F MED LIST DOCD IN RCRD. 1003F LEVEL OF ACTIVITY ASSESS. 1036F TOBACCO NON-USER. 97623 CBC WITH AUTO DIFF. 3044F HG A1C LEVEL LT 7.0%. G8950 PREHTN/HTN BP DOC INDCD F/U DOC. G8753 MOST RECENT SYSTOLIC BP >= 140MM HG. G8754 MOST RECENT DIASTOLIC BP < 90MM HG. * Electronic signature of Neno Guzman MD on 10/11/2024 at 12:13 PM EDT Sign off status: Pending * Provider: Neno Guzman M.D. Date: 0 08/29/2024 Generated for Jennifer tejada/Allison/Torres on: 0 10/11/2024 12:13 PM EDT History and Physical Notes * [...] for cardiology care until he switched to [employer] insurance. Since then he has had no [...]
--- OUTSIDE RECORDS SUMMARY | 2024-08-30 10:00 | XMS_ITS ---
Author Organization [facility] [address] [facility] [address] [place] [phone] Care Team Providers Care Melter Supervisor Electric Arc Furnace Name Role Phone Neno Guzman Primary Care Provider REASON FOR VISIT urine sample Encounters Encounter Location Date Provider Diagnosis [facility] [address] [place] [phone] 08/30/2024 Neno Guzman Plan Of Treatment Next Appt Details Provider Name:Neno Freitas, 10/12/2024 10:30:00 AM, [address] [facility], [address], [place], [phone], Progress Notes * DAMIANJAKEDOB:1955 (69 yo M)Acc No.[id number]:08/30/2024 Patient: JAKE DYE Provider: Neno Guzman M.D. :1955 A ge:68 Y S ex:Male Date:08/30/2024 Phone: Address:[address] [place] [address] [place], [phone] Subjective: * Chief Complaints: * 1 . Urine sample. * Medical History: Objective: * Vitals: Assessment: Plan: * Treatment: * Images: Billing Information: * Visit Code: * Procedure Codes: * Electronic signature of Neno Guzman MD on 10/11/2024 at 12:12 PM EDT Sign off status: Pending * Provider: Neno Guzman M.D. Date: 0 08/30/2024 Generated for Jennifer tejada/Allison/Raymonditting on: 0 10/11/2024 12:12 PM EDT
--- OUTSIDE RECORDS SUMMARY | 2024-10-11 12:12 | XMS_ITS | Clinical Summary ---
Author Organization [facility] Address [address] [place] [address] Care Team Providers Care Fleet Salesperson Name Role Phone Johnie Guzman MD Primary Care Provider [phone] Immunizations Immunization Administration Dates Next Due Pneumococcal [...] Description 10/27/2024 2:20 PM EDT Office Visit [facility] [address] [place] [address] Dilma Doll, PA [address] [facility] [address] [place] [address] Health Maintenance Due Date Last Done Comments [facility]-Depression Screening 1955 [facility]-Medicare Annual Wellness (AWV) 1955 [facility]-/Child/Adol SDOH Screenings 1955 [facility]- SDOH Screenings 1974 [facility]-Adult SDOH Screenings 1974 CT Colonography 2001 Colonoscopy 2001 FIT-DNA 2001 FIT 2001 FOBT 2001 Sigmoidoscopy 2001 [facility]-Colorectal Cancer Screening 2001 [facility]-Zoster Vaccines (1 of 2) 2006 STO-YZTMR-24 Vaccine (3 - season) 2023 01/22/2021, 07/17/2020 [...] Recently Relevant to Health Maintenance Results * [place] Hepatitis C Antibody (11/07/2019 2:56 PM EDT) Pathologist [facility] Hepatitis C Ab NEGATIVE Reference Range: Negative SUNQUEST 11/07/2019 2:56 PM EDT 11/07/2019 3:55 PM EDT Fabio Bundy MD LAB BLOOD ORDERABLES Final Res ult SUNQUEST from Last 3 Months or Most Recently Relevant to Health Maintenance Insurance [facility] MEDICARE Care Teams Fleet Salesperson Relationship Specialty Start Date End Date Johnie Guzman MD [address] [place] [id number] PCP - General 07/26/20
--- OUTSIDE RECORDS SUMMARY | 2024-10-11 12:12 | XMS_ITS | Clinical Summary ---
Author Organization [facility] Address [address] [address] Care Team Providers Care Beer Runner Name Role Phone Johnie Guzman MD Primary [...] contractions) 01/04 Coronary artery disease invo lving [place] coronary artery of [place] heart without angina pectoris 03/23/2018 Overview (03/23/2018): Added automatically from request for surgery [id number] Coronary artery disease invo lving [place] coronary artery of [place] heart 03/02/2018 Overview (03/02/2018): a. 02/09/05 cardiac [...] (2.75 x 12 Xience ZAC).. f. 06/22/13 [facility], RCA angioplasty.. Patent LAD stent. EF 55%. [...] 12/13/2024 12/17/2015 Medical Devices Implanted Type Area Web Site Admin Device Identifier Shelf Expiration Date Model / Serial / Lot Stent Xience Carla Everolimus Zac 3.5x8mm - [id number] Implanted:Qty: 1 on 03/29/2018 by Micah Norris MD at [facility] [employer] [id number] / / Insurance MEDICARE ADVANTAGE Care Teams Beer Runner Relationship Specialty Start Date End Date Johnie Guzman MD [address] [facility] [address] [place] [address] PCP - General Family Medicine 02/07/18
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
--- NOTE | 2024-10-11 12:26 | XR_ITS ---
FINAL REPORT CLINICAL HISTORY: RT HIP PAIN POST FALL COMPARISON: None FINDINGS: 3 views of the right hip were obtained. There is no acute fracture or dislocation. Joint space is preserved. Soft tissues are unremarkable. IMPRESSION: No acute osseous abnormality of the right hip. Reviewed, Interpreted and Dictated by Martha Beatty MD Transcribed by Migdalia Gipson Authenticated and [facility]
[2024-10-11 12:31] LABS: Hematocrit 46.3 % (42.0-52.0); Hemoglobin 15.4 g/dL (14.1-18.0); Immature Granulocytes % 0.3 %; Mean Corpuscular HGB Conc 33.3 g/dL (31.8-35.4); Mean Corpuscular Hemoglobin 31.4 pg (27.0-31.2); Mean Corpuscular Volume 94.3 fl (80-94); Nucleated Red Blood Cells % 0 %; Platelet Count 237 K/mm3 (142-424); Red Blood Count 4.91 M/mm3 (4.60-6.20); Red Cell Distribution Width-SD 43.8 fL; White Blood Count 7.8 K/mm3 (4.8-10.8)
[2024-10-11 12:55] LABS: Alanine Aminotransferase 31 U/L (12-78); Albumin Level 4.4 g/dl (3.5-5.0); Albumin/Globulin Ratio 1.8 (1.1-1.8); Alkaline Phosphatase 103 U/L (38-126); Anion Gap 10.6 mEq/L (5-15); Aspartate Amino Transferase 31 U/L (17-59); Bilirubin,Total 0.7 mg/dl (0.2-1.3); Blood Urea Nitrogen 13 mg/dl (9-20); Calcium 9.5 mg/dl (8.4-10.2); Carbon Dioxide 30 mmol/L (22.0-30.0); Chloride 103 mmol/L (98-107); Creatinine,Serum 0.90 mg/dl (0.66-1.25); Estimated Glomerular Filt Rate 84 ml/min (>60); GFR (African American) 102 ML/MIN (>60); Globulin 2.5 g/dL (1.3-3.2); Glucose 98 mg/dl (74-100); Magnesium 2.0 mg/dl (1.6-2.3); Potassium 4.6 mmoL/L (3.5-5.1); Sodium 139 mmol/L (136-145); Total Protein,Serum 6.9 g/dl (6.3-8.2)
[2024-10-11 13:27] LABS: Thyroid Stimulating Hormone 2.97 uIU/mL (0.465-4.68)
== END 2024-10-11 23:59 | disposition home or self-care (01) ==
LOC: LAB 12:09
PROVIDERS: PCP Family Medicine; Visit Provider Family Medicine
DX: R53.1 Weakness (principal)
CPT/HCPCS: 36415; 73502; 80053; 83735; 84443; 85025

== ENCOUNTER 2024-10-18 09:36 | Outpatient (CLI) | payer MEDICARE, SELFPAY ==
--- OUTSIDE RECORDS SUMMARY | 2024-08-30 10:00 | XMS_ITS ---
Author Organization [facility] Address 1210 [facility] [address] [phone] Care Team Providers Care Faceter Name Role Phone Neno Guzman Primary Care Provider [phone] REASON FOR VISIT urine sample Encounters Encounter Location Date Provider Diagnosis [facility] [address] [place] [phone] 08/30/2024 Neno Guzman Plan Of Treatment No Information Progress Notes * PICKARDJAKEDOB:1955 (69 yo M)Acc No.[id number]:08/30/2024 Patient: JAKE DYE Provider: Neno Guzman M.D. :1955 A ge:68 Y S ex:Male Date:08/30/2024 Phone: Address:[address] [place] [phone] Subjective: * Chief Complaints: * 1 . Urine sample. * Medical History: Objective: * Vitals: Assessment: Plan: * Treatment: * Images: Billing Information: * Visit Code: * Procedure Codes: * Electronic signature of Neno Guzman MD on 10/18/2024 at 09:39 AM EDT Sign off status: Pending * Provider: Neno Guzman M.D. Date: 08/30/2024 Generated for Jennifer tejada/Allison/eTransmitting on: 0 10/18/2024 09:39 AM EDT
--- OUTSIDE RECORDS SUMMARY | 2024-10-11 06:45 | XMS_ITS ---
Author Organization [facility] Address [address] [facility] [address] [place] [id number] Care Team Providers Care Management Assistant Name Role Phone Neno Guzman Primary Care Provider [phone] Omer Wallace Unavailable [phone] Allergies Allergen (clinical drug ingredient) Drug/Non Drug [...] a day as needed 09/18/2024 Active Walker [place] Wheels - as directed 08/29/2024 Active DULoxetine [...] Duration: 30 DAYS 09/14/2017 Active Vital Signs Blood pressure systolic 133 mm Hg 10/12/19 25 Blood pressure diastolic 80 mm Hg 025 Heart Rate 65 /min 10/11/2024 Height 68 in 10/11/2024 Weight 215 lbs 10/11/2024 BMI 32.69 kg/m2 10/11/2024 Encounters Encounter Location Date Provider Diagnosis [facility] [address] [place], [place] [id number] 10/11/2024 Omer [place] Generalized weakness R53.1 and Right hip pain [...] Notes * JAKE PICKARDDOB:1955 (69 yo M)Acc No.[id number]:10/11/2024 Progress Notes Patient: JAKE DYE Provider: Gary Wallace M.D. :1955 A ge:69 Y S ex:Male Date:10/11/2024 Phone: Address:[address] [place] [address], [place], [id number] Pcp:Neno Guzman Subjective: * Chief Complaints: * [...] to foot drop. He was sent to [facility] ER that day as well and diagnosed with a CVA. * ROS: D ERMATOLOGY: no R natalie. n o H dominique. G ASTROENTEROLOGY: no N ausea. n o V omiting. n o D iarrhea.? U ROLOGY: no D ifficulty urinating. n o B lood in urine. * Medical History: H [place], Hyperlipidemia, Anxiety, DJD of Spine , Kidney stones, ASCVD - s/p [place], Type 2 diabetes - diagonsed 09/2017, Seizure disorder, Broken ribs on left side, internal injuries 08/2019, NSTEMI 06/02/20 - [facility] tranferred to for CABG. * Surgical History: C ardiac Stents-total of 16 Stents placed 2008, Heart Cath 2013, removal of cyst on right side of face 1994, kidney stones removed , Vascetomy , heart cath , CABG x 3/ [facility]-Dr Wang 06/17/20. * Hospitalization/Major Diagno stic Procedure: s ee above , LHT-Cjyvziz-hjhtki 07/26/13, [facility] ER-stomach pain 01/27/15, St Ab- blockage 06/28, [facility] UTC-rib pain-right sided 01.31.18, [facility]-seizure 05/09/18, [facility] ER-SOA 07/2019, [facility]-mower accident , NSTEMI - [facility] transfered to 06/12/20. * Family History: [...] once a day, prn , Taking [place] Wheels - Miscellaneous as directed , Taking [...] * Images: Billing Information: * Visit Code: 01413 Office Visit, Est Pt., Level 4. * Procedure Codes: G2211 Complex e/m visit add on. 1036F TOBACCO NON-USER. G8783 BP SCR PRFRM RCMDD DEFIND SCR INTVL. G8752 MOST RECENT SYSTOLIC BP < 140MM HG. G8754 MOST RECENT DIASTOLIC BP < 90MM HG. * Electronic signature of Leatha Wallace MD on 10/18/2024 at 09:39 AM EDT Sign off status: Pending * Provider: Gary Wallace M.D. Date: 0 10/11/2024 Generated for Jennifer tejada/Allison/Torres on: 0 10/18/2024 09:39 AM EDT History and Physical Notes * [...]
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
--- NOTE | 2024-10-18 | CA_ITS ---
APPROVED REPORT Exam: Pharmacologic Technologist: Lety James Ht: 5 ft 10 in Wt: 213 lbs BSA: 2.14 m2 HR: 54 bpm BP: 170/76 mmHg Rhythm: Sr frequent PVCs Medical History Medical History: Hyperlipidemia, Diabetes Medications: Acetaminophen, Aspirin, Clopidogrel, Duloxetine, Empagliflozin, Etodolac,Furosemide, Glimepiride, Inulin Lispro, Levetiracetam, Losartan, Metoprolol Tartrate, Prazosin, Primidone Allergies: No known drug allergies Cardiac Risk Factors: Hyperlipidemia, Diabetes Stress Test Details Test: Lexiscan HR Resting HR: 54 bpm Max Heart Rate (APMHR): 152 bpm Target HR (85% APMHR): 129 bpm Recovery HR: 64 bpm BP Resting BP: 170.0/76.0 mmHg Max BP: 170.0/76.0 mmHg Recovery BP: 157.0/78.0 mmHg ECG Resting ECG: Sr frequent PVCs Stress ECG Conclusion Pt had no symptoms Frequent PVCs Lexiscan Electronically signed by : Yesy Carlos MD 10/19/2024 09:41:43
--- OUTSIDE RECORDS SUMMARY | 2024-10-18 09:40 | XMS_ITS | Clinical Summary ---
Author Organization [facility] Address [address] [place] [address] Care Team Providers Care Concrete Sculptor Name Role Phone Johnie Guzman MD Primary [...] contractions) 01/04 Coronary artery disease invo lving campo coronary artery of campo heart without angina pectoris 03/23/2018 Overview (03/23/2018): Added automatically from request for surgery [id number] Coronary artery disease invo lving campo coronary artery of campo heart 03/02/2018 Overview (03/02/2018): a. 02/09/05 cardiac [...] (2.75 x 12 Xience ZAC).. f. 06/22/13 [facility], RCA angioplasty.. Patent LAD stent. EF [...] 12/13/2024 12/17/2015 Medical Devices Implanted Type Area Solutions Analyst Device Identifier Shelf Expiration Date Model / Serial / Lot Stent Xience Carla Everolimus Zac 3.5x8mm - [id number] Implanted:Qty: 1 on 03/29/2018 by Micah Norris MD at [facility] [employer] [id number] / / Insurance MEDICARE ADVANTAGE Care Teams Concrete Sculptor Relationship Specialty Start Date End Date Johnie Guzman MD [address] [facility] [address] [place] [address] PCP - General Family Medicine 02/07/18
--- OUTSIDE RECORDS SUMMARY | 2024-10-18 09:40 | XMS_ITS | Patient Health Record ---
Author [facility] Address [address] [place] [id number] Care Team Providers Care Personal Trainer Name Role Phone Neno Guzman Primary Care Provider [phone] Omer Wallace Unavailable [phone] Allergies Allergen (clinical drug ingredient) Drug/Non Drug [...] Interpretation:nothing acute Performing Lab: Notes/Report: nothing acute P-Microalbumin/Creatinine, R andom Urine Sample Reviewed date:11/10/2023 01:07:52 PM Interpretation:Normal Performing Lab: Notes/Report: Test performed by [facility] , [address], [place] [address] Jn Gupta MD, Ticket Collector CLIA: [id number] Albumin/Creatinine Ratio, Urine 12 0-30 ug/m g Microalbumin, Urine, Random 2.3 Creatinine, Urine 186.3 P-PSA Reviewed date:11/10/2023 01:07:19 PM Interpretation:Normal Performing Lab: Notes/Report: Test performed by [facility] [address] [place] [address] [place] [address] Jn Gupta MD, Ticket Collector CLIA: [id number] PSA 0.21 <4.00 ng/mL Please note this is an ultrasensitive PSA assay with a lower limit of detection of 0.014 ng/mL. This test is performed by the Andrey ECLIA methodology. Values obtained with different assay methods or kits cannot be directly compared. P-Lipid Panel Reviewed date:11/10/2023 01:08:49 PM Interpretation:Normal Performing Lab: Notes/Report: Test performed by [facility], [address] [place] [address] Jn Gupta MD, Ticket Collector CLIA: [id number] Cholesterol 117 <200 mg/dL Triglycerides 85 <150 [...] 103 Performing Lab: Notes/Report: Test performed by [facility] [address] [facility] , [address], [place] [address] Jn Gupta MD, Ticket Collector CLIA: [id number] Sodium 142 135-145 mmol/L Potassium 4.6 3.5-5.3 [...] 400 P-Microalbumin/Creatinine, R andom Urine Sample Reviewed date:09/03/2024 10:32:47 PM Interpretation:normal Performing Lab: Notes/Report: Test performed by [facility] [address] [place] [address] , [address], [place] [address] Jn Gupta MD, Ticket Collector CLIA: [id number] Albumin/Creatinine Ratio, Urine 16 0-30 ug/m g Microalbumin, Urine, Random 1.9 Creatinine, Urine 122.5 P-Lipid Panel Reviewed date:09/03/2024 10:32:47 PM Interpretation:LDL 70 Performing Lab: Notes/Report: Test performed by [facility] [address] [place] [address] , [address], [place] [address] Jn Gupta MD, Ticket Collector CLIA: [id number] Cholesterol 131 <200 mg/dL Triglycerides 75 <150 [...] Interpretation:normal Performing Lab: Notes/Report: Test performed by [facility] [address], [place] [address] Jn Gupta MD, Ticket Collector CLIA: [id number] Sodium 140 135-145 mmol/L Potassium 4.4 3.5-5.3 [...] - 38 platlet 238 100 - 400 X ray : Foot, right Reviewed date:06/29/2024 04:33:27 PM Interpretation:Degenerative Changes Performing Lab: Notes/Report: Degenerative Changes Reason For Referral Reason Essential tremor Diagnosis 1 Essential tremor (G2 5.0) Referral Organization [facility] Referring Provider First Name Neno Arroyo Referring Provider Last Name Thomas Referring Provider Speciality [facility] Referred Provider Lakeisha Dutta Referred Provider Specialty Neurology General Notes Connie Jackson 2024 10:14:04 AM > faxed to [facility] Neurology, Connie Jackson 06/30/2024 11:10:14 AM > spoke to Em; referral received Referral Priority Routine Reason Right Foot Pain Diagnosis 1 Right foot pain (M79 .671) [facility] Referring Provider First Name Neno Arroyo Referring Provider Last Name Thomas Referring Provider [facility] marcieice Referred Provider Specialty Podiatry General Notes Lynn Campos 07/06 11:59:42 AM > faxed to Renetta Joseph Brynn 07/10/2024 09:53:31 AM > spoke with Nedra from podiatry; they have called the patient several times but no vm Referral Priority Routine Reason carotid stenosis and to establish cardiac care Diagnosis 1 Carotid stenosis (I6 5.29) [facility] Referring Provider First Name Neno Arroyo Referring Provider Last Name Thomas Referring Provider [facility] li Referred Provider Tj Peck Referred Provider Specialty Cardiovascul ar Disease General Notes Connie Jackson 2024 12:25:42 PM > faxed to [facility] Cardiology Referral Priority Routine Diagnosis 1 Right hip pain (M25. 551) Referral Organization [facility] Referring Provider First Name Neno Arroyo Referring Provider Last Name Thomas Referring Provider [facility] Referred Provider Specialty Physical The rapist General Notes Connie Jackson 2024 01:20:20 PM > faxed to [facility] PT Referral Priority Routine Medications Medication SIG (Take, [...] a day as needed 09/18/2024 Active Walker [place] [employer] - as directed 08/29/2024 Active Aspirin [...] 04/22/2024 Administered xFlu shot- 6months-36 months of lpu-UOTA-OYDN-trivalent Unknown 12/17/2015 Administered Problems Problem Type SNOMED Code ICD Code Onset Dates Problem Status W/U Status Risk Notes Problem Coronary arteriosclerosis (71594464) ASCVD (arteriosclerotic cardiovascular disease) (I25.10) Active confirmed Problem Peripheral circulatory disorder associated with diabetes mellitus (205801228) 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.59) Active confirmed Problem History of circulatory system disease (248685857) History of ASCVD (Z86.79) Active confirmed Problem Essential hypertension (25568845) Essential hypertension (I10) Active confirmed Problem Paresthesia (21647906) Paresthesia (R20.2) Active confirmed Problem Mixed anxiety and depressive disorder (854219413) Depression with anxiety (F41.8) Active confirmed Problem BMI 30+ - obesity (218412990) BMI 32.0-32.9,adult (Z68.32) Active confirmed Problem Seizure disorder (259964789) Seizure disorder (G40.909) Active confirmed Problem Carotid artery stenosis (99136144) Carotid stenosis (I65.29) Active confirmed Problem Essential tremor (333700724) Essential tremor (G25.0) Active confirmed Problem Obese class II (963983227593129) BMI 35.0-35.9,adult (Z68.35) Active confirmed Problem Lumbosacral spondylosis without myelopathy (18954973) Degenerative joint disease (DJD) of lumbar spine (M47.816) Active confirmed Problem Irritable bowel syndrome (21986024) Irritable bowel syndrome (K58.9) Active confirmed Problem Posttraumatic stress disorder (42097897) PTSD (post-traumatic stress disorder) (F43.10) Active confirmed Problem Body mass index 30.00 to 34.99 (658126508666054) BMI 34.0-34.9,adult (Z68.34) Active confirmed Problem Dyslipidemia (547198707) Dyslipidemia (E78.5) Active confirmed Problem Type II diabetes mellitus without complication (116429847) Type 2 diabetes mellitus without complication, without long-term current use of insulin (E11.9) Active confirmed Problem Sleep dysfunction with arousal disturbance (460087569) Night terror (F51.4) Active confirmed Problem Diabetic peripheral neuropathy associated with type 2 diabetes mellitus (2734308029921) Type 2 diabetes mellitus with diabetic neuropathy, unspecified whether termite exterminator insulin use (E11.40) Active confirmed Problem Nightmares (555114119) Nightmares (F51.5) Active confirmed Problem Falls (444482745) Falls (R29.6) Active confirme d Vital Signs Heart Rate 65 /min 10/11/2024 Blood pressure diastolic 80 mm Hg 10/11/2024 Height 68 in 10/11/2024 Blood pressure systolic 133 mm Hg 10/11/2024 Weight 215 lbs 10/11/2024 BMI 32.69 kg/m2 10/11/2024 Encounters Encounter Location Date Provider Diagnosis [facility] [address] [place] [id number] 11/02/2023 Neno Guzman Type 2 diabetes tristan itus without complication, without long-term current use of insulin E11.9 ; Essential hypertension I10 ; Dyslipidemia E78.5 and Screening for prostate cancer Z12.5 [facility] [address] [place], [place] [id number] 06/20/2024 R Cruz [place] Foot pain, right M79 .671 ; Essential tremor G25.0 and Essential hypertension I10 [facility] [facility] [address] [place], [place] [id number] 08/29/2024 R Cruz Thomas Adult general medica l examination Z00.00 ; Carotid stenosis I65.29 ; Falls R29.6 ; Foot drop M21.379 ; Type 2 diabetes mellitus without complication, without long-term current use of insulin E11.9 ; ASCVD (arteriosclerotic cardiovascular disease) I25.10 ; Dyslipidemia E78.5 ; Seizure disorder G40.909 ; Depression with anxiety F41.8 ; Type 2 diabetes mellitus with diabetic neuropathy, unspecified whether custodial insulin use E11.40 ; Type 2 diabetes mellitus with other circulatory complications E11.59 and BMI 32.0-32.9,adult Z68.32 [facility] [address] [place], [place] [id number] 08/30/2024 R Cruz [place] [facility] [address] [place], [place] [id number] 10/11/2024 Omer [place] Generalized weakness R53.1 and Right hip pain M25.551 [facility] [address] [place], [place] [id number] 10/12/2024 R Cruz [place] [facility] [address] [facility] [address] [place] [id number] 10/28/2023 R Cruz [place] [facility] [address] [facility] [address] [place], [place] [id number] 04/28/2024 R Cruz [place] [facility] [address] [place], [place] [id number] 06/29/2024 R Cruz [place] [facility] [address] [facility] [address] [place], [place] [id number] 07/24/2024 Omer Wallace [facility] [address] [facility] [address] [place], [place] [id number] 09/03/2024 Neno Guzman [facility] [address] [facility] [address] [place], [place] [id number] 09/18/2024 Neno Arroyo Thomas Assessments Encounter Date Diagnosis (ICD Code) Assessment Notes Treatment Notes Treatment Clinical Notes Section Notes 11/02/2023 Essential hypertension (ICD-10 - I10) 06/20/2024 Foot pain, right (ICD-10 - M79.671) There is no obvious infection. Will obtain x-ray to rule out bony injury. May need podiatry referral. 06/20/2024 Essential tremor (ICD-10 - G25.0) 11/02/2023 Type 2 diabetes mellitus without complication, [...] M25.551) 10/11/2024 Generalized weakness (ICD-10 - R53.1) Unclear etiology, will check labs as none were done in the ER. CT head and neck reports reviewed in office today 08/29/2024 Falls (ICD-10 - R29.6) 06/20/2024 Essential [...] diabetes mellitus with diabetic neuropathy, unspecified whether termite exterminator insulin use (ICD-10 - E11.40) 08/29/2024 Type [...] Date [employer] (MEDICAR E) [address] [address] [place] [address] [id number] JAKE PICKARD Self - patient is the insured Medications Administered Medication Instructions Date of Administration Dosage Notes Dexamethasone 03/28/2014 1 mL Medical (General) History Medical History History ICD Code HTN Hyperlipidemia Anxiety DJD of Spine kidney stones ASCVD - s/p GA Type 2 diabetes - diagonsed 09/2017 seizure disorder broken ribs on left side, internal injur ies 08/2019 NSTEMI 06/02/20 - [facility] --> tranferred to [facility] for CABG Surgical History Surgery Date(Month/Year) Cardiac Stents-total of 16 Stents placed 2008 Heart Cath 2013 removal of cyst on right side of face 19 95 kidney stones removed Vascetomy heart cath CABG x -Dr Wang 06/17/20 Hospitalization History Reason Date(Month/Year) NSTEMI - [facility] -->transfered to 06/12/20 -mower accident [facility] ER-SOA 07/2019 [facility]-seizure 05/09/18 [facility]-rib pain-right sided 11.19.18 [facility]-blockage 06/28 [facility] ER-stomach pain 01/27/15 [facility] 07/26/13 see above
--- OUTSIDE RECORDS SUMMARY | 2024-10-18 09:40 | XMS_ITS | Clinical Summary ---
Author Organization Healthcare Address [address] [place] [address] Care Team Providers Care Computer Programmer Chief Name Role Phone Johnie Guzman MD Primary Care Provider [phone]- [phone] Immunizations Immunization Administration Dates Next Due Pneumococcal [...] Description 10/27/2024 2:20 PM EDT Office Visit [facility] [address] [facility] 5th Floor [address] [place] [address] Dilma Doll, PA [address] [facility] [address] [place] [address] Health Maintenance Due Date Last Done Comments [facility]-Depression Screening 1955 [facility]-Medicare Annual Wellness (AWV) 1955 [facility]-/Child/Adol SDOH Screenings 1956 [facility]- SDOH Screenings 1974 [facility]-Adult SDOH Screenings 1974 CT Colonography 2001 Colonoscopy 2001 FIT-DNA 2001 FIT 2001 FOBT 2001 Sigmoidoscopy 2001 [facility]-Colorectal Cancer Screening 2001 [facility]-Zoster Vaccines (1 of 2) 2006 DPP-RLEON-90 Vaccine (3 - season) 2023 01/22/2021, 07/17/2020 [...] Recently Relevant to Health Maintenance Results * [place] Hepatitis C Antibody (11/07/2019 2:56 PM EDT) Pathologist [facility] Hepatitis C Ab NEGATIVE Reference Range: Negative SUNQUEST 11/07/2019 2:56 PM EDT 11/07/2019 3:55 PM EDT Fabio Bundy MD LAB BLOOD ORDERABLES Final Res ult SUNQUEST from Last 3 Months or Most Recently Relevant to Health Maintenance Insurance [facility] MEDICARE Care Teams Computer Programmer Chief Relationship Specialty Start Date End Date Johnie Guzman MD [address] [place] [address] PCP - General 07/26/20
--- NOTE | 2024-10-18 10:15 | CA_ITS ---
APPROVED REPORT EXAM: Comprehensive 2D, Doppler, and color-flow Echocardiogram B2B Outside Sales Representative: YUNIEL Underwood, RVS Ht: 5 ft 10 in Wt: 213lbs BSA: 2.14 BP: 165/80 mmHg Indications: CAD, CABG, NSTEMI, CASm DN, HLD, Murmur 2D Dimensions Left Atrium 3.52 cm LA Volume 89.20 mL LA Volume Index 40.50 mL/m2 (M/F) 16-34 M-Mode Dimensions RVDd 2.68 cm (0.9-2.6) LA Diam 4.34 cm (1.9-4.0) LVDd 5.25 cm (3.5-5.7) LVDs 3.60 cm (3.5-5.7) IVSd 0.86 cm (0.6-1.1) PWd 0.89 cm (0.6-1.1) EF (Teich) 58.90% EPSs 0.72 cm FS 31.40% EDV (Teich) 132.40 mL TAPSE 1.53 (<1.7) ESV (Teich) 54.40 mL LV Diastology E Decel Time 200 (160-240 msec) E/A Ratio 0.91 MED A' 9.10 cm/s LAT A' 8.50 cm/s Aortic Valve LEILANI Index 1.04 cm2/m2 AoV Peak Sanjay. 175.0 (50-130 cm/s) AI PHT 492.00 ms AO Peak GR. 12.40 mmHg AO Mean GR. 6.20 (<5 mmHg) AO VTI 37.1 (18-25 cm) LEILANI (VTI) 2.28 (2.5-4.5 cm2) Mitral Valve MV A Velocity 95.0 (40-130 cm/s) E/A Ratio 0.91 Tricuspid Valve TR P. Velocity 246.00 cm/s RAP Estimate 10.00 mmHg RVSP 34.20 mmHg Left Ventricle The left ventricle is normal size. Left ventricular systolic function is normal. The left ventricular ejection fraction is within the normal range. There is increased left ventricular wall thickness. There is normal LV segmental wall motion. The left ventricular diastolic function is normal. LVEF is 55% Right Ventricle The right ventricle is normal size. The right ventricular systolic function is normal. Atria Left atrium is moderately dilated. Right atrium is mildly dilated. There is no color Doppler evidence of interatrial shunt. Aortic Valve The aortic valve is mildly thickened. There is no hemodynamically significant aortic valvular stenosis. Mild to moderate aortic regurgitation is present. Mitral Valve The mitral valve is normal in structure. No evidence of mitral valve stenosis. Mild mitral regurgitation is present. Tricuspid Valve The tricuspid valve leaflets are thin and pliable. Mild tricuspid regurgitation. RVSP is 20-25 mmHg. Pulmonic Valve The pulmonary valve is grossly normal in structure. Trace pulmonic valve regurgitation is present. Great Vessels The aortic root is normal in size. IVC is normal in size and collapses >50% with inspiration. Pericardium There is no pericardial effusion. Other Information Study Quality: Fair Conclusion Normal biventricular systolic function. Biatrial dilation. Mild to moderate AI. Mild MR, mild TR. Electronically signed by : Yesy Carlos MD 10/18/2024 13:08:08
--- NOTE | 2024-10-18 11:30 | NM_ITS ---
APPROVED REPORT Exam: Nuclear Stress Test Indication: HTN, DM, High cholesterol, Family history, CAD, CABG Patient Location: Outpatient Stress Tech: Lety James [place] Tech:sIabela Peters, ARRT, RT (R)(N) Ht: 5 ft 10 in Wt: 215 lbs HR: 55 bpm BP: 170/76 mmHg BSA: 2.15 m2 TID: 1.00 BMI: 30.8 History: HTN, DM, High cholesterol, Family history, CAD, CABG Procedure: Patient received 0.4 mg of intravenous Lexiscan, resting heart rate 55 bpm, resting blood pressure 170/76 mmHg, with Lexiscan maximum heart rate achieved was 72 bpm which is % of the maximum predicted heart rate and blood pressure was 160/75 mmHg. With Lexiscan, patient denied any complaint of chest pain. Cardiac Stress and Resting SPECT Images: Cardiac Stress and Resting SPECT images were obtained using technetium 99m Myoview 31.3 mCi stress and 10.83 mCi at rest. Resting and stress imaging in supine and prone positions demonstrate a medium-size, moderate, predominantly fixed perfusion defect in the anterior LV wall. There is a small region of reversibility towards the basal anterior LV wall. Gated imaging demonstrates low-normal global LV systolic function. LVEF is calculated at 51%. Conclusion: Medium-size, moderate, predominantly fixed perfusion defect in the anterior LV wall. There is a small region of reversibility towards the basal anterior LV wall. Findings are suggestive of partial reversible ischemia. Gated imaging demonstrates low-normal global LV systolic function. LVEF is calculated at 51%. Electronically signed by : Yesy Carlos MD 10/19/2024 09:39:34
[2024-10-18] MEDS: SODIUM CHLORIDE 0.9% 10ML SYR (RAD ONLY) 10 ML IV ×2 (13:12)
[2024-10-18] MEDS: ISOTOPE MYOVIEW (PER STUDY) 1 DOSE IV (13:12)
== END 2024-10-18 23:59 | disposition home or self-care (01) ==
LOC: RT 09:37
PROVIDERS: PCP Family Medicine; Visit Provider Internal Medicine
DX: I08.3 Combined rheumatic disorders of mitral, aortic and tricuspid valves (principal); I11.9 Hypertensive heart disease without heart failure; I49.3 Ventricular premature depolarization; I21.4 Non-ST elevation (NSTEMI) myocardial infarction; E11.9 Type 2 diabetes mellitus without complications; E78.00 Pure hypercholesterolemia, unspecified; E78.5 Hyperlipidemia, unspecified; R94.39 Abnormal result of other cardiovascular function study; Z95.1 Presence of aortocoronary bypass graft
CPT/HCPCS: 78452; 93016; 93017; 93018; 93306; A9502; J2785

== ENCOUNTER 2024-11-29 20:00 | Emergency (ER) | payer MEDICARE, SELFPAY ==
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
--- OUTSIDE RECORDS SUMMARY | 2024-08-29 11:35 | XMS_ITS ---
Author Organization [facility] Address 1210 [facility] [address] [phone] Care Team Providers Care Technical Adjuster Name Role Phone Neno Guzman Primary Care [...] Interpretation:normal Performing Lab: Notes/Report: Test performed by [facility] [address] [place] [address] , [address], [place] [address] Jn Gupta MD, Underground Truck Operator CLIA: [id number] Sodium 140 135-145 mmol/L Potassium 4.4 3.5-5.3 [...] 70 Performing Lab: Notes/Report: Test performed by [facility], [address] , [address], [place] [address] Jn Gupta MD, Underground Truck Operator CLIA: [id number] Cholesterol 131 <200 mg/dL Triglycerides 75 <150 [...] Interpretation:normal Performing Lab: Notes/Report: Test performed by [facility], [address] , [address] , [place] [address] Jn Gupta MD, Underground Truck Operator CLIA: [id number] Albumin/Creatinine Ratio, Urine 16 0-30 ug/m g [...] Jackson 2024 12:25:42 PM > faxed to [facility] Cardiology Referral Priority Routine REASON FOR [...] review and pick correct strength-formulatio n from [employer] options. If intended option is not shown, [...] review and pick correct strength-formulatio n from [employer] options. If intended option is not shown, discontinue and re-order from Quick Search* 09/14/2017 Active Walker [place] Wheels - as directed 08/29/2024 Active Losartan [...] Status Risk Notes Problem Carotid artery stenosis (30339181) Carotid stenosis (I65.29) Active confirmed Problem Falls (233491434) Falls (R29.6) Active confirmed Problem Diabetic peripheral neuropathy associated with type 2 diabetes mellitus (1075732276167) Type 2 diabetes mellitus with diabetic neuropathy, unspecified whether laborer marine terminal insulin use (E11.40) Active confirmed Problem Peripheral circulatory disorder associated with diabetes mellitus (252996214) 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.59) Active confirmed Problem BMI 30+ - obesity (091788606) BMI 32.0-32.9,adult (Z68.32) Active confirmed Vital Signs Weight 213 lbs 08/29/2024 Blood pressure systolic 150 mm Hg 08/30/19 25 Blood pressure diastolic 74 mm Hg 025 Heart Rate 82 /min 08/29/2024 Height 68 in 08/29/2024 BMI 32.38 kg/m2 08/29/2024 Encounters Encounter Location Date Provider Diagnosis [facility] [address] [phone] 08/29/2024 Neno Guzman Adult general medica l examination Z00.00 ; Carotid stenosis I65.29 ; Falls R29.6 ; Foot drop M21.379 ; Type 2 diabetes mellitus without complication, without long-term current use of insulin E11.9 ; ASCVD (arteriosclerotic cardiovascular disease) I25.10 ; Dyslipidemia E78.5 ; Seizure disorder G40.909 ; Depression with anxiety F41.8 ; Type 2 diabetes mellitus with diabetic neuropathy, unspecified whether laborer marine terminal insulin use E11.40 ; Type 2 diabetes [...] diabetes mellitus with diabetic neuropathy, unspecified whether longterm insulin use (ICD-10 - E11.40) 08/29/2024 Type 2 diabetes mellitus with other circulatory complications (ICD-10 - E11.59) 08/29/2024 BMI 32.0-32.9,adult (ICD-10 - Z68.32) Plan Of Treatment Medication Medication Name Sig Start Date Stop Date Notes Walker [place] Wheels - as directed 08/29/2024 Treatment Notes [...] Notes * JAKE PICKARDDOB:1955 (69 yo M)Acc No.[id number]:08/29/2024 Annual Wellness Visit Patient: JAKE DYE Provider: Neno Guzman M.D. :1955 A ge:68 Y S ex:Male Date:08/29/2024 Phone: Address:[address] [place] [address] [place], [id number] Subjective: * Chief Complaints: * 1 . [...] for cardiology care until he switched to [employer] insurance. Since then he has had no [...] Spine , Kidney stones, ASCVD - s/p [place], Type 2 diabetes - diagonsed 09/2017, Seizure disorder, Broken ribs on left side, internal injuries 08/2019, NSTEMI 06/02/20 - [facility] tranferred to for CABG. * Surgical History: C ardiac Stents-total of 16 Stents placed 2008, Heart Cath 2013, removal of cyst on right side of face 1994 , kidney stones removed , Vascetomy , heart cath , CABG x / -Dr Wang 06/17/20. * Hospitalization/Major Diagno stic Procedure: s ee above , OGJ-Eilgjra-ktotfp 07/26/13, [facility] ER-stomach pain 01/27/15, St Ab- blockage 06/28, [facility] UTC-rib pain-right sided 01.31.18, [facility]-seizure 05/09/18, [facility] ER-SOA 07/2019, [place] accident , NSTEMI - [facility] transfered to 06/12/20. * Family History: [...] *Please review and pick correct strength-formulation from [employer] options. If intended option is not shown, discontinue and re-order from Quick Search*, Taking GLUCOMETER DIRECTED TEST QD , Notes to Pharmacist: *Please review for potential replacement for e-prescription and drug interaction check*, Taking Docusate Sodium 100 MG 1 P.O. Q DAY , Notes to Pharmacist: *Please review and pick correct strength-formulation from [employer] options. If intended option is not shown, [...] diabetes mellitus with diabetic neuropathy, unspecified whether laborer marine terminal insulin use - E11.40 1 1. T [...] to establish cardiac care 3.?Falls? Start Walker [employer] Whe[employer] Miscellaneous, -, as directed.??4.?Type 2 diabetes [...] VST, G2211 Complex e/[place], [address] GLYCATED HEMOGLOBIN TEST, Modifiers: QW , 1090F PRES/ABSN URINE INCON ASSESS, 3288F FALL RISK ASSESSMENT DOCD, 1170F FXNL STATUS ASSESSED, 1159F MED LIST DOCD IN RCRD, 1003F LEVEL OF ACTIVITY ASSESS, 1036F TOBACCO NON-USER, 30267 CBC WITH AUTO DIFF, 3044F HG A1C [...] * Images: Billing Information: * Visit Code: 14165 Office Visit, Est Pt., Level 3. Modifiers: 25 * Procedure Codes: G0439 ANNUAL WELLNESS VST; PPS SUBSQT VST. G2211 Complex e/[place]. [address] GLYCATED HEMOGLOBIN TEST. Modifiers: QW 1090F PRES/ABSN URINE INCON ASSESS. 3288F FALL RISK ASSESSMENT DOCD. 1170F FXNL STATUS ASSESSED. 1159F MED LIST DOCD IN RCRD. 1003F LEVEL OF ACTIVITY ASSESS. 1036F TOBACCO NON-USER. 49685 CBC WITH AUTO DIFF. 3044F HG A1C [...] 08/29/2024 Generated for Jennifer tejada/Allison/Torres on: 0 11/29/2024 08:07 PM EDT History [...] for cardiology care until he switched to [employer] insurance. Since then he has had no [...]
--- OUTSIDE RECORDS SUMMARY | 2024-08-30 10:00 | XMS_ITS ---
Author Organization [facility] Address 1210 [facility] [address] [id number] Care Team Providers Care Inspecting Machine Adjuster Name Role Phone Neno Guzman Primary Care Provider [phone] REASON FOR VISIT urine sample Encounters Encounter Location Date Provider Diagnosis [facility] [address] [place] [phone] 08/30/2024 Neno Guzman Plan Of Treatment No Information Progress Notes * PICKARDJAKEDOB:1955 (69 yo M)Acc No.[id number]:08/30/2024 Patient: JAKE DYE Provider: Neno Guzman M.D. :1955 A ge:68 Y S ex:Male Date:08/30/2024 Phone: Address:[address] [place] [phone] Subjective: * Chief Complaints: * 1 . Urine sample. * Medical History: Objective: * Vitals: Assessment: Plan: * Treatment: * Images: Billing Information: * Visit Code: * Procedure Codes: * Electronic signature of Neno Guzman MD on 11/29/2024 at 08:06 PM EDT Sign off status: Pending * Provider: Neno Guzman M.D. Date: 08/30/2024 Generated for Jennifer tejada/Allison/eTransmitting on: 0 11/29/2024 08:06 PM EDT
--- OUTSIDE RECORDS SUMMARY | 2024-10-11 06:45 | XMS_ITS ---
Author Organization [facility] Address [address] [facility] [address] [place] [id number] Care Team Providers Care Statistician Name Role Phone Neno Guzman Primary Care Provider [phone] Omer Wallace Unavailable [phone] Allergies Allergen (clinical drug ingredient) Drug/Non Drug Allergy documented on EMR Reaction Allergy Type Onset Date Status metformin metFORMIN diarrhea, cramps Drug Allergy Active Results Component Value Reference Range Notes H-TSH Reviewed date:10/13/2024 02:41:34 PM Interpretation:Normal Performing Lab: Notes/Report: TSH 2.97 0.465-4.68 uIU/mL H-CBC Reviewed date:10/13/2024 02:41:34 PM Interpretation:mcv 94.3, mch 31.4 Performing Lab: Notes/Report: WBC 7.8 4.8-10.8 K/mm3 RBC 4.91 4.60-6.20 M/mm3 HGB 15.4 14.1-18.0 g/dL HCT 46.3 42.0-52.0 % MCV 94.3 80-94 fl MCH 31.4 27.0-31.2 pg MCHC 33.3 31.8-35.4 g/dL RDW-SD 43.8 RDW 12.7 11.5-17.5 % PLT 237 142-424 K/mm3 MPV 9.4 7.4-10.4 fl NE% 61.4 37.0-80.0 % LY% 23.6 10-50 % MO% 8.8 1.7-9.3 % EO% 5.0 0.1-12.0 % BA% 0.9 0.1-2.0 % NRBC% 0 IG% 0.3 NE# 4.8 1.8-7.8 K/mm3 LY# 1.8 0.7-4.5 K/mm3 MO# 0.7 0.1-1.0 K/mm3 EO# 0.4 0.0-0.4 Kmm3 BA# 0.1 0-0.2 K/mm3 NRBC# 0 IG# 0.02 H-CMP Reviewed date:10/13/2024 02:41:34 PM Interpretation:Normal Performing Lab: Notes/Report: NA 139 136-145 mmol/L K 4.6 3.5-5.1 mmoL/L CL 103 98-107 mmol/L CO2 30 22.0-30.0 mmol/L GAP 10.6 5-15 mEq/L BUN 13 9-20 mg/dl CREATT 0.90 0.66-1.25 mg/dl GFRAA 102 >60 ML/MIN EGFR 84 >60 ml/min GLU 98 74-100 mg/dl CA 9.5 8.4-10.2 mg/dl BILIT 0.7 0.2-1.3 mg/dl AST 31 17-59 U/L ALT 31 12-78 U/L TP 6.9 6.3-8.2 g/dl ALB 4.4 3.5-5.0 g/dl GLOB 2.5 1.3-3.2 g/dL AGRATIO 1.8 1.1-1.8 ALP 103 38-126 U/L H-Magnesium Reviewed date:10/13/2024 02:41:34 PM Interpretation:Normal Performing Lab: Notes/Report: MG 2.0 1.6-2.3 mg/dl X ray : Hip, right Reviewed date:10/13/2024 02:41:34 PM Interpretation:nothing acute Performing Lab: Notes/Report: nothing acute X ray : Hip, right Reviewed date:10/13/2024 02:41:34 PM Interpretation:nothing acute Performing Lab: Notes/Report: nothing acute REASON FOR VISIT Fell, is very weak Medications Medication SIG (Take, Route, Frequency, Duration) Notes Start Date End Date Status Etodolac 400 mg 1 tablet orally twic e a day; Duration: 30 days Active traMADol HCl 50 MG 1 tab(s) Orally four times a day as needed 09/18/2024 Active Walker [place] Wheels - as directed 08/29/2024 Active DULoxetine HCl 60 mg 1 capsule orally da hi; Duration: 30 days Active Prazosin HCl 1 mg TAKE 2 CAPSULES BY M OUTH AT BEDTIME; Duration: 30 Active Furosemide 40 MG 1 tab(s) orally once a day, prn; Duration: 90 days Active Losartan Potassium 50 mg TAKE ONE TABLET BY MOUTH ONCE A DAY; Duration: 90 Active Keppra 500 MG 1.5 tab(s) orally 2 times a day Active Clopidogrel Bisulfate 75 mg TAKE ONE TAB LET BY MOUTH ONCE A DAY; Duration: 90 Active Metoprolol Tartrate 50 mg TAKE ONE TABLE T BY MOUTH 2 TIMES A DAY; Duration: 90 Active Atorvastatin Calcium 80 MG 1 tablet Oral ly Once a day; Duration: 30 days Active Jardiance 25 mg TAKE ONE TABLET BY M OUTH EVERY MORNING; Duration: 30 Active Aspirin Adult Low Dose 81 MG 1 tab(s) orally once a day Active Primidone 50 MG 2 tablet Orally Twic e a day Active Glimepiride 4 mg TAKE ONE TABLET BY M OUTH ONCE A DAY; Duration: 90 Active GLUCOMETER DIRECTED TEST QD 09/14/2017 Active Docusate Sodium 100 MG 1 P.O. Q DAY Active Accu-Chek Glendy Plus 1 TEST STRIP(S) FINGERSTICK TEST 2 TIMES A DAY; Duration: 30 DAYS 09/14/2017 Active Vital Signs Weight 215 lbs 10/11/2024 Blood pressure systolic 133 mm Hg 10/12/19 25 Blood pressure diastolic 80 mm Hg 025 Heart Rate 65 /min 10/11/2024 Height 68 in 10/11/2024 BMI 32.69 kg/m2 10/11/2024 Encounters Encounter Location Date Provider Diagnosis [facility] [address] [place], [place] [id number] 10/11/2024 Omer [place] Generalized weakness R53.1 and Right hip pain M25.551 Assessments Encounter Date Diagnosis (ICD Code) Assessment Notes Treatment Notes Treatment Clinical Notes Section Notes 10/11/2024 Generalized weakness (ICD-10 - R53.1) Unclear etiology, will check labs as none were done in the ER. CT head and neck reports reviewed in office today 10/11/2024 Right hip pain (ICD-10 - M25.551) Plan Of Treatment Treatment Notes Assessment Notes Generalized weakness Unclear etiology, w ill check labs as none were done in the ER. CT head and neck reports reviewed in office today Next Appt Details Follow Up: [address] Wynne, Reason: Progress Notes * JAKE PICKARDDOB:1955 (69 yo M)Acc No.[id number]:10/11/2024 Progress Notes Patient: JAKE DYE Provider: Gary Wallace M.D. :1955 A ge:69 Y S ex:Male Date:10/11/2024 Phone: Address:[address] [place] [address], [place], [id number] Pcp:Neno Guzman Subjective: * Chief Complaints: * 1 . Fell, is very weak. * HPI: H ip/Thigh: 69 year old male presents with c/o hip pain P t complains of RT hip pain since Wednesday after falling. Pt states he also hit the back of his head. Pt complains of continued weakness since Wednesday's fall as well. He was taken to the ER that day.? Patient states he fell because of ankle pain, which he has been having for several months. He saw Dr. Sen last month due to foot drop. He was sent to [facility] ER that day as well and diagnosed with a CVA. * ROS: D ERMATOLOGY: no R natalie. n o H dominique. G ASTROENTEROLOGY: no N ausea. n o V omiting. n o D iarrhea.? U ROLOGY: no D ifficulty urinating. n o B lood in urine. * Medical History: H [place], Hyperlipidemia, Anxiety, DJD of Spine , Kidney stones, ASCVD - s/p [place], Type 2 diabetes - diagonsed 09/2017, Seizure disorder, Broken ribs on left side, internal injuries 08/2019, NSTEMI 06/02/20 - [facility] tranferred to for CABG. * Surgical History: C ardiac Stents-total of 16 Stents placed 2008, Heart Cath 2013, removal of cyst on right side of face 1994, kidney stones removed , Vascetomy , heart cath , CABG x 3/ [facility]-Dr Wang 06/17/20. * Hospitalization/Major Diagno stic Procedure: s ee above , TIJ-Zqtnsgq-aynays 07/26/13, [facility] ER-stomach pain 01/27/15, St Ab- blockage 06/28, [facility] UTC-rib pain-right sided 01.31.18, [facility]-seizure 05/09/18, [facility] ER-SOA 07/2019, [facility]-mower accident , NSTEMI - [facility] transfered to 06/12/20. * Family [...] FINGERSTICK TEST 2 TIMES A DAY , Taking GLUCOMETER DIRECTED TEST QD , Taking Docusate Sodium 100 MG 1 P.O. Q DAY , Taking Aspirin Adult Low Dose 81 MG Tablet Delayed Release 1 tab(s) orally once a day , Taking Atorvastatin Calcium 80 MG Tablet 1 tablet Orally Once a day , Taking Jardiance 25 mg Tablet TAKE ONE TABLET BY MOUTH EVERY MORNING , Taking Primidone 50 MG Tablet 2 tablet Orally Twice a day , Taking Glimepiride 4 mg Tablet TAKE [...] orally once a day, prn , Taking Walker [place] Wheels - Miscellaneous as directed , Taking DULoxetine HCl 60 mg Capsule Delayed Release Particles 1 capsule orally daily , Taking Etodolac 400 mg Tablet 1 tablet orally twice a day , Taking traMADol HCl 50 MG Tablet 1 tab(s) Orally four times a day as needed , Taking Prazosin HCl 1 mg Capsule TAKE 2 CAPSULES BY MOUTH AT BEDTIME , Medication List reviewed and reconciled with the patient * Allergies: m etFORMIN: diarrhea, cramps - Side Effects. Objective: * Vitals: W t: 215, Temp: 97.9, BP: 133/80, HR: 65, Nurse: soco, Ht: 68, BMI:32.69. * Examination: G eneral Examination: General Appearance: N AD, sitting in a wheelchair. H eart: R SR. L ungs: c lear to auscultation. E xtremities: n ormal rotations of right hip, some tenderness to palpation posterior to the hip, brace in place over right ankle. ? Assessment: * Assessment: 1. G eneralized weakness - R53.1 (Primary) 2 . R ight hip pain - M25.551? Plan: * Treatment: Value Reference Range T SH 2.97 0.465-4.68 - uIU/mL * Omer Wallace 10/11/2024 05:01:37 PM EDT > Sent to Neno Isbell 10/13/2024 02:40:58 PM EDT > See phone encounter ?LAB: H-CBC (Collection Date & Time - 10/11/2024 12:13 PM)?mcv 94.3, mch 31.4* Value Reference Range W BC 7.8 4.8-10.8 - K/mm3 * R BC 4.91 4.60-6.20 - M/mm3 * H GB 15.4 14.1-18.0 - g/dL * H CT 46.3 42.0-52.0 - % * M CV 94.3 H 80-94 - fl * M CH 31.4 H 27.0-31.2 - pg * M CHC 33.3 31.8-35.4 - g/dL * R DW 12.7 11.5-17.5 - % * P LT 237 142-424 - K/mm3 * M PV 9.4 7.4-10.4 - fl * N E% 61.4 37.0-80.0 - % * L Y% 23.6 10-50 - % * M O% 8.8 1.7-9.3 - % * E O% 5.0 0.1-12.0 - % * B A% 0.9 0.1-2.0 - % * N E# 4.8 1.8-7.8 - K/mm3 * L Y# 1.8 0.7-4.5 - K/mm3 * M O# 0.7 0.1-1.0 - K/mm3 * E O# 0.4 0.0-0.4 - Kmm3 * B A# 0.1 0-0.2 - K/mm3 * R DW-SD 43.8 - fL * N RBC% 0 - % * N RBC# 0 - 10 3/uL * I G% 0.3 - % * I G# 0.02 - 10 3uL * Omer Wallace 10/11/2024 05:01:37 PM EDT > Sent to Neno Isbell 10/13/2024 02:40:58 PM EDT > See phone encounter ?LAB: H-CMP (Collection Date & Time - 10/11/2024 12:13 PM)?Normal* Value Reference Range N A 139 136-145 - mmol/L * K 4.6 3.5-5.1 - mmoL/L * C L 103 98-107 - mmol/L * C O2 30 22.0-30.0 - mmol/L * G AP 10.6 5-15 - mEq/L * B UN 13 9-20 - mg/dl * C REATT 0.90 0.66-1.25 - mg/dl * G FRAA 102 >60 - ML/MIN * E GFR 84 >60 - ml/min * G GIDEON 98 74-100 - mg/dl * C A 9.5 8.4-10.2 - mg/dl * B ILIT 0.7 0.2-1.3 - mg/dl * A ST 31 17-59 - U/L * A LT 31 12-78 - U/L * T P 6.9 6.3-8.2 - g/dl * A LB 4.4 3.5-5.0 - g/dl * G LOB 2.5 1.3-3.2 - g/dL * A GRATIO 1.8 1.1-1.8 - * A LP 103 38-126 - U/L * Omer Wallace T 10/11/2024 05:01:37 PM EDT > Sent to Neno Isbell 10/13/2024 02:40:58 PM EDT > See phone encounter ?LAB: H-Magnesium (Collection Date & Time - 10/11/2024 12:13 PM)?Normal* Value Reference Range M G 2.0 1.6-2.3 - mg/dl * Omer Wallace 10/11/2024 05:01:37 PM EDT > Sent to Neno Isbell 10/13/2024 02:40:58 PM EDT > See phone encounter Notes: Unclear etiology, will check labs as none were done in the ER. CT head and neck reports reviewed in office today??2.?Right hip pain?Imaging: X ray : Hip, right (Performed Date - 10/11/2024)?nothing acute* Marni Ferrari 10/12/2024 08:1 3:31 AM EDT >pt has f/u with Dr. Guzman today. Neno Guzman 10/13/2024 02:40:58 PM EDT > See phone encounter * Procedure Codes: G 2211 Complex e/m visit add on, 1036F TOBACCO NON-USER, G8783 BP SCR PRFRM RCMDD DEFIND SCR INTVL, G8752 MOST RECENT SYSTOLIC BP < 140MM HG, G8754 MOST RECENT DIASTOLIC BP < 90MM HG * Follow Up: [address] Wynne * Images: Billing Information: * Visit Code: 12901 Office Visit, Est Pt., Level 4. * Procedure Codes: G2211 Complex e/m visit add on. 1036F TOBACCO NON-USER. G8783 BP SCR PRFRM RCMDD DEFIND SCR INTVL. G8752 MOST RECENT SYSTOLIC BP < 140MM HG. G8754 MOST RECENT DIASTOLIC BP < 90MM HG. * Electronic signature of Leatha Wallace MD on 11/29/2024 at 08:06 PM EDT Sign off status: Pending * Provider: Gary Wallace M.D. Date: 0 10/11/2024 Generated for Jennifer tejada/Allison/Torres on: 0 11/29/2024 08:06 PM EDT History and Physical Notes * HPI (History of Present Illness) Category Sub-Category Detail Notes Category Not es Hip/Thigh hip pain Pt complains of RT hip pain since Wednesday after falling. Pt states he also hit the back of his head. Pt complains of continued weakness since Wednesday's fall as well. He was taken to the ER that day. Patient states he fell because of ankle pain, which he has been having for several months. He saw Dr. Sen last month due to foot drop. He was sent to the ER that day as well and diagnosed with a CVA Examination Category Sub-Category Detail Notes Category Not es General Examination Heart: RSR Lungs: clear to auscultatio n Extremities: normal rotations of right hip, some tenderness to palpation posterior to the hip, brace in place over right ankle General Appearance: NAD, sitting in a wh eelchair
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
--- OUTSIDE RECORDS SUMMARY | 2024-10-27 14:20 | XMS_ITS | Encounter Summary ---
Author Organization [facility] Address [address] [place] [address] Care Team Providers Care Threshing Department Supervisor Name Role Phone Johnie Guzman MD Primary Care Provider [phone]- [phone] Reason for Visit * Reason Comments Carotid Artery Disease * Consultation (Routine) - Closed Specialty Diagnoses / Procedures Referred By Contact Referred To Contact Vascular Surgery / Comprehensive Vascular Clinic Diagnoses Cerebrovascular accident (CVA), unspecified mechanism (CMS/HCC) WHIT (cerebral atherosclerosis) Jasbir Carlos MD [address] [facility] [address] [place] [address] Phone: tel:[phone] fax: [facility] [address] [facility] [address] [facility] [address] [place] [address] Phone: tel: fax: Referral ID Status Reason Start Date Expiration Date V isits Requested Visits Authorized [id number] Closed Specialty Services Required 09/20/2024 03/22/2026 1 1 Encounter Details Date Type Department Care Team (Late st Contact Info) Description 10/27/2024 2:20 PM EDT Office Visit [facility] [address] [facility] 5th Floor [address] [place] [address] Dilma Doll PA [address] [facility] [address] [place] [address] Symptomatic stenosis of left carotid artery (Primary Dx); History of stroke Social History Tobacco Use Types Packs/Day Years Used Date Smoking Tobacco: Former Cigarettes 1 11 S tarted: 10/27/1973 Smokeless Tobacco: Current Chew Tobacco Cessation:Ready to Q uit: Not Asked; Counseling Given: Not Answered Alcohol Use Standard Drinks/Week Comments Never 0 (1 standard drink = 0.6 oz pur e alcohol) AUDIT-C Answer Date Recorded Q1: How often do you have a drink containing alcohol? Never 10/27/2024 Q2: How many drinks containi ng alcohol do you have on a typical day when you are drinking? Patient does not drink Q3: How often do you have si x or more drinks on one occasion? Never 10/27/2024 Sex and Gender Information Value Date Recorded Sex Assigned at Not on file Legal Sex Male 8:45 PM EDT Gender Identity Not on file Sexual Orientation Not on file documented as of this encounter Last Filed Vital Signs Vital Sign Reading Time Taken Comments Blood Pressure 107/66 10/27/2024 1:58 PM EDT Pulse 56 10/27/2024 1:58 PM EDT Temperature 36.6 C (97.8 F) 10/27/2024 1:55 PM EDT Respiratory Rate - - Oxygen Saturation - - Inhaled Oxygen Concentration - - Weight 96.6 kg (213 lb) 10/27/2024 1:55 PM EDT Height 177.8 cm (5' 10 ) 10/27/2024 1:55 PM EDT Body Mass Index 30.56 10/27/2024 1:55 PM EDT documented in this encounter Functional Status * AUDIT-C Score Answer Date of Assessment Author 0 10/27/2024 1:59 PM EDT Elieser Farrell * Question Answer Date of Assessment Author Q1: How often do you have a drink containing alcohol? Never 10/27/2024 1:59 PM EDT Elieser Farrell Q2: How many drinks containing alcohol do you have on a typical day when you are drinking? Patient does not drink 10/27/2024 1:59 PM EDT Elieser Farrell Q3: How often do you have six or more drinks on one occasion? Never 10/27/2024 1:59 PM EDT Elieser Farrell documented as of this encounter Miscellaneous Notes * Progress Notes - Dilma Doll, ANTOINETTE - 10/27/2024 2:20 PM EDT Dear Johnie Guzman MD, HPI We had the pleasure of seeing your patient, Miguel Pickard, in clinic today for consultation regarding carotid artery stenosis. His PMHx includes CAD s/p multiple coronary stents and CABG, HTN, HLD, T2DM, and TIA. He reports he suffered a stroke about 2 months ago and was found to have 70% stenosis of his left carotid bifurcation on CT at OSH. There are no images available for review today. He reports residual right-sided weakness with foot drop. He is maintained on aspirin, plavix and statin. He is a former smoker. His chronic comorbid conditions that impact our treatment planning include: CAD HTN HLD T2DM Stroke The following portions of the chart were reviewed this encounter and updated as appropriate: Tobacco Allergies Meds Problems Med Hx Surg Hx Fam Hx Subjective Review of Systems All other systems reviewed and are negative. Objective Physical Exam AAOx3, NAD, sitting in wheelchair, accompanied by family Normal respiratory effort on room air No carotid bruit auscultated Palpable radial and ulnar pulses bilaterally Right foot drop Assessment/Plan In Summary: Miguel Pickard is a 69 y.o. year old male who we saw today in clinic for what appearsto be symptomatic left carotid stenosis. I am not able to view imaging and have requested them to be powershared. I discussed this patient with Dr. Jang who will see him in follow up once images are available. Continue aspirin and plavix. ER precautions reviewed. Below is a summary of the diagnoses addressed in today's visit and any associated orders: Problem List Items Addressed This Visit Symptomatic stenosis of left carotid artery - Primary History of stroke We will see him back for: Follow up in 2 weeks (on 11/10/2024) for with Dr. Jang. The patient was counseled on the importance of: - strict diabetic glucose control - aspirin therapy for overall cardiovascular health - plavix therapy for stroke prevention - statin therapy for control of hyperlipidemia and plaque stabilization - blood pressure monitoring - proper nutrition, exercise and maintaining a healthy weight. documented in this encounter Plan of Treatment Not on file documented as of this encounter Visit Diagnoses Diagnosis Symptomatic stenosis of left carotid artery- Primary History of stroke Transient ischemic attack (TIA), and cerebral infarction without residual deficits documented in this encounter Additional Health Concerns Assessment Noted Time A fall risk assessment has been complete d for the patient 10/27/2024 2:07 PM EDT A Body Mass Index follow-up plan has been documented for the patient 10/31/2024 12:43 PM EDT documented as of this encounter Care Teams Threshing Department Supervisor Relationship Specialty Start Date End Date Johnie Guzman MD [address] [place] [address] PCP - General 07/26/20 documented as of this encounter
--- OUTSIDE RECORDS SUMMARY | 2024-11-10 09:00 | XMS_ITS | Encounter Summary ---
Author Organization [facility] Address [address] [id number] Care Team Providers Care Rehab Therapist Name Role Phone Johnie Guzman MD Primary Care Provider [phone]- [phone] Reason for Referral * Imaging (Routine) - Pending Review Specialty Diagnoses / Procedures Referred By Jaimie altamirano Referred To Contact Cardiology Diagnoses Symptomatic stenosis of left carotid artery Procedures VAS US Carotid Duplex Bilateral Edwardo Jang MD [address] [address] Phone: tel: fax: Referral ID Status Reason Start Date Expiration Date Visits Requested Visits Authorized [id number] Pending Review Perform Procedure 11/10/2024 05/12/2026 1 1 * Imaging (Urgent) - Closed Specialty Diagnoses / Procedures Referred By Jaimie atlamirano Referred To Contact Cardiology Diagnoses Symptomatic stenosis of left carotid artery Procedures VAS US Carotid Duplex Bilateral Edwardo Jang MD [address] [address] Phone: tel: fax: Referral ID Status Reason Start Date Expiration Date V isits Requested Visits Authorized [id number] Closed Perform Procedure 11/10/2024 05/12/2026 1 1 Reason for Visit * Reason Comments Cerebrovascular accident (CVA), unspecif ied mechanism (CMS Encounter Details Date Type Department Care Team (Latest Contact Info) Description 11/10/2024 9:00 AM EDT Office Visit [facility] [address] [facility] [address] Floor [address], [address] [place] [address] Edwardo Jang MD [address] [facility] [address] [place] [address] Symptomatic stenosis of left carotid artery (Primary Dx) Social History Tobacco Use Types Packs/Day Years Used Date Smoking Tobacco: Former Cigarettes 1 11 S tarted: 10/27/1973 Smokeless Tobacco: Current Chew Alcohol Use Standard Drinks/Week Comments Never 0 [...] Sign Reading Time Taken Comments Blood Pressure 186/95 11/10/2024 8:48 AM EDT haven't took bp med yet Pulse 52 11/10/2024 8:48 AM EDT Temperature 36.6 C (97.9 F) 11/10/2024 8:40 AM EDT Respiratory Rate - - Oxygen Saturation - - Inhaled Oxygen Concentration - - Weight 96.6 kg (212 lb 15.4 oz) 11/10/2024 8:40 AM EDT Height 177.8 cm (5' 10 ) 11/10/2024 8:4 0 AM EDT Body Mass Index 30.56 11/10/2024 8:40 AM EDT documented in this encounter Miscellaneous Notes * Progress Notes - Edwardo Jang MD - 11/10/2024 9:00 AM EDT Dear Johnie Guzman MD, HPI Patient is a 69 year old man with history of hypertension, hyperlipidemia, coronary artery disease,and diabetes mellitus, who presents for evaluation of newly diagnosed left carotid artery stenosis.Patient reports that two months ago he presented to outside hospital with right lower extremity motor and sensory loss. He was diagnosed with a left hemispheric stroke. He underwent CTA that showed < 50% right ICA and > 70% left ICA stenosis; of note I reviewed this CTA Neck and it appears that the left ICA stenosis is < 50%. He reports that he has some persistent right leg deficits. He is a former smoker. He takes Aspirin, Plavix, and Atorvastatin (80 mg). I personally and independently reviewed the Vascular Lab Images from today's visit which showed: < 50% left ICA stenosis His chronic comorbid conditions that impact our treatment planning include: Hypertension (HTN) - needs improvement, with a last BP of: BP Readings from Last 3 Encounters: 11/10/24 (!) 186/95 10/27/24 107/66 07/16/20 116/76 Diabetes (DM) - control uncertain, with a last HbA1C of: No results found for requested labs withinlast 365 days. Dyslipidemia - control uncertain, with most recent Lipid Profile of: CHOL: No results found for requested labs within last 365 days.mg/dL, HDL: No results found for requested labs within last 365 days.mg/dL, LDL: No results found for requested labs within last 365 days.mg/dL, TG: No results found for requested labs within last 365 days.mg/dL The following portions of the chart were reviewed this encounter and updated as appropriate: Tobacco Allergies Meds Problems Med Hx Surg Hx Fam Hx Subjective Review of Systems All other systems reviewed and are negative. Objective Physical Exam Constitutional: Appearance: Normal appearance. He is obese. HENT: Head: Normocephalic and atraumatic. Eyes: General: No scleral icterus. Extraocular Movements: Extraocular movements intact. Pupils: Pupils are equal, round, and reactive to light. Cardiovascular: Rate and Rhythm: Normal rate. Pulmonary: Effort: Pulmonary effort is normal. No respiratory distress. Abdominal: General: There is no distension. Tenderness: There is no abdominal tenderness. Musculoskeletal: Cervical back: Normal range of motion. Comments: Decreased right lower extremity motor strength. Walks with a walker Skin: General: Skin is warm and dry. Capillary Refill: Capillary refill takes less than 2 seconds. Neurological: General: No focal deficit present. Mental Status: He is alert and oriented to person, place, and time. Psychiatric: Mood and Affect: Mood normal. Behavior: Behavior normal. Thought Content: Thought content normal. Judgment: Judgment normal. Assessment/Plan Patient is a 69 year old man with history of hypertension, hyperlipidemia, coronary artery disease,and diabetes mellitus, who presents for evaluation of newly diagnosed left carotid artery stenosis. His CTA Neck from outside hospital was ready as Left ICA stenosis >70%, however, I disagree withthis interpretation. I obtained a carotid duplex today that demonstrates <50% left ICA stenosis.Given this finding, he is not a candidate for carotid revascularization. I will perform surveillance of his carotid artery stenosis. He will return to clinic in 6 months with carotid artery duplex. Problem List Items Addressed This Visit Circulatory Symptomatic stenosis of left carotid artery - Primary Relevant Orders VAS US Carotid Duplex Bilateral VAS US Carotid Duplex Bilateral We will see him back for: Follow up in about 6 months (around 05/12/2025). The patient was counseled on the importance of: - strict diabetic glucose control - aspirin therapy for overall cardiovascular health - tobacco avoidance (a total time of 4-10 minutes was undertaken, addressing the role of tobacco incardiovascular disease and disease progression) - plavix therapy for stroke prevention - statin therapy for control of hyperlipidemia and plaque stabilization - blood pressure monitoring - proper nutrition, exercise and maintaining a healthy weight. documented in this encounter Plan of Treatment Scheduled Orders Name Type Priority Associated Diagnoses Orde r Schedule VAS US Carotid Duplex Bilateral Vascular Ultrasound Routine Symptomatic stenosis of left carotid artery Expected: 05/12/2025 (Approximate), Expires: 05/14/2026 documented as of this encounter Results * VAS US Carotid Duplex Bilateral (11/10/2024 9:49 AM EDT) Anatomical Region Laterality Modality Head, Neck, Vascular Ultrasound Impressions 11/10/2024 1:10 PM EDT Right: Mild heterogeneous plaque is demonstrated at the carotid bifurcation and proximal ICA. Flow is present in the CCA, ICA, and ECA. ICA velocities do not demonstrate evidence of a hemodynamically significant stenosis (less than 50%). Left: Mild heterogeneous plaque is demonstrated at the carotid bifurcation and proximal ICA. Flow is present in the CCA, ICA, and ECA. ICA velocities do not demonstrate evidence of a hemodynamically significant stenosis (less than 50%). Vertebral artery flow is antegrade, bilaterally. Subclavian artery flow is multiphasic, bilaterally. COMMUNICATION: Per this written report. Preliminary report signed by Jorden Lentz RVT on 11/10/2024 12:49 PM By electronically signing this report, I, the attending physician, attest that I have personally reviewed the images/data for the above examination(s) and I agree with the final edited report. Drafted by Jorden Lentz RVT on 11/10/2024 12:41 PM Final report signed by Edwardo Jang on 11/10/2024 1:10 PM Narrative 11/10/2024 1:10 PM EDT CLINICAL INDICATION: Hemispheric neurologic symptoms TECHNIQUE: Non-invasive, real time duplex exam of the extracranial carotid circulation with Doppler ultrasonic waveform and spectral analysis was performed. COMPARISON: CT performed at [facility]SH showing >70% left ICA stenosis FINDINGS: Right: CCA: 48 cm/s ICA: 38, 13 cm/s; ICA/CCA ratio: 0.79 ECA: 61 cm/s Vertebral A: 36 cm/s Subclavian A: 135 cm/s Left: CCA: 58 cm/s ICA: 82, 21 cm/s; ICA/CCA ratio: 1.4 ECA: 65 cm/s Vertebral A: 52 cm/s Subclavian A: 155 cm/s Procedure Note Edwardo Jang MD - 11/10/2024 CLINICAL INDICATION: Hemispheric neurologic symptoms TECHNIQUE: Non-invasive, real time duplex exam of the extracranial carotidcirculation with Doppler ultrasonic waveform and spectral analysis wasperformed. COMPARISON: CT performed at [facility]SH showing >70% left ICA stenosis FINDINGS: Right: CCA: 48 cm/s ICA: 38, 13 cm/s; ICA/CCA ratio: 0.79 ECA: 61 cm/s Vertebral A: 36 cm/s Subclavian A: 135 cm/s Left: CCA: 58 cm/s ICA: 82, 21 cm/s; ICA/CCA ratio: 1.4 ECA: 65 cm/s Vertebral A: 52 cm/s Subclavian A: 155 cm/s IMPRESSION: Right: Mild heterogeneous plaque is demonstrated at the carotidbifurcation and proximal ICA. Flow is present in the CCA, ICA, and ECA.ICA velocities do not demonstrate evidence of a hemodynamicallysignificant stenosis (less than 50%). Left: Mild heterogeneous plaque is demonstrated at the carotid bifurcationand proximal ICA. Flow is present in the CCA, ICA, and ECA. ICAvelocities do not demonstrate evidence of a hemodynamically significantstenosis (less than 50%). Vertebral artery flow is antegrade, bilaterally. Subclavian artery flow is multiphasic, bilaterally. COMMUNICATION: Per this written report. Preliminary report signed by Jorden Lentz RVT on 11/10/2024 12:49 PM By electronically signing this report, I, the attending physician, attestthat I have personally reviewed the images/data for the aboveexamination(s) and I agree with the final edited report. Drafted by Jorden Lentz RVT on 11/10/2024 12:41 PM Final report signed by Edwardo Jang on 11/10/2024 1:10 PM Edwardo Jang MD CV VASCULAR PROCEDURES Final Result documented in this encounter Visit Diagnoses Diagnosis Symptomatic stenosis of left carotid artery- Primary Symptomatic stenosis of left carotid artery documented in this encounter Additional Health Concerns Assessment Noted Time A fall risk assessment has been complete d for the patient 11/10/2024 8:46 AM EDT A Body Mass Index follow-up plan has been documented for the patient 11/10/2024 10:20 AM EDT documented as of this encounter Care Teams Rehab Therapist Relationship Specialty Start Date End Date Johnie Guzman MD [address] [place] [id number] PCP - General 07/26/20 documented as of this encounter
--- OUTSIDE RECORDS SUMMARY | 2024-11-10 09:25 | XMS_ITS | Encounter Summary ---
Author Organization [facility] Address [address] [place] [address] Care Team Providers Care Intelligence Research Specialist Name Role Phone Johnie Guzman MD Primary Care Provider [phone]- [phone] Reason for Referral * Imaging (Urgent) - Closed Specialty Diagnoses / Procedures Referred By Jaimie altamirano Referred To Contact Cardiology Diagnoses Symptomatic stenosis of left carotid artery Procedures VAS US Carotid Duplex Bilateral Edwardo Jang MD [address] [address] Phone: tel: fax: Referral ID Status Reason Start Date Expiration Date V isits Requested Visits Authorized [id number] Closed Perform Procedure 11/10/2024 05/12/2026 1 1 Reason for Visit * Imaging (Urgent) - Closed Specialty Diagnoses / Procedures Referred By Jaimie altamirano Referred To Contact Cardiology Diagnoses Symptomatic stenosis of left carotid artery Procedures VAS US Carotid Duplex Bilateral Edwardo Jang MD [address] [address] Phone: tel: fax: Referral ID Status Reason Start Date Expiration Date V isits Requested Visits Authorized [id number] Closed Perform Procedure 11/10/2024 05/12/2026 1 1 Encounter Details Date Type Department Care Team (Latest Contact Info) Description 11/10/2024 9:25 AM EDT - 11/10/2024 11:59 PM EDT Hospital Encounter [facility] [address] [facility] 5th Floor [address], [address] [place] [address] Symptomatic stenosis of left carotid artery Discharge Disposition: Home or Self Care Social History Tobacco Use Types Packs/Day Years [...] on file documented as of this encounter Medications at Time of Discharge acetaminophen (Tylenol) 325 MG tablet TAKE 1 TO 2 TABLETS EVERY 4 HOURS NEEDED 07/02/2020 aspirin 81 MG EC tablet Take 1 tablet by mouth 1 time each day. atorvastatin (Lipitor) 80 MG tablet 1 (one) time each day at the same time. 07/02/2020 clopidogrel (Plavix) 75 MG tablet TAKE ONE TABLET BY MOUTH ONCE A DAY; Duration: 07/02/2020 DULoxetine (Cymbalta) [address] capsule take one capsule by mouth once a day etodolac (Lodine) 400 MG tablet Take 1 tablet by mouth 2 times a day. furosemide (Lasix) 20 MG tablet TAKE 1 TABLET 3 times a week 07/16/2020 glimepiride (Amaryl) 4 MG tablet TAKE ONE TABLET BY MOUTH ONCE A DAY; Duration: 90 07/02/2020 Jardiance 25 MG 1 (one) time each day at the same time. 07/02/2020 levETIRAcetam (Keppra) 500 MG tablet every 12 hours. losartan (Cozaar) 50 MG tablet TAKE ONE TABLET BY MOUTH ONCE A DAY; Duration: 90 metoprolol tartrate (Lopressor) 50 MG tablet TAKE ONE TABLET BY MOUTH 2 TIMES A DAY; Duration: 90 07/02/2020 prazosin (Minipress) 1 MG capsule Take 2 capsules by mouth nightly. primidone (Mysoline) 50 MG tablet Take 2 tablets by mouth 2 times a day. documented as of this encounter Plan of Treatment Not on file documented as of this encounter Procedures Procedure Name Priority Date/Time Associated Diagnosis Comments VAS US CAROTID DUPLEX BILATERAL STAT 11/10/2024 9:49 AM EDT Symptomatic stenosis of left carotid artery documented in this encounter Results * VAS US Carotid [...] Diagnoses Diagnosis Symptomatic stenosis of left carotid artery documented in this encounter Additional Health Concerns Assessment Noted Time A fall risk assessment has been complete d for the patient 11/10/2024 8:46 AM EDT A Body Mass Index follow-up plan has been documented for the patient 11/10/2024 10:20 AM EDT documented as of this encounter Care Teams Intelligence Research Specialist Relationship Specialty Start Date End Date Johnie Guzman MD [address] [place] [id number] PCP - General 07/26/20 documented as of this encounter
[2024-11-29] VITALS (11 sets, daily range): BP systolic 187–210; BP diastolic 92–103; PULSE 59–68; RESP 11–22; TEMP 36.9–37; O2SAT 93–97; BMI 28.7
--- NOTE | 2024-11-29 20:03 | ED_ITS ---
Discharge Plan Disposition Patient Disposition: Home, Self-Care Condition: Good Prescriptions Prescriptions: New methocarbamol 500 mg tablet 500 mg PO BID Qty: 60 0RF lidocaine 5 % adhesive patch,medicated 1 patch topical DAILY Qty: 15 0RF Rx Instructions: leave on most painful area for up to 12 hrs No Action losartan 50 mg tablet PO Patient Comments: TAKE ONE TABLET BY MOUTH ONCE A DAY furosemide 40 mg tablet PO glimepiride 4 mg tablet PO metoprolol tartrate 50 mg tablet PO Patient Comments: TAKE ONE TABLET BY MOUTH 2 TIMES A DAY Jardiance 25 mg tablet PO Patient Comments: TAKE ONE TABLET BY MOUTH EVERY MORNING primidone 50 mg tablet PO prazosin 1 mg capsule PO etodolac 400 mg tablet PO Patient Comments: TAKE ONE TABLET BY MOUTH 2 TIMES A DAY clopidogrel 75 mg tablet 75 mg PO DAILY duloxetine 60 MG capsule,delayed release(DR/EC) 60 mg PO DAILY aspirin 81 MG tablet,delayed release (DR/EC) 81 mg PO DAILY levetiracetam 500 MG tablet 750 mg PO BID acetaminophen 325 MG tablet 650 mg PO Q4HP PRN (Reason: As Needed For Fever Or Pain) 0RF insulin lispro 100 UNIT/ML solution 0 unit SQ ACHS 0RF ofloxacin 0.3 % drops See Rx Instructions .ROUTE .COMPLEX Qty: 10 0RF Rx Instructions: 1 drop into the right eye every 30 minutes while awake for the first 2 days and every 4-6 hours while sleeping for the first 2 days. After this, 1 drop every hour while awake for 5 days, then 1 drop 4 times daily until your problem has resolved. cefadroxil 500 mg capsule 500 mg PO BID 7 Days Qty: 14 0RF Referrals Follow up/Referrals: Johnie Guzman MD [Primary Care Provider, Medical] - See instructions Activity Restrictions/Add. Instructions Additional Instructions/Restrictions: Take the Robaxin and use the lidocaine patches in addition to Tylenol for your symptoms for the next 2 days. I would like you to pickle maker a blood pressure cuff tomorrow and take your blood pressure each time in the morning and write it in a journal. If your blood pressure remains higher than 180 systolic (which is the top number) please call your primary care provider or return to the emergency department if you are having any chest pain or headache to be further evaluated for your high blood pressure. Call your primary care provider to schedule an appointment in 1 week. Clinical Impressions Clinical Impression: Neck pain Instructions Patient Instructions: DI for Neck Pain Print Language Print Language: Yakut Discharge ED Provider: Jaz Dominguez Adult HPI General Chief complaint: Neck Pain/Injury Stated complaint: Neck pain Time Seen by Provider: 11/29/24 20:03 History of Present Illness HPI narrative: Patient is a 69-year-old male with a known history of back pain who presents to the emergency department with neck pain. Patient states that the pain is in the posterior part of his neck, does not radiate. Patient has not had any numbness or weakness. Patient does not have any headache. Patient has not had any urinary or bowel incontinence. Patient has no history of IV drug use. No history of cancer. He does not have any fevers. Related Data Home Medications ?Medication ?Instructions ?Recorded ?Confirmed duloxetine 60 mg capsule,delayed 60 mg PO DAILY mood 0 05/09/18 09/18/24 release aspirin 81 mg tablet,delayed 81 mg PO DAILY Blood thin ner 05/10/18 09/18/24 release levetiracetam 500 mg tablet 750 mg PO BID seizures 09/18/24 empagliflozin 25 mg tablet mg PO 08/22/24 09/18/24 (Jardiance) furosemide 40 mg tablet mg PO 08/22/24 09/18/24 glimepiride 4 mg tablet mg PO 08/22/24 09/18/24 losartan 50 mg tablet mg PO 08/22/24 09/18/24 metoprolol tartrate 50 mg tablet mg PO 08/22/24 clopidogrel 75 mg tablet 75 mg PO DAILY 09/18/2410/06 etodolac 400 mg tablet mg PO 09/18/24 09/18/24 prazosin 1 mg capsule mg PO 09/18/24 09/18/24 primidone 50 mg tablet mg PO 09/18/24 09/18/24 Previous Rx's ?Medication ?Instructions ?Recorded acetaminophen 325 mg tablet 650 mg (2 x 325 mg) PO Q4H P PRN As 06/12/20 Needed For Fever Or Pain insulin lispro 100 unit/mL 0 unit (0 mL) SQ ACHS 06/12 subcutaneous solution ofloxacin 0.3 % eye drops See Rx Instructions .Route 0 10/03/22 .COMPLEX #10 mL cefadroxil 500 mg capsule 500 mg PO BID 7 days #14 cap s 10/01/24 lidocaine 5 % topical patch 1 patch topical DAILY #15 ea 11/29/24 methocarbamol 500 mg tablet 500 mg PO BID #60 tabs Allergies Allergy/AdvReac Type Severity Reaction Status Date / Time No Known Allergies Allergy Verified 09/18/24 13:25 [facility] Disclaimer: The information contained in this section may have been updated after the patient was seen, as this information can be updated by other users. Medical History (Updated 11/29/24 @ 22:33 by Jaz Dominguez DO) Stenosis of carotid artery Coronary artery disease CAD (coronary artery disease) Diabetic neuropathy, type II diabetes mellitus Surgical History Hx of foot surgery S/P triple vessel bypass Social History Smoking Status: Never smoker second hand exposure: No alcohol intake: never current occupational status: disabled Travel in the last 8 weeks?: None household members: spouse housing: house current occupational exposures/hazards: No caffeine: Yes Have you lived/traveled outside US in past 30 days?: No Contact w/someone who lives/traveled outside US past 30 days?: No Exposure to someone with infectious disease in past 14 days?: No Do you have a fever (greater than 100.4 F or 38 C)?: No Have you tested positive for COVID-19?: No Exposed to someone with COVID-19 in past 14 days?: No Do you have a sore throat?: No Do you have a cough?: No Do you have any weakness?: No Do you have any diarrhea?: No Are you experiencing any unusual bleeding?: No Do you have any muscle aches/pain?: No Do you have any abdominal pain?: No Are you experiencing loss of taste or smell?: No Other Medical History Have you received the Flu Vaccine for this season: Yes Have you received the Pneumonia Vaccine: Yes ROS Obtained: Yes All systems reviewed & no additional complaints except as documented and Yes Systems reviewed as appropriate & no additional complaints except as documented Physical Exam General General appearance: alert and in no apparent distress Head Head exam: atraumatic, normocephalic and normal inspection Eye Eye exam: Present normal appearance, PERRL and EOMI; Absent scleral icterus ENT ENT exam: Present normal exam and normal external ear exam Neck Neck exam: Present normal inspection, full ROM and tenderness (midline C spine tenderness ) Chest Chest inspection: Present normal inspection and symmetric chest wall rise Respiratory Respiratory exam: Present normal lung sounds bilaterally; Absent respiratory distress or wheezes Cardiovascular Cardiovascular exam: Present regular rate, normal rhythm and normal heart sounds Abdominal Exam Abdominal exam: Present soft and distention; Absent tenderness, guarding or rebound Extremities Exam Extremities exam: Present normal inspection and full ROM Back Exam Back exam: Present normal inspection and full ROM Neurological Exam Neurological exam: Present alert, oriented X3, CN II-XII intact, normal gait, motor sensory deficit and reflexes normal Psychiatric Psychiatric exam: Present normal affect and normal mood Skin Skin exam: Present warm and dry Medical Decision Making Medical Records Medical records reviewed: Yes I reviewed the patient's medical records. Screening: Per USPSTF and CDC recommendations, given the prevalence of disease in our region, it is our hospital?s policy to screen for HIV and viral Hepatitis for all patients aged 18 and over and those with ongoing risk factors. Garo Inquiry Pt receiving controlled substance: No Vital Signs: 11/29/24 20:04 11/29/24 20:43 11/29/24 20:43 Temperature 98.6 F Temperature Source Oral Pulse Rate 65 67 Pulse Rate [Left] 68 Respiratory Rate 16 22 11 L Blood Pressure 193/97 H 193/97 H Blood Pressure [Right Arm] 210/103 H Blood Pressure Mean 129 Blood Pressure Mean [Right Arm] 138 Blood Pressure Source Blood Pressure Source [Right Arm] Automatic Cuff Blood Pressure Position 02 Sat by Pulse Oximetry 97 93 L 96 Oxygen Delivery Method Room Air Room Air 11/29/24 21:00 11/29/24 21:20 11/29/24 21:40 Temperature Temperature Source Pulse Rate 62 65 60 Pulse Rate [Left] Respiratory Rate 18 17 19 Blood Pressure 187/97 H 191/102 H 207/98 H Blood Pressure [Right Arm] Blood Pressure Mean 127 131 134 Blood Pressure Mean [Right Arm] Blood Pressure Source Blood Pressure Source [Right Arm] Blood Pressure Position 02 Sat by Pulse Oximetry 93 L 95 94 L Oxygen Delivery Method 11/29/24 22:00 11/29/24 22:07 11/29/24 22:11 Temperature Temperature Source Pulse Rate 60 65 62 Pulse Rate [Left] Respiratory Rate 18 18 14 Blood Pressure 193/92 H 195/93 H 193/94 H Blood Pressure [Right Arm] Blood Pressure Mean 142 137 145 Blood Pressure Mean [Right Arm] Blood Pressure Source Blood Pressure Source [Right Arm] Blood Pressure Position 02 Sat by Pulse Oximetry 93 L 94 L 94 L Oxygen Delivery Method 11/29/24 22:20 11/29/24 22:23 11/29/24 22:35 Temperature 98.4 F Temperature Source Oral Pulse Rate 59 L 63 60 Pulse Rate [Left] Respiratory Rate 18 16 16 Blood Pressure 205/99 H 205/99 H 191/93 H Blood Pressure [Right Arm] Blood Pressure Mean 149 Blood Pressure Mean [Right Arm] Blood Pressure Source Automatic Cuff Blood Pressure Source [Right Arm] Blood Pressure Position Sitting 02 Sat by Pulse Oximetry 94 L 95 Oxygen Delivery Method Room Air Room Air Lab Data Lab results reviewed: Yes I reviewed the patient's lab results. Orders (Tests/Meds): ED MEDICATIONS Discontinued Medications Generic Name Dose Route Start Last Admin Trade Name Freq PRN Reason Stop Dose Admin Acetaminophen 1,000 mg 11/29/24 20:16 11/29/24 20:40 Acetaminophen 500mg Tab PO 11/29/24 20:17 1,000 mg ONCE ONE Administration Methocarbamol 500 mg 11/29/24 20:18 11/29/24 20:40 Methocarbamol 500mg Tablet PO 11/29/24 20:19 500 mg ONCE ONE Administration Oxycodone HCl 5 mg 11/29/24 20:18 11/29/24 20:40 Oxycodone 5mg Immediate Release Tablet PO 11/29/24 20:19 5 mg ONCE ONE Administration ORDERS Category Date Time Status CT cervical spine wo con Stat Cat Scan 11/29/24 20:[address] thoracic spine wo con Stat Cat Scan 11/29/24 20:16 Completed CXR --portable [XR chest portable] Stat Exams 11/29/24 20:16 Completed Shoulder XR left minimum 2 views [XR shoulder LT min 2V Exams 11/29/24 20:16 Completed ] Stat Medical Decision Narrative: Patient is a 59-year-old male who presented to the emergency department with neck pain. On arrival, patient was hemodynamically stable with unremarkable vital signs. Differential includes but not limited to: Musculoskeletal spasm, strain, sprain, fracture, amongst others. Patient's imaging was reviewed and interpreted by myself including chest x-ray, shoulder x-ray as well as CT cervical spine and CT thoracic spine. Patient's imaging showed no acute pathology. Patient was treated symptomatically in the emergency department and patient was sent home with Robaxin and lidocaine patches and advised to use Tylenol Motrin as well. Patient was otherwise discharged home in stable condition. Critical Care Critical Care Time Critical Care Time: No
--- OUTSIDE RECORDS SUMMARY | 2024-11-29 20:07 | XMS_ITS | Clinical Summary ---
Author Organization [facility] Address [address] [place] [address] Care Team Providers Care Call Center Coordinator Name Role Phone Johnie Guzman MD Primary Care Provider +1- [phone] Allergies Active Allergy Reactions Criticality Noted Date Comments Metformin Diarrhea Low 10/27/2024 Medications acetaminophen (Tylenol) 325 MG tablet TAKE 1 TO 2 TABLETS EVERY 4 HOURS NEEDED 07/02/2020 Active aspirin 81 MG EC tablet Take 1 tablet by mouth 1 time each day. Active atorvastatin (Lipitor) 80 MG tablet 1 (one) time each day at the same time. 07/02/2020 Active clopidogrel (Plavix) 75 MG tablet TAKE ONE TABLET BY MOUTH ONCE A DAY; Duration: 90 07/02/2020 Active DULoxetine (Cymbalta) [address] capsule take one capsule by mouth once a day Active Jardiance 25 MG 1 (one) time each day at the same time. 07/02/2020 Active etodolac (Lodine) 400 MG tablet Take 1 tablet by mouth 2 times a day. Active furosemide (Lasix) 20 MG tablet TAKE 1 TABLET 3 times a week 07/16/2020 Active glimepiride (Amaryl) 4 MG tablet TAKE ONE TABLET BY MOUTH ONCE A DAY; Duration: 90 07/02/2020 Active levETIRAcetam (Keppra) 500 MG tablet every 12 hours. Active losartan (Cozaar) 50 MG tablet TAKE ONE TABLET BY MOUTH ONCE A DAY; Duration: 90 Active metoprolol tartrate (Lopressor) 50 MG tablet TAKE ONE TABLET BY MOUTH 2 TIMES A DAY; Duration: 90 07/02/2020 Active prazosin (Minipress) 1 MG capsule Take 2 capsules by mouth nightly. Active primidone (Mysoline) 50 MG tablet Take 2 tablets by mouth 2 times a day. Active Active Problems Problem Noted Date Diagnosed Date Symptomatic stenosis of left carotid artery 10/13 History of stroke 10/31/2024 Encounters Date Type Department Care Team Description 11/14/2024 Telephone formerly [facility] [address] [place] [address] Mar Amezcua 11/10/2024 9:25 AM EDT - 11/10/2024 11:59 PM EDT Hospital Encounter [facility] [address] [place] [address] Symptomatic stenosis of left carotid artery Discharge Disposition: Home or Self Care 11/10/2024 9:00 AM EDT Office Visit [facility] [address] [place] [address] Edwardo Jang MD Symptomatic stenosis of left carotid artery (Primary Dx) 11/10/2024 Travel 10/27/2024 2:20 PM EDT Office Visit [facility] [address] [place] [address] Dilma Doll PA Symptomatic stenosis of left carotid artery (Primary Dx); History of stroke 10/27/2024 Travel 10/19/2024 Telephone formerly [facility] [address] [facility] [place] [address] Mar Amezcua from Last 3 Months Immunizations Immunization Administration Dates Next Due Pneumococcal Polysaccharide PPV23 11/11/2019 Family History Medical History Relation Name Comments Heart disease Mother Hypertension Mother Stroke Mother Relation Name Status Comments Mother Social History Tobacco Use Types Packs/Day Years [...] Mass Index 30.56 11/10/2024 8:40 AM EDT Plan of Treatment Health Maintenance Due Date Last Done Comments [facility]-Depression Screening 1955 [facility]-Medicare Annual Wellness (AWV) 1955 [facility]-/Child/Adol SDOH Screenings 1955 [facility]- SDOH Screenings 1974 [facility]-Adult SDOH Screenings 1974 CT Colonography 2001 Colonoscopy 2001 FIT-DNA 2001 FIT 2001 FOBT 2001 Sigmoidoscopy 2001 [facility]-Colorectal Cancer Screening 2001 [facility]-Zoster Vaccines (1 of 2) 2006 [facility]-Abdominal Aortic Aneurysm (AAA) Screening 2021 [id number] Vaccine ( season) 2024 01/22/2021, 07/17/2020 [facility]-Influenza Vaccine (#1) 11/13/202412/23, 01/22/2021, 01/08/2018, Additional history exists [facility]-RSV Vaccine: 60+ Years or (1 - 1-dose 75+ series) 09/27/2031 [facility]-DTaP,Tdap,and Td Vaccines (3 - Td or Tdap) 10/09/2034 10/09/2024, 04/22/2024, 05/16/1996 [facility]-Hepatitis C Screening Completed 11/07/2019 [facility]-Pneumococcal Vaccine: 50+ Years Completed 01/23/2022, 11/11/2019 [facility]-Obesity Intervention Completed 11/10/2024, 10/13 HPV Vaccines Aged Out No longer eligi [...] EDT Symptomatic stenosis of left carotid artery HEPATITIS C ANTIBODY - ED W/REFLEX TO HCV QUANT PCR Routine 11/07/2019 2:56 PM EDT from Last 3 Months or Most Recently Relevant to Health Maintenance Results * VAS US Carotid Duplex Bilateral [...] by Edwardo Jang on 11/10/2024 1:10 PM us Edwardo Jang MD CV VASCULAR PROCEDURES Final Result * Geetha Hepatitis C Antibody (11/07/2019 2:56 PM EDT) Geetha Hepatitis C Ab NEGATIVE Reference Range: Negative SUNQUEST 11/07/2019 2:56 PM EDT 11/07/2019 3:55 PM EDT Fabio Bundy MD LAB BLOOD ORDERABLES Final Res ult SUNQUEST from Last 3 Months or Most Recently Relevant to Health Maintenance Insurance [facility]IC[facility] Care Teams Call Center Coordinator Relationship Specialty Start Date End Date Johnie Guzman MD [address] [place] [address] [facility] - General 07/26/20
--- OUTSIDE RECORDS SUMMARY | 2024-11-29 20:07 | XMS_ITS | Encounter Summary ---
Author Organization [facility] Address [address] [id number] Care Team Providers Care Hearse Driver Name Role Phone Johnie Guzman MD Primary Care Provider +1- [phone] Encounter Details Date Type Department Care Team (Late st Contact Info) Description 10/19/2024 Telephone [facility] [place] [facility] [address] [place] [address] Mar Amezcua [place] [id number] Social History Tobacco Use Types Packs/Day Years Used Date Smoking Tobacco: Former Alcohol Use Standard Drinks/Week Comments No 0 (1 standard drink = 0.6 oz pur e alcohol) Sex and Gender Information Value Date Recorded Sex Assigned at Not on file Legal Sex Male 8:45 PM EDT Gender Identity Not on file Sexual Orientation Not on file documented as of this encounter Miscellaneous Notes * Telephone Encounter - Mar Amezcua - 10/19/2024 1:46 PM EDT Patient Name: Miguel Pickard :1955 Date:10/19/2024 Affiliate site: [facility] Referring Physician: Dr. Carlos Education/ Information provided: This Nurse Liaison unable to reach or leave message for Miguel Pickard prior to an appointment on10/27/2024. Will follow up with patient after appointment. Mar Amezcua [facility] Nurse Liaison [phone] documented in this encounter Plan of Treatment Not on file documented as of this encounter Visit Diagnoses Not on filedocumented in this encounter Care Teams Hearse Driver Relationship Specialty Start Date End Date Johnie Guzman MD [address] [place] [address] PCP - General 07/26/20 documented as of this encounter
--- OUTSIDE RECORDS SUMMARY | 2024-11-29 20:07 | XMS_ITS | Clinical Summary ---
Author Organization [facility] Address [address] [place] [address] Care Team Providers Care Fruit And Vegetable Inspector Name Role Phone Johnie Guzman MD Primary [...] contractions) 01/04 Coronary artery disease invo lving jackson coronary artery of jackson heart without angina pectoris 03/23/2018 Overview (03/23/2018): Added automatically from request for surgery [id number] Coronary artery disease invo lving jackson coronary artery of jackson heart 03/02/2018 Overview (03/02/2018): a. 02/09/05 cardiac [...] (2.75 x 12 Xience ZAC).. f. 06/22/13 [facility], RCA angioplasty.. Patent LAD stent. [...] ONCE 2021 COVID-19 Vaccine (2 - season) 11/13/202407/2020 INFLUENZA VACCINE 12/13/2024 12/17/2015 Medical Devices Implanted Type Area National Van Truck Driver Device Identifier Shelf Expiration Date Model / Serial / Lot Stent Xience Carla Everolimus Zac 3.5x8mm - [id number] Implanted:Qty: 1 on 03/29/2018 by Micah Norris MD at [facility] [id number] / / Insurance MEDICARE ADVANTAGE Care Teams Fruit And Vegetable Inspector Relationship Specialty Start Date End Date Johnie Guzman MD [address] [facility] [address] [place] [address] PCP - General Family Medicine 02/07/18
--- OUTSIDE RECORDS SUMMARY | 2024-11-29 20:07 | XMS_ITS | Encounter Summary ---
Author Organization [facility] Address [address] [id number] Care Team Providers Care Vascular Technologist Name Role Phone Johnie Guzman MD Primary Care Provider +1- [phone] Encounter Details Date Type Department Care Team (Latest Contact Info) Description 10/27/2024 Travel Social History Tobacco Use Types Packs/Day Years [...] on file documented as of this encounter Functional Status * AUDIT-C Score [...] one occasion? Never 10/27/2024 1:59 PM EDT Farrell, Elieser A documented as of this encounter Plan of Treatment Not on file documented as of this encounter Visit Diagnoses Not on filedocumented in this encounter Additional Health Concerns Assessment Noted Time A fall risk assessment has been complete d for the patient 10/27/2024 2:07 PM EDT A Body Mass Index follow-up plan has been documented for the patient 10/31/2024 12:43 PM EDT documented as of this encounter Care Teams Vascular Technologist Relationship Specialty Start Date End Date Johnie Guzman MD [address] [place] [address] PCP - General 07/26/20 documented as of this encounter
--- OUTSIDE RECORDS SUMMARY | 2024-11-29 20:07 | XMS_ITS | Encounter Summary ---
Author Organization [facility] Address [address] [id number] Care Team Providers Care Drug Inspector Name Role Phone Johnie Guzman MD Primary Care Provider +1- [phone] Encounter Details Date Type Department Care Team (Latest Contact Info) Description 11/10/2024 Travel Social History Tobacco Use Types Packs/Day [...] on file documented as of this encounter Plan of [...] documented as of this encounter Care Teams Drug Inspector Relationship Specialty Start Date End Date Johnie Guzman MD [address] [place] [address] PCP - General 07/26/20 documented as of this encounter
--- OUTSIDE RECORDS SUMMARY | 2024-11-29 20:07 | XMS_ITS | Encounter Summary ---
Author Organization Healthcare Address [address] [place] [address] Care Team Providers Care Channeling Machine Operator Name Role Phone Johnie Guzman MD Primary Care Provider +1- [phone] Encounter Details Date Type Department Care Team ([facility] st Contact Info) Description 08/22/2024 Orders Only External Location [address] [place] [address] Provider, External Social History Tobacco Use Types Packs/Day Years [...] Procedure Name Priority Date/Time Associated Diagnosis Comments CT NEURO OUTSIDE IMAGES 08/22/2024 10:55 AM EDT documented in this encounter Results * CT NEURO OUTSIDE IMAGES (08/22/2024 10:55 AM EDT) Anatomical Region Laterality Modality Computed Tomogra phy 08/22/2024 10:5 5 AM EDT us External Provider IMG CT PROCEDURES Final Result documented in this encounter Visit Diagnoses Not on filedocumented in this encounter Care Teams Channeling Machine Operator Relationship Specialty Start Date End Date Johnie Guzman MD [address] [place] [address] PCP - General 07/26/20 documented as of this encounter
--- OUTSIDE RECORDS SUMMARY | 2024-11-29 20:07 | XMS_ITS | Encounter Summary ---
Author Organization Healthcare Address [address] [id number] Care Team Providers Care Ferryboat Deckhand Name Role Phone Johnie Guzman MD Primary Care Provider +1- [phone] Encounter Details Date Type Department Care Team (Late st Contact Info) Description 11/14/[address] [facility] [place] [facility] [address] [place] [address] Mar Amezcua [place] [id number] Social History Tobacco Use Types Packs/Day Years [...] * Telephone Encounter - Mar Amezcua - 11/14/2024 11:29 AM EDT Pt returned call. No questions at this time, he knows he should be contacted for follow up appt once schedules available. He will keep liaison number in case needed. Aware that referral source will have most recent information. * Telephone Encounter - Mar Amezcua - 11/14/2024 11:21 AM EDT Patient Name:Miguel Pickard : 1955 Date:11/14/2024 Affiliate Site: [facility] Referring Physician: Dr. Terrance López/ Seen: Vascular/Dr. Jang Future scheduling/testing needs: Follow up to be scheduled ~ Apr 2025 This [facility] Nurse Liaison unable to leave message or reach Miguel Pickard following their appointment on 11/10/2024. Will follow up in 3 months to ensure continuum of care. Mar Amezcua [facility] Nurse Liaison [phone] documented in this encounter Plan of Treatment [...] documented as of this encounter Care Teams Ferryboat Deckhand Relationship Specialty Start Date End Date Johnie Guzman MD [address] [place] [address] PCP - General 07/26/20 documented as of this encounter
--- OUTSIDE RECORDS SUMMARY | 2024-11-29 20:07 | XMS_ITS | Encounter Summary ---
Author Organization Healthcare Address [address] [place] [address] Care Team Providers Care Immigration Services Officer Name Role Phone Johnie Guzman MD Primary Care Provider [phone]- [phone] Encounter Details Date Type Department Care Team ([facility] st Contact Info) Description 08/22/2024 Orders Only External Location [address] [place] [address] Provider, External Social History Tobacco Use Types [...] on filedocumented in this encounter Care Teams Immigration Services Officer Relationship Specialty Start Date End Date Johnie Guzman MD [address] [place] [address] PCP - General 07/26/20 documented as of this encounter
--- NOTE | 2024-11-29 20:08 | ECG_ITS ---
APPROVED REPORT Exam: Resting ECG HR:66 bpm ECG Measurements Heart Rate 66 AXES VA 238 P 59 QRSd 105 QRS 81 QT 419 T 55 QTc 432 Conclusion SINUS RHYTHM WITH FIRST DEGREE AV BLOCK INCOMPLETE RIGHT BUNDLE BRANCH BLOCK [90+ ms QRS DURATION, TERMINAL R IN V1/V2, 40+ ms S IN I/aVL/V4/V5/V6] SEPTAL MYOCARDIAL INFARCTION , OF INDETERMINATE AGE [40+ ms Q WAVE IN V1/V2] ABNORMAL ECG UNCONFIRMED REPORT Electronically signed by : GEOVANNA REBOLLAR, 11/30/2024 06:37:42
--- OUTSIDE RECORDS SUMMARY | 2024-11-29 20:08 | XMS_ITS | Patient Health Record ---
[facility] [address] [place] [id number] Care Team Providers Care Business Records Manager Name Role Phone Neno Guzman Primary Care Provider [phone] Omer Wallace Unavailable [phone] Allergies Allergen (clinical drug ingredient) Drug/Non Drug Allergy documented on EMR Reaction Allergy Type Onset Date Status metformin metFORMIN diarrhea, cramps Drug Allergy Active Results Component Value Reference Range Notes X ray : Foot, right Reviewed date:06/29/2024 04:33:27 PM Interpretation:Degenerative Changes Performing Lab: Notes/Report: Degenerative Changes H-TSH Reviewed date:10/13/2024 02:41:34 PM Interpretation:Normal Performing [...] Interpretation:nothing acute Performing Lab: Notes/Report: nothing acute CBC Venipuncture (in house) Reviewed date:09/03/2024 10:32:47 [...] Interpretation:normal Performing Lab: Notes/Report: Test performed by [facility] [address] [place] [address] , [address], [place] [address] Jn Gupta MD, Video Production Assistant CLIA: [id number] Sodium 140 135-145 mmol/L Potassium 4.4 3.5-5.3 [...] 70 Performing Lab: Notes/Report: Test performed by [facility] [address] [place] [address] , [address], [place] [address] Jn Gupta MD, Video Production Assistant CLIA: [id number] Cholesterol 131 <200 mg/dL Triglycerides 75 <150 [...] Interpretation:normal Performing Lab: Notes/Report: Test performed by [facility] , [address], [place] [address] Jn Gupta MD, Video Production Assistant CLIA: [id number] Albumin/Creatinine Ratio, Urine 16 0-30 ug/m g Microalbumin, Urine, Random 1.9 Creatinine, Urine 122.5 Reason For Referral Reason Essential tremor Diagnosis 1 Essential tremor (G2 5.0) Referral Organization [facility] Referring Provider First Name Neno Arroyo Referring Provider Last Name Thomas Referring Provider [facility] Referred Provider Lakeisha Dutta Referred Provider Specialty Neurology General Notes Connie Jackson 2024 10:14:04 AM > faxed to [facility] Neurology, Connie Jackson 06/30/2024 11:10:14 AM > spoke to Em; referral received Referral Priority Routine Reason Right Foot Pain Diagnosis 1 Right foot pain (M79 .671) Referral Organization [facility] Referring Provider First Name Neno Arroyo Referring Provider Last Name Thomas Referring Provider [facility]3]ice Referred Provider Specialty Podiatry General Notes Lynn Campos 07/06 11:59:42 AM > faxed to Renetta Joseph Brynn 07/10/2024 09:53:31 AM > spoke with Nedra from podiatry; they have called the patient several times but no vm Referral Priority Routine Reason carotid stenosis and to establish cardiac care Diagnosis 1 Carotid stenosis (I6 5.29) Referral Organization [facility] Referring Provider First Name Neno Arroyo Referring Provider Last Name Thomas Referring Provider [facility] Referred Provider Tj Peck Referred Provider Specialty Cardiovascul ar Disease General Notes Connie Jackson 2024 12:25:42 PM > faxed to [facility] Cardiology Referral Priority Routine Diagnosis 1 Right hip pain (M25. 551) Referral Organization [facility] Referring Provider First Name Neno Arroyo Referring Provider Last Name Thomas Referring Provider Speciality Family Ronny jackice Referred Provider Specialty Physical The rapist General Notes Connie Jackson 2024 01:20:20 PM > faxed to [facility] PT Referral Priority Routine Medications Medication SIG (Take, Route, Frequency, Duration) Notes Start Date End Date Status Jardiance 25 mg 1 tablet orally once a day; Duration: 30 days Active Primidone 50 MG 2 tablet Orally Twic e a day; Duration: 30 days Active Etodolac 400 mg 1 tablet orally twic e a day; Duration: 30 days Active traMADol HCl 50 MG 1 tab(s) Orally four times a day as needed 09/18/2024 Active Atorvastatin Calcium 80 MG 1 tablet at b edtime Orally Once a day; Duration: 30 days Active [place] [employer] - as directed 08/29/2024 Active Aspirin [...] 2 TIMES A DAY; Duration: 90 Active Prazosin HCl 1 mg TAKE 2 CAPSULES BY M OUTH AT BEDTIME; Duration: 30 Active Glimepiride 4 mg TAKE ONE TABLET BY M OUTH ONCE A DAY; Duration: 90 Active Immunizations Vaccine Route Administration Date Status Comme nts xFlu shot- 6months-36 months of lri-YMTN-OPLD-trivalent Unknown 12/17/2015 Administered Tetanus Tdap-Adacel (over 7yrs) [...] W/U Status Risk Notes Problem Coronary arteriosclerosis (93368605) ASCVD (arteriosclerotic cardiovascular disease) (I25.10) Active confirmed Problem Peripheral circulatory disorder associated with diabetes mellitus (340996448) 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.59) Active confirmed Problem History of circulatory system disease (304983444) History of ASCVD (Z86.79) Active confirmed Problem Essential hypertension (36787754) Essential hypertension (I10) Active confirmed Problem Paresthesia (85013261) Paresthesia (R20.2) Active confirmed Problem Mixed anxiety and depressive disorder (342172182) Depression with anxiety (F41.8) Active confirmed Problem BMI 30+ - obesity (165875254) BMI 32.0-32.9,adult (Z68.32) Active confirmed Problem Seizure disorder (546593936) Seizure disorder (G40.909) Active confirmed Problem Carotid artery stenosis (60166380) Carotid stenosis (I65.29) Active confirmed Problem Essential tremor (052466800) Essential tremor (G25.0) Active confirmed Problem Obese class II (373069178724784) BMI 35.0-35.9,adult (Z68.35) Active confirmed Problem Lumbosacral spondylosis without myelopathy (54659322) Degenerative joint disease (DJD) of lumbar spine (M47.816) Active confirmed Problem Irritable bowel syndrome (71199947) Irritable bowel syndrome (K58.9) Active confirmed Problem Posttraumatic stress disorder (76949896) PTSD (post-traumatic stress disorder) (F43.10) Active confirmed Problem Body mass index 30.00 to 34.99 (429879677244208) BMI 34.0-34.9,adult (Z68.34) Active confirmed Problem Dyslipidemia (681869893) Dyslipidemia (E78.5) Active confirmed Problem Type II diabetes mellitus without complication (969744005) Type 2 diabetes mellitus without complication, without long-term current use of insulin (E11.9) Active confirmed Problem Sleep dysfunction with arousal disturbance (010053435) Night terror (F51.4) Active confirmed Problem Diabetic peripheral neuropathy associated with type 2 diabetes mellitus (6896965132201) Type 2 diabetes mellitus with diabetic neuropathy, unspecified whether watermelon harvesting supervisor insulin use (E11.40) Active confirmed Problem Nightmares (161757043) Nightmares (F51.5) Active confirmed Problem Falls (227355394) Falls (R29.6) Active confirme d Vital Signs Heart Rate 65 /min 10/11/2024 Blood pressure diastolic 80 mm Hg 10/11/2024 Height 68 in 10/11/2024 Blood pressure systolic 133 mm Hg 10/11/2024 Weight 215 lbs 10/11/2024 BMI 32.69 kg/m2 10/11/2024 Encounters Encounter Location Date Provider Diagnosis [facility] [address] [place] [id number] 06/20/2024 R Cruz Guzman Foot pain, right M79 .671 ; Essential tremor G25.0 and Essential hypertension I10 [facility] [address] [place] [id number] 08/29/2024 Neno Guzman Adult general medica l examination Z00.00 ; Carotid stenosis I65.29 ; Falls R29.6 ; Foot drop M21.379 ; Type 2 diabetes mellitus without complication, without long-term current use of insulin E11.9 ; ASCVD (arteriosclerotic cardiovascular disease) I25.10 ; Dyslipidemia E78.5 ; Seizure disorder G40.909 ; Depression with anxiety F41.8 ; Type 2 diabetes mellitus with diabetic neuropathy, unspecified whether watermelon harvesting supervisor insulin use E11.40 ; Type 2 diabetes mellitus with other circulatory complications E11.59 and BMI 32.0-32.9,adult Z68.32 [facility] [facility] [address] [place] [id number] 08/30/2024 R Cruz Thomas [facility] [address] [place], [place] [id number] 10/11/2024 Omer [place] Generalized weakness R53.1 and Right hip pain M25.551 [facility] [address] [place], [place] [id number] 04/28/2024 R Cruz Thomas [facility] [address] [place], [place] [id number] 06/29/2024 R Cruz Thomas [facility] [address] [place], [place] [id number] 07/24/2024 Omer [place] [facility] [address] [place], [place] [id number] 09/03/2024 R Cruz Thomas [facility] [address] [place], [place] [id number] 09/18/2024 R Cruz Thomas [facility] [address] [place], [place] [id number] 10/12/2024 R Cruz Thomas Assessments Encounter Date Diagnosis [...] R29.6) 06/20/2024 Essential hypertension (ICD-10 - I10) 08/29/2024 Foot drop (ICD-10 - M21.379) 08/29/2024 Type 2 diabetes mellitus without complication, without long-term current use of insulin (ICD-10 - E11.9) 08/29/2024 ASCVD (arteriosclerotic cardiovascular disease) (ICD-10 - I25.10) 08/29/2024 Dyslipidemia (ICD-10 - E78.5) 08/29/2024 Seizure disorder (ICD-10 - G40.909) 08/29/2024 Depression with anxiety (ICD-10 - F41.8) 08/29/2024 Type 2 diabetes mellitus with diabetic neuropathy, unspecified whether fpc insulin use (ICD-10 - E11.40) 08/29/2024 Type [...] Date [employer] ([employer]IC[employer]) [address] [address] [place] [address] [id number] JAKE PICKARD Self - patient is the insured Medications Administered Medication Instructions Date of Administration Dosage Notes Dexamethasone 03/28/2014 1 mL Medical (General) History Medical History History ICD Code HTN Hyperlipidemia Anxiety DJD of Spine kidney stones ASCVD - s/p [place] Type 2 diabetes - diagonsed 09/2017 seizure disorder broken ribs on left side, internal injur ies 08/2019 NSTEMI 06/02/20 - [facility] --> tranferred to [facility] for CABG Surgical History Surgery Date(Month/Year) Cardiac Stents-total of 16 Stents placed 2009 Heart Cath 2013 removal of cyst on right side of face 19 95 kidney stones removed Vascetomy heart cath CABG x 3/ -Dr Wang 06/17/20 Hospitalization History Reason Date(Month/Year) NSTEMI - [facility] -->transfered to 06/12/20 -mower accident [facility] ER-SOA 07/2019 [facility]-seizure 05/09/18 [facility] [place]-rib pain-right sided 01.31.18 [facility]-blockage 06/28 [facility] ER-stomach pain 01/27/15 [facility] 07/26/13 see above
--- NOTE | 2024-11-29 20:16 | XR_ITS ---
PROCEDURE INFORMATION: Exam: XR Left Shoulder Exam date and time: 11/29/2024 8:27 PM Age: 69 years old Clinical indication: Injury or trauma; Fall; Other: Left shoulder pain; Additional info: Tenderness S/P fall TECHNIQUE: Imaging protocol: Radiologic exam of the left shoulder. Views: 2 or more views. COMPARISON: CR XR SHOULDER LT MIN 2V 10/29/2020 3:58 PM FINDINGS: Bones/joints: No acute fracture or dislocation. Soft tissues: Normal. IMPRESSION: No acute fracture or dislocation.
--- NOTE | 2024-11-29 20:16 | CT_ITS ---
PROCEDURE INFORMATION: Exam: CT Cervical Spine Without Contrast Exam date and time: 11/29/2024 8:33 PM Age: 69 years old Clinical indication: Pain; Other: Midline; Additional info: Midline tenderness, fall TECHNIQUE: Imaging protocol: Computed tomography of the cervical spine without contrast. Radiation optimization: All CT scans at this facility use at least one of these dose optimization techniques: automated exposure control; mA and/or kV adjustment per patient size (includes targeted exams where dose is matched to clinical indication); or iterative reconstruction. COMPARISON: CT CERVICAL SPINE WO CON 10/09/2024 1:13 PM FINDINGS: Bones: Chronic bony structure adjacent to the left C4-C5 facets. Moderate left neural foraminal stenosis from C3-C7. Mild to moderate right neural foraminal stenoses from C3-C6. Straightening of the curvature of the cervical spine is likely positional. Multilevel degenerative changes of the cervical spine producing multiple levels of mild and moderate spinal canal stenosis. Lungs: Lung apices are normal. Soft tissues: Unremarkable. IMPRESSION: No acute fracture or malalignment of the cervical spine.
--- NOTE | 2024-11-29 20:16 | CT_ITS ---
PROCEDURE INFORMATION: Exam: CT Thoracic Spine Without Contrast Exam date and time: 11/29/2024 8:35 PM Age: 69 years old Clinical indication: Pain in thoracic spine; Additional info: Midline tenderness S/P fall TECHNIQUE: Imaging protocol: Computed tomography of the thoracic spine without contrast. Radiation optimization: All CT scans at this facility use at least one of these dose optimization techniques: automated exposure control; mA and/or kV adjustment per patient size (includes targeted exams where dose is matched to clinical indication); or iterative reconstruction. COMPARISON: CT CERVICAL SPINE WO CON 11/29/2024 8:33 PM FINDINGS: Bones/joints: Chronic appearing superior endplate deformity of T1. Soft tissues: Unremarkable. Vasculature: The aorta demonstrates moderate atherosclerotic disease. Coronary arteries: Coronary artery calcifications. Other findings: Stigmata of old granulomatous disease. IMPRESSION: No acute fracture or malalignment of the thoracic spine.
--- NOTE | 2024-11-29 20:16 | XR_ITS ---
PROCEDURE INFORMATION: Exam: XR Chest Exam date and time: 11/29/2024 8:27 PM Age: 69 years old Clinical indication: Other: Left shoulder pain TECHNIQUE: Imaging protocol: Radiologic exam of the chest. Views: 1 view. COMPARISON: CR XR CHEST PORTABLE 09/30/2024 10:30 PM FINDINGS: Lungs: Stigmata of old granulomatous disease. Pleural spaces: Unremarkable. No pleural effusion. No pneumothorax. Heart/Mediastinum: Coronary artery calcifications. Cardiomegaly. Bones/joints: Old left rib fractures. Status post median sternotomy. IMPRESSION: No acute findings.
--- NOTE | 2024-11-29 20:20 | PC.NURSE ---
blood collected and sent to lab
[2024-11-29] MEDS: ACETAMINOPHEN 500MG TAB 1000 MG PO (20:40)
[2024-11-29] MEDS: OXYCODONE 5MG IMMEDIATE RELEASE TABLET 5 MG PO (20:40)
[2024-11-29] MEDS: METHOCARBAMOL 500MG TABLET 500 MG PO (20:40)
== END 2024-11-29 22:50 | disposition home or self-care (01) ==
PROVIDERS: Emergency Provider Student in an Organized Health Care Education/Training Program; PCP Family Medicine
DX: M54.2 Cervicalgia (principal); E11.9 Type 2 diabetes mellitus without complications; I25.10 Atherosclerotic heart disease of native coronary artery without angina pectoris; I65.29 Occlusion and stenosis of unspecified carotid artery; I10 Essential (primary) hypertension
CPT/HCPCS: 71045; 72125; 72128; 73030; 93005; 99285